=== PATIENT | male | born 1985 | race Caucasian/White ===

== ENCOUNTER 2022-11-15 03:31 | Emergency (ER) | payer MEDICAID, SELFPAY ==
[2022-11-15 03:40] VITALS: BP 133/80; PULSE 76; RESP 16; TEMP 36.4; O2SAT 97; BMI 33.6
--- NOTE | 2022-11-15 03:45 | ED.GENADUL1 ---
HPI - General Adult General Chief complaint: Shortness of Breath/Dyspnea Stated complaint: dental pain Time Seen by Provider: 11/15/22 03:45 Source: patient Mode of arrival: walk-in Limitations: no limitations History of Present Illness HPI narrative: the patient have multiple dental problems and he presented to the Emergency Room with dental pain mentioned also that he has been complaining of nasal congestion and cough for the last few days He is a smoker of less than one pack per day, and chin that he have an irritative cough Review of systems otherwise negative Related Data Previous Rx's Medication Instructions Recorded amoxicillin 875 mg-potassium 1 tab PO BID #14 tabs 11/15/22 clavulanate 125 mg tablet ibuprofen 600 mg tablet 600 mg PO Q8H PRN pain #20 tabs 11/15/22 prednisone 50 mg tablet 50 mg PO DAILY 3 days #3 tabs 11/15/22 Allergies Allergy/AdvReac Type Severity Reaction Status Date / Time No Known Drug Allergies Allergy Verified 11/15/22 03:44 Review of Systems ROS Status of ROS 10 or more systems reviewed and unremarkable except as noted in history and below PFSH PFS Social History Smoking status: Current every day smoker Exam Narrative Exam Narrative: Nurses notes and vital signs reviewed and patient is not hypoxic. General: Well-appearing and in no apparent distress. Skin: Warm, dry, no pallor noted. No rash. Head: Normocephalic, atraumatic Dental : the patient have a very poor dental tympanic membranes with multiple decayed tooth he also has a decayed #30 and note #29 in addition to tooth #5 and six. Neck: Supple, non-tender. Eye: Pupils are equal, round and EOMI. No scleral icterus. Ears, Nose, Mouth, and Throat: TM are clear, no nasal mucosal hypertrophy. Oral mucosa is moist, no posterior oropharynx erythema, uvula is mid-line Cardiovascular: Regular Rate and Rhythm without murmur, gallop or rub. Respiratory: No accessory muscle use or respiratory distress. Lungs are clear to auscultation, no wheezing, rales or rhonchi Chest Wall: no tenderness Back: No midline thoracic or lumbar vertebral tenderness. No CVA tenderness Musculoskeletal: normal ROM, no calf or popliteal tenderness, no lower extremity edema/swelling GI: Abdomen is soft, non-distended. Normal bowel sounds. No masses appreciated. No tenderness to palpation. No rebound, guarding, or rigidity noted. Neurological: A&O x4. No cranial nerve dysfunction observed. No truncal ataxia. Moves all extremities. Sensation intact. Psychiatric: Cooperative and interactive. Normal mood and affect. Constitutional Vital Signs - 24 hr 11/15/22 03:40 Temperature 97.5 F L Pulse Rate [Monitor] 76 Respiratory Rate 16 Blood Pressure [Left Arm] 133/80 H Pulse Oximetry 97 Oxygen Delivery Method Room Air Course Vital Signs Vital signs: Vital Signs Temperature 97.5 F L 11/15/22 03:40 Pulse Rate 76 11/15/22 03:40 Respiratory Rate 16 11/15/22 03:40 Blood Pressure 133/80 H 11/15/22 03:40 Pulse Oximetry 97 11/15/22 03:40 Oxygen Delivery Method Room Air 11/15/22 03:40 Temperature 97.5 F L 11/15/22 03:40 Pulse Rate 76 11/15/22 03:40 Respiratory Rate 16 11/15/22 03:40 Blood Pressure 133/80 H 11/15/22 03:40 Pulse Oximetry 97 11/15/22 03:40 Oxygen Delivery Method Room Air 11/15/22 03:40 Medical Decision Making [facility] Narrative Medical decision making narrative: for the patient that the pain he'll be treated in the Emergency Room with the local lidocaine in addition to Augmentin and ibuprofen to go home with for the pain The patient also will be treated for his cough and bronchitis with prednisone in addition to continue the Mucinex The patient is to followup with primary care physician in next 2-3 days or to return to the emergency department should any of the signs or symptoms worsen or new symptoms develop. The patient agrees with the following Diagnosis and Treatment plan and the patient will be discharged home. Discharge Plan Discharge Chief Complaint: Shortness of Breath/Dyspnea Clinical Impression: Dental infection, Bronchitis Patient Disposition: Home, Self-Care Time of Disposition Decision: 04:00 Mode of Transportation: Private Vehicle Prescriptions / Home Meds: New amoxicillin-pot clavulanate 875-125 mg tablet 1 tab PO BID Qty: 14 0RF prednisone 50 mg tablet 50 mg PO DAILY 3 Days Qty: 3 0RF ibuprofen 600 mg tablet 600 mg PO Q8H PRN (Reason: pain) Qty: 20 0RF Discontinued ibuprofen [IBU] 800 mg tablet 800 mg PO Q8H PRN (Reason: pain) Instructions: Dental Abscess (ED), Acute Bronchitis (ED) Stand Alone Forms: Portal Instructions Referrals: Physician,Non-Staff, MD [Primary Care Provider] - 1 week Follow Up Appointments: Dental referral
[2022-11-15] MEDS: KETOROLAC TROMETHAMINE 30 MG/ML VIAL IM (04:47)
== END 2022-11-15 04:55 | disposition home or self-care (01) ==
PROVIDERS: Emergency Provider Emergency Medicine
DX: J40 Bronchitis, not specified as acute or chronic (principal); K04.7 Periapical abscess without sinus; F17.210 Nicotine dependence, cigarettes, uncomplicated
CPT/HCPCS: 96372; 99284

== ENCOUNTER 2022-12-21 19:17 | Emergency (ER) | payer MEDICAID, SELFPAY ==
[2022-12-21 19:20] VITALS: BP 127/70; PULSE 63; RESP 18; TEMP 36.4; O2SAT 97; BMI 33.1
--- NOTE | 2022-12-21 19:35 | XR_ITS ---
The [address] [address] Patient Name: DORIS VEGA MRN: [id number] date: 1985 Sex: M Assigned Patient Location: ER Current Patient Location: ER Accession/Order Number: [id number] Exam Date: 12/21/2022 19:53 Report Date: 12/21/2022 20:41 At the request of: FILI OSBORN Procedure: XR ribs RT min 3V w CXR1V IMAGES REVIEWED: XR hand LT min 3V, XR ribs RT min 3V w CXR1V COMPARISON: None available. CLINICAL INDICATION: Left hand pain, cough, right rib pain FINDINGS/IMPRESSION: 1. No evidence of acute osseous abnormality of the left hand. 2. No acute displaced right rib fractures. No evidence of acute cardiopulmonary abnormality. Electronically authenticated by: MAXIMINO AGUILAR Date: 12/21/2022 20:41
--- NOTE | 2022-12-21 19:35 | XR_ITS ---
The [address] [address] Patient Name: DORIS VEGA MRN: [id number] date: 1985 Sex: M Assigned Patient Location: ER Current Patient Location: ER Accession/Order Number: [id number] Exam Date: 12/21/2022 19:53 Report Date: 12/21/2022 20:41 At the request of: FILI OSBORN Procedure: XR hand LT min 3V IMAGES REVIEWED: XR hand LT min 3V, XR ribs RT min 3V w CXR1V COMPARISON: None available. CLINICAL INDICATION: Left hand pain, cough, right rib pain FINDINGS/IMPRESSION: 1. No evidence of acute osseous abnormality of the left hand. 2. No acute displaced right rib fractures. No evidence of acute cardiopulmonary abnormality. Electronically authenticated by: MAXIMINO AGUILAR Date: 12/21/2022 20:41
--- NOTE | 2022-12-21 19:35 | ECG_ITS ---
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
[2022-12-21 19:43] VITALS: PULSE 67
[2022-12-21] MEDS: KETOROLAC TROMETHAMINE 60 MG/2 ML VIAL IM (20:01)
== END 2022-12-21 21:02 | disposition home or self-care (01) ==
PROVIDERS: Emergency Provider Internal Medicine
DX: R07.89 Other chest pain (principal); R05.9 Cough, unspecified; S60.222A Contusion of left hand, initial encounter; W22.8XXA Striking against or struck by other objects, initial encounter; Z79.899 Other long term (current) drug therapy; F17.210 Nicotine dependence, cigarettes, uncomplicated
CPT/HCPCS: 71101; 73130; 93005; 96372; 99285

== ENCOUNTER 2023-05-29 17:23 | Emergency (ER) | payer MEDICAID, SELFPAY ==
[2023-05-29 17:30] VITALS: BP 115/76; PULSE 77; RESP 12; TEMP 36.4; O2SAT 100; BMI 32.3
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
[2023-05-29] MEDS: AMOXICILLIN/POTASSIUM CLAV 1 TAB TABLET PO (18:57)
== END 2023-05-29 19:03 | disposition home or self-care (01) ==
PROVIDERS: Emergency Provider Emergency Medicine; PCP Internal Medicine
DX: S60.221A Contusion of right hand, initial encounter (principal); S61.411A Laceration without foreign body of right hand, initial encounter; Z79.899 Other long term (current) drug therapy; F17.210 Nicotine dependence, cigarettes, uncomplicated; Y04.2XXA Assault by strike against or bumped into by another person, initial encounter
CPT/HCPCS: 73130; 99283

== ENCOUNTER 2023-07-03 18:20 | Emergency (ER) | payer MEDICAID, SELFPAY ==
--- OUTSIDE RECORDS SUMMARY | 2023-07-03 18:28 | XMS_ITS | CCD ---
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 prevent stiffness and swelling. ? Return to your normal activities as told by your health care provider. Ask your health care provider what activities are safe for you. ? Ask your health care provider when it is safe for you to drive if you have a sling or brace on your shoulder. ? If you were shown how to do any exercises, do them as told by your health care provider. General instructions ? If directed, put ice on the affected area. ? Put ice in a plastic bag. ? Place a towel between your skin and the bag. ? Leave the ice on for 20 minutes, 2?3 times a day. ? Take rnwq-lxq-lkumtvx and prescription medicines only as told by your health care provider. ? Do not use any products that contain nicotine or tobacco, such as cigarettes, e-cigarettes, and chewing tobacco. These can delay healing. If you need help quitting, ask your health care provider. ? Keep all follow-up visits as told by your health care provider. This is important. Contact a health care provider if: ? Your pain gets worse. ? Your pain is not relieved with medicines. ? You have increased redness or swelling. Get help right away if: ? You have a fever. ? You cannot move your arm or shoulder. ? You develop severe numbness or tingling in your arm, hand, or fingers. ? Your arm, hand, or fingers feel cold and turn blue, white, or wilburn. Summary ? A shoulder sprain is a partial or complete tear in one of the tough, fiber-like tissues (ligaments) in the shoulder. ? This condition may be caused by a fall, a hit to the shoulder, or a twist of the arm. ? Treatment usually includes rest, ice, and pain medicine as needed. ? If you have a sling or brace, wear it as told by your health care provider. Remove it only as told by your health care provider. This information is not intended to replace advice given to you by your health care provider. Make sure you discuss any questions you have with your health care provider. Document Revised: 02/11/2022 Document Reviewed: 02/11/2022 [employer] Patient Education ? 2022 [employer] Normal [facility] ED Patient Summaryon 023 ED Patient Summary [place] [id number] Patient Discharge Instructions Person Information Name: DORIS COCHRAN Age: 37 Years Arrival Date: 01/31/2023 08:40:38 Discharge Diagnosis: Shoulder strain Primary Care Physician: SHAIKH JIMÉNEZ Provider Information Primary Provider: David Weathers M.D. Advanced Acting Section Chief:Michele Suazo PA-C The exam and treatment you received in the Emergency Department were for an urgent problem and are not intended as complete care. It is important that you follow up with a doctor, nurse practitioner, or physician?s physician assistant surgery for ongoing care. If your symptoms become worse or you do not improve as expected and you are unable to reach your usual health care provider, you should return to the Emergency Department. We are available 24 hours a day. DORIS COCHRAN has been given the following list of patient education materials, prescriptions and follow-up instructions: Follow-up Instructions: With: Address: When: SHAIKH TINO [address] [place], [place] [phone] [employer] (1) In 3 days 02/03/2023 In the event that this physician does not participate in your insurance network, please consult with your insurance company to find a nearby participating provider. Patient Education Materials: Shoulder Sprain A MESSAGE TO ALL PATIENTS REGARDING OPIOIDS PRESCRIPTION OPIOIDS: WHAT YOU NEED TO KNOW Prescription opioids can be used to help relieve qeyjumeu-gg-xgxzlc pain and are often prescribed following a surgery or injury, or for certain health conditions. These medications can be an important part of the treatment but also come with serious risks. It is important to work with your healthcare provider to make sure you are getting the safest, most effective care. WHAT ARE THE RISKS AND SIDE EFFECTS OF OPIOID USE? Prescription opioids carry serious risks of addiction and overdose, especially with prolonged use. An opioid overdose, often marked by slowed breathing, can cause sudden . The use of prescription opioids can have a number of side effects as well, even when taken as directed: ? Tolerance?meaning you might need to take more of the medication for the same pain relief ? Physical dependence?meaning you have symptoms of withdrawal when a medication is stopped ? Increased sensitivity to pain ? Constipation ? Nausea, vomiting, and dry mouth ? Sleepiness and dizziness ? Confusion ? Depression ? Low levels of testosterone that can result in lower sex drive, energy, and strength ? Itching and sweating RISKS ARE GREATER WITH: ? History of drug misuse, substance use disorder, or overdose ? Mental health conditions (such as depression or anxiety) ? Sleep apnea ? Older age (65 years and older) ? Avoid alcohol while taking prescription opioids. Also, unless specifically advised by your health care provider, medications to avoid include: ? Benzodiazepines (such as Xanax or Valium) ? Muscle relaxants (such as Soma or Flexeril) ? Hypnotics (such as Ambien or Lunesta) ? Other prescription opioids KNOW YOUR OPTIONS Talk to your health care provider about ways to manage your pain that don?t involve prescription opioids. Some of these options may actually work better and have fewer risks and side effects. Options may include: ? Pain relievers such as acetaminophen, ibuprofen, and naproxen ? Some medication that are also used for depression or seizures ? Physical therapy and exercise ? Cognitive behavioral therapy, a psychological, goal-directed approach, in which patients learn how to modify physical, behavioral, and emotional triggers of pain and stress. IF YOU ARE PRESCRIBED OPIOIDS FOR PAIN: ? Never take opioids in greater amounts or more often than prescribed. ? Follow up with your primary health care provider. o Work together to create a plan on how to manage your pain. o Talk about ways to help manage your pain that don?t involve prescription opioids. o Talk about any and all concerns and side effects. ? Help prevent misuse and abuse o Never sell or share prescription opioids. o Never use another person?s prescription opioids. ? Store prescription opioids in a secure place and out of reach of others (this may include visitors, children, friends, and family). ? Safely dispose of unused prescription opioids: Find your community drug take-back program or your pharmacy mail-back program, or flush them down the toilet, following guidance from the Food and Drug Administration (www.fda.gov/Drugs/Res ourcesForYou). ? Visit www.cdc.gov/drugoverdo se to learn about the risks of opioids abuse and overdose. ? If you believe you may be struggling with addiction, tell your health live in caregiver and ask for guidance or call [facility] National Helpline at 0-822-750-HSUA. v Source: US Department of Health (more content not included)... Normal [facility] XR Shoulder Complete Righton 01-31-2023 XR Shoulder Complete Right Exam Date/Time: 01/31/2023 09:35 EDT Reason for Exam: Pain, Traumatic Report IMPRESSION: No acute osseous findings. EXAMINATION/TECHNIQUE: XR Shoulder Complete Right HISTORY: Right shoulder pain. COMPARISON: None RESULT: No acute fracture. No dislocation. Glenohumeral joint space maintained. Mild degenerative changes of the acromioclavicular joint. Visualized lung/thorax clear. No other significant abnormality. Ordering Provider: Michele Suazo FINAL REPORT Dictated: 01/31/2023 3:08 pm Orville SILVER, Giuseppe Schwartz Signed (Electronic Signature): 01/31/2023 3:08 pm Signed by: Giuseppe Jacinto MD Transcribed by: ESTEBAN Technologist: KIRSTIE Technical Comments Radiation Dose: Ka,r in mGy = . DAP = . Normal [facility] AMYLASEon 12-02-2021 Amylase [Catalytic activity/Vol] 33 U/L Normal 25-115 [facility] Comment on above: Performed By: #### A MY, LIPA, CMP #### [facility] [address] [place] [address] Dr. Jenae Alvares CBC AUTO DIFFon 12-02-2021 BASO # 0.0 103/ul Normal 0.0-0.1 [facility] Comment on above: Performed By: #### C BC #### [facility] [address] [place] [address] Dr. Jenae Alvares Basophils/100 WBC (Bld) 0.0 % Critically low 0.2-2.0 [facility] Comment on above: Performed By: #### C BC #### [facility] [address] [place] [address] Dr. Jenae Alvares EO # 0.0 103/ul Normal 0.0-0.7 [facility] Comment on above: Performed By: #### C BC #### [facility] [address] [place] [address] Dr. Jenae Alvares Eosinophils/100 WBC (Bld) 0.5 % Critically low 0.9-7.0 [facility] Comment on above: Performed By: #### C BC #### [facility] [address] [place] [address] Dr. Jenae Alvares Erythrocyte distribution width (RBC) [Ratio] 13.3 % Normal 11.0-15.0 [facility] Comment on above: Performed By: #### C BC #### [facility] [address] [place] [address] Dr. Jenae Alvares Hematocrit (Bld) [Volume fraction] 42.2 % Normal 42.0-54.0 [facility] Comment on above: Performed By: #### C BC #### [facility] [address] [place] [address] Dr. Jenae Alvares Hemoglobin (Bld) [Mass/Vol] 14.5 g/dL Normal 14.0-18.0 [facility] Comment on above: Performed By: #### C BC #### [facility] [address] [place] [address] Dr. Jenae Alvares IG # 0.01 10e3/ul Normal 0.00-0.03 [facility] Comment on above: Performed By: #### C BC #### [facility] [address] [place] [address] Dr. Jenae Alvares IG % 0.2 % Normal 0.0-0.5 [facility] Comment on above: Performed By: #### C BC #### [facility] [address] [place] [address] Dr. Jenae Alvares LYMPH # 1.4 103/ul Normal 1.2-3.8 [facility] Comment on above: Performed By: #### C BC #### [facility] [address] [place] [address] Dr. Jenae Alvares Lymphocytes/100 WBC (Bld) 24.7 % Normal 20.5-60.0 [facility] Comment on above: Performed By: #### C BC #### [facility] [address] [place] [address] Dr. Jenae Alvares MANUAL DIFF REQ NO Normal [facility] Comment on above: Performed By: #### C BC #### [facility] [address] [place] [address] Dr. Jenae Alvares MCH (RBC) [Entitic mass] 31.4 pg Normal 25.9-34.0 [facility] Comment on above: Performed By: #### C BC #### [facility] [address] [place] [address] Dr. Jenae Alvares MCHC (RBC) [Mass/Vol] 34.4 g/dL Normal 29.9-35.2 [facility] Comment on above: Performed By: #### C BC #### [facility] [address] [place] [address] Dr. Jenae Alvares MCV (RBC) [Entitic vol] 91.3 fL Normal 80.0-94.0 [facility] Comment on above: Performed By: #### C BC #### [facility] [address] [address] [address] Jenae Alvares MONO # 0.4 103/ul Normal 0.3-0.8 [facility] Comment on above: Performed By: #### C BC #### [facility] [address] [address] [address] Jenae Alvares Monocytes/100 WBC (Bld) 7.2 % Normal 1.7-12.0 [facility] Comment on above: Performed By: #### C BC #### [facility] [address] [place] [address] Dr. Jenae Alvares NEUT # 3.7 103/ul Normal 1.4-6.5 [facility] Comment on above: Performed By: #### C BC #### [facility] [address] [place] [address] Dr. Jenae Alvares Neutrophils/100 WBC (Bld) 67.4 % Normal 43.0-75.0 [facility] Comment on above: Performed By: #### C BC #### [facility] [address] [place] [address] Dr. Jenae Alvares Platelet mean volume (Bld) [Entitic vol] 12.2 fL Normal 9.5-13.5 [facility] Comment on above: Performed By: #### C BC #### [facility] [address] [place] [address] Dr. Jenae Alvares PLT 121 103/ul Critically low 150-450 [facility] Comment on above: Performed By: #### C BC #### [facility] [address] [address] [address] Jenae Alvares RBC 4.62 106/ul Critically low 4.70-6.10 [facility] Comment on above: Performed By: #### C BC #### [facility] [address] [place] [address] Dr. Jenae Alvares WBC 5.5 103/ul Normal 4.0-11.0 [facility] Comment on above: Performed By: #### C BC #### [facility] [address] [place] [address] Dr. Jenae Alvares LIPASEon 12-02-2021 Lipase [Catalytic activity/Vol] 86.0 U/L Normal 73.0-393.0 [facility] Comment on above: Performed By: #### A MY, LIPA, CMP #### [facility] [address] [place] [address] Dr. Jenae Alvares PROF 14(COMP METB)on 022 Albumin [Mass/Vol] 3.7 g/dL Normal 3.4-5.0 [facility] Comment on above: Performed By: #### A MY LIPA, CMP #### [facility] [address] [place] [address] Dr. Jenae Alvares Albumin/Globulin [Mass ratio] 1.0 {ratio} Normal [facility] Comment on above: Performed By: #### A MY, LIPA, CMP #### [facility] [address] [place] [address] Dr. Jenae Alvares ALP [Catalytic activity/Vol] 154 U/L Critically high 46-116 [facility] Comment on above: Performed By: #### A MY, LIPA, CMP #### [facility] [address] [place] [address] Dr. Jenae Alvares ALT [Catalytic activity/Vol] 48 U/L Normal 16-63 [facility] Comment on above: Performed By: #### A MY, LIPA, CMP #### [facility] [address] [place] [address] Dr. Jenae Alvares Anion gap [Moles/Vol] 11.0 mmol/L Normal [facility] Comment on above: Performed By: #### A MY, LIPA, CMP #### [facility] [address] [place] [address] Dr. Jenae Alvares AST [Catalytic activity/Vol] 25 U/L Normal 15-37 [facility] Comment on above: Performed By: #### A MY, LIPA, CMP #### [facility] [address] [place] [address] Dr. Jenae Alvares Bilirubin [Mass/Vol] 0.4 mg/dL Normal 0.2-1.0 [facility] Comment on above: Performed By: #### A TUTU VERDEA, CMP #### [facility] [address] [place] [address] Dr. Jenae Alvares Calcium [Mass/Vol] 8.6 mg/dL Normal 8.5-10.1 [facility] Comment on above: Performed By: #### A AMMON LIPA, CMP #### [facility] [address] [place] [address] Dr. Jenae Alvares Chloride [Moles/Vol] 105 mmol/L Normal 98-107 [facility] Comment on above: Performed By: #### A AMMON LIPA, CMP #### [facility] [address] [place] [address] Dr. Jenae Alvares CO2 [Moles/Vol] 26.9 mmol/L Normal 21.0-32.0 [facility] Comment on above: Performed By: #### A AMMON LIPA, CMP #### [facility] [address] [place] [address] Dr. Jenae Alvares Creatinine [Mass/Vol] 1.14 mg/dL Normal 0.70-1.30 [facility] Comment on above: Performed By: #### A AMMON LIPA, CMP #### [facility] [address] [place] [address] Dr. Jenae Alvares EGFR-AF MOSOTHO >60 Normal >=60 [facility] Comment on above: Performed By: #### A AMMON LIPA, CMP #### [facility] [address] [place] [address] Dr. Jenae Alvares EGFR-NON AF MOSOTHO >60 Normal >=60 [facility] Comment on above: Performed By: #### A AMMON LIPA, CMP #### [facility] [address] [place] [address] Dr. Jenae Alvares Globulin (S) [Mass/Vol] 3.8 g/dL Normal [facility] Comment on above: Performed By: #### A AMMON LIPA, CMP #### [facility] [address] [address] [address] Jenae Alvares Glucose [Mass/Vol] 96 mg/dL Normal 74-106 [facility] Comment on above: Performed By: #### A MY LIPA, CMP #### [facility] [address] [address] [address] Jenae Alvares Potassium [Moles/Vol] 3.9 mmol/L Normal 3.5-5.1 [facility] Comment on above: Performed By: #### A MY LIPA, CMP #### [facility] [address] [address] [address] Jenae Alvares Protein [Mass/Vol] 7.5 g/dL Normal 6.4-8.2 [facility] Comment on above: Performed By: #### A AMMON LIPA, CMP #### [facility] [address] [address] [address] Jenae Alvares Sodium [Moles/Vol] 139 mmol/L Normal 136-145 [facility] Comment on above: Performed By: #### A AMMON LIPA, CMP #### [facility] [address] [address] [address] Jenae Alvares Urea nitrogen [Mass/Vol] 11.0 mg/dL Normal 7.0-18.0 [facility] Comment on above: Performed By: #### A AMMON LIPA, CMP #### [facility] [address] [address] [address] Jenae Alvares Urea nitrogen/Creatinine [Mass ratio] 9.6 mg/mg Normal [facility] Comment on above: Performed By: #### A AMMON LIPA, CMP #### [facility] [address] [address] [address] Jenae Alvares COVID19 ([facility])on 08-14-2021 SARS-CoV-2 (COVID-19) RNA RIP+probe Ql (Unsp spec) Not detected Normal NOT-DETECTED [facility] Comment on above: Order Comment: Is th is test for diagnosis or screening?->Screening Result Comment: Nega tive results do not preclude SARS-CoV-2 infection and should not be used as the sole basis for treatment or other patient management decisions. Optimum specimen types and timing for peak viral levels during infections caused by SARS-CoV-2 has not been determined. The possibility of a false negative result should especially be considered if the patient's recent exposures or clinical presentation suggest that SARS-CoV-2 infection is probable, and diagnostic tests for other causes of illness (e.g., other respiratory illness) are negative. Collection of a new specimen and re-testing may be necessary if the patient is critically ill or clinically deteriorating. \[id number]\This test was performed using real time PCR for qualitative detection of SARS-CoV-2 nucleic acid and has been approved as Emergency Use Authorization (EAU) for the qualitative detection of SARS-CoV-2 nucleic acid. \X0D0A\Resulting Lab: [facility] Performed By: #### C [id number] #### [place] [address] Ph. [phone] XR COMPARISON OF OUTSIDE CLIVE MSon 08-06-2021 XR COMPARISON OF OUTSIDE FILMS RADRPT There is no result for this study. This is a placeholder for comparison films only. Final result Normal [facility] [id number] 07-01-2021 SARS-CoV-2 (COVID-19) RNA RIP+probe Ql (Unsp spec) Normal [facility] Comment on above: Performed By: #### C OVID #### [facility] [employer] [facility] [place] [address] Pillow Cleaner: Chuck Bradley MD [facility] [address] [place] [address] Pillow Cleaner: Evin Poole MD SARS-CoV-2 (COVID-19) RNA RIP+probe Ql (Unsp spec) Not detected Normal [facility] Comment on above: Result Comment: The specimen is NEGATIVE for SARS-CoV-2, the novel coronavirus associated with COVID-19. A negative result does not rule out COVID-19. Regina SARS-CoV-2 for use on the [employer] is a real-time RT-PCR test intended for the qualitative detection of nucleic acids from SARS-CoV-2 in clinician-collected nasal, nasopharyngeal, and oropharyngeal swab specimens from individuals who meet COVID-19 clinical and/or epidemiological criteria. Regina SARS-CoV-2 is for use only under Emergency Use Authorization (EUA) in laboratories certified under Clinical Laboratory Improvement Amendments of 1988 (CLIA), 42 U.S.C. ?263a, that meet requirements to perform high or moderate complexity tests. An individual without symptoms of COVID-19 and who is not shedding SARS-CoV-2 virus would expect to have a negative (not detected) result in this assay. Fact sheet for Healthcare Providers: https://www.fda.gov/media/414777/download Fact sheet for Patients: https://www.fda.gov/media/714045/download METHODOLOGY: RT-PCR Performed By: #### C OVID #### [facility] [address] [place] [address] Pillow Cleaner: Chuck Bradley MD [facility] [address] [place] [address] [place] [address] Pillow Cleaner: Evin Poole MD COVID-19, Rapidon 06-30-2021 SARS-CoV-2 (COVID-19) RNA RIP+probe Ql (Unsp spec) Not detected Not Detected [facility] Comment on above: Rapid NAAT: The specimen is NEGATIVE for SARS-CoV-2, the novel coronavirus associated with COVID-19. The ID NOW COVID-19 assay is designed to detect the virus that causes COVID-19 in patients with signs and symptoms of infection who are suspected of COVID-19. An individual without symptoms of COVID-19 and who is not shedding SARS-CoV-2 virus would expect to have a negative (not detected) result in this assay. Negative results should be treated as presumptive and, if inconsistent with clinical signs and symptoms or necessary for patient management, should be tested with an alternative molecular assay. Negative results do not preclude SARS-CoV-2 infection and should not be used as the sole basis for patient management decisions. Fact sheet for Healthcare Providers: https://www.fda.gov/media/415294/download Fact sheet for Patients: https://www.fda.gov/media/944262/download Methodology: Isothermal Nucleic Acid Amplification Specimen Description .NASOPHARYNGEAL SWAB [facility] [id number] 06-30-2021 SARS-CoV-2 (COVID-19) RNA RIP+probe Ql (Unsp spec) .NASOPHARYNGEAL SWAB Normal [facility] Comment on above: Performed By: #### C OVID #### [facility] [address] [place], [place] [id number] Pillow Cleaner: Chuck Bradley MD [facility] [address] [place] [address] Pillow Cleaner: Evin Poole MD SARS-CoV-2 (COVID-19) RNA RIP+probe Ql (Unsp spec) Not detected Normal NOTDET [facility] Comment on above: Result Comment: Rapid NAAT: The specimen is NEGATIVE for SARS-CoV-2, the novel coronavirus associated with COVID-19. The ID NOW COVID-19 assay is designed to detect the virus that causes COVID-19 in patients with signs and symptoms of infection who are suspected of COVID-19. An individual without symptoms of COVID-19 and who is not shedding SARS-CoV-2 virus would expect to have a negative (not detected) result in this assay. Negative results should be treated as presumptive and, if inconsistent with clinical signs and symptoms or necessary for patient management, should be tested with an alternative molecular assay. Negative results do not preclude SARS-CoV-2 infection and should not be used as the sole basis for patient management decisions. Fact sheet for Healthcare Providers: https://www.fda.gov/media/544532/download Fact sheet for Patients: https://www.fda.gov/media/200562/download Methodology: Isothermal Nucleic Acid Amplification Performed By: #### C OVRB #### [facility] [address] [place] [address] Pillow Cleaner: Evin Poole MD XR LUMBAR SPINE (MIN 4 VIEWS )on 06-13-2021 XR LUMBAR SPINE (MIN 4 VIEWS) RADRPT EXAM: XR LUMBAR SPINE (MIN 4 VIEWS) HISTORY: TECH NOTES: Chronic Lumbar pain Nki LN-Zij-Emtl-Flex-Ext per ordering provider Low back pain due to bilateral sciatica COMPARISON: 05/16/2021 TECHNIQUE: 5 views lumbar spine FINDINGS: 5 nonrib-bearing lumbar vertebrae. Normal lumbar lordosis without listhesis. Vertebral body heights are maintained. No acute fracture identified. No dynamic instability identified. Visualized bony pelvis is congruent. The bowel gas pattern is nonobstructive. Report electronically signed by: Dr. Ras Olson IMPRESSION: No dynamic instability Chronic Lumbar pain Nki [id number]-Ext per ordering provider Interpreted by: Ras Olson MD Signed by: Ras Olson MD 06/13/21 Final result Normal [facility] Comment on above: Order Comment: AP/la teral/Spot with flew/ext MRI CERVICAL SPINE WO CONTRA STon 05-16-2021 MRI CERVICAL SPINE WO CONTRAST RADRPT EXAM TYPE: MRI CERVICAL SPINE WO CONTRAST, MRI LUMBAR SPINE WO CONTRAST EXAM DATE AND TIME: 05/16/2021 9:34 AM EST INDICATION: Neck and back pain with radiculopathy COMPARISON: Correlated with CT abdomen and pelvis 05/28/2012 TECHNIQUE: MR imaging of the cervical spine and lumbar was performed without contrast. FINDINGS: Cervical spine: Study degraded by motion. There is normal cervical lordosis. No subluxation. Vertebral body heights are maintained. Bone marrow signal is unremarkable. No prevertebral soft tissue swelling. The cervical spinal cord is normal in size and signal characteristics. Cerebellar tonsils are in normal location. Findings by level: C2-C3: No disc herniation. No central canal or foraminal narrowing. C3-C4: No disc herniation. No central canal or foraminal narrowing. C4-C5: No disc herniation. No central canal or foraminal narrowing. C5-C6: No disc herniation. No central canal or foraminal narrowing. C6-C7: No disc herniation. No central canal or foraminal narrowing. C7-T1: No disc herniation. No central canal or foraminal narrowing. Lumbar spine: Study degraded by motion. 5 nonrib-bearing lumbar vertebrae. Normal lumbar lordosis without significant listhesis. Vertebral body heights are maintained. No acute or aggressive osseous abnormality identified. Visualized bony pelvis is congruent. Limited evaluation of the abdominopelvic viscera is unremarkable. L1-L2: No focal disc herniation identified. No significant spinal canal or neural foraminal stenosis. L2-L3: Minimal broad-based disc bulge without significant spinal canal or neural foraminal stenosis. L3-L4: Broad-based disc bulge without severe spinal canal stenosis. Mild to moderate bilateral neural foraminal stenosis secondary to disc osteophyte complex and facet arthropathy. L4-L5: Broad-based disc bulge with more focal left foraminal protrusion. No significant spinal canal stenosis. Moderate bilateral neural foraminal stenosis, left greater than right secondary to disc osteophyte complex and facet arthropathy. L5-S1: No focal disc herniation identified. No significant spinal canal stenosis. Mild bilateral neural foraminal stenosis, left greater than right secondary to disc osteophyte complex and facet arthropathy. Report electronically signed by: Dr. Ras Olson IMPRESSION: 1. Study degraded by motion. 2. No significant degenerative disc disease identified in the cervical spine. 3. Mild to moderate degenerative disc disease and facet arthropathy involving the lumbar spine, most significant at the L4-L5 level as described above. Bilateral arm numbness for 6 months. NKI Interpreted by: Ras Olson MD Signed by: Ras Olson MD 05/16/21 Final result Normal [facility] MRI LUMBAR SPINE WO CONTRAST on 05-16-2021 MRI LUMBAR SPINE WO CONTRAST RADRPT EXAM TYPE: MRI CERVICAL SPINE WO CONTRAST, MRI LUMBAR SPINE WO CONTRAST EXAM DATE AND TIME: 05/16/2021 9:34 AM EST INDICATION: Neck and back pain with radiculopathy COMPARISON: Correlated with CT abdomen and pelvis 05/28/2012 TECHNIQUE: MR imaging of the cervical spine and lumbar was performed without contrast. FINDINGS: Cervical spine: Study degraded by motion. There is normal cervical lordosis. No subluxation. Vertebral body heights are maintained. Bone marrow signal is unremarkable. No prevertebral soft tissue swelling. The cervical spinal cord is normal in size and signal characteristics. Cerebellar tonsils are in normal location. Findings by level: C2-C3: No disc herniation. No central canal or foraminal narrowing. C3-C4: No disc herniation. No central canal or foraminal narrowing. C4-C5: No disc herniation. No central canal or foraminal narrowing. C5-C6: No disc herniation. No central canal or foraminal narrowing. C6-C7: No disc herniation. No central canal or foraminal narrowing. C7-T1: No disc herniation. No central canal or foraminal narrowing. Lumbar spine: Study degraded by motion. 5 nonrib-bearing lumbar vertebrae. Normal lumbar lordosis without significant listhesis. Vertebral body heights are maintained. No acute or aggressive osseous abnormality identified. Visualized bony pelvis is congruent. Limited evaluation of the abdominopelvic viscera is unremarkable. L1-L2: No focal disc herniation identified. No significant spinal canal or neural foraminal stenosis. L2-L3: Minimal broad-based disc bulge without significant spinal canal or neural foraminal stenosis. L3-L4: Broad-based disc bulge without severe spinal canal stenosis. Mild to moderate bilateral neural foraminal stenosis secondary to disc osteophyte complex and facet arthropathy. L4-L5: Broad-based disc bulge with more focal left foraminal protrusion. No significant spinal canal stenosis. Moderate bilateral neural foraminal stenosis, left greater than right secondary to disc osteophyte complex and facet arthropathy. L5-S1: No focal disc herniation identified. No significant spinal canal stenosis. Mild bilateral neural foraminal stenosis, left greater than right secondary to disc osteophyte complex and facet arthropathy. Report electronically signed by: Dr. Ras Olson IMPRESSION: 1. Study degraded by motion. 2. No significant degenerative disc disease identified in the cervical spine. 3. Mild to moderate degenerative disc disease and facet arthropathy involving the lumbar spine, most significant at the L4-L5 level as described above. Chronic low back pain and b/l leg pain x years. NKI Interpreted by: Ras Olson MD Signed by: Ras Olson MD 05/16/21 Final result Normal [facility] [id number] 04-26-2021 SARS-CoV-2 (COVID-19) RNA RIP+probe Ql (Unsp spec) Normal [facility] Comment on above: Performed By: #### C OVID #### [facility] [address] [place] [address] Pillow Cleaner: Chuck Bradley MD [facility] [address] [place] [address] Pillow Cleaner: Evin Poole MD SARS-CoV-2 (COVID-19) RNA RIP+probe Ql (Unsp spec) Not detected Normal NOTDET [facility] Comment on above: Result Comment: The specimen is NEGATIVE for SARS-CoV-2, the novel coronavirus associated with COVID-19. A negative result does not rule out COVID-19. [facility] SARS-CoV-2 for use on the Regina Faveous0/8800 Systems is a real-time RT-PCR test intended for the qualitative detection of nucleic acids from SARS-CoV-2 in clinician-collected nasal, nasopharyngeal, and oropharyngeal swab specimens from individuals who meet COVID-19 clinical and/or epidemiological criteria. Regina SARS-CoV-2 is for use only under Emergency Use Authorization (EUA) in laboratories certified under Clinical Laboratory Improvement Amendments of 1988 (CLIA), 42 U.S.C. ?263a, that meet requirements to perform high or moderate complexity tests. An individual without symptoms of COVID-19 and who is not shedding SARS-CoV-2 virus would expect to have a negative (not detected) result in this assay. Fact sheet for Healthcare Providers: https://www.fda.gov/media/051265/download Fact sheet for Patients: https://www.fda.gov/media/645199/download METHODOLOGY: RT-PCR Performed By: #### C OVID #### [address] [address] Pillow Cleaner: Chuck Bradley MD [facility] [address] [place] [address] [place] [address] Pillow Cleaner: Evni Poole MD [id number] 04-25-2021 SARS-CoV-2 (COVID-19) RNA RIP+probe Ql (Unsp spec) .NASOPHARYNGEAL SWAB Normal [facility] Comment on above: Performed By: #### C OVID #### [id number] [place] [address] Pillow Cleaner: Chuck Bradley MD [facility] [address] [place] [address] [place] [address] Pillow Cleaner: Evin Poole MD Strep Screen Group A Throato n 07-16-2019 S. pyogenes Ag IA Ql (Unsp spec) Rapid Strep A negative. A negative Rapid Group A Strep Screen result does not rule out the possibility of Group A Streptococci in the specimen. A Group A Strep DNA test is available upon request. [employer] Phone: Special Requests NOT REPORTED [employer] Phone: Specimen Description .THROAT [employer] Phone: XR CHEST STANDARD (2 VW)on 0 07-16-2019 No acute cardiopulmonary abnormality identified. [employer] Phone: EXAMINATION: TWO XRA Y VIEWS OF THE CHEST 07/16/2019 5:44 pm COMPARISON: 07/14/2019 HISTORY: ORDERING SYSTEM PROVIDED HISTORY: eval for pneumonia TECHNOLOGIST PROVIDED HISTORY: eval for pneumonia FINDINGS: No focal lung consolidation. No pleural effusion or pneumothorax identified. The cardiomediastinal silhouette is normal in size for technique. [employer] Phone: Grupo, Mhpn Incoming Radiant Results From [email or web address] - 07/16/2019 5:52 PM EST EXAMINATION: TWO XRAY VIEWS OF THE CHEST 07/16/2019 5:44 pm COMPARISON: 07/14/2019 HISTORY: ORDERING SYSTEM PROVIDED HISTORY: eval for pneumonia TECHNOLOGIST PROVIDED HISTORY: eval for pneumonia FINDINGS: No focal lung consolidation. No pleural effusion or pneumothorax identified. The cardiomediastinal silhouette is normal in size for technique. IMPRESSION: No acute cardiopulmonary abnormality identified. [employer] Phone: Rapid influenza A/B antigens on 07-14-2019 Direct Exam Positive Abnormal [employer] Phone: Direct Exam Negative [employer] Phone: Interpretation and review of laboratory results Abnormal [employer] Phone: Special Requests NOT REPORTED [employer] Phone: Specimen Description .NASOPHARYNGEAL SWAB [employer] Phone: XR CHEST STANDARD (2 VW)on 0 07-14-2019 Asymmetric left uppe r lung opacity is felt to be superimposition of shadows but early pneumonia is not excluded. Short interval follow-up is advised. [employer] Phone: EXAMINATION: TWO XRA Y VIEWS OF THE CHEST 07/14/2019 3:23 pm COMPARISON: May 16, 2019 HISTORY: ORDERING SYSTEM PROVIDED HISTORY: cough TECHNOLOGIST PROVIDED HISTORY: cough FINDINGS: Asymmetric left upper lung opacity most likely superimposition of shadows but early pneumonia is not excluded. Interstitial prominence diffusely, likely magnified by shallow inspiration and technical differences. No focal consolidation. Heart is not enlarged. [employer] Phone: Grupo, pn Incoming Radiant Results From [employer] - 07/14/2019 3:34 PM EST EXAMINATION: TWO XRAY VIEWS OF THE CHEST 07/14/2019 3:23 pm COMPARISON: May 16, 2019 HISTORY: ORDERING SYSTEM PROVIDED HISTORY: cough TECHNOLOGIST PROVIDED HISTORY: cough FINDINGS: Asymmetric left upper lung opacity most likely superimposition of shadows but early pneumonia is not excluded. Interstitial prominence diffusely, likely magnified by shallow inspiration and technical differences. No focal consolidation. Heart is not enlarged. IMPRESSION: Asymmetric left upper lung opacity is felt to be superimposition of shadows but early pneumonia is not excluded. Short interval follow-up is advised. [employer] Phone: XR CHEST STANDARD (2 VW)Orde red By: Chava Chaidez on 05-16-2019 Unremarkable chest. [employer] Phone: EXAMINATION: TWO XRA Y VIEWS OF THE CHEST 05/16/2019 5:14 pm COMPARISON: 10/24/2018 HISTORY: ORDERING SYSTEM PROVIDED HISTORY: right posterior pain increased after accupunture to rhomboid today TECHNOLOGIST PROVIDED HISTORY: right posterior pain increased after accupunture to rhomboid today FINDINGS: The lungs are without acute focal process. No effusion or pneumothorax. The cardiomediastinal silhouette is normal. The osseous structures are intact without acute process. [employer] Phone: Grupo, Mhpn Incoming Radiant Results From [employer] - 05/16/2019 5:21 PM EST EXAMINATION: TWO XRAY VIEWS OF THE CHEST 05/16/2019 5:14 pm COMPARISON: 10/24/2018 HISTORY: ORDERING SYSTEM PROVIDED HISTORY: right posterior pain increased after accupunture to rhomboid today TECHNOLOGIST PROVIDED HISTORY: right posterior pain increased after accupunture to rhomboid today FINDINGS: The lungs are without acute focal process. No effusion or pneumothorax. The cardiomediastinal silhouette is normal. The osseous structures are intact without acute process. IMPRESSION: Unremarkable chest. [employer] Phone: HCV RNA Qnt-[facility] 9 HepC RNA PCR Qnt-[place] Undetected Normal Undetected [facility] Comment on above: Result Comment: Resu lt in log IU/mL is Undetected. ADDITIONAL INFORMATION The quantification range of this assay is 15 to 100,000,000 IU/mL (1.18 log to 8.00 log IU/mL). Testing was performed using the regina HCV test ([employer] with the regina Faveous0 System. Test Performed by: [place] [address] Pillow Cleaner: Mehran Goode M.D. Ph.D.; CLIA# [id number] Performed By: #### C [id number] #### [place] [address] Ambulatory Patient Education on 04-06-2019 Ambulatory Patient Education Patient Education Materials Name: Doris Cochran Current Date: 04/06/2019 09:08:39 [place] : 1985 The following sheet(s) are the Patient Education Leaflets for Doris Cochran [facility] Addiction: Ask Yourself These Questions Ask yourself the following questions. The answers can help you see where you might have problems caused by substance abuse. Then you can decide whether you're ready to do something about your use. Yes No ? ? Do you ever have trouble remembering things or concentrating on what you're doing because you're thinking about using? ? ? Have you ever broken promises because of your substance use? ? ? Have you ever done things when you were using that you wouldn't normally do? ? ? Have you ever lost a job or had money troubles because of your use? ? ? Do you ever make excuses for your use or lie to hide it? ? ? Does someone make excuses for you when you're hung over? ? ? Do others ever seem embarrassed about your use? ? ? Have your children ever asked you to stop using or been afraid of you when you are using? ? ? Has your spouse or a girlfriend or boyfriend ever left you because of your use? ? ? Have you ever had sexual problems that might be caused by your use? ? ? Have you ever had severe shaking, heard voices, or thought you were seeing things after you've been using? ? ? Have you noticed that you've gotten sick more often as you use more? ? ? Have you tried to quit but found you just couldn't? If you answer Yes to one or more of these questions, you may need to change or stop your substance use. ? 3310-2116 [employer]. [address] [place] [address]. All rights reserved. This information is not intended as a substitute for professional medical care. Always follow your healthcare professional's instructions. Normal [facility] Infectious Disease Office/Cl inic Noteon 04-06-2019 Infectious Disease Office/Clinic Note Chief Complaint Pt states has HCV History of Present Illness Mr. Cochran 33-year-old woman seen for hepatitis C. He started to snorting drugs around age 18 and needles around 22. He was tested previously for hepatitis C in 2016 when he was in residential. He was negative at the time. A recent tests turn up positive. He has been drug-free for 14 months. He does not recall having jaundice. He is on drug court and managing addiction okay. Review of Systems He has some aches and pains of his back and wrists and elbow. No other chronic problems. Physical Exam Vitals & Measurements T: 36.3 ?C (Temporal Artery) BP: 102/74 SpO2: 95 HT: 167 cm WT: 95.6 kg DOSE WT: 95.6 kg BMI: 34.28 Vital signs are okay. HEENT unremarkable. No jaundice. No lymphadenopathy. Lungs are clear. Heart regular rate and rhythm. No murmur. Abdomen is soft nontender. No organomegaly appreciated. Lower extremities without edema. He is alert and oriented. No tremor. Romberg negative. Tandem gait normal. Additional Vitals Peripheral Pulse Rate: 69 bpm BP Position/Location: Sitting, Left arm Assessment/Plan 1. History of hepatitis C virus infection He appears to have had hepatitis C infection in the past but does not show evidence of virus now. We'll repeat the PCR again today. Also check an ultrasound to see how much damage was done. If he is negative PCR today would suggest doing the PCR test one more time next year some time. His hepatitis C antibody test will stay lifelong positive. Ordered: Hepatitis C Virus RNA Detect/Ryzing-IntraStage US Liver + Elastography 2. Opiate addiction Encouraged him on his recovery journey. Warned him that this was most life-threatening problem for him at present. Problem List/Past Medical History Ongoing History of hepatitis C virus infection Opiate addiction Historical No qualifying data Medications cloNIDine 0.1 mg oral tablet gabapentin 300 mg oral capsule Allergies No Known Medication Allergies Social History Alcohol Never Substance Abuse Past Tobacco 10 or more cigarettes (1/2 pack or more)/day in last 30 days Use:. 1 per day. Packs Family History Heart attack: Father. Heart disease: Father. Kidney disease: Mother. Lab Results Laboratory tests done in February showed alkaline phosphatase mildly elevated 146 AST ALT normal albumin and normal creatinine was okay white count hemoglobin and platelets are normal hepatitis C antibody reactive hepatitis C PCR undetectable. Diagnostic Results No qualifying data available (XRay) No qualifying data available (CT) No qualifying data available (Ultrasound) No qualifying data available (MRI) Electronically signed by Vijay Wen MD 04/06/19 09:03 EDT Normal [facility] Provider Letteron 04-06-2019 Provider Letter Jolie Christianson, [facility] [address] [place] [address] Re: Doris Peak Date of Visit: 04/06/[address] Christianson, Thank you for your referral to my office. Attached you will find the most recent office visit note. Please call if you have any questions or concerns. Sincerely, Vijay Wen MD [address] [place] [address], [place] [address] The following document(s) were included in the letter: April 06, 2019 09:01:13 EDT - (04/06/2019) Office Visit Note Normal [facility] MRI LUMBAR SPINE WO CONTRAST on 03-03-2019 Left subarticular di sc bulge effacing descending left L5 nerve root within the lateral recess. Disc bulge at L3-L4 effacing the descending bilateral L4 nerve roots in the lateral recesses. [facility] [place] EXAMINATION: MRI OF THE LUMBAR SPINE WITHOUT CONTRAST, 03/03/2019 1:06 pm TECHNIQUE: Multiplanar multisequence MRI of the lumbar spine was performed without the administration of intravenous contrast. COMPARISON: None HISTORY: ORDERING SYSTEM PROVIDED HISTORY: Lumbar pain FINDINGS: BONES/ALIGNMENT: Straightening of the lumbar lordosis. The vertebral body heights are normal. The signal characteristics of the bone marrow are normal. No bone edema. SPINAL CORD: The conus terminates normally. SOFT TISSUES: No paraspinal mass identified. L1-L2: There is no significant disc herniation, spinal canal stenosis or neural foraminal narrowing. L2-L3: Minimal circumferential disc bulge. Facet and ligamentum flavum hypertrophy. No significant spinal canal narrowing. No significant neural foraminal narrowing. L3-L4: Circumferential disc bulge with facet and ligamentum flavum hypertrophy. Effacement of the descending L4 nerve roots in the lateral recesses. Mild spinal canal narrowing. No significant neural foraminal narrowing. L4-L5: Left subarticular disc bulge effacing the descending left L5 nerve root within the lateral recess. Facet hypertrophy left greater than right. Mild canal narrowing. Moderate left and mild right neural foraminal narrowing. L5-S1: Circumferential disc bulge in close proximity to descending S1 nerve roots in the lateral recesses. No significant spinal canal narrowing. No significant neural foraminal narrowing. [facility] Incoming Radiant Results From [employer] - 03/03/2019 2:42 PM EDT EXAMINATION: MRI OF THE LUMBAR SPINE WITHOUT CONTRAST, 03/03/2019 1:06 pm TECHNIQUE: Multiplanar multisequence MRI of the lumbar spine was performed without the administration of intravenous contrast. COMPARISON: None HISTORY: ORDERING SYSTEM PROVIDED HISTORY: Lumbar pain FINDINGS: BONES/ALIGNMENT: Straightening of the lumbar lordosis. The vertebral body heights are normal. The signal characteristics of the bone marrow are normal. No bone edema. SPINAL CORD: The conus terminates normally. SOFT TISSUES: No paraspinal mass identified. L1-L2: There is no significant disc herniation, spinal canal stenosis or neural foraminal narrowing. L2-L3: Minimal circumferential disc bulge. Facet and ligamentum flavum hypertrophy. No significant spinal canal narrowing. No significant neural foraminal narrowing. L3-L4: Circumferential disc bulge with facet and ligamentum flavum hypertrophy. Effacement of the descending L4 nerve roots in the lateral recesses. Mild spinal canal narrowing. No significant neural foraminal narrowing. L4-L5: Left subarticular disc bulge effacing the descending left L5 nerve root within the lateral recess. Facet hypertrophy left greater than right. Mild canal narrowing. Moderate left and mild right neural foraminal narrowing. L5-S1: Circumferential disc bulge in close proximity to descending S1 nerve roots in the lateral recesses. No significant spinal canal narrowing. No significant neural foraminal narrowing. IMPRESSION: Left subarticular disc bulge effacing descending left L5 nerve root within the lateral recess. Disc bulge at L3-L4 effacing the descending bilateral L4 nerve roots in the lateral recesses. [place], [place] Hepatitis C Antibodyon 02-22 Hepatitis C Ab REACTIVE Abnormal NONREACTIVE [place], [place] Comment on above: The hepatitis C procedure used in our laboratory is a Chemiluminescent test specific for three recombinant HCV antigens. A negative anti-HCV result indicates that the antibodies to hepatitis C virus are not present at this time. Individuals with reactive anti-HCV should be considered infected and infectious until proven otherwise. Confirmation of all equivocal or reactive results is recommended by ordering HCV RNA by PCR. Results reported to the appropriate Health Department Interpretation and review of laboratory results Abnormal [place], [place] Amylaseon 02-21-2019 Amylase [Catalytic activity/Vol] 40 U/L 28 - 100 U/L [place], [place] CBC Auto Differentialon 02-05 Basophils (Bld) [#/Vol] 10*3/uL [place] Basophils/100 WBC (Bld) 0 % 0 - 2 % [place] Differential Type NOT REPORTED [place] Eosinophils (Bld) [#/Vol] 0.04 10*3/uL [place] Eosinophils/100 WBC (Bld) 0 % Low 1 - 4 % [place] Erythrocyte distribution width (RBC) [Ratio] 13.1 % 11.8 - 14.4 % [place] Hematocrit (Bld) [Volume fraction] 43.4 % 40.7 - 50.3 % [place] Hemoglobin (Bld) [Mass/Vol] 15.1 g/dL 13 - 17 g/dL [place] Immature granulocytes (Bld) [#/Vol] 1 % High 0 [place] Immature granulocytes (Bld) [#/Vol] 0.05 10*3/uL [place] Interpretation and review of laboratory results Abnormal [place] Lymphocytes (Bld) [#/Vol] 2.14 10*3/uL [place] Lymphocytes/100 WBC (Bld) 24 % 24 - 43 % [place] MCH (RBC) [Entitic mass] 32.5 pg 25.2 - 33.5 pg [place] MCHC (RBC) [Mass/Vol] 34.8 g/dL 28.4 - 34.8 g/dL [place] MCV (RBC) [Entitic vol] 93.5 fL 82.6 - 102.9 fL [place] Monocytes (Bld) [#/Vol] 0.67 10*3/uL [place] Monocytes/100 WBC (Bld) 8 % 3 - 12 % [place] Platelet mean volume (Bld) [Entitic vol] 12.1 fL 8.1 - 13.5 fL [place] Platelets (Bld) [#/Vol] 146 10*3/uL [place] Platelets (Bld) [#/Vol] NOT REPORTED [place] RBC (Bld) [#/Vol] 4.64 10*6/uL 4.21 - 5.7 7 m/uL [place] RBC morphology finding Nom (Bld) NOT REPORTED [place], [place] Segmented neutrophils/100 WBC (Bld) 67 % High 36 - 65 % [place] Segs Absolute 6.07 [place] WBC (Bld) [#/Vol] 0.0 10*3/uL 0.0 per 100 WBC M [place] WBC (Bld) [#/Vol] 9.0 10*3/uL [place] WBC Morphology NOT REPORTED [place] Comprehensive Metabolic Pane perlita 02-21-2019 Albumin [Mass/Vol] 4.5 g/dL 3.5 - 5.2 g/dL [place] Albumin/Globulin [Mass ratio] 1.3 {ratio} [place] ALP [Catalytic activity/Vol] 146 U/L High 40 - 129 U/L [place] ALT [Catalytic activity/Vol] 39 U/L 5 - 41 U/L [place] Anion gap [Moles/Vol] 13 mmol/L 9 - 17 mmol/L [place] AST [Catalytic activity/Vol] 27 U/L <40 [place] Bilirubin Ql (U) 0.29 mg/dL Low 0.3 - 1.2 mg/dL [place] Bun/Cre Ratio 9 [place] Calcium [Mass/Vol] 9.8 mg/dL 8.6 - 10. 4 mg/dL [place] Chloride [Moles/Vol] 100 mmol/L 98 - 107 mmol/L [place] CO2 [Moles/Vol] 27 mmol/L 20 - 31 mmol/L [place] Creatinine [Mass/Vol] 1.02 mg/dL 0.7 - 1.2 mg/dL [place] GFR >60 >60 mL/min [place] GFR Non- >60 >60 mL/min [place] Glucose [Mass/Vol] 85 mg/dL 70 - 99 mg/dL [place] Interpretation and review of laboratory results Abnormal [place] Potassium [Moles/Vol] 3.7 mmol/L 3.7 - 5.3 mmol/L [place] Protein [Mass/Vol] 8.1 g/dL 6.4 - 8.3 g/dL [place] Sodium [Moles/Vol] 140 mmol/L 135 - 144 mmol/L [place] Urea nitrogen [Mass/Vol] 9 mg/dL 6 - 20 mg/dL [place] Lipaseon 02-21-2019 Lipase [Catalytic activity/Vol] 19 U/L 13 - 60 U/L [place] Metabolic Panelon 02-21-2019 GFR/1.73 sq M predicted among non-blacks MDRD (S/P/Bld) [Vol rate/Area] [place] Comment on above: Average GFR for 30-3 9 years old: 107 mL/min/1.73sq m Chronic Kidney Disease: <60 mL/min/1.73sq m Kidney failure: <15 mL/min/1.73sq m eGFR calculated using average adult body mass. Additional eGFR calculator available at: http://www.ROBAUTO/multiple_crcl_2012.htm Stage 1: Some kidney damage normal GFR Stage 2: Mild kidney damage GFR 60-89 Stage 3: Moderate kidney damage GFR 30-59 Stage 4: Severe kidney damage GFR 15-29 Stage 5: Severe kidney damage GFR <15 ESRD - chronic treatment by dialysis or transplant XR LUMBAR SPINE (MIN 4 VIEWS )on 02-21-2019 No compression fracture or malalignment in the lumbar spine. No significant degenerative change. Transitional segment anatomy at the lumbosacral junction. [place] EXAMINATION: 5 XRAY VIEWS OF THE LUMBAR SPINE 02/21/2019 4:34 pm COMPARISON: None. HISTORY: ORDERING SYSTEM PROVIDED HISTORY: Pain FINDINGS: There is transitional segment anatomy at the lumbosacral junction with suspected lumbarized S1. There is a right-sided pseudoarthrosis. Vertebral body heights and alignment are normal. Disc spaces are preserved. No evidence of spondylolysis or spondylolisthesis. Sacroiliac joints are within normal limits. [place] [employer], [employer] Incoming Radiant Results From [employer] - 02/21/2019 5:02 PM EDT EXAMINATION: 5 XRAY VIEWS OF THE LUMBAR SPINE 02/21/2019 4:34 pm COMPARISON: None. HISTORY: ORDERING SYSTEM PROVIDED HISTORY: Pain FINDINGS: There is transitional segment anatomy at the lumbosacral junction with suspected lumbarized S1. There is a right-sided pseudoarthrosis. Vertebral body heights and alignment are normal. Disc spaces are preserved. No evidence of spondylolysis or spondylolisthesis. Sacroiliac joints are within normal limits. IMPRESSION: No compression fracture or malalignment in the lumbar spine. No significant degenerative change. Transitional segment anatomy at the lumbosacral junction. [email or web address] XR SHOULDER RIGHT (MIN 2 VIE WS)on 02-21-2019 No acute osseous abnormality. [email or web address] EXAMINATION: THREE XRAY VIEWS OF THE RIGHT SHOULDER 02/21/2019 4:34 pm COMPARISON: None. HISTORY: ORDERING SYSTEM PROVIDED HISTORY: Pain FINDINGS: Bone mineralization and alignment appear intact. No evidence of acute fracture or dislocation. [email or web address] Incoming Radiant Results From [email or web address] - 02/21/2019 4:57 PM EDT EXAMINATION: THREE XRAY VIEWS OF THE RIGHT SHOULDER 02/21/2019 4:34 pm COMPARISON: None. HISTORY: ORDERING SYSTEM PROVIDED HISTORY: Pain FINDINGS: Bone mineralization and alignment appear intact. No evidence of acute fracture or dislocation. IMPRESSION: No acute osseous abnormality. [email or web address] XR WRIST RIGHT (MIN 3 VIEWS) on 02-21-2019 Normal x-ray of the wrist [email or web address] EXAMINATION: 3 XRAY VIEWS OF THE RIGHT WRIST 02/21/2019 4:57 pm COMPARISON: None. HISTORY: ORDERING SYSTEM PROVIDED HISTORY: Injury TECHNOLOGIST PROVIDED HISTORY: Right wrist pain FINDINGS: The carpal bones all appear intact. There is no evidence for fracture dislocation. The soft tissues are normal. The joint spaces are well preserved. There is no evidence for foreign body. [email or web address] Incoming Radiant Results From [email or web address] - 02/21/2019 5:04 PM EDT EXAMINATION: 3 XRAY VIEWS OF THE RIGHT WRIST 02/21/2019 4:57 pm COMPARISON: None. HISTORY: ORDERING SYSTEM PROVIDED HISTORY: Injury TECHNOLOGIST PROVIDED HISTORY: Right wrist pain FINDINGS: The carpal bones all appear intact. There is no evidence for fracture dislocation. The soft tissues are normal. The joint spaces are well preserved. There is no evidence for foreign body. IMPRESSION: Normal x-ray of the wrist [place] Vital Signs Date Time Vital Sign Value Performing Clinician Chanelle roldan 01-31-2023 08:51-0400 Body temperature 97.7 [degF] [facility] 01-31-2023 08:51-0400 Diastolic blood pressure 81 mm[Hg] [facility] 01-31-2023 08:51-0400 Heart rate 67 /min [facility] 01-31-2023 08:51-0400 Respiratory rate 18 /min [facility] 01-31-2023 08:51-0400 SaO2% (BldA) [Mass fraction] 100 % [facility] 01-31-2023 08:51-0400 Systolic blood pressure 123 mm[Hg] [facility] 07-31-2021 19:31-0500 Diastolic blood pressure 62 mm[Hg] Denny Morrell MD Work Phone: [facility] 07-31-2021 19:31-0500 Systolic blood pressure 123 mm[Hg] Denny Morrell MD Work Phone: [facility] 07-31-2021 19:29-0500 Body height 167.6 cm Denny Morrell MD Work Phone: [facility] 07-31-2021 19:29-0500 Body mass index (BMI) [Ratio] 37.12 kg/m2 Denny Morrell MD Work Phone: [facility] 07-31-2021 19:29-0500 Body temperature 97.11 [degF] Denny Morrell MD Work Phone: [facility] 07-31-2021 19:29-0500 Body weight 104.33 kg Denny Morrell MD Work Phone: [facility] 07-31-2021 19:29-0500 Heart rate 72 /min Denny Morrell MD Work Phone: [facility] 07-31-2021 19:29-0500 Respiratory rate 16 /min Denny Morrell MD Work Phone: [facility] 07-31-2021 19:29-0500 SaO2% (BldA) [Mass fraction] 97 % Denny Morrell MD Work Phone: [facility] 06-30-2021 04:01-0500 Body temperature 97.59 [degF] Krystin Morrell DO Work Phone: [facility] 06-30-2021 04:01-0500 Diastolic blood pressure 76 mm[Hg] Krystin Morrell DO Work Phone: [facility] 06-30-2021 04:01-0500 Systolic blood pressure 135 mm[Hg] Krystin Morrell DO Work Phone: [facility] 06-30-2021 04:00-0500 Body height 167.6 cm Krystin Morrell DO Work Phone: [facility] 06-30-2021 04:00-0500 Body mass index (BMI) [Ratio] 36.32 kg/m2 Krystin Morrell DO Work Phone: [facility] 06-30-2021 04:00-0500 Body weight 102.06 kg Krystin Nicolas DO Work Phone: [facility] 06-30-2021 04:00-0500 Heart rate 85 /min Krystin Morrell DO Work Phone: [facility] 06-30-2021 04:00-0500 Respiratory rate 18 /min Krystin Morrell DO Work Phone: [facility] 06-30-2021 04:00-0500 SaO2% (BldA) [Mass fraction] 98 % Krystin Morrell DO Work Phone: [facility] 04-25-2021 19:06-0500 Diastolic blood pressure 70 mm[Hg] Sofie Mills MD Work Phone: [facility] 04-25-2021 19:06-0500 Systolic blood pressure 95 mm[Hg] Sofie Mills MD Work Phone: [facility] 04-25-2021 19:05-0500 Body temperature 98.6 [degF] Sofie Mills MD Work Phone: [facility] 04-25-2021 19:05-0500 Heart rate 85 /min Sofie Mills MD Work Phone: [facility] 04-25-2021 19:05-0500 Respiratory rate 15 /min Sofie Mills MD Work Phone: [facility] 04-25-2021 19:05-0500 SaO2% (BldA) [Mass fraction] 98 % Sofie Mills MD Work Phone: [facility] 10-01-2020 09:21-0400 Body mass index (BMI) [Ratio] 33.57 kg/m2 Vicente Baumann MD Work Phone: [facility] Work Phone: 10-01-2020 09:21-0400 Body temperature 97 [degF] Vicente Baumann MD Work Phone: [facility] Work Phone: 10-01-2020 09:21-0400 Body weight 94.35 kg Vicente Baumann MD Work Phone: [facility] Work Phone: 10-01-2020 09:21-0400 Diastolic blood pressure 78 mm[Hg] Vicente Baumann MD Work Phone: [facility] Work Phone: 10-01-2020 09:21-0400 Heart rate 87 /min Vicente Baumann MD Work Phone: [facility] Work Phone: 10-01-2020 09:21-0400 Respiratory rate 16 /min Vicente Baumann MD Work Phone: [facility] Work Phone: 10-01-2020 09:21-0400 SaO2% (BldA) [Mass fraction] 97 % Vicente Baumann MD Work Phone: [facility] Work Phone: 10-01-2020 09:21-0400 Systolic blood pressure 127 mm[Hg] Vicente Baumann MD Work Phone: [facility] Work Phone: 08-21-2019 03:42-0400 Body Temperature 98.1 [degF] [place] 08-21-2019 03:42-0400 Pulse (Heart Rate) 91 /min [place] 08-21-2019 03:42-0400 Pulse Oximetry 98 % [employer] [place] 08-21-2019 03:42-0400 Respiratory Rate 18 /min [place] 08-21-2019 03:37-0400 BP Diastolic 85 mm[Hg] [employer] [place] 08-21-2019 03:37-0400 BP Systolic 134 mm[Hg] [place] , [place] 07-16-2019 17:25-0500 Body Temperature 98.01 [degF] [facility] Work Phone: 07-16-2019 17:25-0500 BP Diastolic 79 mm[Hg] [facility] Work Phone: 07-16-2019 17:25-0500 BP Systolic 113 mm[Hg] [facility] Work Phone: 07-16-2019 17:25-0500 Pulse (Heart Rate) 79 /min [facility] Work Phone: 07-16-2019 17:25-0500 Pulse Oximetry 97 % [facility] Work Phone: 07-16-2019 17:25-0500 Respiratory Rate 18 /min Marcusfilomena Orourke [facility] Work Phone: 07-14-2019 14:53-0500 BMI (Body Mass Index) 34.7 kg/m2 Marcusfilomena Iniguez [facility] Work Phone: 07-14-2019 14:53-0500 Body Temperature 99 [degF] [facility] [employer] Work Phone: 07-14-2019 14:53-0500 Body weight 97.52 kg Marcusfilomena Or[facility] [employer] Work Phone: 07-14-2019 14:53-0500 BP Diastolic 59 mm[Hg] Marcusfilomena Orourke [facility] Work Phone: 07-14-2019 14:53-0500 BP Systolic 109 mm[Hg] Marcus [facility] Work Phone: 07-14-2019 14:53-0500 Height 167.6 cm Marcusfilomena Orourke [facility] [employer] Work Phone: 07-14-2019 14:53-0500 Pulse (Heart Rate) 83 /min Marcusfilomena Orourke [facility] Work Phone: 07-14-2019 14:53-0500 Pulse Oximetry 96 % Marcusfilomena Orourke [facility] Work Phone: 07-14-2019 14:53-0500 Respiratory Rate 18 /min Mracus [facility] [employer] Work Phone: 05-16-2019 16:55-0500 Body mass index (BMI) [Ratio] 34.38 kg/m2 Jolie Christianson APRN - VIDAL Work Phone: [facility] Work Phone: 05-16-2019 16:55-0500 Body temperature 98.6 [degF] Jolie Christianson APRN - ENGINE WATCHMAN Work Phone: [facility] Work Phone: 05-16-2019 16:55-0500 Body weight 96.62 kg Jolie Christianson HIGH RIGGER - ENGINE WATCHMAN Work Phone: [facility] Work Phone: 05-16-2019 16:55-0500 Diastolic blood pressure 91 mm[Hg] Jolie Christianson HIGH RIGGER - ENGINE WATCHMAN Work Phone: [facility] Work Phone: 05-16-2019 16:55-0500 Heart rate 78 /min Joliejose Christianson HIGH RIGGER - ENGINE WATCHMAN Work Phone: [facility] Work Phone: 05-16-2019 16:55-0500 Respiratory rate 16 /min Joliejose Christianson HIGH RIGGER - ENGINE WATCHMAN Work Phone: [facility] Work Phone: 05-16-2019 16:55-0500 SaO2% (BldA) [Mass fraction] 98 % Jolie Christianson HIGH RIGGER - ENGINE WATCHMAN Work Phone: [facility] Work Phone: 05-16-2019 16:55-0500 Systolic blood pressure 141 mm[Hg] Jolie Christianson HIGH RIGGER - ENGINE WATCHMAN Work Phone: [facility] Work Phone: Encounters Encounter Date Encounter Type Care Provider Facility Start: 01-31-2023 End: 01-31-2023 Emergency department patient visit SHAIKH TINO [facility] Start: 01-31-2023 End: 01-31-2023 Emergency department patient visit Filibertoada Araujo [facility] Start: 02-17-2022 End: 02-17-[address] NATHANIEL THOMPSON Facility: Start: 12-02-2021 End: 12-02-[address] LEAH KAUR Facility:[facility] Start: 11-14-2021 End: 11-14-[address] GRIGGS LISTED REQUEST Facility: Start: 08-18-2021 End: 08-18-2021 ambulatory [facility] Start: 08-14-2021 ambulatory [facility] Start: 08-06-2021 End: 08-06-2021 ambulatory RAMEZ MCDOWELL [facility] Start: 07-31-2021 End: 07-31-2021 Emergency department patient visit [facility] Start: 07-31-2021 End: 07-31-2021 Emergency department patient visit Denny Morrell MD Work Phone: [facility] ED Comment on above: Muscle strain (Prima ry Dx) Start: 06-30-2021 End: 06-30-2021 Emergency department patient visit [facility] Start: 06-30-2021 End: 06-30-2021 Emergency department patient visit Krystin Morrell DO Work Phone: [facility] ED Comment on above: Cough (Primary Dx); Acute nonintractable headache, unspecified headache type Start: 06-13-2021 End: 06-16-2021 ambulatory [facility] Start: [facility] Start: 04-25-[facility]21 Emergency department patient visit [facility] Start: 04-25-2021 End: 04-25-2021 Emergency department patient visit Sofie Mills MD Work Phone: [facility] ED Comment on above: Suspected COVID-19 v irus infection (Primary Dx) Start: 04-09-2021 Transcribe Orders Susie Faria MA [facility] Neuro[facility] Comment on above: Low back pain with s ciatica, sciatica laterality unspecified, unspecified back pain laterality, unspecified chronicity (Primary Dx) Start: 10-01-2020 End: 10-01-2020 Emergency department patient visit [facility] Start: 10-01-2020 End: 10-01-2020 Emergency department patient visit Vicente Baumann MD Work Phone: [facility] ED Comment on above: Pain, dental (Primar y Dx); Dental caries Start: 09-30-2020 End: 09-30-2020 Emergency department patient visit SOFIE MILLS [facility] Start: 04-04-2020 Patient encounter procedure JESS MEND[facility]ZACAM[facility]hela [facility] Start: 08-21-2019 End: 08-21-2019 Emergency department patient visit Juan Shrestha Work Phone: [facility] ED Comment on above: Laceration of right index finger without foreign body without damage to nail, initial encounter (Primary Dx) Start: 07-16-2019 End: 07-16-2019 Emergency department patient visit Marcus Leander Stevensjannyanthony Work Phone: [facility] ED Comment on above: Influenza A (Primary Dx) Start: 07-14-2019 End: 07-14-2019 Emergency department patient visit Marcus Leander Stevensjannyanthony Work Phone: [facility] ED Comment on above: Influenza A (Primary Dx) Start: 05-16-2019 End: 05-16-2019 Emergency department patient visit Jolie Christianson ZENAIDA - ENGINE WATCHMAN Work Phone: [facility] ED Comment on above: Rhomboid muscle stra in, initial encounter (Primary Dx) Start: 04-10-2019 Patient encounter procedure VIJAY WEN Facility:[facility] Start: 03-03-2019 End: 03-05-2019 Subsequent hospital visit by physician [facility] MRI Comment on above: Lumbar pain; Congenital abnormality Start: 02-21-2019 End: 02-23-2019 Subsequent hospital visit by physician Derrick Xr [facility] Comment on above: Pain Injury; Right wrist pain Procedures Date Procedure Procedure Detail Performing Clinician Start: 06-30-2021 COVID-19, RAPID Veronica Morrell DO Work Phone: Start: 07-16-2019 Iaadiadoo streptococ cus group a Marcus E Eijannyes Work Phone: Start: 07-16-2019 Radiologic exam ches t 2 views Marcus E Eitches Work Phone: Start: 07-14-2019 Radiologic exam ches t 2 views Marcus E Eitches Work Phone: Start: 07-14-2019 Iaadiadoo influenza Eta n E Eitches Work Phone: Start: 05-16-2019 Radiologic exam ches t 2 views Chava Chaidez JONAS Work Phone: Start: 03-03-2019 Mri spinal canal lum bar w/o contrast material Jolie Christianson Work Phone: Start: 02-21-2019 Radex wrist complete minimum 3 views Jolie Christianson Work Phone: Start: 02-21-2019 End: 02-21-2019 Radex spine lumbosacral minimum 4 views Jolie Christianson Work Phone: Start: 02-21-2019 Assay of amylase Jolie Christianson Work Phone: Start: 02-21-2019 Assay of lipase Jolie Christianson Work Phone: Start: 02-21-2019 Blood count complete auto&auto difrntl wbc Jolie Christianson Work Phone: Start: 02-21-2019 Comprehensive metabo lic panel Jolie Christianson Work Phone: Start: 02-21-2019 Hepatitis c antibody Ni niurka Christianson Work Phone: Plan of Treatment Date Care Activity Detail Author Start: 2036 Shingles Vaccine (1 of 2) Shingles Vaccine (1 of 2) [facility] Work Phone: Start: 09-15-2021 End: 09-15-2021 Patient encounter procedure 09/15/2021 Office Visit Primary Care Sofie Mills MD [address] [place] [address] [facility] MED Primary Care Start: 09-10-2021 End: 09-10-2021 Patient encounter procedure 09/10/2021 Office Visit Pain Management Yasmine Wellington, HIGH RIGGER - ENGINE WATCHMAN [address] [place] [address] [facility] Start: 08-18-2021 End: 08-18-2021 Admission to same day surgery center 08/18/2021 Surgery IP Unit Demario Jacob MD [address] [place] [address] RIGHT CARPAL TUNNEL RELEASE [facility] OR Comment on above: RIGHT CARPAL TUNNEL RELEASE Start: 08-18-2021 End: 08-18-2021 Neuroplasty &/transpos median nrv carpal tunne CARPAL TUNNEL RELEASE right cts 08/18/2021 12:00 PM EDT [facility] Start: 08-18-2021 Subsequent hospital visit by physician 08/18/2021 Hospital Encounter IP Unit Demario Jacob MD [address] [place] [address] [facility] Start: 08-11-2021 End: 08-11-2021 Patient encounter procedure 08/11/2021 Office Visit Primary Care Sofie Mills MD [address] [place] [address] [facility] SY MED Primary Care Start: 08-06-2021 End: 08-06-2021 Admission to same day surgery center 08/06/2021 Surgery IP Unit Ramez Mcdowell MD [address] [place] [address] LUMBAR INTER LAMINAR TOM L4 L5 [facility] Comment on above: LUMBAR INTER LAMINAR TOM L4 L5 Start: 08-06-2021 End: 08-06-2021 Njx dx/ther sbst intrlmnr lmbr/sac w/img gdn LUMBAR INTER LAMINAR TOM lumbar stenosis 08/06/2021 11:45 AM EST [facility] Start: 08-06-2021 Subsequent hospital visit by physician 08/06/2021 Hospital Encounter IP Unit Ramez Mcdowell MD [address] [place] [address] [facility] Start: 07-30-2021 End: 07-30-2021 Patient encounter procedure 07/30/2021 Office Visit Pain Management Ramez Mcdowell MD [address] [place] [address] [facility] Start: 07-24-2021 End: 07-24-2021 Patient encounter procedure 07/24/2021 Office Visit Orthopedic Surgery Tony Black MD [address] [place] [address] (Fax) [facility] Start: 06-30-2021 End: 06-30-2021 Patient encounter procedure 06/30/2021 Office Visit Orthopedic Surgery Demario Jacob MD [address] [place] [address] (Fax) [facility] Start: 05-23-2021 End: 05-23-2021 Patient encounter procedure 05/23/2021 Office Visit Orthopedic Surgery Tony Black MD [address] [place] [address] (Fax) [facility] Start: 05-16-2021 End: 05-16-2021 Patient encounter procedure 05/16/2021 Appointment Radiology [facility] Start: 05-07-2021 End: 05-07-2021 Patient encounter procedure 05/07/2021 Office Visit Neurosurgery Jess Farley MD [address] [facility] [address] [place] [id number] [facility] Start: 03-17-2021 End: 03-17-2021 Patient encounter procedure 03/17/2021 Office Visit Primary Care Sofie Mills MD [address] [place] [address] [phone] [facility] MED Primary Care Start: 02-05-2021 Influenza vaccination [facility] Start: 10-09-2020 End: 10-09-2020 Patient encounter procedure 10/09/2020 Office Visit AFL [facility] SCHD ONLY Start: 10-01-2020 COVID-19 Vaccine (2 - Moderna 2-dose series) COVID-19 Vaccine (2 - Moderna 2-dose series) [facility] Work Phone: Start: 06-13-2019 End: 06-13-2019 Patient encounter procedure 06/13/2019 Appointment Pain Management Patito Gutierres MD [address] [place] [address] [place] [address] [phone] [facility] Start: 05-23-2019 End: 05-23-2019 Patient encounter procedure 05/23/2019 Appointment Pain Management Patito Gutierres MD [address] [place] [address] [place] [address] [phone] [facility] Start: 03-03-2019 End: 03-03-2019 Appointment 03/03/2019 Appointment Radiology [facility] Start: 02-05-2019 Influenza vaccination Flu vaccine (# 1) [place], [place] Start: 2005 DTaP/Tdap/Td vaccine (1 - Tdap) DTaP/Tdap/Td vaccine (1 - Tdap) [facility] Start: 2004 Hepatitis C screening Hepatitis C [facility] Start: 2001 HIV screen HIV screen [place], [place] Start: 2001 HIV screening [facility] Start: 1999 Varicella Vaccine (1 of 2 - 13+ 2-dose series) Varicella Vaccine (1 of 2 - 13+ 2-dose series) [place] Start: 1998 COVID-19 Vaccine (1) COVID-19 Vaccin e (1) [facility] Start: 1998 Depression Screen Depression Screen [facility] Start: 1998 Depression screening using PHQ-9 (Patient Health Questionnaire 9) score Depression Screening (PHQ-2/9) [facility] Start: 1997 DTaP/Tdap/Td vaccine (1 - Tdap) DTaP/Tdap/Td vaccine (1 - Tdap) [facility] [employer] Phone: Start: 1992 Pneumococcal 0-64 ye ars Vaccine (1 of 1 - PPSV23) Pneumococcal 0-64 years Vaccine (1 of 1 - PPSV23) [facility] [place], [place] Start: 1992 Pneumococcal 0-64 ye ars Vaccine (1 of 2 - PPSV23) Pneumococcal 0-64 years Vaccine (1 of 2 - PPSV23) [facility] Start: 1991 COVID-19 Vaccine (1) COVID-19 Vaccin e (1) [facility] Start: 1989 History and physical examination, annual for health maintenance Wellness Visit [facility] Start: 1987 Varicella vaccine (1 of 2 - 2-dose childhood series) Varicella vaccine (1 of 2 - 2-dose childhood series) [facility] Start: 1986 Tetanus vaccination Tetanus: Every 1 0yrs [facility] End: 04-25-2021 [facility] [employer] Work Phone: Comment on above: One Time for 1 Occur rences starting 04/25/2021 until 04/25/2021 End: 06-30-2021 [facility] Comment on above: One Time for 1 Occur rences starting 06/30/2021 until 06/30/2021 Payers Date Payer Category Payer Medicaid [id number] 2019 Medicaid [employer] MEDICAID [id number] 2019-Present [phone] [address] [place] [address] [id number] 2019 Unknown 2018 Unknown [employer] xxxxxxxxxxx 2018-Present [phone] [address] [place] [address] xxxxxxxxxxx [id number] 2014 Medicaid [id number] 1986 Unknown [id number] [id number] 1986 Unknown [id number] [id number] 1986 Unknown [id number] [id number]3 1986 Unknown [id number] 2.16.840.1.743109.3.579.2.173 1986 Unknown [id number] 2.16.840.1.060090.3.579.2.173 1986 Unknown [id number] 2.16.840.1.670755.3.579.2.173 1986 Unknown [id number] 2.16.840.1.140438.3.579.2.754 1986 Unknown [id number] 2.16.840.1.506680.3.579.2.754 1986 Unknown [id number] 2.16.840.1.937960.3.579.2.754 1986 Unknown [id number] 2.16.840.1.421031.3.579.2.754 1986 Unknown [id number] 2.16.840.1.191728.3.579.2.754 1986 Unknown [id number] 2.16.840.1.250330.3.579.2.754 1986 Unknown [id number] 2.16.840.1.511705.3.579.2.754 1986 Unknown [id number] 2.16.840.1.542212.3.579.2.593 1986 Unknown [id number] 2.16.840.1.448149.3.579.2.593 1986 Unknown [id number] 2.16.840.1.025485.3.579.2.593 1986 Unknown [id number] 1958 Unknown [id number] Social History Date Type Detail Facility Start: 05-16-2019 End: 07-14-2019 Tobacco smoking status NHIS Current every day smoker [facility] Start: 06-07-1999 History of tobacco use Cigarette Smo [place], [place] Start: 05-16-2019 End: 07-14-2019 Cigarettes smoked current (pack per day) - Reported [place] Start: 05-16-2019 End: 07-14-2019 Alcohol intake Current non-drinker of alcohol (finding) [facility] Phone: Start: 05-16-2019 History SDOH Social Connections Phone 5 [facility] Phone: Start: 05-16-2019 History SDOH Social Connections Get Together 2 [facility] Phone: Start: 05-16-2019 History SDOH Social Connections Mandaeism 1 [facility] Phone: Start: 05-16-2019 History SDOH Social Connections Living 8 [facility] Phone: Start: 05-16-2019 History SDOH Physica l Activity MPS 15 [facility] Phone: Start: 1985 Sex Assigned At Not on file M [place] Start: 01-05-2019 Alcohol intake No [facility] Start: 12-22-2014 End: 10-01-2020 Tobacco use and exposure Never used [facility] Exposure to SARS-CoV -2 (event) Not sure [facility] Tobacco smoking status No Smokin g Status Entered [facility] Functional Status Date Assessment Result Facility 01-31-2023 Functional Status N/A [facility] Clinical Notes 07-31-2021 to 01-31-2023 Note Date & Type Note Facility 01-31-2023 Evaluation + Plan note Extrac klaudia from: Title:ED Note Author:Michele Suazo PA-C te:01/31/23 Shoulder strain (S46.919A: S train of unspecified muscle, fascia and tendon at shoulder and upper arm level, unspecified arm, initial encounter) Orders: acetaminophen-hydrocodone, 1 tab(s), Tab, Oral, Once, Stop date 01/31/23 9:38:00 EDT, STAT, Start date 01/31/23 9:38:00 EDT methocarbamol, 1,500 mg = 2 tab(s), Oral, TID, X 3 day(s), # 18 tab(s), Refills(s) 0, Pharmacy: [facility]/pharmacy #[id number], 167.7, cm, 01/31/23 8:55:00 EDT, Height/Length Dosing, 91, kg, 01/31/23 8:55:00 EDT, Weight Dosing Sling Apply XR Shoulder Complete Right [facility]08-27-2023 Hospital Discharge instructions Patient Education 01/31/2023 10:14:51 Shoulder Sprain Shoulder Sprain A shoulder sprain is a partial or complete tear in one of the tough, fiber-like tissues (ligaments)in the shoulder. The ligaments in the shoulder help to hold the shoulder in place. What are the causes? This condition may be caused by: A fall. A hit to the shoulder. A twist of the arm. What increases the risk? You are more likely to develop this condition if you: Play sports. Have problems with balance or coordination. What are the signs or symptoms? Symptoms of this condition include: Pain when moving the shoulder. Limited ability to move the shoulder. Swelling and tenderness on top of the shoulder. Warmth in the shoulder. A change in the shape of the shoulder. Redness or bruising on the shoulder. How is this diagnosed? This condition is diagnosed with: A physical exam. During the exam, you may be asked to do simple exercises with your shoulder. Imaging tests such as X-rays, MRI, or a CT scan. These tests can show how severe the sprain is. How is this treated? This condition may be treated with: Rest. Pain medicine. Ice. A sling or brace. This is used to keep the arm still while the shoulder is healing. Physical therapy or rehabilitation exercises. These help to improve the range of motion and strength of the shoulder. Surgery (rare). Surgery may be needed if the sprain caused a joint to become unstable. Surgery may also be needed to reduce pain. Some people may develop ongoing shoulder pain or lose some range of motion in the shoulder. However, most people do not develop long-term problems. Follow these instructions at home: If you have a sling or brace: Wear the sling or brace as told by your health care provider. Remove it only as told by your healthcare provider. Loosen the sling or brace if your fingers tingle, become numb, or turn cold and blue. Keep the sling or brace clean. If the sling or brace is not waterproof: ?Do not let it get wet. ?Cover it with a watertight covering when you take a bath or shower. Activity Rest your shoulder. Move your arm only as much as told by your health care provider, but move your hand and fingers often to prevent stiffness and swelling. Return to your normal activities as told by your health care provider. Ask your health care provider what activities are safe for you. Ask your health care provider when it is safe for you to drive if you have a sling or brace on yourshoulder. If you were shown how to do any exercises, do them as told by your health care provider. General instructions If directed, put ice on the affected area. ?Put ice in a plastic bag. ?Place a towel between your skin and the bag. ?Leave the ice on for 20 minutes, 2 3 times a day. Take wscd-obg-rjbsoto and prescription medicines only as told by your health care provider. Do not use any products that contain nicotine or tobacco, such as cigarettes, e- cigarettes, and chewing tobacco. These can delay healing. If you need help quitting, ask your health care provider. Keep all follow-up visits as told by your health care provider. This is important. Contact a health care provider if: Your pain gets worse. Your pain is not relieved with medicines. You have increased redness or swelling. Get help right away if: You have a fever. You cannot move your arm or shoulder. You develop severe numbness or tingling in your arm, hand, or fingers. Your arm, hand, or fingers feel cold and turn blue, white, or wilburn. Summary A shoulder sprain is a partial or complete tear in one of the tough, fiber-like tissues (ligaments)in the shoulder. This condition may be caused by a fall, a hit to the shoulder, or a twist of the arm. Treatment usually includes rest, ice, and pain medicine as needed. If you have a sling or brace, wear it as told by your health care provider. Remove it only as told by your health care provider. This information is not intended to replace advice given to you by your health care provider. Make sure you discuss any questions you have with your health care provider. Document Revised: 02/11/2022 Document Reviewed: 02/11/2022 [employer] Patient Education 2022 [employer]. Follow Up Care 01/31/2023 08:43:06 With:SHAIKH TINO Address: [address] [place] [id number] [phone] Business (1) When:02/03/2023 09:39:16 [facility]02-24-2022 Hospital Discharge instructions* Instructions* Denny Morrell MD - 07/31/2021 Please use ice as needed for pain and 400 mg of ibuprofen +100 mg of Tylenol every 4-6 hours as needed for pain * Attachments The following attachments cannot be sent through Care Everywhere. * Muscle Strain (French) [facility]* Diagnosis Pain, dental- Primary Unspecified disorder of the teeth and supporting structures Dental caries Unspecified dental caries documented in this encounter [facility] Phone: evaluation note* Diagnosis Low back pain with sciatica, sciatica laterality unspecified, unspecified back pain laterality, unspecified chronicity- Primary [facility]* Diagnosis Suspected COVID-19 virus infection- Primary documented in this encounter [facility] Phone: evaluation note* Diagnosis Cough- Primary Acute nonintractable headache, unspecified headache type documented in this encounter [facility] Phone: evaluation note* Diagnosis Muscle strain- Primary Unspecified site of sprain and strain documented in this encounter [facility] [employer] Phone: evaluation note* Diagnosis Rhomboid muscle strain, initial encounter- Primary documented in this encounter [facility] Phone: Hospital course Narrative No data available for this section [facility] Attachments The following attachments cannot be sent through Care Everywhere. * Tooth and Gum Pain (French) * Tooth Decay (French) [facility]: Hospital Discharge instructions* Attachments The following attachments cannot be sent through Care Everywhere. * Coronavirus Disease (COVID-19): Isolation (French) documented in this [facility] Phone: Hospital Discharge instructions* Instructions* Krystin Morrell DO - 06/30/2021 Continue to take Tylenol, and Motrin for pain control, use Tessalon Perles to help with your cough.Follow-up the results of your Covid testing. Please get rest, and increase your fluid hydration return to ER for worsening symptoms. [facility] Phone: Hospital Discharge instructions* Attachments The following attachments cannot be sent through Care Everywhere. * Muscle Strain (French) documented in this [facility] Phone: progress note No data available for this section [facility] Consultation (Routine) - Authorized Specialty Diagnoses / Procedures Referred By Contac t Referred To Contact Neurosurgery Diagnoses Low back pain with sciatica, sciatica laterality unspecified, unspecified back pain laterality, unspecified chronicity Referring, MD Sidney [address] [place] [address] Jess Farley MD [address] [facility] [address] [place] [address] Referral ID Status Reason Start Date Expiration Date V isits Requested Visits Authorized [id number] Authorized 04/09/2021 04/09/2022 1 1 [facility] Summary Purpose Family History No Family History Records FoundNo Family History Records FoundNo Family History Records FoundNo Family History Records FoundNo Family History Records FoundNo Family History Records Found Advance Directives Documents on File Type Date Recorded Patient Group Activities Aide Expl anation Advance Directives and Living Will Power of Deputy Prosecuting Attorney Latest Code Status on File Code Status Date Activated Date Inactivated Comments Full Code 12/24/2014 2:22 AM 12/24/2014 11:00 PM Documents on File Type Date Recorded Patient Group Activities Aide Expl anation Advance Directives and Living Will Power of Deputy Prosecuting Attorney Latest Code Status on File Code Status Date Activated Date Inactivated Comments Full Code 12/24/2014 2:22 AM 12/24/2014 11:00 PM Documents on File Type Date Recorded Patient Group Activities Aide Expl anation ACP-Advance Directive ACP-Power of Deputy Prosecuting Attorney Documents on File Type Date Recorded Patient Group Activities Aide Expl anation Advance Directives and Livin g Will 03/12/2020 12:00 AM Discharge Instructions * Attachments The following attachments cannot be sent through Care Everywhere. * Influenza (French) documented in this encounter* Attachments The following attachments cannot be sent through Care Everywhere. * Influenza (French) documented in this encounter* Attachments The following attachments cannot be sent through Care Everywhere. * Hand Laceration: Stitches (French) documented in this encounter Assessments Diagnosis Influenza A- Primary Influenza with other respiratory manifestations Diagnosis Influenza A- Primary Influenza with other respiratory manifestations Diagnosis Laceration of right index finger without foreign body without damage to nail, initial encounter Diagnosis Pain Generalized pain Diagnosis Lumbar pain Lumbago Congenital abnormality Congenital anomaly, unspecified Diagnosis Injury Injury, other and unspecified, unspecified site Right wrist pain Pain in joint, forearm Reason for Referral Status Reason Specialty Diagnoses / Procedures Referre d By Contact Referred To Contact Open Radiology Diagnoses Lumbar pain Congenital abnormality Procedures MRI LUMBAR SPINE WO CONTRAST Jolie Christianson APRN - ENGINE WATCHMAN [address] [place] [address] Additional Source Comments (unrecognized sect ion and content) No Status Records FoundNo Status Records FoundNo Status Records FoundNo Status Records FoundNo Status Records FoundNo Status Records Found INFORMATION SOURCE (unrecogn ized section and content) DATE CREATED AUTHOR 04/10/2019 [facility] DATE CREATED AUTHOR AUTHOR'S ORGANIZ ATION 04/05/2020 [facility] DATE CREATED AUTHOR AUTHOR'S ORGANIZ ATION 08/01/2021 [facility] DATE CREATED AUTHOR AUTHOR'S ORGANIZ ATION 11/12/2021 [facility] DATE CREATED AUTHOR AUTHOR'S ORGANIZ ATION 03/06/2022 [facility] DATE CREATED AUTHOR AUTHOR'S ORGANIZ ATION 01/31/2023 [facility] Reason for Visit (unrecogniz ed section and content) Reason Comments Generalized Body Aches ongoing for appro x 2 days Cough ongoing for 2 days Emesis ongoing for 2 days Reason Comments Shortness of Breath was in ER on wednesday and diagnosed with influenza A. 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 Specialty Diagnoses / Procedures Referred By Contact Referred To Contact Pending Review Radiology Diagnoses Lumbosacral pain Lumbago with sciatica, left side Procedures HC MRI-SPINE LUMBAR WO CONTRAST Jolie Christianson, HIGH RIGGER - ENGINE WATCHMAN [address] [id number] [facility] [address] [place] [address] Reason Comments Dental Pain left sided tooth eduardo , swelling noted Reason Comments Fever wants covid test com [place] of fever and loss of taste Covid Testing Reason Comments Cough Productive cough sin ce yesterday Headache since yesterday Reason Comments Rib Injury Pulling injury yeste rday, pain worsening since Reason Comments Arm Pain pt states he had acu puncture today and has a lot of pain in the arm he had it done Ordered Prescriptions (unrec ognized section and content) Prescription Sig Dispensed Refills Start Date End Da te ibuprofen (ADVIL;MOTRIN) 600 MG tablet Take 1 tablet by mouth 4 times daily as needed for Pain 30 tablet 1 10/01/2020 penicillin v potassium (VEETID) 500 MG tablet Take 1 tablet by mouth 4 times daily for 10 days 40 tablet 0 10/01/2020 10/11/2020 Prescription Sig Dispensed Refills Start Date End Da te benzonatate (TESSALON PERLES) 100 MG capsule Take 1 capsule by mouth 3 times daily as needed for Cough 30 capsule 0 06/30/2021 07/07/2021 acetaminophen (TYLENOL) 325 MG tablet Take 2 tablets by mouth every 6 hours as needed for Pain 40 tablet 0 06/30/2021 ibuprofen (ADVIL;MOTRIN) 800 MG tablet Take 1 tablet by mouth every 6 hours as needed for Pain 20 tablet 0 06/30/2021 Care Teams (unrecognized sec tion and content) Personnel Name: TINO ALBERTO Address: Address: [address] [facility] [place] [address] Electronic Commerce Specialist Relationship Specialty Start Date End Date Jolie Christianson, ENGINE WATCHMAN [address] [place] [address] PCP - General Family Medicine 03/12/20 Electronic Commerce Specialist Relationship Specialty Start Date End Date Sofie Mills MD [address] [place] [address] PCP - General Family Medicine 09/17/20 Electronic Commerce Specialist Relationship Specialty Start Date End Date Sofie Mills MD [address] [place] [address] PCP - General Family Medicine 09/17/20 Electronic Commerce Specialist Relationship Specialty Start Date End Date Sofie Mills MD [address] [place] [address] PCP - General Family Medicine 09/17/20 Scheduled Active and Recently Administ ered Medications (unrecognized section and content) Medication Order 06/28/2021 06/29/2021 06/30/2021 acetaminophen (TYLENOL) tablet 1,000 mg (COMPLETED) 1,000 mg, Oral, ONCE, On 06/30/21 at 0430, For 1 dose 0434 (Given - Provid er: Yumi Min RN) benzonatate (TESSALON) capsule 100 mg (COMPLETED) 100 mg, Oral, ONCE, On 06/30/21 at 0430, For 1 dose 0434 (Given - Provid er: Yumi Min RN) ibuprofen (ADVIL;MOTRIN) tablet 800 mg (COMPLETED) 800 mg, Oral, ONCE, On 06/30/21 at 0430, For 1 dose, Do not crush or break. 0434 (Given - Provid er: Yumi Min RN) Scheduled Medication Order 07/29/2021 07/30/2021 07/31/2021 ketorolac (TORADOL) injection 30 mg 30 mg, IntraMUSCular, ONCE, On Radha 07/31/21 at 1945, For 1 dose 1944 (Due) lidocaine 4 % external patch 1 patch 1 patch, TransDERmal, Administer over 12 Hours, ONCE, On Radha 07/31/21 at 194, For 1 dose, Apply patch to right anterior chest. Patch may remain in place for up to 12 hours in any 24 hour period. 1944 (Due) FOR RECORDS PERTAINING TO PATIENTS WHO ARE OR HAVE BEEN ENROLLED IN A CHEMICAL DEPENDENCY/SUBSTANCEABUSE PROGRAM, SOME INFORMATION MAY BE OMITTED. This clinical summary was aggregated from multiple sources. Caution should be exercised in using it in the provision of clinical care. This summary normalizes information from multiple sources, and as a consequence, information in this document may materially change the coding, format and clinical context of patient data. In addition, data may be omitted in some cases. CLINICAL DECISIONS SHOULD BE BASED ON THE PRIMARY CLINICAL RECORDS. [facility]. provides no warranty or guarantee of the accuracy or completeness of information in this document.
[2023-07-03 18:35] VITALS: BP 131/85; PULSE 88; RESP 16; TEMP 36.7; O2SAT 99
--- NOTE | 2023-07-03 18:40 | ED.UPPEXIN1 ---
HPI - Extremity Injury (Upper) General Chief Complaint: Extremity Injury, Upper Stated Complaint: LACERATION UE Time Seen by Provider: 07/03/23 18:36 Source: patient Mode of arrival: walk-in History of Present Illness HPI narrative: Patient is a 38-year-old male who presents to the emergency department for an injury to the left hand. He states he was using a knife prior to arrival when he lacerated the dorsum of the middle phalanx of the left middle finger. He also sustained a superficial laceration of the PIP joint of the dorsum of the left fourth finger. Bleeding is well-controlled. Tetanus is up-to-date. No other associated injuries. Related Data Home Medications Medication Instructions Recorded Confirmed clonidine HCl 0.1 mg tablet 0.1 mg PO .qhs 12/21/22 05/29/23 gabapentin 800 mg tablet 800 mg PO TID 12/21/22 05/29/23 omeprazole 40 mg capsule,delayed 40 mg PO QDAY 12/21/22 05/29/23 release ibuprofen 600 mg tablet 600 mg PO Q8H 05/29/23 05/29/23 Previous Rx's Medication Instructions Recorded albuterol sulfate 90 mcg/actuation 2 inh inhalation Q4H PRN shortness 12/21/22 aerosol inhaler of breath or wheezing #8.5 grams acetaminophen 300 mg-codeine 30 mg 1 tab PO Q6H PRN pain 5 days #20 05/29/23 tablet tabs amoxicillin 875 mg-potassium 1 tab PO BID #20 tabs 05/29/23 clavulanate 125 mg tablet Allergies Allergy/AdvReac Type Severity Reaction Status Date / Time No Known Drug Allergies Allergy Verified 05/29/23 17:30 Review of Systems ROS Constitutional Denies: fever or chills Ears, nose, mouth, and throat Denies: throat pain Cardiovascular Denies: chest pain Respiratory Denies: shortness of breath Gastrointestinal Denies: nausea, vomiting or diarrhea Musculoskeletal Denies: back pain Integumentary/Breast Denies: rash Neurological Denies: headache Hematologic/Lymphatic Denies: easy bruising or easy bleeding PFSH PFS Social History Smoking status: Current every day smoker Exam Narrative Exam Narrative: Gen.: Awake, alert, in no distress Head: Normocephalic, atraumatic ENT: Moist mucous membranes Respiratory: No respiratory distress Extremities: Moves extremities equally, 3 cm laceration over the dorsum of the left middle finger, middle phalanx. Minimal soft tissue involvement with no tendon visualization. Normal flexion and extension at the DIP and PIP joints of the left middle finger with no tendon deficit noted. Superficial abrasion/laceration noted over the PIP joint of the left fourth finger dorsally. No deep laceration or active bleeding. Psych: Normal mood and affect Neuro: No focal neuro deficit Skin: Warm, dry Constitutional Vital Signs, click to edit/add: Last Vital Signs Temp 98.0 F 07/03/23 18:35 Pulse 88 07/03/23 18:35 Resp 16 07/03/23 18:35 BP 131/85 07/03/23 18:35 Pulse Ox 99 07/03/23 18:35 O2 Del Method Room Air 07/03/23 18:35 Course Vital Signs Vital signs: Vital Signs Temperature 98.0 F 07/03/23 18:35 Pulse Rate 88 07/03/23 18:35 Respiratory Rate 16 07/03/23 18:35 Blood Pressure 131/85 07/03/23 18:35 Pulse Oximetry 99 07/03/23 18:35 Oxygen Delivery Method Room Air 07/03/23 18:35 Temperature 98.0 F 07/03/23 18:35 Pulse Rate 88 07/03/23 18:35 Respiratory Rate 16 07/03/23 18:35 Blood Pressure 131/85 07/03/23 18:35 Pulse Oximetry 99 07/03/23 18:35 Oxygen Delivery Method Room Air 07/03/23 18:35 MDM - Extremity Injury (Upper) MDM Narrative Medical decision making narrative: Laceration repair: Done under sterile conditions. The use of Shur-Clens prep the area. Local injection with lidocaine 1% was used, approximately 3 cc. The wound was irrigated copiously with normal saline. The wound was explored there was no evidence of foreign material. The laceration was approximated with 4-0 nylon. 5 simple interrupted sutures were placed. Patient tolerated the procedure well. The patient was neurovascularly intact post. the patient had bacitracin applied to the laceration and a dry sterile dressing was place. The patient will need to follow-up in the next 7-10 days for removal The smaller laceration was not sutured but was cleansed and dressed with bacitracin and Band-Aid. The larger laceration to the middle finger was repaired with sutures, please see procedure note for details. Sutures removed in 7 to 10 days. Return to the ER if symptoms change or worsen Medical Records Attestation: I reviewed the patient's medical records. Discharge Plan Discharge Chief Complaint: Extremity Injury, Upper Clinical Impression: Finger laceration Patient Disposition: Home, Self-Care Time of Disposition Decision: 19:12 Condition: Good Prescriptions / Home Meds: No Action clonidine HCl 0.1 mg tablet 0.1 mg PO .qhs omeprazole 40 mg capsule,delayed release(DR/EC) 40 mg PO QDAY gabapentin 800 mg tablet 800 mg PO TID albuterol sulfate 90 mcg/actuation HFA aerosol inhaler 2 inh inhalation Q4H PRN (Reason: shortness of breath or wheezing) Qty: 8.5 0RF ibuprofen 600 mg tablet 600 mg PO Q8H amoxicillin-pot clavulanate 875-125 mg tablet 1 tab PO BID Qty: 20 0RF acetaminophen-codeine 300-30 mg tablet 1 tab PO Q6H PRN (Reason: pain) 5 Days Qty: 20 0RF Instructions: Finger Laceration (ED) Additional Instructions: Sutures removed in 7 to 10 days with your doctor or urgent care Stand Alone Forms: Portal Instructions Referrals: Shaikh Lobo MD [Primary Care Provider] - 1 week
[2023-07-03] MEDS: BACITRACIN 0.9 GM PACKET 1 PACKET TOPICAL (18:57)
[2023-07-03 19:20] VITALS: BP 118/77; PULSE 78; RESP 16; TEMP 36.7; O2SAT 98
[2023-07-03] MEDS: LIDOCAINE HCL 1% 100 MG/10 ML MDV INJ (19:20)
== END 2023-07-03 19:21 | disposition home or self-care (01) ==
PROVIDERS: Emergency Provider Emergency Medicine; PCP Internal Medicine
DX: S61.213A Laceration without foreign body of left middle finger without damage to nail, initial encounter (principal); W26.0XXA Contact with knife, initial encounter; Z79.899 Other long term (current) drug therapy; F17.210 Nicotine dependence, cigarettes, uncomplicated
CPT/HCPCS: 12001; 99282

== ENCOUNTER 2023-08-25 06:49 | Outpatient (OUT) | payer MEDICAID, SELFPAY ==
--- OUTSIDE RECORDS SUMMARY | 2023-08-25 06:54 | XMS_ITS | CCD ---
Author Organization [facility] Care Team Providers Care Glass Novelty Maker Name Role Phone JEFFREYMAXIMVIJAY FOSS Attending Unavail Jolie Tirado Primary Care UnavailJOLIE Perry Consulting UnavailJolie Perry Primary Care Provider JESS FARLEY Attending Unavail JOLIE Tirado Primary Care Unavailstephanie Mills MD, Sofie Brown Primary Care Provider [phone] Jolie Christianson CNP Primary Care Provider Sofie Mills MD Primary Care Provider SOFIE MILLS Primary Care Unavailable VICENTE BAUMANN Attending Unavailable SECOR, SOFIE Stephanie Primary Care Unavailable [...] Unavailable THI REGINA Referring Unavailable SECOR, SOFIE Stephanie Primary Care Unavailable SECOR, SOFIE Stephanie Primary Care Unavailable SECOR, SOFIE Stephanie Primary Care Unavailable RAMEZ MCDWOELL Admitting Unavailable RAMEZ MCDOWELL Attending Unavailable LINA, SOFIE Brown Primary Care Unavailable DEMARIO JACOB Admitting Unavailable DEMARIO JACOB Attending Unavailable SECFELA, SOFIE Brown Primary Care Unavailable SOCORRO, NONE LISTED Primary Care UnavailFIDENCIO Mauro Admitting Unavailable JONAS OSBORN Consulting Unavailable FIDENCIO MALONEY Attending Unavailable DR LEAH KAUR Consulting Unavailable SOCORRO, DR NONE LISTED Primary Care Unavaila iram KAUR DR LYNN Admitting Unavailable VINCENT, DR LYNN Attending Unavailable MARKER, DR ARMSTRONG Admitting Unavailable JONAS MELENDEZ Consulting Unavailable REQUEST, DR GRIGGS LISTED Primary Care Unavailshakira THOMPSON, DR ARMSTRONG Attending Unavailable SHAIKH JIMÉNEZ Primary Care Unavailable David Weathers Attending Unavailable SHAIKH JIMÉNEZ Primary Care Physician SHAIKH JIMÉNEZ Attending Unavailable SHAIKH JIMÉNEZ Attending Unavailable Allergies Allergy Classification Reported Allergen(s) Allergy Type Date of Onset Reaction(s) Facility (1 source) No Known Medication Allergies; Translations: [No Known Medication Allergies] Propensity to adverse reactions to drug (disorder) [facility] Repository Medications Current Medications Medication Drug [...] Ordered Start: 03-17-2021 take 1 tablet by lnoa th once daily cloNIDine (CATAPRES) 0.1 MG [...] day(s), # 18 tab(s), Refills(s) 0, [id number], 167.7, cm, 01/31/23 8:55:00 EDT, [...] Start: 06-04-2020 take 1 capsule by mo uth once [...] 12-04-2021 Episodic Other aftercare (1 source) Other exterminator helper (current) drug therapy; Translations: [OTH DETENTION CURRENT DRUG THERAPY] Onset: 12-04-2021 Episodic Other [...] Consent for Treatmenton 01-06 Consent for Treatment [id number] 0CD:127 Normal [facility] Discharge Instructionson Discharge Instructions [id number] 0CD:127 Normal [facility] ED Clinical Summaryon 2022 ED Clinical Summary [place] [id number] ED Clinical Summary Person Information Name: DORIS COCHRAN/[facility] Age: 37 Years : 1985 Sex: Male Language: Afghan PCP: SHAIKH JIMÉNEZ Marital Status: Single Visit [...] 01/31/2023 10:14:51 01/31/2023 10:14:51 01/31/2023 10:14:51 ADDRESS: [address] [place] [address] [place] [address] PHYS DOC NOTES: MEDICAL INFORMATION: Prescriptions Given: New Medications [id number], [address] [facility] [place], [place] [id number], [phone] methocarbamol (Robaxin-750 oral tablet) 2 Tablets By Mouth 3 times a day for 3 Days. Refills: 0. Medications to Continue with No Changes Other Medications clonidine (cloNIDine 0.1 mg tab) gabapentin (gabapentin 800 mg Tab) omeprazole (omeprazole 40 mg Javad-) PATIENT EDUCATION INFORMATION: Instructions: Shoulder Sprain Follow up: With: Address: When: SHAIKH TINO [address] [facility] [place] [phone] Business (1) In 3 days 02/03/2023 DIAGNOSIS: Shoulder strain Normal [facility] ED Note-Physicianon 02-01-20 ED Note-Physician Basic [...] day(s), # 18 tab(s), Refills(s) 0, [id number], 167.7, cm, 01/31/23 8:55:00 EDT, [...] 3 days 02/03/2023 EDT [address] [place] [address] [phone] [facility] (1) Additional Instructions: Patient Education Shoulder Sprain Attestation Patient seen and evaluated by the physician social media assistant. Attending physician was present in the emergency department and supervised care. This visit was performed by both the physician and an APC. I performed all aspects of the MDM as documented. This report was transcribed using voice recognition software. Every effort was made to ensure accuracy, however, inadvertently computerized carry in worker mistakes may be present. Appropriate healthcare PPE [...] acute abnormality Read By: Michele Suazo PA-C [facility] Comment on above: Result Comment: Elec tronically [...] minutes, 2?3 times a day. ? Take unzu-zre-sgzyxxk and prescription medicines only as told by [...] provider. Document Revised: 02/11/2022 Document Reviewed: 02/11/2022 [employer] Patient Education ? 2022 [employer] Normal [facility] ED Patient Summaryon 023 ED Patient Summary [place] [id number] Patient Discharge Instructions Person Information Name: DORIS COCHRAN Age: 37 Years Arrival Date: 01/31/2023 08:40:38 Discharge Diagnosis: Shoulder strain Primary Care Physician: SHAIKH JIMÉNEZ Provider Information Primary Provider: David Weathers M.D. Advanced Consultant In Ergonomics And Safety:Michele Suazo PA-C The exam and treatment you received in the Emergency Department were for an urgent problem and are not intended as complete care. It is important that you follow up with a doctor, nurse practitioner, or physician?s social media assistant for ongoing care. If your symptoms become worse or you do not improve as expected and you are unable to reach your usual health care provider, you should return to the Emergency Department. We are available 24 hours a day. DORSI COCHRAN has been given the following list of patient education materials, prescriptions and follow-up instructions: Follow-up Instructions: With: Address: When: SHAIKH TINO [address] [place] [phone] Business (1) In 3 days 02/03/2023 In the event that this physician does not participate in your insurance network, please consult with your insurance company to find a nearby participating provider. Patient Education Materials: Shoulder Sprain A MESSAGE TO ALL PATIENTS REGARDING OPIOIDS PRESCRIPTION OPIOIDS: WHAT YOU NEED TO KNOW Prescription opioids can be used to help relieve qkmbvpse-qj-emtusw pain and are often prescribed following a [...] be struggling with addiction, tell your health youth career specialist and ask for guidance or call [facility] National Helpline at 2-753-509-YGWB. v Source: [place] Department of Health (more content not included)... Normal [facility] XR Shoulder Complete Righton 01-31-2023 XR [...] mGy = . DAP = . Normal [facility] AMYLASEon 12-02-2021 Amylase [Catalytic activity/Vol] 33 U/L Normal 25-115 [facility] Comment on above: Performed By: #### A MY, LIPA, CMP #### [facility] [address] [place] [address] Dr. Jenae Alvares CBC AUTO DIFFon 12-02-2021 BASO # 0.0 103/ul Normal 0.0-0.1 [facility] Comment on above: Performed By: #### C BC #### [facility] [address] [place] [address] Dr. Jenae Alvares Basophils/100 WBC (Bld) 0.0 % Critically low 0.2-2.0 [facility] Comment on above: Performed By: #### C BC #### [facility] [address] [place] [address] Dr. Jenae Alvares EO # 0.0 103/ul Normal 0.0-0.7 [facility] Comment on above: Performed By: #### C BC #### [facility] [address] [place] [address] Dr. Jenae Alvares Eosinophils/100 WBC (Bld) 0.5 % Critically low 0.9-7.0 [facility] Comment on above: Performed By: #### C BC #### [facility] [address] [place] [address] Dr. Jenae Alvares Erythrocyte distribution width (RBC) [Ratio] 13.3 % Normal 11.0-15.0 [facility] Comment on above: Performed By: #### C BC #### [facility] [address] [place] [address] Dr. Jenae Alvares Hematocrit (Bld) [Volume fraction] 42.2 % Normal 42.0-54.0 [facility] Comment on above: Performed By: #### C BC #### [facility] [address] [place] [address] Dr. Jenae Alvares Hemoglobin (Bld) [Mass/Vol] 14.5 g/dL Normal 14.0-18.0 [facility] Comment on above: Performed By: #### C BC #### [facility] [address] [place] [address] Dr. Jenae Alvares IG # 0.01 10e3/ul Normal 0.00-0.03 [facility] Comment on above: Performed By: #### C BC #### [facility] [address] [place] [address] Dr. Jenae Alvares IG % 0.2 % Normal 0.0-0.5 [facility] Comment on above: Performed By: #### C BC #### [facility] [address] [place] [address] Dr. Jenae Alvares LYMPH # 1.4 103/ul Normal 1.2-3.8 [facility] Comment on above: Performed By: #### C BC #### [facility] [address] [place] [address] Dr. Jenae Alvares Lymphocytes/100 WBC (Bld) 24.7 % Normal 20.5-60.0 [facility] Comment on above: Performed By: #### C BC #### [facility] [address] [place] [address] Dr. Jenae Alvares MANUAL DIFF REQ NO Normal [facility] Comment on above: Performed By: #### C BC #### [facility] [address] [place] [address] Dr. Jenae Alvares MCH (RBC) [Entitic mass] 31.4 pg Normal 25.9-34.0 [facility] Comment on above: Performed By: #### C BC #### [facility] [address] [place] [address] Dr. Jenae Alvares MCHC (RBC) [Mass/Vol] 34.4 g/dL Normal 29.9-35.2 [facility] Comment on above: Performed By: #### C BC #### [facility] [address] [place] [address] Dr. Jenae Alvares MCV (RBC) [Entitic vol] 91.3 fL Normal 80.0-94.0 [facility] Comment on above: Performed By: #### C BC #### [facility] [address] [place] [address] Dr. Jenae Alvares MONO # 0.4 103/ul Normal 0.3-0.8 [facility] Comment on above: Performed By: #### C BC #### [facility] [address] [place] [address] Dr. Jenae Alvares Monocytes/100 WBC (Bld) 7.2 % Normal 1.7-12.0 [facility] Comment on above: Performed By: #### C BC #### [facility] [address] [place] [address] Dr. Jenae Alvares NEUT # 3.7 103/ul Normal 1.4-6.5 [facility] Comment on above: Performed By: #### C BC #### [facility] [address] [place] [address] Dr. Jenae Alvares Neutrophils/100 WBC (Bld) 67.4 % Normal 43.0-75.0 [facility] Comment on above: Performed By: #### C BC #### [facility] [address] [place] [address] Dr. Jenae Alvares Platelet mean volume (Bld) [Entitic vol] 12.2 fL Normal 9.5-13.5 [facility] Comment on above: Performed By: #### C BC #### [facility] [address] [place] [address] Dr. Jenae Alvares PLT 121 103/ul Critically low 150-450 [facility] Comment on above: Performed By: #### C BC #### [facility] [address] [place] [address] Dr. Jenae Alvares RBC 4.62 106/ul Critically low 4.70-6.10 [facility] Comment on above: Performed By: #### C BC #### [facility] [address] [place] [address] Dr. Jenae Alvares WBC 5.5 103/ul Normal 4.0-11.0 [facility] Comment on above: Performed By: #### C BC #### [facility] [address] [place] [address] Dr. Jenae Alvares LIPASEon 12-02-2021 Lipase [Catalytic activity/Vol] 86.0 U/L Normal 73.0-393.0 [facility] Comment on above: Performed By: #### A MY, LIPA, CMP #### [facility] [address] [place] [address] Dr. Jenae Alvares PROF 14(COMP METB)on 022 Albumin [Mass/Vol] 3.7 g/dL Normal 3.4-5.0 [facility] Comment on above: Performed By: #### A MY LIPA, CMP #### [facility] [address] [place] [address] Dr. Jenae Alvares Albumin/Globulin [Mass ratio] 1.0 {ratio} Normal [facility] Comment on above: Performed By: #### A MY, LIPA, CMP #### [facility] [address] [place] [address] Dr. Jenae Alvares ALP [Catalytic activity/Vol] 154 U/L Critically high 46-116 [facility] Comment on above: Performed By: #### A MY, LIPA, CMP #### [facility] [address] [place] [address] Dr. Jenae Alvares ALT [Catalytic activity/Vol] 48 U/L Normal 16-63 [facility] Comment on above: Performed By: #### A MY, LIPA, CMP #### [facility] [address] [place] [address] Dr. Jenae Alvares Anion gap [Moles/Vol] 11.0 mmol/L Normal [facility] Comment on above: Performed By: #### A MY, LIPA, CMP #### [facility] [address] [place] [address] Dr. Jenae Alvares AST [Catalytic activity/Vol] 25 U/L Normal 15-37 [facility] Comment on above: Performed By: #### A MY, LIPA, CMP #### [facility] [address] [address] [address] Jenae Alvares Bilirubin [Mass/Vol] 0.4 mg/dL Normal 0.2-1.0 [facility] Comment on above: Performed By: #### A MY LIPA, CMP #### [facility] [address] [place] [address] [address] Jenae Alvares Calcium [Mass/Vol] 8.6 mg/dL Normal 8.5-10.1 [facility] Comment on above: Performed By: #### A MY LIPA, CMP #### [facility] [address] [place] [address] [address] Jenae Alvares Chloride [Moles/Vol] 105 mmol/L Normal 98-107 [facility] Comment on above: Performed By: #### A MY LIPA, CMP #### [facility] [address] [place] [address] Dr. Jenae Alvares CO2 [Moles/Vol] 26.9 mmol/L Normal 21.0-32.0 [facility] Comment on above: Performed By: #### A AMMON LIPA, CMP #### [facility] [address] [place] [address] Dr. Jenae Alvares Creatinine [Mass/Vol] 1.14 mg/dL Normal 0.70-1.30 [facility] Comment on above: Performed By: #### A AMMON LIPA, CMP #### [facility] [address] [place] [address] Dr. Jenae Alvares EGFR-AF BAHAMIAN >60 Normal >=60 [facility] Comment on above: Performed By: #### A MY LIPA, CMP #### [facility] [address] [place] [address] Dr. Jenae Alvares EGFR-NON AF BAHAMIAN >60 Normal >=60 [facility] Comment on above: Performed By: #### A MY LIPA, CMP #### [facility] [address] [place] [address] Dr. Jenae Alvares Globulin (S) [Mass/Vol] 3.8 g/dL Normal [facility] Comment on above: Performed By: #### A AMMON LIPA, CMP #### [facility] [address] [address] [address] Jenae Alvares Glucose [Mass/Vol] 96 mg/dL Normal 74-106 [facility] Comment on above: Performed By: #### A MY, LIPA, CMP #### [facility] [address] [address] [address] Jenae Alvares Potassium [Moles/Vol] 3.9 mmol/L Normal 3.5-5.1 [facility] Comment on above: Performed By: #### A MY, LIPA, CMP #### [facility] [address] [place] [address] Dr. Jenae Alvares Protein [Mass/Vol] 7.5 g/dL Normal 6.4-8.2 [facility] Comment on above: Performed By: #### A MY LIPA, CMP #### [facility] [address] [place] [address] Dr. Jenae Alvares Sodium [Moles/Vol] 139 mmol/L Normal 136-145 [facility] Comment on above: Performed By: #### A AMMON LIPA, CMP #### [facility] [address] [address] [address] Jenae Alvares Urea nitrogen [Mass/Vol] 11.0 mg/dL Normal 7.0-18.0 [facility] Comment on above: Performed By: #### A AMMON LIPA, CMP #### [facility] [address] [place] [address] Dr. Jenae Alvares Urea nitrogen/Creatinine [Mass ratio] 9.6 mg/mg Normal [facility] Comment on above: Performed By: #### A MY LIPA, CMP #### [facility] [address] [place] [address] Dr. Jenae Alvares COVID19 ([facility])on 08-14-2021 SARS-CoV-2 (COVID-19) RNA RIP+probe Ql (Unsp spec) Not detected Normal NOT-DETECTED [facility] Comment on above: Order Comment: Is th [...] detection of SARS-CoV-2 nucleic acid. \[id number]\Resulting Lab: [facility] Performed By: #### C [id number] #### [place] [address] Ph. [phone] XR COMPARISON OF OUTSIDE CLIVE MSon 08-06-2021 XR COMPARISON OF OUTSIDE FILMS RADRPT There is no result for this study. This is a placeholder for comparison films only. Final result Normal [facility] [id number] 07-01-2021 SARS-CoV-2 (COVID-19) RNA RIP+probe Ql (Unsp spec) Normal [facility] Comment on above: Performed By: #### C OVID #### [facility] [employer] [facility] [place] [address] Engineer: Chuck Bradley MD [facility] [address] [place] [address] Engineer: Evin Poole MD SARS-CoV-2 (COVID-19) RNA RIP+probe Ql (Unsp spec) Not detected Normal [facility] Comment on above: Result Comment: The specimen is NEGATIVE for SARS-CoV-2, the novel coronavirus associated with COVID-19. A negative result does not rule out COVID-19. [employer] SARS-CoV-2 for use on the [employer] is a real-time RT-PCR test intended [...] this assay. Fact sheet for Healthcare Providers: https://www.fda.gov/media/353081/download Fact sheet for Patients: https://www.fda.gov/media/248386/download METHODOLOGY: RT-PCR Performed By: #### C OVID #### [facility] [address] [place], [place] [id number] Engineer: Chuck Bradley MD [facility] [address] [place] [address] Engineer: Evin Poole MD COVID-19, Rapidon 06-30-2021 SARS-CoV-2 (COVID-19) RNA RIP+probe Ql (Unsp spec) Not detected Not Detected [facility] Comment on above: Rapid NAAT: The [...] management decisions. Fact sheet for Healthcare Providers: https://www.fda.gov/media/920919/download Fact sheet for Patients: https://www.fda.gov/media/258932/download Methodology: Isothermal Nucleic Acid Amplification Specimen Description .NASOPHARYNGEAL SWAB [facility] [id number] 06-30-2021 SARS-CoV-2 (COVID-19) RNA RIP+probe Ql (Unsp spec) .NASOPHARYNGEAL SWAB Normal [facility] Comment on above: Performed By: #### C OVID #### [facility] [address] [place], [place] [id number] Senior [address] Engineer: Chuck Bradley MD [facility] [address] [place] [address] Engineer: Evin Poole MD SARS-CoV-2 (COVID-19) RNA RIP+probe Ql (Unsp spec) Not detected Normal [facility]DET [facility] Comment on above: Result Comment: Rapid NAAT: [...] management decisions. Fact sheet for Healthcare Providers: https://www.fda.gov/media/062548/download Fact sheet for Patients: https://www.fda.gov/media/213419/download Methodology: Isothermal Nucleic Acid Amplification Performed By: #### C OVRB #### [facility] [address] [place] [address] Engineer: Evin Poole MD XR LUMBAR SPINE (MIN 4 VIEWS )on 06-13-2021 XR LUMBAR SPINE (MIN 4 VIEWS) RADRPT EXAM: XR LUMBAR SPINE (MIN 4 VIEWS) HISTORY: TECH NOTES: Chronic Lumbar pain Nki XJ-Uni-Pjuk-Flex-Ext per ordering provider Low back pain due [...] No dynamic instability Chronic Lumbar pain Nki [id number]-Pbp-Zagj-Flex-Ext per ordering provider Interpreted by: Ras Olson MD Signed by: Ras Olson MD 06/13/21 Final result Normal [facility] Comment on above: Order Comment: AP/la teral/Spot [...] Ras Olson MD 05/16/21 Final result Normal [facility] MRI LUMBAR SPINE WO CONTRAST on 05-16-2021 [...] pain x years. NKI Interpreted by: Ras Oslon MD Signed by: Ras Olson MD 05/16/21 Final result Normal [facility] [id number] 04-26-2021 SARS-CoV-2 (COVID-19) RNA RIP+probe Ql (Unsp spec) Normal [facility] Comment on above: Performed By: #### C OVID #### [facility] [employer] [address] [place] [address] Engineer: Chuck Bradley MD [facility] [address] [place] [address] Engineer: Evin Poole MD SARS-CoV-2 (COVID-19) RNA RIP+probe Ql (Unsp spec) Not detected Normal [facility]DET [facility] Comment on above: Result Comment: The specimen is NEGATIVE for SARS-CoV-2, the novel coronavirus associated with COVID-19. A negative result does not rule out COVID-19. [employer] SARS-CoV-2 for use on the [employer] 6800/88[employer] Systems is a real-time RT-PCR test intended [...] this assay. Fact sheet for Healthcare Providers: https://www.fda.gov/media/496412/download Fact sheet for Patients: https://www.fda.gov/media/353379/download METHODOLOGY: RT-PCR Performed By: #### C OVID #### [id number] Engineer: Chuck Bradley MD [facility] [address] [place] [address] [place] [address] Engineer: Evin Poole MD [id number] 04-25-2021 SARS-CoV-2 (COVID-19) RNA IRP+probe Ql (Unsp spec) .NASOPHARYNGEAL SWAB Normal [facility] Comment on above: Performed By: #### C OVID #### [place] [address] [place], [place] [id number] Senior [address] Engineer: Chuck Bradley MD [facility] [address] [place] [address] [place] [address] Engineer: Evin Poole MD Strep Screen Group A Throato n 07-16-2019 S. pyogenes Ag IA Ql (Unsp spec) Rapid Strep A negative. A negative Rapid Group A Strep Screen result does not rule out the possibility of Group A Streptococci in the specimen. A Group A Strep DNA test is available upon request. [employer] Phone: Special Requests NOT REPORTED [employer] Phone: Specimen Description .THROAT [employer] Phone: XR CHEST STANDARD (2 VW)on 0 07-16-2019 No acute cardiopulmonary abnormality identified. [employer] Phone: EXAMINATION: TWO XRA Y VIEWS OF THE CHEST 07/16/2019 5:44 pm COMPARISON: 07/14/2019 HISTORY: ORDERING SYSTEM PROVIDED HISTORY: eval for pneumonia TECHNOLOGIST PROVIDED HISTORY: eval for pneumonia FINDINGS: No focal lung consolidation. No pleural effusion or pneumothorax identified. The cardiomediastinal silhouette is normal in size for technique. [employer] Phone: [employer], [employer] Incoming Radiant Results From [place] - 07/16/2019 5:52 PM EST EXAMINATION: TWO XRAY VIEWS OF THE CHEST 07/16/2019 5:44 pm COMPARISON: 07/14/2019 HISTORY: ORDERING SYSTEM PROVIDED HISTORY: eval for pneumonia TECHNOLOGIST PROVIDED HISTORY: eval for pneumonia FINDINGS: No focal lung consolidation. No pleural effusion or pneumothorax identified. The cardiomediastinal silhouette is normal in size for technique. IMPRESSION: No acute cardiopulmonary abnormality identified. [employer] Phone: Rapid influenza A/B antigens on 07-14-2019 Direct Exam Positive Abnormal [employer] Phone: Direct Exam Negative [employer] Phone: Interpretation and review of laboratory results Abnormal [employer] Phone: Special Requests NOT REPORTED [employer] Phone: Specimen Description .NASOPHARYNGEAL SWAB [employer] Phone: XR CHEST STANDARD (2 VW)on 0 07-14-2019 Asymmetric left uppe r lung opacity is felt to be superimposition of shadows but early pneumonia is not excluded. Short interval follow-up is advised. [employer] Phone: EXAMINATION: TWO XRA Y VIEWS OF THE CHEST 07/14/2019 3:23 pm COMPARISON: May 16, 2019 HISTORY: ORDERING SYSTEM PROVIDED HISTORY: cough TECHNOLOGIST PROVIDED HISTORY: cough FINDINGS: Asymmetric left upper lung opacity most likely superimposition of shadows but early pneumonia is not excluded. Interstitial prominence diffusely, likely magnified by shallow inspiration and technical differences. No focal consolidation. Heart is not enlarged. [employer] Phone: Gr[employer], Mhpn Incoming Radiant Results From [employer] - 07/14/2019 3:34 PM EST EXAMINATION: TWO [...] not excluded. Short interval follow-up is advised. [employer] Phone: XR CHEST STANDARD (2 VW)Orde red By: Chava Chaidez on 05-16-2019 Unremarkable chest. [employer] Phone: EXAMINATION: TWO XRA Y VIEWS OF [...] osseous structures are intact without acute process. [employer] Phone: Grupo, Mhpn Incoming Radiant Results From [employer]acs - 05/16/2019 5:21 PM EST EXAMINATION: TWO [...] intact without acute process. IMPRESSION: Unremarkable chest. [employer] Phone: HCV RNA Qnt-[facility] 9 HepC RNA PCR Qnt-[place] Undetected Normal Undetected [facility] Comment on above: Result Comment: Resu lt in log IU/mL is Undetected. ADDITIONAL INFORMATION The quantification range of this assay is 15 to 100,000,000 IU/mL (1.18 log to 8.00 log IU/mL). Testing was performed using the regina HCV test ([employer] with the regina [employer] System. Test Performed by: [place] [address] Engineer: Mehran Goode M.D. Ph.D.; CLIA# [id number] Performed By: #### C [id number] #### [place] [address] Ambulatory Patient Education on 04-06-2019 Ambulatory Patient Education Patient Education Materials Name: Doris Cochran Current Date: 04/06/2019 09:08:39 [place] : 1985 The following sheet(s) are the Patient Education Leaflets for Doris Cochran Mental [facility] Addiction: Ask Yourself These Questions Ask yourself [...] change or stop your substance use. ? 2602-7551 The [employer]. [address] [place] [address]. All rights reserved. This information is not intended as a substitute for professional medical care. Always follow your healthcare professional's instructions. Normal [facility] Infectious Disease Office/Cl inic Noteon 04-06-2019 Infectious Disease Office/Clinic Note Chief Complaint Pt states has HCV History of Present Illness Mr. Cochran 33-year-old woman seen for hepatitis C. He started to snorting drugs around age 18 and needles around 22. He was tested previously for hepatitis C in 2016 when he was in senior care. He was negative at the time. A [...] lifelong positive. Ordered: Hepatitis C Virus RNA Detect/[employer] US Liver + Elastography 2. Opiate addiction [...] qualifying data available (MRI) Electronically signed by Bettye SILVER, Vijay Watkins 04/06/19 09:03 EDT Normal [facility] Provider Letteron 04-06-2019 Provider Letter Jolie Christianson CNP [address] [place] [address] Re: Doris Peak Date of Visit: 04/06/[address] Christianson, Thank you for your referral to my office. Attached you will find the most recent office visit note. Please call if you have any questions or concerns. Sincerely, Vijay Wen MD [address] [place] [address], [place] [address] The following document(s) were included in the letter: April 06, 2019 09:01:13 EDT - (04/06/2019) Office Visit Note Normal [facility] MRI LUMBAR SPINE WO CONTRAST on 03-03-2019 Left subarticular di sc bulge effacing descending left L5 nerve root within the lateral recess. Disc bulge at L3-L4 effacing the descending bilateral L4 nerve roots in the lateral recesses. [facility] MD EXAMINATION: MRI OF THE LUMBAR SPINE WITHOUT [...] canal narrowing. No significant neural foraminal narrowing. [facility], Mhpn Incoming Radiant Results From [employer] - 03/03/2019 2:42 PM EDT EXAMINATION: MRI [...] L4 nerve roots in the lateral recesses. [place] Hepatitis C Antibodyon 02-22 Hepatitis C Ab REACTIVE Abnormal NONREACTIVE [place], [place] Comment on above: The hepatitis C [...] Interpretation and review of laboratory results Abnormal [place] Amylaseon 02-21-2019 Amylase [Catalytic activity/Vol] 40 U/L 28 - 100 U/L [place] CBC Auto Differentialon 02-05 Basophils (Bld) [#/Vol] 10*3/uL [place] Basophils/100 WBC (Bld) 0 % 0 - 2 % [place] Differential Type NOT REPORTED [place] Eosinophils (Bld) [#/Vol] 0.04 10*3/uL [place] Eosinophils/100 WBC (Bld) 0 % Low 1 - 4 % [place] Erythrocyte distribution width (RBC) [Ratio] 13.1 % 11.8 - 14.4 % [place] Hematocrit (Bld) [Volume fraction] 43.4 % 40.7 - 50.3 % [place] Hemoglobin (Bld) [Mass/Vol] 15.1 g/dL 13 - 17 g/dL [place] Immature granulocytes (Bld) [#/Vol] 1 % High 0 [place] Immature granulocytes (Bld) [#/Vol] 0.05 10*3/uL [place] Interpretation and review of laboratory results Abnormal [place] Lymphocytes (Bld) [#/Vol] 2.14 10*3/uL [place] Lymphocytes/100 WBC (Bld) 24 % 24 - 43 % [place] MCH (RBC) [Entitic mass] 32.5 pg 25.2 - 33.5 pg [place] MCHC (RBC) [Mass/Vol] 34.8 g/dL 28.4 - 34.8 g/dL [place] MCV (RBC) [Entitic vol] 93.5 fL 82.6 - 102.9 fL [place] Monocytes (Bld) [#/Vol] 0.67 10*3/uL [place] Monocytes/100 WBC (Bld) 8 % 3 - 12 % [place] Platelet mean volume (Bld) [Entitic vol] 12.1 fL 8.1 - 13.5 fL [place] Platelets (Bld) [#/Vol] 146 10*3/uL [place] Platelets (Bld) [#/Vol] NOT REPORTED [place] RBC (Bld) [#/Vol] 4.64 10*6/uL 4.21 - 5.7 7 m/uL [place] RBC morphology finding Nom (Bld) NOT REPORTED [place] Segmented neutrophils/100 WBC (Bld) 67 % High 36 - 65 % [place] Segs Absolute 6.07 [place] WBC (Bld) [#/Vol] 0.0 10*3/uL 0.0 per 100 WBC M [place] WBC (Bld) [#/Vol] 9.0 10*3/uL [place] WBC Morphology NOT REPORTED [place], [place] Comprehensive Metabolic Pane perlita 02-21-2019 Albumin [Mass/Vol] 4.5 g/dL 3.5 - 5.2 g/dL [place] Albumin/Globulin [Mass ratio] 1.3 {ratio} [place] ALP [Catalytic activity/Vol] 146 U/L High 40 - 129 U/L [place] ALT [Catalytic activity/Vol] 39 U/L 5 - 41 U/L [place] Anion gap [Moles/Vol] 13 mmol/L 9 - 17 mmol/L [place] AST [Catalytic activity/Vol] 27 U/L <40 [place] Bilirubin Ql (U) 0.29 mg/dL Low 0.3 - 1.2 mg/dL [place] Bun/Cre Ratio 9 [place] Calcium [Mass/Vol] 9.8 mg/dL 8.6 - 10. 4 mg/dL [place] Chloride [Moles/Vol] 100 mmol/L 98 - 107 mmol/L [place] CO2 [Moles/Vol] 27 mmol/L 20 - 31 mmol/L [place] Creatinine [Mass/Vol] 1.02 mg/dL 0.7 - 1.2 mg/dL [place] GFR >60 >60 mL/min [place] GFR Non- >60 >60 mL/min [place] Glucose [Mass/Vol] 85 mg/dL 70 - 99 mg/dL [place] Interpretation and review of laboratory results Abnormal [place] Potassium [Moles/Vol] 3.7 mmol/L 3.7 - 5.3 mmol/L [place] Protein [Mass/Vol] 8.1 g/dL 6.4 - 8.3 g/dL [place] Sodium [Moles/Vol] 140 mmol/L 135 - 144 mmol/L [place] Urea nitrogen [Mass/Vol] 9 mg/dL 6 - 20 mg/dL [place] Lipaseon 02-21-2019 Lipase [Catalytic activity/Vol] 19 U/L 13 - 60 U/L [place] Metabolic Panelon 02-21-2019 GFR/1.73 sq M predicted among non-blacks MDRD (S/P/Bld) [Vol rate/Area] [place] Comment on above: Average GFR for 30-3 9 years old: 107 mL/min/1.73sq m Chronic Kidney Disease: <60 mL/min/1.73sq m Kidney failure: <15 mL/min/1.73sq m eGFR calculated using average adult body mass. Additional eGFR calculator available at: http://www.Open CS/multiple_crcl_2012.htm Stage 1: Some kidney damage normal GFR [...] Transitional segment anatomy at the lumbosacral junction. [place] EXAMINATION: 5 XRAY VIEWS OF THE LUMBAR SPINE 02/21/2019 4:34 pm COMPARISON: None. HISTORY: ORDERING SYSTEM PROVIDED HISTORY: Pain FINDINGS: There is transitional segment anatomy at the lumbosacral junction with suspected lumbarized S1. There is a right-sided pseudoarthrosis. Vertebral body heights and alignment are normal. Disc spaces are preserved. No evidence of spondylolysis or spondylolisthesis. Sacroiliac joints are within normal limits. [place] [employer], [employer] Incoming Radiant Results From [employer] - 02/21/2019 5:02 PM EDT EXAMINATION: 5 [...] Transitional segment anatomy at the lumbosacral junction. [facility] XR SHOULDER RIGHT (MIN 2 VIE WS)on 02-21-2019 No acute osseous abnormality. [facility] EXAMINATION: THREE XRAY VIEWS OF THE RIGHT SHOULDER 02/21/2019 4:34 pm COMPARISON: None. HISTORY: ORDERING SYSTEM PROVIDED HISTORY: Pain FINDINGS: Bone mineralization and alignment appear intact. No evidence of acute fracture or dislocation. [facility] Grupo, pn Incoming Radiant Results From [place] - 02/21/2019 4:57 PM EDT EXAMINATION: THREE XRAY VIEWS OF THE RIGHT SHOULDER 02/21/2019 4:34 pm COMPARISON: None. HISTORY: ORDERING SYSTEM PROVIDED HISTORY: Pain FINDINGS: Bone mineralization and alignment appear intact. No evidence of acute fracture or dislocation. IMPRESSION: No acute osseous abnormality. [facility] XR WRIST RIGHT (MIN 3 VIEWS) on 02-21-2019 Normal x-ray of the wrist [facility] EXAMINATION: 3 XRAY VIEWS OF THE RIGHT WRIST 02/21/2019 4:57 pm COMPARISON: None. HISTORY: ORDERING SYSTEM PROVIDED HISTORY: Injury TECHNOLOGIST PROVIDED HISTORY: Right wrist pain FINDINGS: The carpal bones all appear intact. There is no evidence for fracture dislocation. The soft tissues are normal. The joint spaces are well preserved. There is no evidence for foreign body. [facility] [employer], [employer]hpn Incoming Radiant Results From [place] - 02/21/2019 5:04 PM EDT EXAMINATION: 3 [...] body. IMPRESSION: Normal x-ray of the wrist [place] Vital Signs Date Time Vital Sign Value Performing Clinician Chanelle roldan 01-31-2023 08:51-0400 Body temperature 97.7 [degF] [facility] 01-31-2023 08:51-0400 Diastolic blood pressure 81 mm[Hg] [facility] 01-31-2023 08:51-0400 Heart rate 67 /min [facility] 01-31-2023 08:51-0400 Respiratory rate 18 /min [facility] 01-31-2023 08:51-0400 SaO2% (BldA) [Mass fraction] 100 % [facility] 01-31-2023 08:51-0400 Systolic blood pressure 123 mm[Hg] [facility] 07-31-2021 19:31-0500 Diastolic blood pressure 62 mm[Hg] Denny Morrell MD Work Phone: [facility] 07-31-2021 19:31-0500 Systolic blood pressure 123 mm[Hg] Denny Morrell MD Work Phone: [facility] 07-31-2021 19:29-0500 Body height 167.6 cm Denny Morrell MD Work Phone: [facility] 07-31-2021 19:29-0500 Body mass index (BMI) [Ratio] 37.12 kg/m2 Denny Morrell MD Work Phone: [facility] 07-31-2021 19:29-0500 Body temperature 97.11 [degF] Denny Morrell MD Work Phone: [facility] 07-31-2021 19:29-0500 Body weight 104.33 kg Denny Morrell MD Work Phone: [facility] 07-31-2021 19:29-0500 Heart rate 72 /min Denny Morrell MD Work Phone: [employer] 07-31-2021 19:29-0500 Respiratory rate 16 /min Denny Morrell MD Work Phone: [employer] 07-31-2021 19:29-0500 SaO2% (BldA) [Mass fraction] 97 % Denny Morrell MD Work Phone: [employer] 06-30-2021 04:01-0500 Body temperature 97.59 [degF] Krystin Morrell DO Work Phone: [employer] 06-30-2021 04:01-0500 Diastolic blood pressure 76 mm[Hg] Krystin Morrell DO Work Phone: [employer] 06-30-2021 04:01-0500 Systolic blood pressure 135 mm[Hg] Krystin Morrell DO Work Phone: [employer] 06-30-2021 04:00-0500 Body height 167.6 cm Krystin Nicolas DO Work Phone: [employer] 06-30-2021 04:00-0500 Body mass index (BMI) [Ratio] 36.32 kg/m2 Krystin Morrell DO Work Phone: [employer] 06-30-2021 04:00-0500 Body weight 102.06 kg Rkystin Nicolas DO Work Phone: [employer] 06-30-2021 04:00-0500 Heart rate 85 /min Krystin Morrell DO Work Phone: [employer] 06-30-2021 04:00-0500 Respiratory rate 18 /min Krystin Morrell DO Work Phone: [employer] 06-30-2021 04:00-0500 SaO2% (BldA) [Mass fraction] 98 % Krystin Morrell DO Work Phone: [employer] 04-25-2021 19:06-0500 Diastolic blood pressure 70 mm[Hg] Sofie Mills MD Work Phone: [employer] 04-25-2021 19:06-0500 Systolic blood pressure 95 mm[Hg] Sofie Mills MD Work Phone: [employer] 04-25-2021 19:05-0500 Body temperature 98.6 [degF] Sofie Mills MD Work Phone: [employer] 04-25-2021 19:05-0500 Heart rate 85 /min Sofie Mills MD Work Phone: [employer] 04-25-2021 19:05-0500 Respiratory rate 15 /min Sofie Mills MD Work Phone: [employer] 04-25-2021 19:05-0500 SaO2% (BldA) [Mass fraction] 98 % Sofie Mills MD Work Phone: [employer] 10-01-2020 09:21-0400 Body mass index (BMI) [Ratio] 33.57 kg/m2 Vicente Baumann MD Work Phone: [employer] Work Phone: 10-01-2020 09:21-0400 Body temperature 97 [degF] Vicente Baumann MD Work Phone: [employer] Work Phone: 10-01-2020 09:21-0400 Body weight 94.35 kg Vicente Baumann MD Work Phone: [employer] Work Phone: 10-01-2020 09:21-0400 Diastolic blood pressure 78 mm[Hg] Vicente Baumann MD Work Phone: [employer] Work Phone: 10-01-2020 09:21-0400 Heart rate 87 /min Vicente Baumann MD Work Phone: [employer] Work Phone: 10-01-2020 09:21-0400 Respiratory rate 16 /min Vicente Baumann MD Work Phone: [employer] Work Phone: 10-01-2020 09:21-0400 SaO2% (BldA) [Mass fraction] 97 % Vicente Baumann MD Work Phone: [employer] Work Phone: 10-01-2020 09:21-0400 Systolic blood pressure 127 mm[Hg] Vicente Baumann MD Work Phone: [employer] Work Phone: 08-21-2019 03:42-0400 Body Temperature 98.1 [degF] [place] 08-21-2019 03:42-0400 Pulse (Heart Rate) 91 /min [place] 08-21-2019 03:42-0400 Pulse Oximetry 98 % Juan [employer] [place] 08-21-2019 03:42-0400 Respiratory Rate 18 /min [place] 08-21-2019 03:37-0400 BP Diastolic 85 mm[Hg] Juan [employer] [place] 08-21-2019 03:37-0400 BP Systolic 134 mm[Hg] Juan Nano PA , MD 07-16-2019 17:25-0500 Body Temperature 98.01 [degF] [facility] [employer] Work Phone: 07-16-2019 17:25-0500 BP Diastolic 79 mm[Hg] Marcus [employer] Work Phone: 07-16-2019 17:25-0500 BP Systolic 113 mm[Hg] Marcus [employer] Work Phone: 07-16-2019 17:25-0500 Pulse (Heart Rate) 79 /min Marcus [employer] Work Phone: 07-16-2019 17:25-0500 Pulse Oximetry 97 % Marcus [employer] Work Phone: 07-16-2019 17:25-0500 Respiratory Rate 18 /min Marcusfilomena Orourke [employer] Work Phone: 07-14-2019 14:53-0500 BMI (Body Mass Index) 34.7 kg/m2 Marcusfilomena [facility] Work Phone: 07-14-2019 14:53-0500 Body Temperature 99 [degF] Marcus [place] [employer] Work Phone: 07-14-2019 14:53-0500 Body weight 97.52 kg Marcusfilomena [employer] Work Phone: 07-14-2019 14:53-0500 BP Diastolic 59 mm[Hg] Marcusfilomena [employer] Work Phone: 07-14-2019 14:53-0500 BP Systolic 109 mm[Hg] Marcus Haven [employer] Work Phone: 07-14-2019 14:53-0500 Height 167.6 cm Marcusfilomena Orourke [employer] Work Phone: 07-14-2019 14:53-0500 Pulse (Heart Rate) 83 /min Marcusfilomena Orourke [employer] Work Phone: 07-14-2019 14:53-0500 Pulse Oximetry 96 % Marcusfilomena [employer] Work Phone: 07-14-2019 14:53-0500 Respiratory Rate 18 /min Marcus Haven [employer] Work Phone: 05-16-2019 16:55-0500 Body mass index (BMI) [Ratio] 34.38 kg/m2 Jolie Christianson APRN - VIDAL Work Phone: [employer] Work Phone: 05-16-2019 16:55-0500 Body temperature 98.6 [degF] Jolie Christianson APRN - CRANE ENGINEER Work Phone: [employer] Work Phone: 05-16-2019 16:55-0500 Body weight 96.62 kg Jolie Christianson AUTOMOTIVE COLLISION REPAIR INSTRUCTOR - CRANE ENGINEER Work Phone: [employer] Work Phone: 05-16-2019 16:55-0500 Diastolic blood pressure 91 mm[Hg] Jolie Christianson AUTOMOTIVE COLLISION REPAIR INSTRUCTOR - CRANE ENGINEER Work Phone: [employer] Work Phone: 05-16-2019 16:55-0500 Heart rate 78 /min Joliejose Christianson AUTOMOTIVE COLLISION REPAIR INSTRUCTOR - CRANE ENGINEER Work Phone: [employer] Work Phone: 05-16-2019 16:55-0500 Respiratory rate 16 /min Joliejose Christianson AUTOMOTIVE COLLISION REPAIR INSTRUCTOR - CRANE ENGINEER Work Phone: [employer] Work Phone: 05-16-2019 16:55-0500 SaO2% (BldA) [Mass fraction] 98 % Jolie Christianson AUTOMOTIVE COLLISION REPAIR INSTRUCTOR - CRANE ENGINEER Work Phone: [employer] Work Phone: 05-16-2019 16:55-0500 Systolic blood pressure 141 mm[Hg] Jolie Christianson AUTOMOTIVE COLLISION REPAIR INSTRUCTOR - CRANE ENGINEER Work Phone: [employer] Work Phone: Encounters Encounter Date Encounter Type Care Provider Facility Start: 08-23-2023 End: 08-23-2023 ambulatory SHAIKH TINO Not Available Start: 08-05-2023 End: 08-05-2023 ambulatory ALBERTO TINO Not Available Start: 01-31-2023 End: 01-31-2023 Emergency department patient visit SHAIKH TINO Facility:[facility] Start: 01-31-2023 End: 01-31-2023 Emergency department patient visit David Weathers [facility] Start: 02-17-2022 End: 02-17-[address] NATHANIEL THOMPSON Facility:[facility] Start: 12-02-2021 End: 12-02-[address] LEAH KAUR Facility:[facility] Start: 11-14-2021 End: 11-14-2021 ambulatory NONE LISTED REQUEST Facility:[facility] Start: 08-18-2021 End: 08-18-2021 ambulatory [facility] Start: 08-14-2021 ambulatory [facility] Start: 08-06-2021 End: 08-06-2021 [facility] Start: 07-31-2021 End: 07-31-2021 Emergency department patient visit [facility] Start: 07-31-2021 End: 07-31-2021 Emergency department patient visit Denny Morrell MD Work Phone: [facility] ED Comment on above: Muscle strain (Prima ry Dx) Start: 06-30-2021 End: 06-30-2021 Emergency department patient visit [facility] Start: 06-30-2021 End: 06-30-2021 Emergency department patient visit Krystin Morrell DO Work Phone: [facility] ED Comment on above: Cough (Primary Dx); Acute nonintractable headache, unspecified headache type Start: 06-13-2021 End: 06-16-2021 ambulatory [facility] Start: 05-16-2021 ambulatory [facility] Start: 04-25-2021 Emergency department patient visit [facility] Start: 04-25-2021 End: 04-25-2021 Emergency department patient visit Sofie Mills MD Work Phone: [facility] ED Comment on above: Suspected COVID-19 v irus infection (Primary Dx) Start: 04-09-2021 Transcribe Orders Susie Faria MA [facility] Comment on above: Low back pain with s ciatica, sciatica laterality unspecified, unspecified back pain laterality, unspecified chronicity (Primary Dx) Start: 10-01-2020 End: 10-01-2020 Emergency department patient visit [facility] Start: 10-01-2020 End: 10-01-2020 Emergency department patient visit Vicente Baumann MD Work Phone: [facility] ED Comment on above: Pain, dental (Primar y Dx); Dental caries Start: 09-30-2020 End: 09-30-2020 Emergency department patient visit [facility] Start: 04-04-2020 Patient encounter procedure JESS [facility] Start: 08-21-2019 End: 08-21-2019 Emergency department patient visit Juan Shrestha Work Phone: [facility] ED Comment on above: Laceration of right index finger without foreign body without damage to nail, initial encounter (Primary Dx) Start: 07-16-2019 End: 07-16-2019 Emergency department patient visit Marcus Orourke Work Phone: [facility] ED Comment on above: Influenza A (Primary Dx) Start: 07-14-2019 End: 07-14-2019 Emergency department patient visit Marcusfilomena Orourke Work Phone: [facility] ED Comment on above: Influenza A (Primary Dx) Start: 05-16-2019 End: 05-16-2019 Emergency department patient visit Jolie Christianson AUTOMOTIVE COLLISION REPAIR INSTRUCTOR - CRANE ENGINEER Work Phone: [facility] ED Comment on above: Rhomboid muscle stra in, initial encounter (Primary Dx) Start: 04-10-2019 Patient encounter procedure VIJAY WEN Facility:[facility] Start: 03-03-2019 End: 03-05-2019 Subsequent hospital visit by physician Derrick Mri Scanner [facility] MRI Comment on above: Lumbar pain; Congenital abnormality Start: 02-21-2019 End: 02-23-2019 Subsequent hospital visit by physician Derrick Xr Dr Room 4 [facility] Radiology Comment on above: Pain Injury; Right wrist pain Procedures Date Procedure Procedure Detail Performing Clinician Start: 06-30-2021 COVID-19, RAPID Veronica Morrell DO Work Phone: Start: 07-16-2019 [place]oo streptococ cus group a Marcus E Eitches Work Phone: Start: 07-16-2019 Radiologic exam ches t 2 views Marcus E Eitches Work Phone: Start: 07-14-2019 Radiologic exam ches t 2 views Marcus E Eitches Work Phone: Start: 07-14-2019 [place] influenza Eta n E Eitches Work Phone: Start: 05-16-2019 Radiologic exam ches t 2 views Chava Ansari Dm CMDANIEL Work Phone: Start: 03-03-2019 Mri spinal canal [...] of 2) Shingles Vaccine (1 of 2) [employer] Work Phone: Start: 09-15-2021 End: 09-15-2021 Patient encounter procedure 09/15/2021 Office Visit Primary Care Sofie Mills MD [address] [place] [address] [facility] Primary Care Start: 09-10-2021 End: 09-10-2021 Patient encounter procedure 09/10/2021 Office Visit Pain Management Yasmine Wellington, AUTOMOTIVE COLLISION REPAIR INSTRUCTOR - CRANE ENGINEER [address] [place] [address] [facility] Start: 08-18-2021 End: 08-18-2021 Admission to same day surgery center 08/18/2021 Surgery IP Unit Demario Jacob MD [address] [facility] [place] [address] RIGHT CARPAL TUNNEL RELEASE [facility] OR Comment on above: RIGHT CARPAL TUNNEL RELEASE Start: 08-18-2021 End: 08-18-2021 Neuroplasty &/transpos median nrv carpal tunne CARPAL TUNNEL RELEASE right cts 08/18/2021 12:00 PM EDT [facility] Start: 08-18-2021 Subsequent hospital visit by physician 08/18/2021 Hospital Encounter IP Unit Demario Jacob MD [address] [facility] [place] [address] [facility] Start: 08-11-2021 End: 08-11-2021 Patient encounter procedure 08/11/2021 Office Visit Primary Care Sofie Mills MD [address] [place] [address] [facility] Primary Care Start: 08-06-2021 End: 08-06-2021 Admission to same day surgery center 08/06/2021 Surgery IP Unit Ramez Mcdowell MD [address] [place] [address] LUMBAR INTER LAMINAR TOM L4 L5 [facility] Comment on above: LUMBAR INTER LAMINAR TOM L4 L5 Start: 08-06-2021 End: 08-06-2021 Njx dx/ther sbst intrlmnr lmbr/sac w/img gdn LUMBAR INTER LAMINAR TOM lumbar stenosis 08/06/2021 11:45 AM EST [facility] Start: 08-06-2021 Subsequent hospital visit by physician 08/06/2021 Hospital Encounter IP Unit Ramez Mcdowell MD [address] [place] [address] [facility] Start: 07-30-2021 End: 07-30-2021 Patient encounter procedure 07/30/2021 Office Visit Pain Management Ramez Mcdowell MD [address] [place] [place] [address] [facility] Start: 07-24-2021 End: 07-24-2021 Patient encounter procedure 07/24/2021 Office Visit Orthopedic Surgery Tony Black MD [address] [place] [address] [facility] Start: 06-30-2021 End: 06-30-2021 Patient encounter procedure 06/30/2021 Office Visit Orthopedic Surgery Demario Jacob MD [address] [place] [address] [facility] Start: 05-23-2021 End: 05-23-2021 Patient encounter procedure 05/23/2021 Office Visit Orthopedic Surgery Tony Black MD [address] [place] [address] [facility] Start: 05-16-2021 End: 05-16-2021 Patient encounter procedure 05/16/2021 Appointment Radiology [facility] Start: 05-07-2021 End: 05-07-2021 Patient encounter procedure 05/07/2021 Office Visit Neurosurgery Jess Farley MD [address] [facility] [address] [place] [address] [facility], Neuroscience Start: 03-17-2021 End: 03-17-2021 Patient encounter procedure 03/17/2021 Office Visit Primary Care Sofie Mills MD [address] [place] [address] [facility] Primary Care Start: 02-05-2021 Influenza vaccination [facility] Start: 10-09-2020 End: 10-09-2020 Patient encounter procedure 10/09/2020 Office Visit [facility] ONLY Start: 10-01-2020 COVID-19 Vaccine (2 - Moderna 2-dose series) COVID-19 Vaccine (2 - Moderna 2-dose series) [facility] Work Phone: Start: 06-13-2019 End: 06-13-2019 Patient encounter procedure 06/13/2019 Appointment Pain Management Patito Gutierres MD [address] [place] [address] [place] [address] [phone] [facility] Start: 05-23-2019 End: 05-23-2019 Patient encounter procedure 05/23/2019 Appointment Pain Management Patito Gutierres MD [address] [place] [address] [place] [address] [id number] [facility] Start: 03-03-2019 End: 03-03-2019 Appointment 03/03/2019 Appointment Radiology [facility] MRI Start: 02-05-2019 Influenza vaccination Flu vaccine (# 1) [place], [place] Start: 2005 DTaP/Tdap/Td vaccine (1 - Tdap) DTaP/Tdap/Td vaccine (1 - Tdap) [facility] Start: 2004 Hepatitis C screening Hepatitis C Ut viki [facility] Start: 2001 HIV screen HIV screen [facility], [place] Start: 2001 HIV screening [facility] Start: 1999 Varicella Vaccine (1 of 2 - 13+ 2-dose series) Varicella Vaccine (1 of 2 - 13+ 2-dose series) [place], [place] Start: 1998 COVID-19 Vaccine (1) COVID-19 Vaccin e (1) [facility] Start: 1998 Depression Screen Depression Screen [facility] Start: 1998 Depression screening using PHQ-9 (Patient Health Questionnaire 9) score Depression Screening (PHQ-2/9) [facility] Start: 1997 DTaP/Tdap/Td vaccine (1 - Tdap) DTaP/Tdap/Td vaccine (1 - Tdap) [facility] [employer] Phone: Start: 1992 Pneumococcal 0-64 ye ars Vaccine (1 of 1 - PPSV23) Pneumococcal 0-64 years Vaccine (1 of 1 - PPSV23) [place] Start: 1992 Pneumococcal 0-64 ye ars Vaccine (1 of 2 - PPSV23) Pneumococcal 0-64 years Vaccine (1 of 2 - PPSV23) [facility] Start: 1991 COVID-19 Vaccine (1) COVID-19 Vaccin e (1) [facility] Start: 1989 History and physical examination, annual for health maintenance Wellness Visit [facility] Start: 1987 Varicella vaccine (1 of 2 - 2-dose childhood series) Varicella vaccine (1 of 2 - 2-dose childhood series) [facility] Start: 1986 Tetanus vaccination Tetanus: Every 1 0yrs [facility] End: 04-25-[address] [employer] Phone: Comment on above: One Time for 1 Occur rences starting 04/25/2021 until 04/25/2021 End: 06-30-[address] [employer] Phone: Comment on above: One Time for 1 Occur rences starting 06/30/2021 until 06/30/2021 Payers Date Payer Category Payer Medicaid [id number] 2019 Medicaid [employer] MEDICA[employer] MEDICAID [id number] 2019-Present [phone] [address] [place] [address] [id number] 2019 Unknown 2018 Unknown [employer] xxxxxxxxxxx 2018-Present [phone] [address] [place] [address] xxxxxxxxxxx [id number]. [id number] 2014 Medicaid [id number] 1985 Unknown [id number] [id number] 1986 Unknown [id number] 2.16.840.1.812297.3.579.2.903 1986 Unknown [id number] 2.16.840.1.038327.3.579.2.173 1986 Unknown [id number] 2.16.840.1.698866.3.579.2.173 1986 Unknown [id number] 2.16.840.1.967023.3.579.2.173 1986 Unknown [id number] 2.16.840.1.517198.3.579.2.173 1986 Unknown [id number] 2.16.840.1.990385.3.579.2.754 1986 Unknown [id number] 2.16.840.1.399160.3.579.2.754 1986 Unknown [id number] 2.16.840.1.787109.3.579.2.754 1986 Unknown [id number] 2.16.840.1.452531.3.579.2.754 1986 Unknown [id number] 2.16.840.1.060343.3.579.2.754 1986 Unknown [id number] 2.16.840.1.850823.3.579.2.754 1986 Unknown [id number] 2.16.840.1.599106.3.579.2.754 1986 Unknown [id number] 2.16.840.1.891492.3.579.2.593 1986 Unknown [id number] 2.16.840.1.339276.3.579.2.593 1986 Unknown [id number] 2.16.840.1.476611.3.579.2.593 1986 Unknown [id number] 2.16.840.1.717851.3.579.2.727 1986 Unknown [id number] 2.16.840.1.354231.3.579.2.1259 1986 Unknown [id number] 2.16.840.1.068723.3.579.2.1259 1959 Unknown [id number] Social History Date Type Detail Facility Start: 05-16-2019 End: 07-14-2019 Tobacco smoking status NHIS Current every day smoker [facility] [employer] Start: 06-07-1999 History of tobacco use Cigarette Smo [place] Start: 05-16-2019 End: 07-14-2019 Cigarettes smoked current (pack per day) - Reported [place] Start: 05-16-2019 End: 07-14-2019 Alcohol intake Current non-drinker of alcohol (finding) [employer] Phone: Start: 05-16-2019 History SDOH Social Connections Phone 5 [employer] Phone: Start: 05-16-2019 History SDOH Social Connections Get Together 2 [employer] Phone: Start: 05-16-2019 History SDOH Social Connections Bahai 1 [employer] Phone: Start: 05-16-2019 History SDOH Social Connections Living 8 [employer] Phone: Start: 05-16-2019 History SDOH Physica l Activity MPS 15 [employer] Phone: Start: 1985 [facility]igned [facility] [place] Start: 01-05-2019 Alcohol intake No [facility] Start: 12-22-2014 End: 10-01-2020 Tobacco use and exposure Never used [employer] Exposure to SARS-CoV -2 (event) Not sure [employer] Tobacco smoking stat [facility] Tobacco smoking consumption unknown [facility] Tobacco smoking status No Smokin g Status Entered [facility] Functional Status Date Assessment Result Facility 01-31-2023 Functional Status N/A [facility] Clinical Notes 07-31-2021 to 01-31-2023 Note Date [...] day(s), # 18 tab(s), Refills(s) 0, [id number], 167.7, cm, 01/31/23 8:55:00 EDT, Height/Length Dosing, 91, kg, 01/31/23 8:55:00 EDT, Weight Dosing Sling Apply XR Shoulder Complete Right [facility]08-27-2023 Hospital Discharge instructions Patient Education 01/31/2023 [...] minutes, 2 3 times a day. Take [id number]-ssuzuvx and prescription medicines only as told by [...] provider. Document Revised: 02/11/2022 Document Reviewed: 02/11/2022 [employer] Patient Education 2022 [employer]. Follow Up Care 01/31/2023 08:43:06 With:SHAIKH TINO Address: [address] [place] [id number] [phone] Business (1) When:02/03/2023 09:39:16 [facility]02-24-2022 Hospital Discharge instructions* Instructions* Denny Morrell MD - 07/31/2021 Please use ice as needed for pain and 400 mg of ibuprofen +100 mg of Tylenol every 4-6 hours as needed for pain * Attachments The following attachments cannot be sent through Care Everywhere. * Muscle Strain (Afghan) [facility] Phone: evaluation note* Diagnosis Pain, dental- Primary Unspecified disorder of the teeth and supporting structures Dental caries Unspecified dental caries [facility] Phone: evaluation note* Diagnosis Low back pain with sciatica, sciatica laterality unspecified, unspecified back pain laterality, unspecified chronicity- Primary [facility] Suspected COVID-19 virus infection- Primary [facility] Phone: evaluation note* Diagnosis Cough- Primary Acute nonintractable headache, unspecified headache type documented [facility] encounter [facility] Phone: evaluation note* Diagnosis Muscle strain- Primary Unspecified site of sprain and strain documented [facility] Phone: evaluation note* Diagnosis Rhomboid muscle strain, initial encounter- Primary documented in this encounter [employer] Phone: Hospital course Narrative No data available for this section [facility]* Attachments The following attachments cannot be sent through Care Everywhere. * Tooth and Gum Pain (Afghan) * Tooth Decay (Afghan) [facility] Phone: Hospital Discharge instructions* Attachments The following attachments cannot be sent through Care Everywhere. * Coronavirus Disease (COVID-19): Isolation (Afghan) documented in this [facility] Phone: Hospital Discharge instructions* Instructions* Krystin Morrell DO - 06/30/2021 Continue to take Tylenol, and Motrin for pain control, use Tessalon Perles to help with your cough.Follow-up the results of your Covid testing. Please get rest, and increase your fluid hydration return to ER for worsening symptoms. documented [facility] this [facility] Phone: Hospital Discharge instructions* Attachments The following attachments cannot be sent through Care Everywhere. * Muscle Strain (Afghan) documented in this [facility] Phone: progress note No data available for this section [facility] Consultation (Routine) - Authorized Specialty Diagnoses / Procedures Referred By Contac t Referred To Contact Neurosurgery Diagnoses Low back pain with sciatica, sciatica laterality unspecified, unspecified back pain laterality, unspecified chronicity Referring, [place], [address] [place] [address] Jess Farley MD [address] [address] [place] [address] Referral ID Status Reason Start Date Expiration Date V isits Requested Visits Authorized [id number] Authorized 04/09/2021 04/09/2022 1 1 [facility] Summary Purpose Family History No Family History Records FoundNo Family History Records FoundNo Family History Records FoundNo Family History Records FoundNo Family History Records FoundNo Family History Records FoundNo Family History Records Found Advance Directives No Advanced Directives Records FoundDocuments on File Type Date Recorded Patient Patient Care Representative Expl anation Advance Directives and Living Will Power of Scalemaker Latest Code Status on File Code Status Date Activated Date Inactivated Comments Full Code 12/24/2014 2:22 AM 12/24/2014 11:00 PM Documents on File Type Date Recorded Patient Patient Care Representative Expl anation Advance Directives and Living Will Power of Scalemaker Latest Code Status on File Code Status Date Activated Date Inactivated Comments Full Code 12/24/2014 2:22 AM 12/24/2014 11:00 PM Documents on File Type Date Recorded Patient Patient Care Representative Expl anation ACP-Advance Directive ACP-Power of Scalemaker Documents on File Type Date Recorded Patient Patient Care Representative Expl anation Advance Directives and Livin g Will 03/12/2020 12:00 AM Discharge Instructions * Attachments The following attachments cannot be sent through Care Everywhere. * Influenza (Afghan) documented in this encounter* Attachments The following attachments cannot be sent through Care Everywhere. * Influenza (Afghan) documented in this encounter* Attachments The following attachments cannot be sent through Care Everywhere. * Hand Laceration: Stitches (Afghan) documented in this encounter Assessments Diagnosis Influenza [...] SPINE WO CONTRAST Jolie Christianson APRN - CRANE ENGINEER [address] [place] [address] Additional Source Comments (unrecognized sect ion and content) No Status Records FoundNo Status Records FoundNo Status Records FoundNo Status Records FoundNo Status Records FoundNo Status Records FoundNo Status Records Found INFORMATION SOURCE (unrecogn ized section and content) DATE CREATED AUTHOR 04/10/2019 [facility] DATE CREATED AUTHOR AUTHOR'S ORGANIZ ATION 04/05/2020 [facility] DATE CREATED AUTHOR AUTHOR'S ORGANIZ ATION 08/01/2021 [facility] DATE CREATED AUTHOR AUTHOR'S ORGANIZ ATION 11/12/2021 [facility] DATE CREATED AUTHOR AUTHOR'S ORGANIZ ATION 03/06/2022 [facility] DATE CREATED AUTHOR AUTHOR'S ORGANIZ ATION 01/31/2023 [facility] DATE CREATED AUTHOR AUTHOR'S ORGANIZ ATION 08/24/2023 [facility] Reason for Visit (unrecogniz ed section and content) Reason Comments Generalized Body Aches ongoing for appro x 2 days Cough ongoing for 2 days Emesis ongoing for 2 days Reason Comments Shortness of Breath was in ER on wednesday and diagnosed with influenza A. 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 Specialty Diagnoses / Procedures Referred By Contact Referred To Contact Pending Review Radiology Diagnoses Lumbosacral pain Lumbago with sciatica, left side Procedures [facility] MRI-SPINE LUMBAR WO CONTRAST Jolie Christianson, ZENAIDA Cole CRANE ENGINEER [address] [place] [address] [facility] [address] [place] [address] Reason Comments Dental Pain left sided tooth [...] Care Teams (unrecognized sec tion and content) [employer] Relationship Specialty Start Date End Date Jolie Christianson, CRANE ENGINEER [address] [place] [address] PCP - General Family Medicine 03/12/20 [employer] Relationship Specialty Start Date End Date Sofie Mills MD [address] [place] [address] PCP - General Family Medicine 09/17/20 [employer] Relationship Specialty Start Date End Date Sofie Mills MD [address] [place] [address] PCP - General Family Medicine 09/17/20 [employer] Relationship Specialty Start Date End Date Sofie Mills MD [address] [place] [address] PCP - General Family Medicine 09/17/20 Scheduled Active and Recently Administ ered Medications (unrecognized section and content) Medication Order 06/28/2021 06/29/2021 06/30/2021 acetaminophen (TYLENOL) tablet 1,000 mg (COMPLETED) 1,000 mg, Oral, ONCE, On Wed06/30/21 at 0430, For 1 dose 0434 (Given - Provid er: Yumi Min RN) benzonatate (TESSALON) capsule 100 mg (COMPLETED) 100 mg, Oral, ONCE, On Wed06/30/21 at 0430, For 1 dose 0434 (Given - Provid er: Yumi Min RN) ibuprofen (ADVIL;MOTRIN) tablet 800 mg (COMPLETED) 800 mg, Oral, ONCE, On Wed06/30/21 at 0430, For 1 dose, Do not crush or break. 043 (Given - Provid er: Yumi Min RN) Scheduled Medication Order 07/29/2021 07/30/2021 07/31/2021 ketorolac (TORADOL) injection 30 mg 30 mg, IntraMUSCular, ONCE, On [facility] 07/31/21 at 1945, For 1 dose 1944 (Due) lidocaine 4 % external patch 1 patch 1 patch, TransDERmal, Administer over 12 Hours, ONCE, On [facility] 07/31/21 at 1945, For 1 dose, Apply patch to right [...] BE BASED ON THE PRIMARY CLINICAL RECORDS. [employer] provides no warranty or guarantee of the accuracy or completeness of information in this document.
--- NOTE | 2023-08-25 07:00 | MR_ITS ---
[address] [address] Patient Name: DORIS VEGA MRN: [id number] date: 1985 Sex: M Assigned Patient Location: RAD Current Patient Location: [facility] Accession/Order Number: [id number] Exam Date: 08/25/2023 07:15 Report Date: 08/25/2023 08:10 At the request of: SHAIKH TINO Procedure: MR lumbar spine wo con EXAMINATION: MR lumbar spine wo con HISTORY: Chronic Bilateral Low Back With Bilateral Sciatica M54.42 COMPARISON: No relevant comparison available. TECHNIQUE: A variety of imaging planes and parameters were utilized for visualization of suspected pathology. FINDINGS: For the purposes of numbering, sagittal T2 image # 8 extends from the T11 vertebral body superiorly to the S3-S4 level inferiorly. PARASPINAL AREA: Normal with no visible mass. BONES: Normal alignment with no acute fracture or spondylolisthesis. No bone edema CORD/CAUDA EQUINA: Normal caliber, contour, and signal intensity. DISC LEVELS: 12-L1: No significant disc/facet abnormality, spinal stenosis, or foraminal stenosis. L1-L2: No significant disc/facet abnormality, spinal stenosis, or foraminal stenosis. L2-L3: No significant disc/facet abnormality, spinal stenosis, or foraminal stenosis. L3-L4: No significant disc/facet abnormality, spinal stenosis, or foraminal stenosis. L4-L5: Disc desiccation. Broad-based posterior central left paracentral and foraminal disc herniation of the protrusion type extending up to 3 mm posteriorly. This displaces but does not efface the adjacent exiting nerve root L5-S1: No significant disc/facet abnormality, spinal stenosis, or foraminal stenosis. MR/MR lumbar spine wo con IMPRESSION: Broad-based posterior central disc herniation L4-L5 compressing but not effacing the adjacent left L4 nerve root Electronically authenticated by: MEAGHAN STARK Date: 08/25/2023 08:10
--- NOTE | 2023-08-25 07:00 | XR_ITS ---
[address] [address] Patient Name: DORIS VEGA MRN: [id number] date: 1985 Sex: M Assigned Patient Location: RAD Current Patient Location: [facility] Accession/Order Number: [id number] Exam Date: 08/25/2023 07:01 Report Date: 08/25/2023 07:12 At the request of: SHAIKH TINO Procedure: XR foreign body eye EXAMINATION: XR foreign body eye HISTORY: Foreign Body Eyes COMPARISON: No relevant comparison available. FINDINGS: ORBITS: Negative for a metallic foreign body. OTHER: Negative. XR/XR foreign body eye IMPRESSION: No metallic foreign body in the orbits Electronically authenticated by: MEAGHAN STARK Date: 08/25/2023 07:12
== END 2023-08-25 06:50 | disposition home or self-care (01) ==
LOC: RAD 06:51
PROVIDERS: PCP Internal Medicine; Visit Provider Internal Medicine
DX: M54.42 Lumbago with sciatica, left side (principal); M54.41 Lumbago with sciatica, right side; G89.29 Other chronic pain
CPT/HCPCS: 70030; 72148

== ENCOUNTER 2023-11-19 07:39 | Emergency (ER) | payer MEDICAID, SELFPAY ==
[2023-11-19 07:51] VITALS: BP 106/70; PULSE 66; TEMP 36.7; O2SAT 98; BMI 32.3
--- NOTE | 2023-11-19 07:59 | XR_ITS ---
The [address] [address] Patient Name: DORIS VEGA MRN: [id number] date: 1985 Sex: M Assigned Patient Location: ED.MAIN Current Patient Location: ER Accession/Order Number: [id number] Exam Date: 11/19/2023 08:35 Report Date: 11/19/2023 09:00 At the request of: SHON DURBIN Procedure: XR chest 1V EXAMINATION: XR chest 1V HISTORY: cough 2 weeks COMPARISON: No relevant comparison available. TECHNIQUE: AP portable FINDINGS: LUNGS: No significant pulmonary parenchymal abnormalities. VASCULATURE: No increased pulmonary vasculature. PLEURA: No pneumothorax, effusion, or pleural thickening. CARDIAC: No cardiomegaly or cardiac silhouette abnormality. MEDIASTINUM: No visible mass or adenopathy. BONES: No fracture or visible bone lesion. OTHER: Negative. XR/XR chest 1V IMPRESSION: No acute cardiopulmonary process Electronically authenticated by: MEAGHAN STARK Date: 11/19/2023 09:00
--- NOTE | 2023-11-19 08:01 | ED.URI1 ---
HPI - URI/Sore Throat General Chief Complaint: Upper Respiratory Infection Stated Complaint: SHORTNESS OF BREATH Time Seen by Provider: 11/19/23 07:54 Source: patient Limitations: no limitations History of Present Illness HPI Narrative: 38-year-old male presents for 2-week history of a cough. He has been coughing up some yellow phlegm and he saw his family physician who put him on a course of Augmentin and prednisone and Tessalon. He does not seem to have a history of asthma or COPD. He has not had a known fever and he took a home COVID test last night that was negative. Related Data Home Medications ?Medication ?Instructions ?Recorded ?Confirmed clonidine HCl 0.1 mg tablet 0.1 mg PO .qhs 12/21/22 11/19/23 gabapentin 800 mg tablet 800 mg PO TID 12/21/22 11/19/23 omeprazole 40 mg capsule,delayed 40 mg PO QDAY 12/21/22 11/19/23 release benzonatate 100 mg capsule 100 mg PO Q6H PRN cough 11/19/23 11/19/23 oxycodone 5 mg tablet 5 mg PO Q8H PRN pain 11/19/23 11/19/23 prednisone 20 mg tablet 20 mg PO Q12H 11/19/23 11/19/23 Previous Rx's ?Medication ?Instructions ?Recorded amoxicillin 875 mg-potassium 1 tab PO BID #20 tabs 05/29/23 clavulanate 125 mg tablet albuterol sulfate 90 mcg/actuation 2 inh inhalation Q4H PRN shortness 11/19/23 aerosol inhaler of breath or wheezing #8.5 grams azithromycin 250 mg tablet See Rx Instructions PO .COMPLEX #6 11/19/23 (Zithromax Z-Angel) tabs Allergies Allergy/AdvReac Type Severity Reaction Status Date / Time No Known Drug Allergies Allergy Verified 05/29/23 17:30 Review of Systems ROS Narrative A ten point review of systems is negative except as noted above. PFSH PFSH Social History Smoking status: Current every day smoker Exam Narrative Exam Narrative: Nurses note and vital signs reviewed and patient is not hypoxic. General: The patient appears in no apparent distress. Patient is resting comfortably on cart. Skin: Warm, dry, no pallor noted. There is no rash noted. Head: Normocephalic, atraumatic Eye: Normal conjunctiva, no drainage Ears, Nose, Mouth, and Throat: oral mucosa is moist. Nares patent. Cardiovascular: Regular Rate and Rhythm, not tachycardic Respiratory: A few rhonchi present bilaterally, good air movement present Back: non-tender GI: Soft and nontender Musculoskeletal: The patient has no evidence of calf tenderness, no pitting edema, symmetrical pulses noted bilaterally Neurological: A&O, normal speech Psychiatric: Cooperative Constitutional Vital Signs, click to edit/add: Last Vital Signs Temp 98.1 F 11/19/23 07:51 Pulse 88 11/19/23 09:45 Resp 18 11/19/23 09:45 BP 110/80 11/19/23 09:45 Pulse Ox 98 11/19/23 09:45 O2 Del Method Room Air 11/19/23 08:21 Course Vital Signs Vital signs: Vital Signs Temperature 98.1 F 11/19/23 07:51 Pulse Rate 66 11/19/23 07:51 Respiratory Rate 18 11/19/23 07:51 Blood Pressure 106/70 11/19/23 07:51 Pulse Oximetry 98 11/19/23 07:51 Oxygen Delivery Method Room Air 11/19/23 07:51 Temperature 98.1 F 11/19/23 07:51 Pulse Rate 88 11/19/23 09:45 Respiratory Rate 18 11/19/23 09:45 Blood Pressure 110/80 11/19/23 09:45 Pulse Oximetry 98 11/19/23 09:45 Oxygen Delivery Method Room Air 11/19/23 08:21 MDM - URI/Sore Throat MDM Narrative Medical decision making narrative: Workup is negative including chest x-ray. He is prescribed Zithromax and an albuterol inhaler. Treatment diagnosis and follow-up were discussed with the patient. Differential Diagnosis Differential diagnosis: Likely upper respiratory infection, viral infection, bronchitis and other (Pneumonia) Lab Data Attestation: I reviewed the patient's lab results. Labs: Lab Results 11/19/23 Range/Units 08:55 WBC 10.1 (4.0-11.0) 10^3/uL RBC 4.66 L (4.70-6.10) 10^6/uL Hgb 14.7 (14.0-18.0) g/dL Hct 42.2 (42.0-54.0) % MCV 90.6 (80.0-94.0) fL MCH 31.5 (25.9-34.0) pg MCHC 34.8 (29.9-35.2) g/dL RDW 12.7 (11.0-15.0) % Plt Count 147 L (150-450) 10^3/uL MPV 11.9 (9.5-13.5) fL Seg Neuts % (Manual) 72.0 Lymphocytes % (Manual) 21.0 (20.5-60.0) % Monocytes % (Manual) 6.0 (1.7-12.0) % Eosinophils % (Manual) 1.0 (0.9-7.0) % Basophils % (Manual) 0.0 L (0.2-2.0) % Neutrophils # (Manual) 7.27 H (1.4-6.5) 10^3/uL Lymphocytes # (Manual) 2.12 (1.20-3.80) 10^3/uL Monocytes # (Manual) 0.60 (0.30-0.80) 10^3/uL Eosinophils # (Manual) 0.10 (0.00-0.70) 10^3/uL Basophils # (Manual) 0.00 (0.00-0.10) 10^3/uL Sodium 141 (136-145) mmol/L Potassium 3.3 L (3.5-5.1) mmol/L Chloride 105 (98-107) mmol/L Carbon Dioxide 28.3 (21.0-32.0) mmol/L Anion Gap 11.0 BUN 7.0 (7.0-18.0) mg/dL Creatinine 0.98 (0.70-1.30) mg/dL Est GFR ( Amer) >60 (>=60) Est GFR (Non-Af Amer) >60 (>=60) BUN/Creatinine Ratio 7.1 Glucose 103 (74-106) mg/dL Calcium 9.0 (8.5-10.1) mg/dL Imaging Data Chest x-ray: Radiologist's impression: ITS Impressions Chest X-Ray 11/19/23 07:59 IMPRESSION: No acute cardiopulmonary process Electronically authenticated by: MEAGHAN STARK Date: 11/19/2023 09:00 Discharge Plan Discharge Stand Alone Forms: Portal Instructions Chief Complaint: Upper Respiratory Infection Clinical Impression: Upper respiratory infection Patient Disposition: Home, Self-Care Time of Disposition Decision: 09:41 Condition: Good Mode of Transportation: Private Vehicle Prescriptions / Home Meds: New azithromycin [Zithromax Z-Angel] 250 mg tablet See Rx Instructions .ROUTE .COMPLEX Qty: 6 0RF Rx Instructions: For 250 mg dose pack: take 500 mg today (day 1), then 250 mg for 4 days (days 2-5) albuterol sulfate 90 mcg/actuation HFA aerosol inhaler 2 inh inhalation Q4H PRN (Reason: shortness of breath or wheezing) Qty: 8.5 0RF No Action clonidine HCl 0.1 mg tablet 0.1 mg PO .qhs omeprazole 40 mg capsule,delayed release(DR/EC) 40 mg PO QDAY gabapentin 800 mg tablet 800 mg PO TID benzonatate 100 mg capsule 100 mg PO Q6H PRN (Reason: cough) oxycodone 5 mg tablet 5 mg PO Q8H PRN (Reason: pain) prednisone 20 mg tablet 20 mg PO Q12H amoxicillin-pot clavulanate 875-125 mg tablet 1 tab PO BID Qty: 20 0RF Print Language: Tamazight Instructions: Upper Respiratory Infection (ED) Referrals: Shaikh Lobo MD [Primary Care Provider] - 1 week Discharge Date/Time: 11/19/23 09:46
--- OUTSIDE RECORDS SUMMARY | 2023-11-19 08:03 | XMS_ITS ---
Patient Summarization (C-CDA 2.1 CCD) Created on: November 19, 2023 Doris Cochran : 1985 Sex: Male Author Organization Sample organization Care Team Providers Care Controls Project Engineer Name Role Phone VIJAY ROWE Attending Unavail Jolie Tirado Primary Care UnavailJOLIE Junior Consulting UnavailJolie Junior Primary Care Provider [phone] JESS FARLEY Attending Unavail JOLIE Tirado Primary Care Unavailstephanie Mills MD, Sofie Brown Primary Care Provider [phone] Jolie Christianson CNP Primary Care Provider Sofie Mills MD Primary Care Provider [phone] SOFIE MILLS Primary Care Unavailable VICENTE BAUMANN Attending Unavailable SECOR, SOFIE Brown Primary Care Unavailable SECOR, SOFIE Brown Primary Care Unavailable SECOR, SOFIE Brown Primary Care Unavailable KRYSTIN VALENZUELA Attending Unavailable SECOR, SOFIE Brown Primary Care Unavailable DENNY MORRELL Attending Unavailable Sammy ESTEVEZ - Jolie DRAKE Primary Care Provider DEMARIO JACOB Referring Unavailable SECOR, SOFIE Brown Primary Care Unavailable REGINA NESS Referring Unavailable SECOR, SOFIE Brown Primary Care Unavailable REGINA NESS Referring Unavailable SECOR, SOFIE Brown Primary Care Unavailable SECOR, SOFIE Brown Primary Care Unavailable SECOR, SOFIE Brown Primary Care Unavailable RAMEZ RANGEL Admitting Unavailable RAMEZ RANGEL Attending Unavailable LINA, SOFIE Brown Primary Care Unavailable DEMARIO JACOB Admitting Unavailable DEMARIO JACOB Attending Unavailable LINA, SOFIE Brown Primary Care Unavailable SOCORRO, DR NONE LISTED Primary Care UnavailFIDENCIO Mauro Admitting Unavailable JONAS OSBORN Consulting Unavailable FIDENCIO MALONEY Attending Unavailable VINCENT, DR LYNN Consulting Unavailable SOCORRO, NONE LISTED Primary Care UnavailDR LEAH Leon Admitting Unavailable HAY, DR LYNN Attending Unavailable MARKER, DR ARMSTRONG Admitting Unavailable NORA, JONAS FOSS Consulting Unavailable REQUEST, DR NONE LISTED Primary Care Unavaila ble MARKER, DR ARMSTRONG Attending Unavailable SHAIKH JIMÉNEZ Primary Care Unavailable David Weathers Attending Unavailable SHAIKH JIMÉNEZ Primary Care Physician [phone] SHAIKH JIMÉNEZ Attending Unavailable SHAIKH JIMÉNEZ Attending Unavailable LASHELL, Attending Unavailable SHAIKH JIMÉNEZ Attending Unavailable Allergies Allergy Classification Reported Allergen(s) Allergy Type Date of Onset Reaction(s) Facility (1 source) No Known Medication Allergies; Translations: [No Known Medication Allergies] Propensity to adverse reactions to drug (disorder) [facility] Repository Encounters Encounter Date Encounter Type Care Provider Facility Start: 10-15-2023 End: 10-15-2023 ambulatory [facility] Work Phone: Start: 10-15-2023 End: 10-15-2023 Patient encounter procedure [facility] Work Phone: Start: 10-06-2023 End: 10-06-2023 ambulatory ALBERTO FAWWAD Not Available Start: 10-05-2023 End: 10-05-2023 ambulatory [facility] Work Phone: Start: 10-05-2023 End: 10-05-2023 Patient encounter procedure [facility] Work Phone: Start: 09-06-2023 End: 09-06-2023 ambulatory ALBERTO FAWWAD Not Available Start: 08-23-2023 End: 08-23-2023 ambulatory ALBERTO FAWWAD Not Available Start: 08-05-2023 End: 08-05-2023 ambulatory ALBERTO FAWWAD Not Available Start: 01-31-2023 End: 01-31-2023 Emergency department patient visit ALBERTO STANLEYWWAD Facility:[facility] Start: 01-31-2023 End: 01-31-2023 Emergency department patient visit David Weathers [facility] Start: 02-17-2022 End: 02-17-[address] NATHANIEL THOMPSON Facility:[facility] Start: 12-02-2021 End: 12-02-[address] LEAH KAUR Facility:[facility] Start: 11-14-2021 End: 11-14-2021 ambulatory NONE LISTED REQUEST Facility:[facility] Start: 08-18-2021 End: 08-18-2021 ambulatory [facility] Start: 08-14-2021 ambulatory [facility] Start: 08-06-2021 End: 08-06-2021 [facility] Start: 07-31-2021 End: 07-31-2021 Emergency department patient visit [facility] Start: 07-31-2021 End: 07-31-2021 Emergency department patient visit Denny Morrell MD Work Phone: [facility] Comment on above: Muscle strain (Prima ry Dx) Start: 06-30-2021 End: 06-30-2021 Emergency department patient visit [facility] Start: 06-30-2021 End: 06-30-2021 Emergency department patient visit Krystin Valenzuela DO Work Phone: [facility] Comment on above: Cough (Primary Dx); Acute nonintractable headache, unspecified headache type Start: 06-13-2021 End: 06-16-2021 ambulatory [facility] Start: 05-16-2021 ambulatory REGINA NESS [facility] Start: 04-25-2021 Emergency department patient visit [facility] Start: 04-25-2021 End: 04-25-2021 Emergency department patient visit Sofie Mills MD Work Phone: [facility] Comment on above: Suspected COVID-19 v irus infection (Primary Dx) Start: 04-09-2021 Transcribe Orders Susie Faria MA [facility] Comment on above: Low back pain with s ciatica, sciatica laterality unspecified, unspecified back pain laterality, unspecified chronicity (Primary Dx) Start: 10-01-2020 End: 10-01-2020 Emergency department patient visit [facility] Start: 10-01-2020 End: 10-01-2020 Emergency department patient visit Vicente Baumann MD Work Phone: [facility] Comment on above: Pain, dental (Primar y Dx); Dental caries Start: 09-30-2020 End: 09-30-2020 Emergency department patient visit [facility] Start: 04-04-2020 [facility] Start: 08-21-2019 End: 08-21-2019 Emergency department patient visit Juan Shrestha Work Phone: [facility] Comment on above: Laceration of right index finger without foreign body without damage to nail, initial encounter (Primary Dx) Start: 07-16-2019 End: 07-16-2019 Emergency department patient visit Marcus Leander Stevensjannyanthony Work Phone: [facility] Comment on above: Influenza A (Primary Dx) Start: 07-14-2019 End: 07-14-2019 Emergency department patient visit Marcus Orourke Work Phone: [facility] Comment on above: Influenza A (Primary Dx) Start: 05-16-2019 End: 05-16-2019 Emergency department patient visit Jolie Christianson HYDROGRAPHER - BENCH WORKER HELPER Work Phone: [facility] Comment on above: Rhomboid muscle stra in, initial encounter (Primary Dx) Start: 04-10-2019 Patient encounter procedure VIJAY ROWE Facility:[facility] Start: 03-03-2019 End: 03-05-2019 Subsequent hospital visit by physician Derrick Mri Scanner [facility] MRI Comment on above: Lumbar pain; Congenital abnormality Start: 02-21-2019 End: 02-23-2019 Subsequent hospital visit by physician Derrick Zheng Dr Room 4 [facility] Radiology Comment on above: Pain Injury; Right wrist pain Medications Current Medications Medication Drug Class(es) Dates [...] Active cloNIDine hydrochloride 0.1 mg oral tablet (11 sources) Central alpha-2 Adrenergic Agonist Start: 10-05-2023 take 0.1 mg by mouth once daily at bedtime Clonidine Hcl Active 0.1 MG PO Daily at bedtime October 05, 2023 12:00am Start: 01-31-2023 cloNIDine 0.1 mg tab Refills(s) [...] 10 mg gabapentin 800 mg oral tablet (11 sources) Anti-epileptic Agent Start: 10-05-2023 Gabapenti n Active 800 MG PO October 05, 2023 12:00am Start: 01-31-2023 gabapentin 800 mg Tab Refills(s) 0 Start Date: [...] 04/25/2021 Active methocarbamol 750 mg oral tablet (3 sources) Muscle Relaxant Start: 10-05-2023 Methocarbamol Active 750 MG PO October 05, 2023 12:00am Start: 01-31-2023 End: 02-03-2023 take 1 tablet by mouth three times daily Robaxin-750 oral tablet 1,500 mg = 2 tab(s), Oral, TID, X 3 day(s), # 18 tab(s), Refills(s) 0, Pharmacy: [id number], 167.7, cm, 01/31/23 8:55:00 EDT, Height/Length Dosing, 91, kg, 01/31/23 8:55:00 EDT, Weight Dosing Start Date: 01/31/23 Stop Date: 02/03/23 Status: Ordered omeprazole 40 mg delayed release oral capsule (7 sources) Proton Pump Inhibitor Start: 10-05-2023 Omeprazo le Active 40 MG PO October 05, 2023 12:00am Start: 01-31-2023 omeprazole 40 mg Cap-DR Refills(s) 0 Start Date: 01/31/23 Status: Ordered Start: 03-17-2021 take 1 capsule by mo [facility] once daily omeprazole (PRILOSEC) 40 MG delayed release capsule take 1 capsule by mouth once daily 30 capsule 11 03/17/2021 Active Start: 06-04-2020 take 1 capsule by [facility] once daily omeprazole (PRILOSEC) 40 MG delayed [...] days 20 capsule 0 07/14/2019 07/24/2019 Active oxyCODONE hydrochloride 5 mg oral tablet (2 sources) Opioid Agonist Start: 10-05-2023 Oxycodone Active 5 MG PO October 05, 2023 12:00am penicillin v potassium 500 mg oral tablet [...] End: 05-19-2019 traMADol (ULTRAM) tablet 50 mg Payers Date Payer Category Payer Medicaid [id number] 2019 Medicaid [employer] MEDICA[employer] MEDICAID [id number] 2019-Present [phone] [address] [place] [address] [id number] 2019 Unknown 2018 Unknown [employer] [place] [employer] xxxxxxxxxxx 2018-Present [phone] [address] [place] [address] xxxxxxxxxxx [id number]. [id number] 2014 Medicaid [id number] 1985 Unknown [id number] 2.16.840.1.131462.3.579.2.196 1985 Unknown [id number] 2.16.840.1.888994.3.579.2.903 1985 Unknown [id number] 2.16.840.1.250615.3.579.2.173 1986 Unknown [id number] 2.16.840.1.170986.3.579.2.173 1986 Unknown [id number] 2.16.840.1.000492.3.579.2.173 1986 Unknown [id number] 2.16.840.1.217523.3.579.2.173 1986 Unknown [id number] 2.16.840.1.600983.3.579.2.754 1986 Unknown [id number] 2.16.840.1.883285.3.579.2.754 1986 Unknown [id number] 2.16.840.1.979918.3.579.2.754 1986 Unknown [id number] 2.16.840.1.218335.3.579.2.754 1986 Unknown [id number] 2.16.840.1.841356.3.579.2.754 1986 Unknown [id number] 2.16.840.1.024913.3.579.2.754 1986 Unknown [id number] 2.16.840.1.712024.3.579.2.754 1986 Unknown [id number] 2.16.840.1.098427.3.579.2.593 1986 Unknown [id number] 2.16.840.1.350886.3.579.2.593 1986 Unknown [id number] 2.16.840.1.598915.3.579.2.593 1986 Unknown [id number] 2.16.840.1.347162.3.579.2.727 1986 Unknown [id number] 2.16.840.1.157863.3.579.2.1259 1986 Unknown [id number] 2.16.840.1.039837.3.579.2.1259 1986 Unknown [id number] 2.16.840.1.047022.3.579.2.1259 1986 Unknown [id number] 2.16.840.1.346166.3.579.2.1259 1959 Unknown [id number] Self-pay Self Pay [id number] Plan of Treatment Date Care Activity Detail Author Start: 2036 Shingles Vaccine (1 of 2) Shingles Vaccine (1 of 2) [facility] Work Phone: Start: 10-05-2023 Patient referral [facility] Work Phone: Start: 09-15-2021 End: 09-15-2021 Patient encounter procedure 09/15/2021 Office Visit Primary Care Sofie Mills MD [address] [place] [address] [facility] Start: 09-10-2021 End: 09-10-2021 Patient encounter procedure 09/10/2021 Office Visit Pain Management Yasmine Wellington, HYDROGRAPHER - BENCH WORKER HELPER [address] [facility] [place] [address] [facility] Start: 08-18-2021 End: 08-18-2021 Admission to same day surgery center 08/18/2021 Surgery IP Unit Demario Jacob MD [address] [place] [address] RIGHT CARPAL TUNNEL RELEASE [facility] OR Comment on above: RIGHT CARPAL TUNNEL RELEASE Start: 08-18-2021 End: 08-18-2021 Neuroplasty &/transpos median nrv carpal tunne CARPAL TUNNEL RELEASE right cts 08/18/2021 12:00 PM EDT [facility] Start: 08-18-2021 Subsequent hospital visit by physician 08/18/2021 Hospital Encounter IP Unit Demario Jacob MD [address] [place] [address] [facility] Start: 08-11-2021 End: 08-11-2021 Patient encounter procedure 08/11/2021 Office Visit Primary Care Sofie Mills MD [address] [place], [place] [id number] [facility] Start: 08-06-2021 End: 08-06-2021 Admission to same day surgery center 08/06/2021 Surgery IP Unit Ramez Rangel MD [address] [facility] [place] [address] LUMBAR INTER LAMINAR TOM L4 L5 [facility] Comment on above: LUMBAR INTER LAMINAR TOM L4 L5 Start: 08-06-2021 End: 08-06-2021 Njx dx/ther sbst intrlmnr lmbr/sac w/img gdn LUMBAR INTER LAMINAR TOM lumbar stenosis 08/06/2021 11:45 AM EST [facility] Start: 08-06-2021 Subsequent hospital visit by physician 08/06/2021 Hospital Encounter IP Unit Ramez Rangel MD [address] [place] [address] [facility] Start: 07-30-2021 End: 07-30-2021 Patient encounter procedure 07/30/2021 Office Visit Pain Management Ramez Rangel MD [address] [facility] [place] [address] [facility] Start: 07-24-2021 End: 07-24-2021 Patient encounter procedure 07/24/2021 Office Visit Orthopedic Surgery Tony Black MD [address] [place] [address] [facility] Start: 06-30-2021 End: 06-30-2021 Patient encounter procedure 06/30/2021 Office Visit Orthopedic Surgery Demario Jacob MD [address] [place] [address] [facility] Start: 05-23-2021 End: 05-23-2021 Patient encounter procedure 05/23/2021 Office Visit Orthopedic Surgery Tony Black MD [address] [place] [address] (Fax) [facility] Start: 05-16-2021 End: 05-16-2021 Patient encounter procedure 05/16/2021 Appointment Radiology [facility] MRI Start: 05-07-2021 End: 05-07-2021 Patient encounter procedure 05/07/2021 Office Visit Neurosurgery Jess Farley MD [address] [facility] [address] [place] [address] [facility] Start: 03-17-2021 End: 03-17-2021 Patient encounter procedure 03/17/2021 Office Visit Primary Care Sofie Mills MD [address] [place] [address] [facility] Start: 02-05-2021 Influenza vaccination [facility] Start: 10-09-2020 End: 10-09-2020 Patient encounter procedure 10/09/2020 Office Visit AFL [facility] SCHD ONLY Start: 10-01-2020 COVID-19 Vaccine (2 - Moderna 2-dose series) COVID-19 Vaccine (2 - Moderna 2-dose series) [facility] Work Phone: Start: 06-13-2019 End: 06-13-2019 Patient encounter procedure 06/13/2019 Appointment Pain Management Patito Gutierres MD [address] [facility] [place], [place] [id number] [facility] Start: 05-23-2019 End: 05-23-2019 Patient encounter procedure 05/23/2019 Appointment Pain Management Patito Gutierres MD [address] [facility] [place], [place] [id number] [facility] Start: 03-03-2019 End: 03-03-2019 Appointment 03/03/2019 Appointment Radiology [facility] Start: 02-05-2019 Influenza vaccination Flu vaccine (# 1) [facility] [place] [place] Start: 2005 DTaP/Tdap/Td vaccine (1 - Tdap) DTaP/Tdap/Td vaccine (1 - Tdap) [facility] Start: 2004 Hepatitis C screening Hepatitis C Sc reening [facility] Start: 2001 HIV screen HIV screen [place], [place] Start: 2001 HIV screening [facility] Start: 1999 Varicella Vaccine (1 of 2 - 13+ 2-dose series) Varicella Vaccine (1 of 2 - 13+ 2-dose series) [place], [place] Start: 1998 COVID-19 Vaccine (1) COVID-19 Vaccin e (1) [facility] Start: 1998 Depression Screen Depression Screen [facility] Start: 1998 Depression screening using PHQ-9 (Patient Health Questionnaire 9) score Depression Screening (PHQ-2/9) [facility] Start: 1997 DTaP/Tdap/Td vaccine (1 - Tdap) DTaP/Tdap/Td vaccine (1 - Tdap) [facility] Phone: Start: 1992 Pneumococcal 0-64 ye ars Vaccine (1 of 1 - PPSV23) Pneumococcal 0-64 years Vaccine (1 of 1 - PPSV23) [place], [place] Start: 1992 Pneumococcal 0-64 ye ars Vaccine (1 of 2 - PPSV23) Pneumococcal 0-64 years Vaccine (1 of 2 - PPSV23) [facility] Start: 1991 COVID-19 Vaccine (1) COVID-19 Vaccin e (1) [facility] Start: 1989 History and physical examination, annual for health maintenance Wellness Visit [facility] Start: 1987 Varicella vaccine (1 of 2 - 2-dose childhood series) Varicella vaccine (1 of 2 - 2-dose childhood series) [facility] Start: 1986 Tetanus vaccination Tetanus: Every 1 0yrs [facility] End: 04-25-[address] Work Phone: Comment on above: One Time for 1 Occur rences starting 04/25/2021 until 04/25/2021 End: 06-30-[address] Work Phone: Comment on above: One Time for 1 Occur rences starting 06/30/2021 until 06/30/2021 Patient referral [facility] Work Phone: XR Lumbar spine Views [facility] Problems Active Problems Problem Classification Problem Date [...] 05-16-2019 05-16-2019 Chronic Other nervous system disorders (2 sources) Other chronic pain; Translations: [Other chronic pain] Onset: 11-18-2021 10-15-2023 Chronic Other nervous system disorders (1 source) Chronic pain; Translations: [Other chronic pain] 10-15-2023 Chronic Other nervous system disorders (2 sources) Pain in limb - multiple; Translations: [Paresthesia of skin] 06-03-2021 Episodic Other non-traumatic joint disorders (1 source) Pain of right wrist; Translations: [Right wrist pain] Spondylosis; intervertebral disc disorders; other back problems (11 sources) Lumbosacral spondylosis without myelopathy; Translations: [Spondylosis without myelopathy or radiculopathy, lumbosacral region] Onset: 07-30-2021 07-30-2021 Chronic Spondylosis; intervertebral disc disorders; other back problems (18 sources) Acute back pain with sciatica; Translations: [Low back pain] Onset: 05-16-2019 05-16-2019 Episodic Sprains and strains (2 sources) Strain of [...] 12-04-2021 Episodic Other aftercare (1 source) Other halfway (current) drug therapy; Translations: [OTH VESSEL SPECIALIST CURRENT DRUG THERAPY] Onset: 12-04-2021 Episodic Other [...] for closed fracture] Onset: 12-24-2014 12-24-2014 Episodic Unclassified (1 source) LOW BACK PAIN, UNSPECIFIED; Translations: [LOW BACK PAIN, UNSPECIFIED] Onset: 11-14-2021 Procedures Date Procedure Procedure Detail Performing Clinician Start: 06-30-2021 COVID-19, RAPID Veronica Valenzuela DO Work Phone: Start: 07-16-2019 [place] streptococ cus group a Marcus E Eitches Work Phone: Start: 07-16-2019 Radiologic exam ches t 2 views Marcus E Eitches Work Phone: Start: 07-14-2019 Radiologic exam ches t 2 views Marcus E Eitches Work Phone: Start: 07-14-2019 [place] influenza Eta n E Eitches Work Phone: Start: 05-16-2019 Radiologic exam ches t 2 views Chava MCDANIEL Work Phone: Start: 03-03-2019 Mri spinal canal [...] c antibody Ni niurka Christianson Work Phone: Results Test Name Value Interpretation Reference Range Facil ity Consent for Treatmenton 01-06 Consent for Treatment [id number] 0CD:127 Normal [facility] Discharge Instructionson Discharge Instructions [id number] 0CD:127 Normal [facility] ED Clinical Summaryon 2022 ED Clinical Summary [address] [address] ED Clinical Summary Person Information Name: DORIS COCHRAN/[facility] Age: 37 Years : 1985 Sex: Male Language: Mozambican PCP: SHAIKH JIMÉNEZ Marital Status: Single Visit [...] 01/31/2023 10:14:51 01/31/2023 10:14:51 01/31/2023 10:14:51 ADDRESS: [facility] [place] [address] PHYS DOC NOTES: MEDICAL INFORMATION: Prescriptions Given: New Medications [id number], [address] [place] [id number], [phone] methocarbamol (Robaxin-750 oral tablet) 2 Tablets By Mouth 3 times a day for 3 Days. Refills: 0. Medications to Continue with No Changes Other Medications clonidine (cloNIDine 0.1 mg tab) gabapentin (gabapentin 800 mg Tab) omeprazole (omeprazole 40 mg [place]) PATIENT EDUCATION INFORMATION: Instructions: Shoulder Sprain Follow up: With: Address: When: SHAIKH LASHELL [address] [place] [id number] [phone] Business (1) In 3 days 02/03/2023 DIAGNOSIS: Shoulder strain Normal [facility] ED Note-Physicianon 02-01-20 ED Note-Physician Basic [...] day(s), # 18 tab(s), Refills(s) 0, Pharmacy: [id number], 167.7, cm, 01/31/23 8:55:00 EDT, Height/Length [...] TID Follow-up With When Contact Information SHAIKH LASHELL In 3 days 02/03/2023 EDT [address] [place] [address] [phone] Business (1) Additional Instructions: Patient Education Shoulder Sprain Attestation Patient seen and evaluated by the physician yard assistant. Attending physician was present in the emergency department and supervised care. This visit was performed by both the physician and an APC. I performed all aspects of the MDM as documented. This report was transcribed using voice recognition software. Every effort was made to ensure accuracy, however, inadvertently computerized heavy equipment operator/paver mistakes may be present. Appropriate healthcare PPE [...] acute abnormality Read By: Michele Suazo PA-C [facility] Comment on above: Result Comment: Elec [...] minutes, 2?3 times a day. ? Take [id number] and prescription medicines only as told by [...] provider. Document Revised: 02/11/2022 Document Reviewed: 02/11/2022 [employer] Patient Education ? 2022 [employer] Normal [facility] ED Patient Summaryon 023 ED Patient Summary [place] [id number] Patient Discharge Instructions Person Information Name: DORIS COCHRAN Age: 37 Years Arrival Date: 01/31/2023 08:40:38 Discharge Diagnosis: Shoulder strain Primary Care Physician: SHAIKH JIMÉNEZ Provider Information Primary Provider: David Weathers M.D. Advanced Patient Care Associate:Michele Suazo PA-C The exam and treatment you received in the Emergency Department were for an urgent problem and are not intended as complete care. It is important that you follow up with a doctor, nurse practitioner, or physician?s yard assistant for ongoing care. If your symptoms become worse or you do not improve as expected and you are unable to reach your usual health care provider, you should return to the Emergency Department. We are available 24 hours a day. DORIS COCHRAN has been given the following list of patient education materials, prescriptions and follow-up instructions: Follow-up Instructions: With: Address: When: SHAIKH LASHELL [address] [place] [phone] Business (1) In 3 days 02/03/2023 In the event that this physician does not participate in your insurance network, please consult with your insurance company to find a nearby participating provider. Patient Education Materials: Shoulder Sprain A MESSAGE TO ALL PATIENTS REGARDING OPIOIDS PRESCRIPTION OPIOIDS: WHAT YOU NEED TO KNOW Prescription opioids can be used to help relieve jjcqzvqv-nv-jgbapn pain and are often prescribed following a [...] be struggling with addiction, tell your health customer care associate and ask for guidance or [facility] National Helpline at 1-149-592-JOOL. g Source: [place] Department of Health (more content not included)... Normal [facility] XR Shoulder Complete Righton 01-31-2023 XR [...] Suazo FINAL REPORT Dictated: 01/31/2023 3:08 pm Giuseppe Jacinto MD. Signed (Electronic Signature): 01/31/2023 3:08 pm Signed by: Giuseppe Jacinto MD Transcribed by: ESTEBAN Technologist: KIRSTIE Technical Comments Radiation Dose: Kar in mGy = . DAP = . Normal [facility] AMYLASEon 12-02-2021 Amylase [Catalytic activity/Vol] 33 U/L Normal 25-115 [facility] Comment on above: Performed By: #### A MY, LIPA, CMP #### [facility] [address] [place] [address] Dr. Jenae Alvares CBC AUTO DIFFon 12-02-2021 BASO # 0.0 103/ul Normal 0.0-0.1 [facility] Comment on above: Performed By: #### C BC #### [facility] [address] [place] [address] Dr. Jenae Alvares Basophils/100 WBC (Bld) 0.0 % Critically low 0.2-2.0 [facility] Comment on above: Performed By: #### C BC #### [facility] [address] [place] [address] Dr. Jenae Alvares EO # 0.0 103/ul Normal 0.0-0.7 [facility] Comment on above: Performed By: #### C BC #### [facility] [address] [place] [address] Dr. Jenae Alvares Eosinophils/100 WBC (Bld) 0.5 % Critically low 0.9-7.0 [facility] Comment on above: Performed By: #### C BC #### [facility] [address] [place] [address] Dr. Jenae Alvares Erythrocyte distribution width (RBC) [Ratio] 13.3 % Normal 11.0-15.0 [facility] Comment on above: Performed By: #### C BC #### [facility] [address] [place] [address] Dr. Jenae Alvares Hematocrit (Bld) [Volume fraction] 42.2 % Normal 42.0-54.0 [facility] Comment on above: Performed By: #### C BC #### [facility] [address] [place] [address] Dr. Jenae Alvares Hemoglobin (Bld) [Mass/Vol] 14.5 g/dL Normal 14.0-18.0 [facility] Comment on above: Performed By: #### C BC #### [facility] [address] [place] [address] Dr. Jenae Alvares IG # 0.01 10e3/ul Normal 0.00-0.03 [facility] Comment on above: Performed By: #### C BC #### [facility] [address] [place] [address] Dr. Jenae Alvares IG % 0.2 % Normal 0.0-0.5 [facility] Comment on above: Performed By: #### C BC #### [facility] [address] [place] [address] Dr. Jenae Alvares LYMPH # 1.4 103/ul Normal 1.2-3.8 [facility] Comment on above: Performed By: #### C BC #### [facility] [address] [place] [address] Dr. Jenae Alvares Lymphocytes/100 WBC (Bld) 24.7 % Normal 20.5-60.0 [facility] Comment on above: Performed By: #### C BC #### [facility] [address] [place] [address] Dr. Jenae Alvares MANUAL DIFF REQ NO Normal [facility] Comment on above: Performed By: #### C BC #### [facility] [address] [place] [address] Dr. Jenae Alvares MCH (RBC) [Entitic mass] 31.4 pg Normal 25.9-34.0 [facility] Comment on above: Performed By: #### C BC #### [facility] [address] [place] [address] Dr. Jenae Alvares MCHC (RBC) [Mass/Vol] 34.4 g/dL Normal 29.9-35.2 [facility] Comment on above: Performed By: #### C BC #### [facility] [address] [place] [address] Dr. Jenae Alvares MCV (RBC) [Entitic vol] 91.3 fL Normal 80.0-94.0 [facility] Comment on above: Performed By: #### C BC #### [facility] [address] [place] [address] Dr. Jenae Alvares MONO # 0.4 103/ul Normal 0.3-0.8 [facility] Comment on above: Performed By: #### C BC #### [facility] [address] [place] [address] Dr. Jenae Alvares Monocytes/100 WBC (Bld) 7.2 % Normal 1.7-12.0 [facility] Comment on above: Performed By: #### C BC #### [facility] [address] [place] [address] Dr. Jenae Alvares NEUT # 3.7 103/ul Normal 1.4-6.5 [facility] Comment on above: Performed By: #### C BC #### [facility] [address] [place] [address] Dr. Jenae Alvares Neutrophils/100 WBC (Bld) 67.4 % Normal 43.0-75.0 [facility] Comment on above: Performed By: #### C BC #### [facility] [address] [place] [address] Dr. Jenae Alvares Platelet mean volume (Bld) [Entitic vol] 12.2 fL Normal 9.5-13.5 [facility] Comment on above: Performed By: #### C BC #### [facility] [address] [place] [address] Dr. Jenae Alvares PLT 121 103/ul Critically low 150-450 [facility] Comment on above: Performed By: #### C BC #### [facility] [address] [place] [address] Dr. Jenae Alvares RBC 4.62 106/ul Critically low 4.70-6.10 [facility] Comment on above: Performed By: #### C BC #### [facility] [address] [place] [address] Dr. Jenae Alvares WBC 5.5 103/ul Normal 4.0-11.0 [facility] Comment on above: Performed By: #### C BC #### [facility] [address] [place] [address] Dr. Jenae Alvares LIPASEon 12-02-2021 Lipase [Catalytic activity/Vol] 86.0 U/L Normal 73.0-393.0 [facility] Comment on above: Performed By: #### A AMMON LIPA, CMP #### [facility] [address] [place] [address] Dr. Jenae Alvares PROF 14(COMP METB)on 022 Albumin [Mass/Vol] 3.7 g/dL Normal 3.4-5.0 [facility] Comment on above: Performed By: #### A AMMON LIPA, CMP #### [facility] [address] [place] [address] Dr. Jenae Alvares Albumin/Globulin [Mass ratio] 1.0 {ratio} Normal [facility] Comment on above: Performed By: #### A AMMON LIPA, CMP #### [facility] [address] [place] [address] Dr. Jenae Alvares ALP [Catalytic activity/Vol] 154 U/L Critically high 46-116 [facility] Comment on above: Performed By: #### A AMMON LIPA, CMP #### [facility] [address] [place] [address] Dr. Jenae Alvares ALT [Catalytic activity/Vol] 48 U/L Normal 16-63 [facility] Comment on above: Performed By: #### A AMMON LIPA, CMP #### [facility] [address] [place] [address] Dr. Jenae Alvares Anion gap [Moles/Vol] 11.0 mmol/L Normal [facility] Comment on above: Performed By: #### A AMMON LIPA, CMP #### [facility] [address] [place] [address] Dr. Jenae Alvares AST [Catalytic activity/Vol] 25 U/L Normal 15-37 [facility] Comment on above: Performed By: #### A AMMON LIPA, CMP #### [facility] [address] [place] [address] Dr. Jenae Alvares Bilirubin [Mass/Vol] 0.4 mg/dL Normal 0.2-1.0 [facility] Comment on above: Performed By: #### A AMMON LIPA, CMP #### [facility] [address] [address] [address] Jenae Alvares Calcium [Mass/Vol] 8.6 mg/dL Normal 8.5-10.1 [facility] Comment on above: Performed By: #### A MY, LIPA, CMP #### [facility] [address] [address] [address] Jenae Alvares Chloride [Moles/Vol] 105 mmol/L Normal 98-107 [facility] Comment on above: Performed By: #### A MY, LIPA, CMP #### [facility] [address] [address] [address] Jenae Alvares CO2 [Moles/Vol] 26.9 mmol/L Normal 21.0-32.0 [facility] Comment on above: Performed By: #### A MY LIPA, CMP #### [facility] [address] [place] [address] Dr. Jenae Alvares Creatinine [Mass/Vol] 1.14 mg/dL Normal 0.70-1.30 [facility] Comment on above: Performed By: #### A AMMON LIPA, CMP #### [facility] [address] [address] [address] Jenae Alvares EGFR-AF [place] >60 Normal >=60 [facility] Comment on above: Performed By: #### A AMMON LIPA, CMP #### [facility] [address] [place] [address] Dr. Jenae Alvares EGFR-NON AF [place] >60 Normal >=60 [facility] Comment on above: Performed By: #### A MY LIPA, CMP #### [facility] [address] [address] [address] Jenae Alvares Globulin (S) [Mass/Vol] 3.8 g/dL Normal [facility] Comment on above: Performed By: #### A MY, LIPA, CMP #### [facility] [address] [address] [address] Jenae Alvares Glucose [Mass/Vol] 96 mg/dL Normal 74-106 [facility] Comment on above: Performed By: #### A AMMON LIPA, CMP #### [facility] [address] [place] [address] Dr. Jenae Alvares Potassium [Moles/Vol] 3.9 mmol/L Normal 3.5-5.1 [facility] Comment on above: Performed By: #### A AMMON LIPA, CMP #### [facility] [address] [place] [address] Dr. Jenae Alvares Protein [Mass/Vol] 7.5 g/dL Normal 6.4-8.2 [facility] Comment on above: Performed By: #### A AMMON LIPA, CMP #### [facility] [address] [place] [address] Dr. Jenae Alvares Sodium [Moles/Vol] 139 mmol/L Normal 136-145 [facility] Comment on above: Performed By: #### A AMMON LIPA, CMP #### [facility] [address] [place] [address] Dr. Jenae Alvares Urea nitrogen [Mass/Vol] 11.0 mg/dL Normal 7.0-18.0 [facility] Comment on above: Performed By: #### A AMMON LIPA, CMP #### [facility] [address] [place] [address] Dr. Jenae Alvares Urea nitrogen/Creatinine [Mass ratio] 9.6 mg/mg Normal [facility] Comment on above: Performed By: #### A TUTU VERDEA, CMP #### [facility] [address] [place] [address] Dr. Jenae Alvares COVID19 ([facility])on 08-14-2021 SARS-CoV-2 (COVID-19) RNA RIP+probe Ql (Unsp spec) Not detected Normal NOT-DETECTED [facility] Comment on above: Order Comment: Is th [...] detection of SARS-CoV-2 nucleic acid. \[id number]\Resulting Lab: [facility] Performed By: #### C [id number] #### [place] [address] Ph. [phone] XR COMPARISON OF OUTSIDE CLIVE MSon 08-06-2021 XR COMPARISON OF OUTSIDE FILMS RADRPT There is no result for this study. This is a placeholder for comparison films only. Final result Normal [facility] [id number] 07-01-2021 SARS-CoV-2 (COVID-19) RNA RIP+probe Ql (Unsp spec) Normal [facility] Comment on above: Performed By: #### C OVID #### [facility] [employer] [address] [place] [address] Incinerator Plant Laborer: Chuck Bradley MD [facility] [address] [place] [address] [employer]ator Plant Laborer: Evin Poole MD SARS-CoV-2 (COVID-19) RNA RIP+probe Ql (Unsp spec) Not detected Normal [facility] Comment on above: Result Comment: The specimen is NEGATIVE for SARS-CoV-2, the novel coronavirus associated with COVID-19. A negative result does not rule out COVID-19. Regina SARS-CoV-2 for use on the [employer] Systems is a real-time RT-PCR test intended [...] this assay. Fact sheet for Healthcare Providers: https://www.fda.gov/media/889560/download Fact sheet for Patients: https://www.fda.gov/media/730276/download METHODOLOGY: RT-PCR Performed By: #### C OVID #### [facility] [address] [place] [address] Incinerator Plant Laborer: Chuck Bradley MD [facility] [address] [place] [address] [employer] Laborer: Evin Poole MD COVID-19, Rapidon 06-30-2021 SARS-CoV-2 (COVID-19) RNA RIP+probe Ql (Unsp spec) Not detected Not Detected [facility] Comment on above: Rapid NAAT: The specimen [...] management decisions. Fact sheet for Healthcare Providers: https://www.fda.gov/media/884010/download Fact sheet for Patients: https://www.fda.gov/media/666967/download Methodology: Isothermal Nucleic Acid Amplification Specimen Description .NASOPHARYNGEAL SWAB [facility] [id number] 06-30-2021 SARS-CoV-2 (COVID-19) RNA RIP+probe Ql (Unsp spec) Not detected Normal NOTDET [facility] Comment on above: Result Comment: Rapid NAAT: [...] management decisions. Fact sheet for Healthcare Providers: https://www.fda.gov/media/172211/download Fact sheet for Patients: https://www.fda.gov/media/025550/download Methodology: Isothermal Nucleic Acid Amplification Performed By: #### C OVRB #### [address] [place] [address] Incinerator Plant Laborer: Evin Poole MD SARS-CoV-2 (COVID-19) RNA RIP+probe Ql (Unsp spec) .NASOPHARYNGEAL SWAB Normal [facility] Comment on above: Performed By: #### C OVID #### [address] [id number] [employer]iner[employer] Plant Laborer: Chuck Bradley MD [facility] [address] [place] [address] [place] [address] [employer] Laborer: Evin Poole MD XR LUMBAR SPINE (MIN 4 VIEWS )on 06-13-2021 XR LUMBAR SPINE (MIN 4 VIEWS) RADRPT EXAM: XR LUMBAR SPINE (MIN 4 VIEWS) HISTORY: TECH NOTES: Chronic Lumbar pain Nki [id number]-Dqj-Mvps-Flex-Ext per ordering provider Low back pain due [...] No dynamic instability Chronic Lumbar pain Nki RY-Mey-Neww-Flex-Ext per ordering provider Interpreted by: Ras Olson MD Signed by: Ras Olson MD 06/13/21 Final result Normal [facility] Comment on above: Order Comment: AP/la teral/Spot [...] Ras Olson MD 05/16/21 Final result Normal [facility] MRI LUMBAR SPINE WO CONTRAST on 05-16-2021 [...] Ras Olson MD 05/16/21 Final result Normal [facility] [id number] 04-26-2021 SARS-CoV-2 (COVID-19) RNA RIP+probe Ql (Unsp spec) Normal [facility] Comment on above: Performed By: #### C OVID #### [facility] [employer] [address] [place] [address] [employer]inerator Plant Laborer: Chuck Bradley MD [facility] [address] [place] [address] [employer] Plant Laborer: Evin Poole MD SARS-CoV-2 (COVID-19) RNA RIP+probe Ql (Unsp spec) Not detected Normal [facility] Comment on above: Result Comment: The specimen is NEGATIVE for SARS-CoV-2, the novel coronavirus associated with COVID-19. A negative result does not rule out COVID-19. Regina SARS-CoV-2 for use on the Reg[employer]/8800 [employer] is a real-time RT-PCR test intended [...] this assay. Fact sheet for Healthcare Providers: https://www.fda.gov/media/097285/download Fact sheet for Patients: https://www.fda.gov/media/886184/download METHODOLOGY: RT-PCR Performed By: #### C OVID #### [address] [id number] Incinerator Plant Laborer: Chuck Bradley MD [facility] [address] [place] [address] [place] [address] [employer] Plant Laborer: Evin Poole MD [id number] 04-25-2021 SARS-CoV-2 (COVID-19) RNA RIP+probe Ql (Unsp spec) .NASOPHARYNGEAL SWAB Normal [facility] Comment on above: Performed By: #### C OVID #### [address] [id number] [employer]inerator Plant Laborer: Chuck Bradley MD [facility] [address] [place] [address] Inc[employer]ator Plant Laborer: Evin Poole MD Strep Screen Group A Throato n 07-16-2019 S. pyogenes Ag IA Ql (Unsp spec) Rapid Strep A negative. A negative Rapid Group A Strep Screen result does not rule out the possibility of Group A Streptococci in the specimen. A Group A Strep DNA test is available upon request. [employer] Phone: Special Requests NOT REPORTED [employer] Phone: Specimen Description .THROAT [employer] Phone: XR CHEST STANDARD (2 VW)on 0 07-16-2019 No acute cardiopulmonary abnormality identified. [employer] Phone: EXAMINATION: TWO XRA Y VIEWS OF THE CHEST 07/16/2019 5:44 pm COMPARISON: 07/14/2019 HISTORY: ORDERING SYSTEM PROVIDED HISTORY: eval for pneumonia TECHNOLOGIST PROVIDED HISTORY: eval for pneumonia FINDINGS: No focal lung consolidation. No pleural effusion or pneumothorax identified. The cardiomediastinal silhouette is normal in size for technique. [employer] Phone: [employer] Incoming Radiant Results From [employer] - 07/16/2019 5:52 PM EST EXAMINATION: TWO XRAY VIEWS OF THE CHEST 07/16/2019 5:44 pm COMPARISON: 07/14/2019 HISTORY: ORDERING SYSTEM PROVIDED HISTORY: eval for pneumonia TECHNOLOGIST PROVIDED HISTORY: eval for pneumonia FINDINGS: No focal lung consolidation. No pleural effusion or pneumothorax identified. The cardiomediastinal silhouette is normal in size for technique. IMPRESSION: No acute cardiopulmonary abnormality identified. [employer] Phone: Rapid influenza A/B antigens on 07-14-2019 Direct Exam Positive Abnormal [employer] Phone: Direct Exam Negative [employer] Phone: Interpretation and review of laboratory results Abnormal [employer] Phone: Special Requests NOT REPORTED [employer] Phone: Specimen Description .NASOPHARYNGEAL SWAB [employer] Phone: XR CHEST STANDARD (2 VW)on 0 07-14-2019 Asymmetric left uppe r lung opacity is felt to be superimposition of shadows but early pneumonia is not excluded. Short interval follow-up is advised. [employer] Phone: EXAMINATION: TWO XRA Y VIEWS OF THE CHEST 07/14/2019 3:23 pm COMPARISON: May 16, 2019 HISTORY: ORDERING SYSTEM PROVIDED HISTORY: cough TECHNOLOGIST PROVIDED HISTORY: cough FINDINGS: Asymmetric left upper lung opacity most likely superimposition of shadows but early pneumonia is not excluded. Interstitial prominence diffusely, likely magnified by shallow inspiration and technical differences. No focal consolidation. Heart is not enlarged. [employer] Phone: [employer] pn Incoming Radiant Results From [facility] - 07/14/2019 3:34 PM EST EXAMINATION: TWO [...] not excluded. Short interval follow-up is advised. [employer] Phone: XR CHEST STANDARD (2 VW)Orde red By: Chava Chaidez on 05-16-2019 Unremarkable chest. [employer] Phone: EXAMINATION: TWO XRA Y VIEWS OF [...] osseous structures are intact without acute process. [employer] Phone: [employer] Incoming Radiant Results From [employer] - 05/16/2019 5:21 PM EST EXAMINATION: TWO [...] intact without acute process. IMPRESSION: Unremarkable chest. [employer] Phone: HCV RNA Qnt-Springon 9 HepC RNA PCR Q-Spring Undetected Normal Undetected [facility] Comment on above: Result Comment: Resu lt in log IU/mL is Undetected. ADDITIONAL INFORMATION The quantification range of this assay is 15 to 100,000,000 IU/mL (1.18 log to 8.00 log IU/mL). Testing was performed using the regina HCV test ([employer] with the regina InterStelNet0 System. Test Performed by: [facility] [address] [place] [address] Incinerator Plant Laborer: Mehran Goode M.D. Ph.D.; CLIA# [id number] Performed By: #### C [id number] #### [address] [place] [id number] Ambulatory Patient Education on 04-06-2019 Ambulatory Patient Education Patient Education Materials Name: Doris Cochran Current Date: 04/06/2019 09:08:39 [place] : 1985 The following sheet(s) are the Patient Education Leaflets for Doris Cochran [facility]: Ask Yourself These Questions Ask [...] change or stop your substance use. ? [phone] [employer]. [address] [place] [address], [place] [address]. All rights reserved. This information is not intended as a substitute for professional medical care. Always follow your healthcare professional's instructions. Normal [facility] Infectious Disease Office/Cl inic Noteon 04-06-2019 Infectious Disease Office/Clinic Note Chief Complaint Pt states has HCV History of Present Illness Mr. Cochran 33-year-old woman seen for hepatitis C. He started to snorting drugs around age 18 and needles around 22. He was tested previously for hepatitis C in 2016 when he was in detention. He was negative at the time. A [...] lifelong positive. Ordered: Hepatitis C Virus RNA Detect/Quant-Canas US Liver + Elastography 2. Opiate addiction [...] SILVER, Vijay Watkins 04/06/19 09:03 EDT Normal [facility] Provider Letteron 04-06-2019 Provider Letter Jolie Christianson, [facility] [address] [place] [address] Re: Doris Peak Date of Visit: 04/06/[address] Christianson, Thank you for your referral to my office. Attached you will find the most recent office visit note. Please call if you have any questions or concerns. Sincerely, Vijay Rowe MD [address] [place] [address], [place] [address] The following document(s) were included in the letter: April 06, 2019 09:01:13 EDT - (04/06/2019) Office Visit Note Normal [facility] MRI LUMBAR SPINE WO CONTRAST on 03-03-2019 Left subarticular di sc bulge effacing descending left L5 nerve root within the lateral recess. Disc bulge at L3-L4 effacing the descending bilateral L4 nerve roots in the lateral recesses. [place], [place] EXAMINATION: MRI OF THE LUMBAR SPINE WITHOUT [...] canal narrowing. No significant neural foraminal narrowing. [place], [place] [employer] Incoming Radiant Results From [employer] - 03/03/2019 2:42 PM EDT EXAMINATION: MRI [...] L4 nerve roots in the lateral recesses. [place] Hepatitis C Antibodyon 02-22 Hepatitis C Ab REACTIVE Abnormal NONREACTIVE [place], [place] Comment on above: The hepatitis C [...] Interpretation and review of laboratory results Abnormal [place] Amylaseon 02-21-2019 Amylase [Catalytic activity/Vol] 40 U/L 28 - 100 U/L [place] CBC Auto Differentialon 02-05 Basophils (Bld) [#/Vol] 10*3/uL [place] Basophils/100 WBC (Bld) 0 % 0 - 2 % [place] Differential Type NOT REPORTED [place] Eosinophils (Bld) [#/Vol] 0.04 10*3/uL [place] Eosinophils/100 WBC (Bld) 0 % Low 1 - 4 % [place] Erythrocyte distribution width (RBC) [Ratio] 13.1 % 11.8 - 14.4 % [place] Hematocrit (Bld) [Volume fraction] 43.4 % 40.7 - 50.3 % [place] Hemoglobin (Bld) [Mass/Vol] 15.1 g/dL 13 - 17 g/dL [place] Immature granulocytes (Bld) [#/Vol] 1 % High 0 [place] Immature granulocytes (Bld) [#/Vol] 0.05 10*3/uL [place] Lymphocytes (Bld) [#/Vol] 2.14 10*3/uL [place] Lymphocytes/100 WBC (Bld) 24 % 24 - 43 % [place] MCH (RBC) [Entitic mass] 32.5 pg 25.2 - 33.5 pg [place] MCHC (RBC) [Mass/Vol] 34.8 g/dL 28.4 - 34.8 g/dL [place] MCV (RBC) [Entitic vol] 93.5 fL 82.6 - 102.9 fL [place] Monocytes (Bld) [#/Vol] 0.67 10*3/uL [place] Monocytes/100 WBC (Bld) 8 % 3 - 12 % [place] Platelet mean volume (Bld) [Entitic vol] 12.1 fL 8.1 - 13.5 fL [place] Platelets (Bld) [#/Vol] 146 10*3/uL [place] Platelets (Bld) [#/Vol] NOT REPORTED [place] RBC (Bld) [#/Vol] 4.64 10*6/uL 4.21 - 5.7 7 m/uL [place] RBC morphology finding Nom (Bld) NOT REPORTED [place] Segmented neutrophils/100 WBC (Bld) 67 % High 36 - 65 % [place] Segs Absolute 6.07 [place], [place] WBC (Bld) [#/Vol] 0.0 10*3/uL 0.0 per 100 WBC M [place], [place] WBC (Bld) [#/Vol] 9.0 10*3/uL [place], [place] WBC Morphology NOT REPORTED [place] Comprehensive Metabolic Pane perlita 02-21-2019 Albumin [Mass/Vol] 4.5 g/dL 3.5 - 5.2 g/dL [place] Albumin/Globulin [Mass ratio] 1.3 {ratio} [place] ALP [Catalytic activity/Vol] 146 U/L High 40 - 129 U/L [place] ALT [Catalytic activity/Vol] 39 U/L 5 - 41 U/L [place] Anion gap [Moles/Vol] 13 mmol/L 9 - 17 mmol/L [place] AST [Catalytic activity/Vol] 27 U/L <40 [place] Bilirubin Ql (U) 0.29 mg/dL Low 0.3 - 1.2 mg/dL [place], [place] Bun/Cre Ratio 9 [place], [place] Calcium [Mass/Vol] 9.8 mg/dL 8.6 - 10. 4 mg/dL [place] Chloride [Moles/Vol] 100 mmol/L 98 - 107 mmol/L [place] CO2 [Moles/Vol] 27 mmol/L 20 - 31 mmol/L [place] Creatinine [Mass/Vol] 1.02 mg/dL 0.7 - 1.2 mg/dL [place] GFR >60 >60 mL/min [place] GFR Non- >60 >60 mL/min [place] Glucose [Mass/Vol] 85 mg/dL 70 - 99 mg/dL [place] Potassium [Moles/Vol] 3.7 mmol/L 3.7 - 5.3 mmol/L [place] Protein [Mass/Vol] 8.1 g/dL 6.4 - 8.3 g/dL [place] Sodium [Moles/Vol] 140 mmol/L 135 - 144 mmol/L [place] Urea nitrogen [Mass/Vol] 9 mg/dL 6 - 20 mg/dL [place] Lipaseon 02-21-2019 Lipase [Catalytic activity/Vol] 19 U/L 13 - 60 U/L [place] Metabolic Panelon 02-21-2019 GFR/1.73 sq M predicted among non-blacks MDRD (S/P/Bld) [Vol rate/Area] [place] Comment on above: Average GFR for 30-3 9 years old: 107 mL/min/1.73sq m Chronic Kidney Disease: <60 mL/min/1.73sq m Kidney failure: <15 mL/min/1.73sq m eGFR calculated using average adult body mass. Additional eGFR calculator available at: http://www.Woopie/multiple_crcl_2012.htm Stage 1: Some kidney damage normal GFR Stage 2: Mild kidney damage GFR 60-89 Stage 3: Moderate kidney damage GFR 30-59 Stage 4: Severe kidney damage GFR 15-29 Stage 5: Severe kidney damage GFR <15 ESRD - chronic treatment by dialysis or transplant Otheron 02-21-2019 Interpretation and review of laboratory results Abnormal [place] XR LUMBAR SPINE (MIN 4 VIEWS )on 02-21-2019 No compression fracture or malalignment in the lumbar spine. No significant degenerative change. Transitional segment anatomy at the lumbosacral junction. [place] EXAMINATION: 5 XRAY VIEWS OF THE LUMBAR SPINE 02/21/2019 4:34 pm COMPARISON: None. HISTORY: ORDERING SYSTEM PROVIDED HISTORY: Pain FINDINGS: There is transitional segment anatomy at the lumbosacral junction with suspected lumbarized S1. There is a right-sided pseudoarthrosis. Vertebral body heights and alignment are normal. Disc spaces are preserved. No evidence of spondylolysis or spondylolisthesis. Sacroiliac joints are within normal limits. [place] [employer], [employer] Incoming Radiant Results From [employer] - 02/21/2019 5:02 PM EDT EXAMINATION: 5 [...] Transitional segment anatomy at the lumbosacral junction. [facility] RIGHT (MIN 2 VIE WS)on 02-21-2019 No acute osseous abnormality. [facility] EXAMINATION: THREE XRAY VIEWS OF THE RIGHT SHOULDER 02/21/2019 4:34 pm COMPARISON: None. HISTORY: ORDERING SYSTEM PROVIDED HISTORY: Pain FINDINGS: Bone mineralization and alignment appear intact. No evidence of acute fracture or dislocation. [facility] [employer], [employer] Incoming Radiant Results From [employer] - 02/21/2019 4:57 PM EDT EXAMINATION: THREE XRAY VIEWS OF THE RIGHT SHOULDER 02/21/2019 4:34 pm COMPARISON: None. HISTORY: ORDERING SYSTEM PROVIDED HISTORY: Pain FINDINGS: Bone mineralization and alignment appear intact. No evidence of acute fracture or dislocation. IMPRESSION: No acute osseous abnormality. [facility] [address] [employer] XR WRIST RIGHT (MIN 3 VIEWS) on 02-21-2019 Normal x-ray of the wrist [facility] [address] [employer] EXAMINATION: 3 XRAY VIEWS OF THE RIGHT WRIST 02/21/2019 4:57 pm COMPARISON: None. HISTORY: ORDERING SYSTEM PROVIDED HISTORY: Injury TECHNOLOGIST PROVIDED HISTORY: Right wrist pain FINDINGS: The carpal bones all appear intact. There is no evidence for fracture dislocation. The soft tissues are normal. The joint spaces are well preserved. There is no evidence for foreign body. [facility] [address] [employer] Incoming Radiant Results From [employer] - 02/21/2019 5:04 PM EDT EXAMINATION: 3 [...] body. IMPRESSION: Normal x-ray of the wrist [facility] [address] [employer] Social History Date Type Detail Facility Start: 10-05-2023 Tobacco smoking stat us GAIS Smoker (finding) [facility] Start: 12-22-2014 End: 10-01-2020 Tobacco use and exposure Never used [facility] Start: 05-16-2019 End: 07-14-2019 Tobacco smoking status NHIS Current every day smoker [facility] Start: 05-16-2019 End: 07-14-2019 Cigarettes smoked current (pack per day) - Reported [facility] [employer] [place] Start: 05-16-2019 End: 07-14-2019 Alcohol intake Current non-drinker of alcohol (finding) [employer] Phone: Start: 05-16-2019 History SDOH Social Connections Phone 5 [employer] Phone: Start: 05-16-2019 History SDOH Social Connections Get Together 2 [employer] Phone: Start: 05-16-2019 History SDOH Social Connections Hinduism 1 [employer] Phone: Start: 05-16-2019 History SDOH Social Connections Living 8 [employer] Phone: Start: 05-16-2019 History SDOH Physica l Activity MPS 15 [employer] Phone: Start: 01-05-2019 Alcohol intake No [facility] Start: 06-07-1999 History of tobacco use Cigarette Smo ker [place], [place] Start: 1985 Sex Assigned At Not on file [place], [place] Start: 1985 Sex Assigned At Male F [facility] Exposure to SARS-CoV -2 (event) Not sure [facility] Tobacco smoking stat [facility] Tobacco smoking consumption unknown [facility] Tobacco smoking status No Smokin g Status Entered [facility] Vital Signs Date Time Vital Sign Value Performing Clinician Facility 10-15-2023 11:15-0400 Diastolic blood pressure 76 mm[Hg] [facility] 10-15-2023 11:15-0400 Heart rate 78 /min [facility] 10-15-2023 11:15-0400 SaO2% (BldA) [Mass fraction] 98 % [facility] 10-15-2023 11:15-0400 Systolic blood pressure 122 mm[Hg] [facility] 10-05-2023 09:31-0400 Body height 167.64 cm [facility] 10-05-2023 09:31-0400 Body mass index (BMI) [Ratio] 32.4 kg/m2 [facility] 10-05-2023 09:31-0400 Body weight 91.17 kg [facility] 01-31-2023 08:51-0400 Body temperature 97.7 [degF] [facility] 01-31-2023 08:51-0400 Diastolic blood pressure 81 mm[Hg] [facility] 01-31-2023 08:51-0400 Heart rate 67 /min [facility] 01-31-2023 08:51-0400 Respiratory rate 18 /min [facility] 01-31-2023 08:51-0400 SaO2% (BldA) [Mass fraction] 100 % [facility] 01-31-2023 08:51-0400 Systolic blood pressure 123 mm[Hg] [facility] 07-31-2021 19:31-0500 Diastolic blood pressure 62 mm[Hg] Denny Morrell MD Work Phone: [facility] 07-31-2021 19:31-0500 Systolic blood pressure 123 mm[Hg] Denny Morrell MD Work Phone: [facility] 07-31-2021 19:29-0500 Body height 167.6 cm Denny Morrell MD Work Phone: [facility] 07-31-2021 19:29-0500 Body mass index (BMI) [Ratio] 37.12 kg/m2 Denny Morrell MD Work Phone: [facility] 07-31-2021 19:29-0500 Body temperature 97.11 [degF] Denny Morrell MD Work Phone: [facility] 07-31-2021 19:29-0500 Body weight 104.33 kg Denny Morrell MD Work Phone: [facility] 07-31-2021 19:29-0500 Heart rate 72 /min Denny Morrell MD Work Phone: [facility] 07-31-2021 19:29-0500 Respiratory rate 16 /min Denny Morrell MD Work Phone: [facility] 07-31-2021 19:29-0500 SaO2% (BldA) [Mass fraction] 97 % Denny Morrell MD Work Phone: [facility] 06-30-2021 04:01-0500 Body temperature 97.59 [degF] Krystin Valenzuela DO Work Phone: [facility] 06-30-2021 04:01-0500 Diastolic blood pressure 76 mm[Hg] Krystin Valenzuela DO Work Phone: [facility] 06-30-2021 04:01-0500 Systolic blood pressure 135 mm[Hg] Krystin Valenzuela DO Work Phone: [facility] 06-30-2021 04:00-0500 Body height 167.6 cm Krystin Valenzuela DO Work Phone: [facility] 06-30-2021 04:00-0500 Body mass index (BMI) [Ratio] 36.32 kg/m2 Krystin Valenzuela DO Work Phone: [facility] 06-30-2021 04:00-0500 Body weight 102.06 kg Krystin Valenzuela DO Work Phone: [facility] 06-30-2021 04:00-0500 Heart rate 85 /min Krystin Valenzuela DO Work Phone: [facility] 06-30-2021 04:00-0500 Respiratory rate 18 /min Krystin Valenzuela DO Work Phone: [facility] 06-30-2021 04:00-0500 SaO2% (BldA) [Mass fraction] 98 % Krystin Valenzuela DO Work Phone: [facility] 04-25-2021 19:06-0500 Diastolic blood pressure 70 mm[Hg] Sofie Mills MD Work Phone: [facility] 04-25-2021 19:06-0500 Systolic blood pressure 95 mm[Hg] Sofie Mills MD Work Phone: [facility] 04-25-2021 19:05-0500 Body temperature 98.6 [degF] Sofie Mills MD Work Phone: [facility] 04-25-2021 19:05-0500 Heart rate 85 /min Sofie Mills MD Work Phone: [facility] 04-25-2021 19:05-0500 Respiratory rate 15 /min Sofie Mills MD Work Phone: [facility] 04-25-2021 19:05-0500 SaO2% (BldA) [Mass fraction] 98 % Sofie Mills MD Work Phone: [facility] 10-01-2020 09:21-0400 Body mass index (BMI) [Ratio] 33.57 kg/m2 Vicente Baumann MD Work Phone: [facility] Work Phone: 10-01-2020 09:21-0400 Body temperature 97 [degF] Vicente Baumann MD Work Phone: [facility] Work Phone: 10-01-2020 09:21-0400 Body weight 94.35 kg Vicente Baumann MD Work Phone: [facility] Work Phone: 10-01-2020 09:21-0400 Diastolic blood pressure 78 mm[Hg] Vicente Baumann MD Work Phone: [facility] Work Phone: 10-01-2020 09:21-0400 Heart rate 87 /min Vicente Baumann MD Work Phone: [facility] Work Phone: 10-01-2020 09:21-0400 Respiratory rate 16 /min Vicente Baumann MD Work Phone: [facility] Work Phone: 10-01-2020 09:21-0400 SaO2% (BldA) [Mass fraction] 97 % Vicente Baumann MD Work Phone: [facility] Work Phone: 10-01-2020 09:21-0400 Systolic blood pressure 127 mm[Hg] Vicente Baumann MD Work Phone: [facility] Work Phone: 08-21-2019 03:42-0400 Body Temperature 98.1 [degF] [place] [employer] [place] 08-21-2019 03:42-0400 Pulse (Heart Rate) 91 /min [place] [employer] [place] 08-21-2019 03:42-0400 Pulse Oximetry 98 % [place] 08-21-2019 03:42-0400 Respiratory Rate 18 /min [place] 08-21-2019 03:37-0400 BP Diastolic 85 mm[Hg] [place] 08-21-2019 03:37-0400 BP Systolic 134 mm[Hg] [place] [employer] [place] 07-16-2019 17:25-0500 Body Temperature 98.01 [degF] [facility] Work Phone: 07-16-2019 17:25-0500 BP Diastolic 79 mm[Hg] [facility] [employer] Work Phone: 07-16-2019 17:25-0500 BP Systolic 113 mm[Hg] [facility] [employer] Work Phone: 07-16-2019 17:25-0500 Pulse (Heart Rate) 79 /min [facility] [employer] Work Phone: 07-16-2019 17:25-0500 Pulse Oximetry 97 % [facility] [employer] Work Phone: 07-16-2019 17:25-0500 Respiratory Rate 18 /min [facility] [employer] Work Phone: 07-14-2019 14:53-0500 BMI (Body Mass Index) 34.7 kg/m2 [facility] Work Phone: 07-14-2019 14:53-0500 Body Temperature 99 [degF] [facility] [employer] Work Phone: 07-14-2019 14:53-0500 Body weight 97.52 kg [facility] [employer] Work Phone: 07-14-2019 14:53-0500 BP Diastolic 59 mm[Hg] [facility] [employer] Work Phone: 07-14-2019 14:53-0500 BP Systolic 109 mm[Hg] [facility] [employer] Work Phone: 07-14-2019 14:53-0500 Height 167.6 cm [facility] [employer] Work Phone: 07-14-2019 14:53-0500 Pulse (Heart Rate) 83 /min [facility] [employer] Work Phone: 07-14-2019 14:53-0500 Pulse Oximetry 96 % [facility] [employer] Work Phone: 07-14-2019 14:53-0500 Respiratory Rate 18 /min [facility] [employer] Work Phone: 05-16-2019 16:55-0500 Body mass index (BMI) [Ratio] 34.38 kg/m2 Jolie Christianson HYDROGRAPHER [facility] Work Phone: [facility] [employer] Work Phone: 05-16-2019 16:55-0500 Body temperature 98.6 [degF] Jolie Christianson APRN - VIDAL Work Phone: [facility] Work Phone: 05-16-2019 16:55-0500 Body weight 96.62 kg Jolie Cole CNP Work Phone: [facility] Work Phone: 05-16-2019 16:55-0500 Diastolic blood pressure 91 mm[Hg] Jolie Cole CNP Work Phone: [facility] Work Phone: 05-16-2019 16:55-0500 Heart rate 78 /min Jolie Christianson APRN - [employer] Work Phone: [facility] Work Phone: 05-16-2019 16:55-0500 Respiratory rate 16 /min Jolie Christianson APRN - [employer] Work Phone: [facility] Work Phone: 05-16-2019 16:55-0500 SaO2% (BldA) [Mass fraction] 98 % Jolie Christianson APRN - [employer] Work Phone: [facility] Work Phone: 05-16-2019 16:55-0500 Systolic blood pressure 141 mm[Hg] Jolie Christianson APRN - VIDAL Work Phone: [facility] Work Phone: Functional Status Date Assessment Result Facility 01-31-2023 Functional Status N/A [facility] Clinical Notes 07-31-2021 to 01-31-2023 Note [...] day(s), # 18 tab(s), Refills(s) 0, Pharmacy: [id number], 167.7, cm, 01/31/23 8:55:00 EDT, Height/Length Dosing, 91, kg, 01/31/23 8:55:00 EDT, Weight Dosing Sling Apply XR Shoulder Complete Right [facility]08-27-2023 Hospital Discharge instructions Patient Education 01/31/2023 [...] minutes, 2 3 times a day. Take [id number] and prescription medicines only as told by [...] provider. Document Revised: 02/11/2022 Document Reviewed: 02/11/2022 [employer] Patient Education 2022 [employer]. Follow Up Care 01/31/2023 08:43:06 With:SHAIKH LASHELL Address: [address] [place], [place] [address] [address] [phone] Business (1) When:02/03/2023 09:39:16 [facility]02-24-2022 Hospital Discharge instructions* Instructions* Denny Morrell MD - 07/31/2021 Please use ice as needed for pain and 400 mg of ibuprofen +100 mg of Tylenol every 4-6 hours as needed for pain * Attachments The following attachments cannot be sent through Care Everywhere. * Muscle Strain (Mozambican) [facility] Phone: evaluation note* Diagnosis Pain, dental- Primary Unspecified disorder of the teeth and supporting structures Dental caries Unspecified dental caries documented in this encounter [employer] Phone: evaluation note* Diagnosis Low back pain with sciatica, sciatica laterality unspecified, unspecified back pain laterality, unspecified chronicity- Primary [facility]* Diagnosis Suspected COVID-19 virus infection- Primary documented in this encounter [employer] Phone: evalyvfloo note* Diagnosis Cough- Primary Acute nonintractable headache, unspecified headache type documented in this encounter [employer] Phone: evaluation note* Diagnosis Muscle strain- Primary Unspecified site of sprain and strain documented in this encounter [employer] Phone: evaluation note* Diagnosis Rhomboid muscle strain, initial encounter- Primary documented in this encounter [employer] Phone: evaluation note* Diagnosis Onset Date Resolution Status Lumbar spondylosis acute Pain of both sacroiliac joints acute [facility] Work Phone: Evaluation note* Diagnosis Onset Date Resolution Status Lumbar spondylosis acute Pain of both sacroiliac joints acute Chronic pain acute Lumbar radiculopathy acute Lumbosacral spondylosis acut e Sacroiliitis acute [facility] Work Phone: Hospital course Narrative No data available for this section [facility]* Attachments The following attachments cannot be sent through Care Everywhere. * Tooth and Gum Pain (Mozambican) * Tooth Decay (Mozambican) documented in this [facility] Work Phone: Hospital Discharge instructions* Attachments The following attachments cannot be sent through Care Everywhere. * Coronavirus Disease (COVID-19): Isolation (Mozambican) documented in this [facility] Work Phone: Hospital Discharge instructions* Instructions* Krystin Valenzuela DO - 06/30/2021 Continue to take Tylenol, and Motrin for pain control, use Tessalon Perles to help with your cough.Follow-up the results of your Covid testing. Please get rest, and increase your fluid hydration return to ER for worsening symptoms. documented in this [facility] Work Phone: Hospital Discharge instructions* Attachments The following attachments cannot be sent through Care Everywhere. * Muscle Strain (Mozambican) documented in this [facility] Phone: Hospital Discharge instructionsAmbulatory Orders* Referral to Pain Management Location: None Selected [facility] Work Phone: Progress note No data available for this section [facility] (narrative)* Consultation (Routine) - Authorized Specialty Diagnoses / Procedures Referred By Diony shrestha Referred To Contact Neurosurgery Diagnoses Low back pain with sciatica, sciatica laterality unspecified, unspecified back pain laterality, unspecified chronicity Referring, MD Sidney [address] [place] [address] Jess Farley MD [address] [facility] [address] [place] [id number] Referral ID Status Reason Start Date Expiration Date V isits Requested Visits Authorized [id number] Authorized 04/09/2021 04/09/2022 1 1 [facility] Summary Purpose Family History No Family History Records FoundNo Family History Records FoundNo Family History Records FoundNo Family History Records FoundNo Family History Records FoundNo Family History Records FoundNo Family History Records Found Advance Directives Documents on File Type Date Recorded Patient Log Deck Tender Expl anation Advance Directives and Living Will Power of Nozzle Cement Sprayer Helper Latest Code Status on File Code Status Date Activated Date Inactivated Comments Full Code 12/24/2014 2:22 AM 12/24/2014 11:00 PM Documents on File Type Date Recorded Patient Log Deck Tender Expl anation Advance Directives and Living Will Power of Nozzle Cement Sprayer Helper Latest Code Status on File Code Status Date Activated Date Inactivated Comments Full Code 12/24/2014 2:22 AM 12/24/2014 11:00 PM Documents on File Type Date Recorded Patient Log Deck Tender Expl anation ACP-Advance Directive ACP-Power of Nozzle Cement Sprayer Helper Documents on File Type Date Recorded Patient Log Deck Tender Expl anation Advance Directives and Livin g Will 03/12/2020 12:00 AM Advance Directive Response Recorded Date/ Time Advance Directives No September 04, 2 018 3:06pm Discharge Instructions * Attachments The following attachments cannot be sent through Care Everywhere. * Influenza ([place]ozambican) documented in this encounter* Attachments The following attachments cannot be sent through Care Everywhere. * Influenza (Mozambican) documented in this encounter* Attachments The following attachments cannot be sent through Care Everywhere. * Hand Laceration: Stitches (Mozambican) documented in this encounter Assessments Diagnosis Influenza [...] Procedures MRI LUMBAR SPINE WO CONTRAST Jolie Christianson, ZENAIDA - BENCH WORKER HELPER [address] [place] [address] Chief Complaint and Reason for Visit Chief Complaint Ref burak Palafox lumbago with sciatica Reason for Visit Lumbar spondylosis Pain of both sacroiliac joints Chief Complaint Ref burak Palafox lumbago with sciatica REFF BY DR. RAKESH FREDERICK Reason for Visit Lumbar spondylosis Pain of both sacroiliac joints Chronic pain Lumbar radiculopathy Lumbosacral spondylosis Sacroiliitis Additional Source Comments (unrecognized sect ion and content) No Status Records FoundNo Status Records FoundNo Status Records FoundNo Status Records FoundNo Status Records FoundNo Status Records FoundNo Status Records Found INFORMATION SOURCE (unrecogn ized section and content) DATE CREATED AUTHOR 04/10/2019 [facility] DATE CREATED AUTHOR AUTHOR'S ORGANIZ ATION 04/05/2020 [facility] DATE CREATED AUTHOR AUTHOR'S ORGANIZ ATION 08/01/2021 [facility] DATE CREATED AUTHOR AUTHOR'S ORGANIZ ATION 11/12/2021 [facility] DATE CREATED AUTHOR AUTHOR'S ORGANIZ ATION 03/06/2022 [facility] DATE CREATED AUTHOR AUTHOR'S ORGANIZ ATION 01/31/2023 [facility] DATE CREATED AUTHOR AUTHOR'S ORGANIZ ATION 10/08/2023 [facility] dictn Specialists EPIC Reason for Visit (unrecogniz ed [...] pointer finger , 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 [employer] Status Reason Specialty Diagnoses / Procedures Referred By Contact Referred To Contact Pending Review Radiology Diagnoses Lumbosacral pain Lumbago with sciatica, left side Procedures HC MRI-SPINE LUMBAR WO CONTRAST Jolie Christianson, HYDROGRAPHER - BENCH WORKER HELPER [address] [place] [address] [facility] [address] [place] [address] Reason Comments Dental Pain left sided tooth [...] Care Teams (unrecognized sec tion and content) Controls Project Engineer Relationship Specialty Start Date End Date Jolie Christianson, BENCH WORKER HELPER [address] [place] [address] PCP - General Family Medicine 03/12/20 Controls Project Engineer Relationship Specialty Start Date End Date Sofie Mills MD [address] [place] [address] PCP - General Family Medicine 09/17/20 Controls Project Engineer Relationship Specialty Start Date End Date Sofie Mills MD [address] [place] [address] PCP - General Family Medicine 09/17/20 Controls Project Engineer Relationship Specialty Start Date End Date Sofie Mills MD [address] [place] [address] PCP - General Family Medicine 09/17/20 Team Status: Active Member Role Status Dates Shaikh Lashell MD Primary Care Provider Active Team Status: Inactive Member Role Status Dates Shaikh Lashell MD Primary Care Provider Active Start: October 05, 2023 End: October 05, 2023 Rakesh Frederick MD Attending Provider Active Star t: October 05, 2023 End: October 05, 2023 Team Status: Inactive Member Role Status Dates Shaikh Lashell MD Primary Care Provider Active Start: October 15, 2023 End: October 15, 2023 Christiano Morfin MD Attending Provider Active Sta rt: October 15, 2023 End: October 15, 2023 Rakesh Frederick MD Referring Provider Active Star t: October 15, 2023 End: October 15, 2023 Scheduled Active and Recently Administ ered Medications (unrecognized section and content) Medication Order 06/28/2021 06/29/2021 06/30/2021 acetaminophen (TYLENOL) tablet 1,000 mg (COMPLETED) 1,000 mg, Oral, ONCE, On Wed06/30/21 at 0430, For 1 dose 043 (Given - Provid er: Yumi Min [...] Radha 07/31/21 at 1945, For 1 dose 194 (Due) lidocaine 4 % external patch 1 patch 1 patch, TransDERmal, Administer over 12 Hours, ONCE, On Radha 07/31/21 at 1945, For 1 dose, Apply patch to right anterior chest. Patch may remain in place for up to 12 hours in any 24 hour period. 1945 (Due) Goals (unrecognized section and content) Goals may be documented in a n alternate section FOR RECORDS PERTAINING TO PATIENTS WHO ARE [...] BE BASED ON THE PRIMARY CLINICAL RECORDS. [employer] [facility]. provides no warranty or guarantee of the accuracy or completeness of information in this document.
[2023-11-19] MEDS: ALBUTEROL SULFATE 2.5 MG/3 ML VIAL NEB IH (08:20)
[2023-11-19 08:21] VITALS: PULSE 59; O2SAT 97
[2023-11-19 09:12] LABS: Carbon Dioxide 28.3 mmol/L (21.0-32.0); Chloride 105 mmol/L (98-107); Glucose 103 mg/dL (74-106); Potassium 3.3 mmol/L (3.5-5.1); Sodium 141 mmol/L (136-145)
[2023-11-19 09:13] LABS: BUN Creatinine Ratio 7.1; Estimated GFR (African America >60 (>=60); Estimated GFR (Non-African Ame >60 (>=60)
[2023-11-19 09:17] LABS: Hematocrit 42.2 % (42.0-54.0); Hemoglobin 14.7 g/dL (14.0-18.0); Mean Corpuscular HGB Conc 34.8 g/dL (29.9-35.2); Mean Corpuscular Hemoglobin 31.5 pg (25.9-34.0); Mean Corpuscular Volume 90.6 fL (80.0-94.0); Mean Platelet Volume 11.9 fL (9.5-13.5); Platelet Count 147 10^3/uL (150-450); Red Blood Count 4.66 10^6/uL (4.70-6.10); Red Cell Distribution Width 12.7 % (11.0-15.0); White Blood Count 10.1 10^3/uL (4.0-11.0)
[2023-11-19 09:32] LABS: Lymphocytes Absolute Manual 2.12 10^3/uL (1.20-3.80); Segmented Neut Absolute Manual 7.27 10^3/uL (1.4-6.5)
[2023-11-19 09:45] VITALS: BP 110/80; PULSE 88; O2SAT 98
== END 2023-11-19 09:46 | disposition home or self-care (01) ==
PROVIDERS: Emergency Provider Emergency Medicine; PCP Internal Medicine
DX: J06.9 Acute upper respiratory infection, unspecified (principal); F17.200 Nicotine dependence, unspecified, uncomplicated
CPT/HCPCS: 36415; 71045; 80048; 85007; 85027; 94640; 99284; 99406

== ENCOUNTER 2024-04-10 14:43 | Outpatient (OUT) | payer MEDICAID, SELFPAY ==
--- OUTSIDE RECORDS SUMMARY | 2024-04-10 14:53 | XMS_ITS | CCD ---
Author Organization [facility] Care Team Providers Care District Branch Manager Name Role Phone VIJAY ROWE Attending Unavail Jolie Tirado Primary Care UnavailJOLIE Junior Consulting UnavailJolie Junior Primary Care Provider [phone] JESS FARLEY Attending Unavail JOLIE Tirado Primary Care Unavailstephanie Mills MD, Sofie Brown Primary Care Provider Jolie Christianson CNP Primary Care Provider Sofie Mills MD Primary Care Provider [phone] SOFIE MILLS Primary Care Unavailable VICENTE BAUMANN Attending Unavailable SECOR, SOFIE Brown Primary Care Unavailable SECOR, SOFIE Brown Primary Care Unavailable SECOR, SOFIE Brown Primary Care Unavailable KRYSTIN VALENZUELA Attending Unavailable SECOR, SOFIE Brown Primary Care Unavailable DENNY MORRELL Attending Unavailable Sammy CARPENTER ASSISTANT INSTALLER - Jolie DRAKE Primary Care Provider DEMARIO [...] Consulting Unavailable SOCORRO, NONE LISTED Primary Care Unavailshakira KAUR, DR LYNN Admitting Unavailable VINCENT, DR LYNN Attending Unavailable JAY, DR ARMSTRONG Admitting Unavailable JONAS MELENDEZ Consulting Unavailable REQUEST, DR NONE LISTED Primary Care Unavaila ble JAY, DR ARMSTRONG Attending Unavailable SHAIKH JIMÉNEZ Primary Care Physician LASHELL, Primary Care Unavailable David Weathers Attending Unavailable Doug Anthony MD Primary Care Provider Rios ADMINISTRATIVE SUPPORT TECHNICIAN, Olu Unavailable [phone] SHAIKH JIMÉNEZ Attending Unavailable LASHELL, Attending Unavailable LASHELL, Attending Unavailable LASHELL, Attending Unavailable LASHELL, Attending Unavailable OLU NATION Attending UnavailSARAH Prince Attending Unavailable OLU NATION Referring Unavailabl e MIGUEL ANGEL PAYNE Attending Unavailable OLU [place] Referring Unavailabl e Allergies Allergy Classification Reported Allergen(s) Allergy Type Date of Onset Reaction(s) Facility (2 sources) No Known Medication Allergies; Translations: [No Known Medication Allergies] Propensity to adverse reactions to drug (disorder) [facility] Repository Medications Current Medications Medication Drug Class(es) [...] hydrocodone-acetaminophen (NORCO) tablet 5-325 mg (STARTER PACK) [id number] 200 actuat albuterol 0.09 mg/actuat metered dose inhaler (13 sources) beta2-Adren ergic Agonist Start: 12-21-2022 take 2 puff(s) by inhalation every six hours for wheezing albuterol HFA 90 mcg/act inhaler Inhale 2 puffs every 6 (six) hours if needed for wheezing or shortness of breath 12/21/2022 Active Start: 10-22-2018 take 2 puff(s) by in halation four times daily as needed for wheezing [...] Active cloNIDine hydrochloride 0.1 mg oral tablet (17 sources) Central alpha-2 Adrenergic Agonist Start: 02-25-2023 take 1 tablet by mouth at bedtime cloNIDine (Catapres) 0.1 MG tablet Take 0.1 mg by mouth at bedtime 02/25/2023 Active Start: 01-31-2023 cloNIDine 0.1 mg tab Refills(s) 0 Start Date: 01/31/23 Status: Ordered Start: 03-17-2021 take 1 tablet by lona once daily cloNIDine (CATAPRES) 0.1 MG tablet [...] by mouth daily 0 Active cyclobenzaprine hydrochloride 10 mg oral tablet (9 sources) Muscle Relaxant Start: 10-06-2023 take 1 tablet by mouth in the morning, then take 1 tablet by mouth in the evening, then take 1 tablet by mouth at bedtime cyclobenzaprine (Flexeril) 10 MG tablet Indications: Chronic bilateral low back pain with bilateral sciatica , Thoracolumbar back pain Take 1 tablet (10 mg) by mouth in the morning and 1 tablet (10 mg) in the evening and 1 tablet (10 mg) before bedtime. 90 tablet 10/06/2023 Active Start: 04-25-2021 End: 05-09-2021 take 1 tablet by mouth three times daily as needed for muscle spasms cyclobenzaprine (FLEXERIL) 5 MG tablet Indications: Lumbar paraspinal muscle spasm Take 1 tablet by mouth 3 times daily as needed for Muscle spasms 42 tablet 0 04/25/2021 05/09/2021 Active Start: 05-16-2019 End: 05-26-2019 cyclobenzaprine (FLEXERIL) t ablet 10 mg gabapentin 800 mg oral tablet (18 sources) Anti-epileptic Agent Start: 02-28-2024 End: 05-28-2024 take 1 tablet by mouth in the morning, then take 1 tablet by mouth in the evening, then take 1 tablet by mouth at bedtime gabapentin (Neurontin) 800 MG tablet Indications: Chronic bilateral low back pain with bilateral sciatica Take 1 tablet (800 mg) by mouth in the morning and 1 tablet (800 mg) in the evening and 1 tablet (800 mg) before bedtime. 90 tablet 03/30/2024 04/29/2024 Active Start: 10-05-2023 Gabapentin Act carmen 800 MG PO October 05, 2023 12:00am [...] day(s), # 18 tab(s), Refills(s) 0, Pharmacy: [facility]/pharmacy #[id number], 167.7, cm, 01/31/23 8:55:00 EDT, Height/Length Dosing, 91, kg, 01/31/23 8:55:00 EDT, Weight Dosing Start Date: 01/31/23 Stop Date: 02/03/23 Status: Ordered omeprazole 40 mg delayed release oral capsule (13 sources) Proton Pump Inhibitor Start: 12-28-2023 End: 06-25-2024 take 1 capsule by mouth before mealtime omeprazole (PriLOSEC) [address] capsule Indications: Gastro-esophageal reflux disease without esophagitis , Esophageal reflux Take 1 capsule (40 mg) by mouth in the morning. Take before meals. 90 capsule 1 12/28/2023 06/25/2024 Active Start: 10-05-2023 Omeprazole Act carmen 40 MG PO October 05, 2023 12:00am Start: 01-31-2023 omeprazole 40 mg Cap-DR Refills(s) 0 Start Date: 01/31/23 Status: Ordered Start: 03-17-2021 take 1 capsule by mo ut once [...] Active oxyCODONE hydrochloride 5 mg oral tablet (9 sources) Opioid Agonist Start: 02-28-2024 End: 04-14-2024 take 1 tablet by mouth every eight hours for pain oxyCODONE (Roxicodone) 5 MG immediate release tablet Indications: Chronic bilateral low back pain with bilateral sciatica , Thoracolumbar back pain Take 1 tablet (5 mg) by mouth every 8 (eight) hours if needed for severe pain for up to 15 days 45 tablet 03/30/2024 04/14/2024 Active Start: 10-05-2023 Oxycodone Acti ve 5 MG PO October 05, 2023 12:00am [...] Classification Problem Date Documented Date Episodic/Chronic Asthma (10 sources) Asthma; Translations: [Unspecified asthma, uncomplicated] Onset: 06-04-2020 06-04-2020 Chronic Attention-deficit, conduct, and disruptive behavior disorders (6 sources) Attention deficit hyperactivity disorder, combined type; Translations: [Attention-deficit hyperactivity disorder, combined type] Onset: 08-05-2023 08-05-2023 Chronic Chronic obstructive pulmonary disease and bronchiectasis (1 source) Simple chronic bronchitis; Translations: [SIMPLE CHRONIC BRONCHITIS] Onset: 12-04-2021 Chronic Disorders of teeth and jaw (20 sources) Infection of tooth; Translations: [Toothache] Onset: 01-05-2019 01-05-2019 Episodic Esophageal disorders (16 sources) Gastroesophageal reflux disease; Translations: [Gastro-esophageal reflux [...] pain] 10-15-2023 Chronic Other nervous system disorders (6 sources) Carpal tunnel syndrome of right wrist; Translations: [Carpal tunnel syndrome, right upper limb] Onset: 08-05-2023 08-05-2023 Chronic Other non-traumatic joint disorders (1 source) Pain of right wrist; Translations: [Right wrist pain] Spondylosis; intervertebral disc disorders; other back problems (20 sources) Lumbosacral spondylosis without myelopathy; Translations: [Spondylosis without myelopathy or radiculopathy, lumbosacral region] Onset: 07-30-2021 07-30-2021 Chronic Spondylosis; intervertebral disc disorders; other back problems (20 sources) Acute back pain with sciatica; Translations: [Low back pain] Onset: 05-16-2019 05-16-2019 Episodic Sprains and strains (2 sources) Strain of thoracic region; Translations: [Injury of multiple muscles and tendons at shoulder and upper arm level] Onset: 01-31-2023 Episodic Substance-related disorders (18 sources) Nicotine dependence; Translations: [Nicotine dependence, cigarettes, uncomplicated] Onset: 01-14-2017 06-04-2020 Chronic Comment on above: Added secondary to d ocumentation in Social History. 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; Translations: [OTH SUPERVISOR ACCOUNTING CLERKS CURRENT DRUG THERAPY] Onset: 12-04-2021 Episodic Other gastrointestinal disorders (3 sources) Diarrhea, unspecified; Translations: [DIARRHEA UNSPECIFIED] Onset: 12-02-2021 Episodic Other injuries and conditions due to external causes (1 source) Traumatic AND/OR non-traumatic injury; Translations: [Injury] Episodic Other male genital disorders (4 sources) Pain of right testicle; Translations: [Right testicular pain] Onset: 01-12-2017 06-04-2020 Episodic Other nervous system disorders (10 sources) Pain in limb - multiple; Translations: [Paresthesia of skin] Onset: 08-05-2023 06-03-2021 Episodic Other upper respiratory infections (6 sources) Acute upper respiratory infection; Translations: [Acute upper respiratory infection, unspecified] Onset: 11-15-2023 11-15-2023 Episodic Residual codes; unclassified (14 sources) Edema [...] Consent for Treatmenton 01-06 Consent for Treatment [id number]:127 Normal [facility] Discharge Instructionson Discharge Instructions [id number]:127 Normal [facility] ED Clinical Summaryon 2022 ED Clinical Summary [place] [id number] ED Clinical Summary Person Information Name: DORIS COCHRAN/[facility] Age: 37 Years : 1985 Sex: Male Language: Nicaraguan PCP: SHAIKH JIMÉNEZ Marital Status: Single Visit [...] 01/31/2023 10:14:51 01/31/2023 10:14:51 01/31/2023 10:14:51 ADDRESS: [address] [place] [address] [place] [id number] PHYS DOC NOTES: MEDICAL INFORMATION: Prescriptions Given: New Medications [id number], [address] [facility] [place] [phone], [phone] methocarbamol (Robaxin-750 oral tablet) 2 Tablets By Mouth 3 times a day for 3 Days. Refills: 0. Medications to Continue with No Changes Other Medications clonidine (cloNIDine 0.1 mg tab) gabapentin (gabapentin 800 mg Tab) omeprazole (omeprazole 40 mg Javad-) PATIENT EDUCATION INFORMATION: Instructions: Shoulder Sprain Follow up: With: Address: When: SHAIKH LASHELL [address] [place] [phone] Business (1) In 3 days 02/03/2023 DIAGNOSIS: Shoulder strain Normal [facility] ED Note-Physicianon 02-01-20 ED Note-Physician Basic [...] arm level, unspecified arm, initial encounter) Orders: acetaminophen-hydroco done, 1 tab(s), Tab, Oral, Once, Stop date 01/31/23 9:38:00 EDT, STAT, Start date 01/31/23 9:38:00 EDT methocarbamol, 1,500 mg = 2 tab(s), Oral, TID, X 3 day(s), # 18 tab(s), Refills(s) 0, Pharmacy: [facility]/pharmacy #[id number], 167.7, cm, 01/31/23 8:55:00 EDT, [...] days 02/03/2023 EDT [address] [place] [address] [phone] Business (1) Additional Instructions: Patient Education Shoulder Sprain Attestation Patient seen and evaluated by the physician assistant hall director. Attending physician was present in the emergency department and supervised care. This visit was performed by both the physician and an APC. I performed all aspects of the MDM as documented. This report was transcribed using voice recognition software. Every effort was made to ensure accuracy, however, inadvertently computerized conference coordinator mistakes may be present. Appropriate healthcare PPE [...] acute abnormality Read By: Michele Suazo PA-C [facility] Comment on above: Result Comment: Elec [...] minutes, 2?3 times a day. ? Take tjug-cll-daaezvh and prescription medicines only as told by [...] provider. Document Revised: 02/11/2022 Document Reviewed: 02/11/2022 [employer] Patient Education ? 2022 [employer] Normal [facility] ED Patient Summaryon 023 ED Patient Summary [place] [id number] Patient Discharge Instructions Person Information Name: DORIS COCHRAN Age: 37 Years Arrival Date: 01/31/2023 08:40:38 Discharge Diagnosis: Shoulder strain Primary Care Physician: SHAIKH JIMÉNEZ Provider Information Primary Provider: David Weathers M.D. Advanced Employee Health Nurse:Michele Suazo PA-C The exam and treatment you received in the Emergency Department were for an urgent problem and are not intended as complete care. It is important that you follow up with a doctor, nurse practitioner, or physician?s assistant hall director for ongoing care. If your symptoms become [...] With: Address: When: SHAIKH LASHELL [address] [place] [place] [phone] Business (1) In 3 days 02/03/2023 In the event that this physician does not participate in your insurance network, please consult with your insurance company to find a nearby participating provider. Patient Education Materials: Shoulder Sprain A MESSAGE TO ALL PATIENTS REGARDING OPIOIDS PRESCRIPTION OPIOIDS: WHAT YOU NEED TO KNOW Prescription opioids can be used to help relieve rsobnkvq-ve-mazpvo pain and are often prescribed following a [...] guidance from the Food and Drug Administration (www.fda.gov/Drugs/Re sourcesForYou). ? Visit www.cdc.gov/drugoverd ose to learn about the risks of opioids abuse and overdose. ? If you believe you may be struggling with addiction, tell your health ocular care aide and ask for guidance or call [facility] National Helpline at 0-532-209-RVCM. n Source: US Department of Health (more content not included)... Normal [facility] XR Shoulder Complete Righton 01-31-2023 XR Shoulder Complete Right Exam Date/Time: 01/31/2023 09:35 EDT Reason for Exam: Pain, Traumatic Report IMPRESSION: No acute osseous findings. EXAMINATION/TECHNIQUE : XR Shoulder Complete Right HISTORY: Right shoulder pain. COMPARISON: None RESULT: No acute fracture. No dislocation. Glenohumeral joint space maintained. Mild degenerative changes of the acromioclavicular joint. Visualized lung/thorax clear. No other significant abnormality. Ordering Provider: Michele Suazo FINAL REPORT Dictated: 01/31/2023 3:08 pm Giuseppe Jacinto MD Signed (Electronic Signature): 01/31/2023 3:08 pm Signed by: Giuseppe Jacinto MD Transcribed by: ESTEBAN Technologist: KIRSTIE Technical Comments Radiation Dose: bernabe Magaña in mGy = . DAP = . Normal [facility] AMYLASEon 06-28-2022 Amylase [Catalytic activity/Vol] 33 U/L Normal 25-115 [facility] Comment on above: Performed By: #### A MY, LIPA, CMP #### [facility] [address] [place] [address] Dr. Jenae Alvares CBC AUTO DIFFon 12-02-2021 BASO # 0.0 103/ul Normal 0.0-0.1 [facility] Comment on above: Performed By: #### C BC #### [facility] [address] [place] [address] Dr. Jenae Alvares Basophils/100 WBC (Bld) 0.0 % Critically low 0.2-2.0 [facility] Comment on above: Performed By: #### C BC #### [facility] [address] [place] [address] Dr. Jenae Alvares EO # 0.0 103/ul Normal 0.0-0.7 [facility] Comment on above: Performed By: #### C BC #### [facility] [address] [place] [address] Dr. Jenae Alvares Eosinophils/100 WBC (Bld) 0.5 % Critically low 0.9-7.0 [facility] Comment on above: Performed By: #### C BC #### [facility] [address] [place] [address] Dr. Jenae Alvares Erythrocyte distribution width (RBC) [Ratio] 13.3 % Normal 11.0-15.0 [facility] Comment on above: Performed By: #### C BC #### [facility] [address] [place] [address] Dr. Jenae Alvares Hematocrit (Bld) [Volume fraction] 42.2 % Normal 42.0-54.0 [facility] Comment on above: Performed By: #### C BC #### [facility] [address] [place] [address] Dr. Jenae Alvares Hemoglobin (Bld) [Mass/Vol] 14.5 g/dL Normal 14.0-18.0 [facility] Comment on above: Performed By: #### C BC #### [facility] [address] [place] [address] Dr. Jenae Alvares IG # 0.01 10e3/ul Normal 0.00-0.03 [facility] Comment on above: Performed By: #### C BC #### [facility] [address] [place] [address] Dr. Jenae Alvares IG % 0.2 % Normal 0.0-0.5 [facility] Comment on above: Performed By: #### C BC #### [facility] [address] [place] [address] Dr. Jenae Alvares LYMPH # 1.4 103/ul Normal 1.2-3.8 [facility] Comment on above: Performed By: #### C BC #### [facility] [address] [place] [address] Dr. Jenae Alvares Lymphocytes/100 WBC (Bld) 24.7 % Normal 20.5-60.0 [facility] Comment on above: Performed By: #### C BC #### [facility] [address] [place] [address] Dr. Jenae Alvares MANUAL DIFF REQ NO Normal [facility] Comment on above: Performed By: #### C BC #### [facility] [address] [place] [address] Dr. Jenae Alvares MCH (RBC) [Entitic mass] 31.4 pg Normal 25.9-34.0 [facility] Comment on above: Performed By: #### C BC #### [facility] [address] [place] [address] Dr. Jenae Alvares MCHC (RBC) [Mass/Vol] 34.4 g/dL Normal 29.9-35.2 [facility] Comment on above: Performed By: #### C BC #### [facility] [address] [place] [address] Dr. Jenae Alvares MCV (RBC) [Entitic vol] 91.3 fL Normal 80.0-94.0 [facility] Comment on above: Performed By: #### C BC #### [facility] [address] [place] [address] Dr. Jenae Alvares MONO # 0.4 103/ul Normal 0.3-0.8 [facility] Comment on above: Performed By: #### C BC #### [facility] [address] [place] [address] Dr. Jenae Alvares Monocytes/100 WBC (Bld) 7.2 % Normal 1.7-12.0 [facility] Comment on above: Performed By: #### C BC #### [facility] [address] [place] [address] Dr. Jenae Alvares NEUT # 3.7 103/ul Normal 1.4-6.5 [facility] Comment on above: Performed By: #### C BC #### [facility] [address] [place] [address] Dr. Jenae Alvares Neutrophils/100 WBC (Bld) 67.4 % Normal 43.0-75.0 [facility] Comment on above: Performed By: #### C BC #### [facility] [address] [place] [address] Dr. Jenae Alvares Platelet mean volume (Bld) [Entitic vol] 12.2 fL Normal 9.5-13.5 [facility] Comment on above: Performed By: #### C BC #### [facility] [address] [place] [address] Dr. Jenae Alvares PLT 121 103/ul Critically low 150-450 [facility] Comment on above: Performed By: #### C BC #### [facility] [address] [place] [address] Dr. Jenae Alvares RBC 4.62 106/ul Critically low 4.70-6.10 [facility] Comment on above: Performed By: #### C BC #### [facility] [address] [place] [address] Dr. Jenae Alvares WBC 5.5 103/ul Normal 4.0-11.0 [facility] Comment on above: Performed By: #### C BC #### [facility] [address] [place] [address] Dr. Jenae Alvares LIPASEon 12-02-2021 Lipase [Catalytic activity/Vol] 86.0 U/L Normal 73.0-393.0 [facility] Comment on above: Performed By: #### A AMMON LIPA, CMP #### [facility] [address] [place] [address] [address] Jenae Alvares PROF 14(COMP METB)on 022 Albumin [Mass/Vol] 3.7 g/dL Normal 3.4-5.0 [facility] Comment on above: Performed By: #### A MY, LIPA, CMP #### [facility] [address] [place] [address] [address] Jenae Alvares Albumin/Globulin [Mass ratio] 1.0 {ratio} Normal [facility] Comment on above: Performed By: #### A MY LIPA, CMP #### [facility] [address] [place] [address] Dr. Jenae Alvares ALP [Catalytic activity/Vol] 154 U/L Critically high 46-116 [facility] Comment on above: Performed By: #### A AMMON LIPA, CMP #### [facility] [address] [place] [address] Dr. Jenea Alvares ALT [Catalytic activity/Vol] 48 U/L Normal 16-63 [facility] Comment on above: Performed By: #### A AMMON LIPA, CMP #### [facility] [address] [place] [address] Dr. Jenae Alvares Anion gap [Moles/Vol] 11.0 mmol/L Normal [facility] Comment on above: Performed By: #### A AMMON, LIPA, CMP #### [facility] [address] [place] [address] Dr. Jenae Alvares AST [Catalytic activity/Vol] 25 U/L Normal 15-37 [facility] Comment on above: Performed By: #### A AMMON LIPA, CMP #### [facility] [address] [place] [address] Dr. Jenae Alvares Bilirubin [Mass/Vol] 0.4 mg/dL Normal 0.2-1.0 [facility] Comment on above: Performed By: #### A MY, LIPA, CMP #### [facility] [address] [place] [address] [address] Jenae Alvares Calcium [Mass/Vol] 8.6 mg/dL Normal 8.5-10.1 [facility] Comment on above: Performed By: #### A MY, LIPA, CMP #### [facility] [address] [place] [address] [address] Jenae Alvares Chloride [Moles/Vol] 105 mmol/L Normal 98-107 [facility] Comment on above: Performed By: #### A MY, LIPA, CMP #### [facility] [address] [place] [address] [address] Jenae Alvares CO2 [Moles/Vol] 26.9 mmol/L Normal 21.0-32.0 [facility] Comment on above: Performed By: #### A MY, LIPA, CMP #### [facility] [address] [place] [address] [address] Jenae Alvares Creatinine [Mass/Vol] 1.14 mg/dL Normal 0.70-1.30 [facility] Comment on above: Performed By: #### A MY LIPA, CMP #### [facility] [address] [place] [address] Dr. Jenae Alvares EGFR-AF SALVADOREAN >60 Normal >=60 [facility] Comment on above: Performed By: #### A MY LIPA, CMP #### [facility] [address] [place] [address] [address] Jenae Alvares EGFR-NON AF SALVADOREAN >60 Normal >=60 [facility] Comment on above: Performed By: #### A MY, LIPA, CMP #### [facility] [address] [place] [address] [address] Jenae Alvares Globulin (S) [Mass/Vol] 3.8 g/dL Normal [facility] Comment on above: Performed By: #### A MY, LIPA, CMP #### [facility] [address] [place] [address] Dr. Jenae Alvares Glucose [Mass/Vol] 96 mg/dL Normal 74-106 [facility] Comment on above: Performed By: #### A ALLA VERDE, CMP #### [facility] [address] [place] [address] [address] Jenae Alvares Potassium [Moles/Vol] 3.9 mmol/L Normal 3.5-5.1 [facility] Comment on above: Performed By: #### A ALLA VERDE, CMP #### [facility] [address] [place] [address] Dr. Jenae Alvares Protein [Mass/Vol] 7.5 g/dL Normal 6.4-8.2 [facility] Comment on above: Performed By: #### A ALLA VERDE, CMP #### [facility] [address] [place] [address] Dr. Jenae Alvares Sodium [Moles/Vol] 139 mmol/L Normal 136-145 [facility] Comment on above: Performed By: #### A ALLA VERDE, CMP #### [facility] [address] [place] [address] [address] Jenae Alvares Urea nitrogen [Mass/Vol] 11.0 mg/dL Normal 7.0-18.0 [facility] Comment on above: Performed By: #### A ALLA VERDE, CMP #### [facility] [address] [place] [address] Dr. Jenae Alvares Urea nitrogen/Creatinine [Mass ratio] 9.6 mg/mg Normal [facility] Comment on above: Performed By: #### A ALLA VERDE, CMP #### [facility] [address] [place] [address] Dr. Jenae Alvares COVID19 ([facility])on 08-14-2021 SARS-CoV-2 (COVID-19) RNA RIP+probe Ql (Unsp spec) Not detected Normal NOT-DETECTED [facility] Comment on above: Order Comment: [...] detection of SARS-CoV-2 nucleic acid. \[id number]\Resulting Lab: [facility] Performed By: #### C [id number] #### [place] [address] Ph. [phone] NOVEL CORONAVIRUS NASOPHARYN GEAL - [facility] SPECIMEN ONLYon 08-14-2021 SARS-CoV-2 (COVID-19) RNA RIP+probe Ql (Unsp spec) Not detected Normal NOT DETECTED [facility] Comment on above: Order Comment: This test was performed using Associate Art Director Mediated Amplification and has been approved as Emergency Use Authorization (EUA) for the qualitative detection of SARS-CoV-2 nucleic acid. Result Comment: [facility] Negative results do not preclude SARS-CoV-2 infection [...] patient is critically ill or clinically deteriorating. Performed By: #### L [id number] #### [facility] (DEFAULT) [address] [place] [address] XR COMPARISON OF OUTSIDE CLIVE MSon 08-06-2021 XR COMPARISON OF OUTSIDE FILMS RADRPT There is no result for this study. This is a placeholder for comparison films only. Final result Normal [facility] [id number] 07-01-2021 SARS-CoV-2 (COVID-19) RNA RIP+probe Ql (Unsp spec) Normal [facility] Comment on above: Performed By: #### C OVID #### [facility] [address] [place], [place] [id number] Furnace Unloader: Chuck Bradley MD [address] [place] [address] Furnace Unloader: Evin Poole MD SARS-CoV-2 (COVID-19) RNA RIP+probe Ql (Unsp spec) Not detected Normal [facility] Comment on above: Result Comment: The specimen is NEGATIVE for SARS-CoV-2, the novel coronavirus associated with COVID-19. A negative result does not rule out COVID-19. Regina SARS-CoV-2 for use on the Regina [employer]0/8800 Systems is a real-time RT-PCR test intended [...] this assay. Fact sheet for Healthcare Providers: https://www.fda.gov/media/513275/download Fact sheet for Patients: https://www.fda.gov/media/992460/download METHODOLOGY: RT-PCR Performed By: #### C OVID #### [facility] [address] [place] [address] Furnace Unloader: Chuck Bradley MD [facility] [address] [place] [address] [place] [address] Furnace Unloader: Evin Poole MD COVID-19, Rapidon 06-30-2021 SARS-CoV-2 (COVID-19) RNA RIP+probe Ql (Unsp spec) Not detected Not Detected [facility] Comment on above: Rapid NAAT: The specimen [...] management decisions. Fact sheet for Healthcare Providers: https://www.fda.gov/media/942403/download Fact sheet for Patients: https://www.fda.gov/media/849897/download Methodology: Isothermal Nucleic Acid Amplification Specimen Description .NASOPHARYNGEAL SWAB [facility] [id number] 06-30-2021 SARS-CoV-2 (COVID-19) RNA RIP+probe Ql (Unsp spec) .NASOPHARYNGEAL SWAB Normal [facility] Comment on above: Performed By: #### C OVID #### [id number] [place] [address] Furnace Unloader: Chuck Bradley MD [facility] [address] [place] [address] [place] [address] Furnace Unloader: Evin Poole MD SARS-CoV-2 (COVID-19) RNA RIP+probe Ql (Unsp spec) Not detected Normal [facility] Comment on above: Result Comment: Rapid [...] management decisions. Fact sheet for Healthcare Providers: https://www.fda.gov/media/863273/download Fact sheet for Patients: https://www.fda.gov/media/634632/download Methodology: Isothermal Nucleic Acid Amplification Performed By: #### C OVRB #### [facility] [address] [place] [address] Furnace Unloader: Evin Poole MD XR LUMBAR SPINE (MIN 4 VIEWS )on 06-13-2021 XR LUMBAR SPINE (MIN 4 VIEWS) RADRPT EXAM: XR LUMBAR SPINE (MIN 4 VIEWS) HISTORY: TECH NOTES: Chronic Lumbar pain Nki [id number]-Flex-Ext per ordering provider Low back pain due [...] No dynamic instability Chronic Lumbar pain Nki GO-Uws-Hpaa-Flex-Ext per ordering provider Interpreted by: Ras Olson MD Signed by: Ras Olson MD 06/13/[address] [facility] Comment on above: Order Comment: [...] Ras Olson MD 05/16/[address] [facility] MRI LUMBAR SPINE WO CONTRAST [...] Ras Olson MD 05/16/[address] [facility] [id number] 04-26-2021 SARS-CoV-2 (COVID-19) RNA RIP+probe Ql (Unsp spec) Normal [facility] Comment on above: Performed By: #### C OVID #### [facility] [address], [place] [id number] Furnace Unloader: Chuck Bradley MD [facility] [address] [place] [address] Furnace Unloader: Evin Poole MD SARS-CoV-2 (COVID-19) RNA RIP+probe Ql (Unsp spec) Not detected Normal [facility] Comment on above: Result Comment: The specimen is NEGATIVE for SARS-CoV-2, the novel coronavirus associated with COVID-19. A negative result does not rule out COVID-19. Regina SARS-CoV-2 for use on the Regina [employer]kart0/8800 Systems is a real-time RT-PCR test intended [...] this assay. Fact sheet for Healthcare Providers: https://www.fda.gov/media/172106/download Fact sheet for Patients: https://www.fda.gov/media/345918/download METHODOLOGY: RT-PCR Performed By: #### C OVID #### [facility] [address] [place] [address] Furnace Unloader: Chuck Bradley MD [facility] [address] [place] [address] Furnace Unloader: Evin Poole MD [id number] 04-25-2021 SARS-CoV-2 (COVID-19) RNA RIP+probe Ql (Unsp spec) .NASOPHARYNGEAL SWAB Normal [facility] Comment on above: Performed By: #### C OVID #### [facility] [address] [place] [address] Furnace Unloader: Chuck Bradley MD [facility] [address] [place] [address] [place] [address] Furnace Unloader: Evin Poole MD Strep Screen [facility] 07-16-2019 S. pyogenes Ag IA Ql (Unsp spec) Rapid Strep A negative. A negative Rapid Group A Strep Screen result does not rule out the possibility of Group A Streptococci in the specimen. A Group A Strep DNA test is available upon request. [employer] Phone: Special Requests NOT REPORTED [employer] Phone: Specimen Description .THROAT [employer] Phone: XR CHEST STANDARD (2 VW)on 0 07-16-2019 No acute cardiopulmonary abnormality identified. [employer] Phone: EXAMINATION: TWO XRA Y VIEWS OF THE CHEST 07/16/2019 5:44 pm COMPARISON: 07/14/2019 HISTORY: ORDERING SYSTEM PROVIDED HISTORY: eval for pneumonia TECHNOLOGIST PROVIDED HISTORY: eval for pneumonia FINDINGS: No focal lung consolidation. No pleural effusion or pneumothorax identified. The cardiomediastinal silhouette is normal in size for technique. [employer] Phone: Grupo, pn Incoming Radiant Results From Spunkmobile/Nimble [employer] - 07/16/2019 5:52 PM EST EXAMINATION: TWO XRAY VIEWS OF THE CHEST 07/16/2019 5:44 pm COMPARISON: 07/14/2019 HISTORY: ORDERING SYSTEM PROVIDED HISTORY: eval for pneumonia TECHNOLOGIST PROVIDED HISTORY: eval for pneumonia FINDINGS: No focal lung consolidation. No pleural effusion or pneumothorax identified. The cardiomediastinal silhouette is normal in size for technique. IMPRESSION: No acute cardiopulmonary abnormality identified. [employer] Phone: Rapid influenza A/B antigens on 07-14-2019 Direct Exam Positive Abnormal [employer] Phone: Direct Exam Negative [employer] Phone: Interpretation and review of laboratory results Abnormal [employer] Phone: Special Requests NOT REPORTED [employer] Phone: Specimen Description .NASOPHARYNGEAL SWAB [employer] Work Phone: XR CHEST STANDARD (2 VW)on 0 07-14-2019 Asymmetric left uppe r lung opacity is felt to be superimposition of shadows but early pneumonia is not excluded. Short interval follow-up is advised. [employer] Phone: EXAMINATION: TWO XRA Y VIEWS OF THE CHEST 07/14/2019 3:23 pm COMPARISON: May 16, 2019 HISTORY: ORDERING SYSTEM PROVIDED HISTORY: cough TECHNOLOGIST PROVIDED HISTORY: cough FINDINGS: Asymmetric left upper lung opacity most likely superimposition of shadows but early pneumonia is not excluded. Interstitial prominence diffusely, likely magnified by shallow inspiration and technical differences. No focal consolidation. Heart is not enlarged. [employer] Phone: Grupo, Mhpn Incoming Radiant Results From Spunkmobile/[employer] - 07/14/2019 3:34 PM EST EXAMINATION: TWO [...] not excluded. Short interval follow-up is advised. [employer] Phone: XR CHEST STANDARD (2 VW)Orde red By: Chava Chaidez on 05-16-2019 Unremarkable chest. [employer] Phone: EXAMINATION: TWO XRA Y VIEWS OF [...] osseous structures are intact without acute process. [employer] Phone: Grupo, pn Incoming Radiant Results From Spunkmobile/Nim[employer] TV - 05/16/2019 5:21 PM EST EXAMINATION: TWO [...] intact without acute process. IMPRESSION: Unremarkable chest. [employer] Phone: HCV RNA Qnt-[facility] 9 HepC RNA PCR nt-[place] Undetected Normal Undetected [facility] Comment on above: Result Comment: Resu lt in log IU/mL is Undetected. ADDITIONAL INFORMATION The quantification range of this assay is 15 to 100,000,000 IU/mL (1.18 log to 8.00 log IU/mL). Testing was performed using the regina HCV test ([employer] with the regina 6800 System. Test Performed by: [place] [address] Furnace Unloader: Mehran Goode M.D. Ph.D.; CLIA# [id number] Performed By: #### C [id number] #### [facility] [address] [place] [address] Ambulatory Patient Education on 04-06-2019 Ambulatory Patient Education Patient Education Materials Name: Doris Cochran Current Date: 04/06/2019 09:08:39 [place] : 1985 The following sheet(s) are the Patient Education Leaflets for Doris Cochran Mental Health Addiction: Ask Yourself These Questions Ask [...] change or stop your substance use. ? [phone] [employer] [address] [place] [address], [place] [address]. All rights reserved. This information is not intended as a substitute for professional medical care. Always follow your healthcare professional's instructions. Normal [facility] Infectious Disease Office/Cl inic Noteon 04-06-2019 Infectious Disease Office/Clinic Note Chief Complaint Pt states has HCV History of Present Illness Mr. Cochran 33-year-old woman seen for hepatitis C. He started to snorting drugs around age 18 and needles around 22. He was tested previously for hepatitis C in 2016 when he was in snf. He was negative at the time. A [...] lifelong positive. Ordered: Hepatitis C Virus RNA Detect/Quant-Sqrl Liver + Elastography 2. Opiate addiction Encouraged [...] SILVER, Vijay Watkins 04/06/19 09:03 EDT Normal [facility] Provider Letteron 04-06-2019 Provider Letter Jolie Christianson, CUTTER GR[employer]OL TECHNICIAN [address] [place] [address] Re: Doris Peak Date of Visit: 04/06/[address] Christianson, Thank you for your referral to my office. Attached you will find the most recent office visit note. Please call if you have any questions or concerns. Sincerely, Vijay Rowe MD [address] [place] [address], [place] [address] The following document(s) were included in the letter: April 06, 2019 09:01:13 EDT - (04/06/2019) Office Visit Note Normal [facility] MRI LUMBAR SPINE WO CONTRAST on 03-03-2019 Left subarticular disc bulge effacing descending left L5 nerve root within the lateral recess. Disc bulge at L3-L4 effacing the descending bilateral L4 nerve roots in the lateral recesses. [facility] [place] EXAMINATION: MRI OF THE LUMBAR SPINE WITHOUT [...] canal narrowing. No significant neural foraminal narrowing. [facility] [place], [place] Grupo, Mhpn Incoming Radiant Results From dBMEDx - 03/03/2019 2:42 PM EDT EXAMINATION: MRI [...] L4 nerve roots in the lateral recesses. [place] Hepatitis C Antibodyon 02-22 Hepatitis C Ab REACTIVE Abnormal NONREACTIVE [facility] [place] [place] Comment on above: The hepatitis C [...] Interpretation and review of laboratory results Abnormal [place] Amylaseon 02-21-2019 Amylase [Catalytic activity/Vol] 40 U/L 28 - 100 U/L [place] CBC Auto Differentialon 02-05 Basophils (Bld) [#/Vol] 10*3/uL [place] Basophils/100 WBC (Bld) 0 % 0 - 2 % [place] Differential Type NOT REPORTED [place] Eosinophils (Bld) [#/Vol] 0.04 10*3/uL [place] Eosinophils/100 WBC (Bld) 0 % Low 1 - 4 % [place] Erythrocyte distribution width (RBC) [Ratio] 13.1 % 11.8 - 14.4 % [place] Hematocrit (Bld) [Volume fraction] 43.4 % 40.7 - 50.3 % [place] Hemoglobin (Bld) [Mass/Vol] 15.1 g/dL 13 - 17 g/dL [place] Immature granulocytes (Bld) [#/Vol] 1 % High 0 [place] Immature granulocytes (Bld) [#/Vol] 0.05 10*3/uL [place] Interpretation and review of laboratory results Abnormal [place] Lymphocytes (Bld) [#/Vol] 2.14 10*3/uL [place] Lymphocytes/100 WBC (Bld) 24 % 24 - 43 % [place] MCH (RBC) [Entitic mass] 32.5 pg 25.2 - 33.5 pg [place] MCHC (RBC) [Mass/Vol] 34.8 g/dL 28.4 - 34.8 g/dL [place] MCV (RBC) [Entitic vol] 93.5 fL 82.6 - 102.9 fL [place] Monocytes (Bld) [#/Vol] 0.67 10*3/uL [place] Monocytes/100 WBC (Bld) 8 % 3 - 12 % [place] Platelet mean volume (Bld) [Entitic vol] 12.1 fL 8.1 - 13.5 fL [place] Platelets (Bld) [#/Vol] 146 10*3/uL [place] Platelets (Bld) [#/Vol] NOT REPORTED [place] RBC (Bld) [#/Vol] 4.64 10*6/uL 4.21 - 5.7 7 m/uL [place] RBC morphology finding Nom (Bld) NOT REPORTED [place] Segmented neutrophils/100 WBC (Bld) 67 % High 36 - 65 % [place] Segs Absolute 6.07 [place] WBC (Bld) [#/Vol] 0.0 10*3/uL 0.0 per 100 WBC M [place] WBC (Bld) [#/Vol] 9.0 10*3/uL [place] WBC Morphology NOT REPORTED [place] Comprehensive Metabolic Pane perlita 02-21-2019 Albumin [Mass/Vol] 4.5 g/dL 3.5 - 5.2 g/dL [place] Albumin/Globulin [Mass ratio] 1.3 {ratio} [place] ALP [Catalytic activity/Vol] 146 U/L High 40 - 129 U/L [place] ALT [Catalytic activity/Vol] 39 U/L 5 - 41 U/L [place] Anion gap [Moles/Vol] 13 mmol/L 9 - 17 mmol/L [place] AST [Catalytic activity/Vol] 27 U/L <40 [place] Bilirubin Ql (U) 0.29 mg/dL Low 0.3 - 1.2 mg/dL [place] Bun/Cre Ratio 9 [place] Calcium [Mass/Vol] 9.8 mg/dL 8.6 - 10. 4 mg/dL [place] Chloride [Moles/Vol] 100 mmol/L 98 - 107 mmol/L [place] CO2 [Moles/Vol] 27 mmol/L 20 - 31 mmol/L [place] Creatinine [Mass/Vol] 1.02 mg/dL 0.7 - 1.2 mg/dL [place] GFR >60 >60 mL/min [place] GFR Non- >60 >60 mL/min [place] Glucose [Mass/Vol] 85 mg/dL 70 - 99 mg/dL [place] Interpretation and review of laboratory results Abnormal [place] Potassium [Moles/Vol] 3.7 mmol/L 3.7 - 5.3 mmol/L [place] Protein [Mass/Vol] 8.1 g/dL 6.4 - 8.3 g/dL [place] Sodium [Moles/Vol] 140 mmol/L 135 - 144 mmol/L [place] Urea nitrogen [Mass/Vol] 9 mg/dL 6 - 20 mg/dL [place] Lipaseon 02-21-2019 Lipase [Catalytic activity/Vol] 19 U/L 13 - 60 U/L [place] Metabolic Panelon 02-21-2019 GFR/1.73 sq M predicted among non-blacks MDRD (S/P/Bld) [Vol rate/Area] [place] Comment on above: Average GFR for 30-3 9 years old: 107 mL/min/1.73sq m Chronic Kidney Disease: <60 mL/min/1.73sq m Kidney failure: <15 mL/min/1.73sq m eGFR calculated using average adult body mass. Additional eGFR calculator available at: http://www.55tuan.com/multiple_crcl_2012.htm Stage 1: Some kidney damage normal GFR [...] Transitional segment anatomy at the lumbosacral junction. [facility] EXAMINATION: 5 XRAY VIEWS OF THE LUMBAR SPINE 02/21/2019 4:34 pm COMPARISON: None. HISTORY: ORDERING SYSTEM PROVIDED HISTORY: Pain FINDINGS: There is transitional segment anatomy at the lumbosacral junction with suspected lumbarized S1. There is a right-sided pseudoarthrosis. Vertebral body heights and alignment are normal. Disc spaces are preserved. No evidence of spondylolysis or spondylolisthesis. Sacroiliac joints are within normal limits. [facility] Grupo, pn Incoming Radiant Results From dBMEDx - 02/21/2019 5:02 PM EDT EXAMINATION: 5 [...] Transitional segment anatomy at the lumbosacral junction. [facility] XR SHOULDER RIGHT (MIN 2 VIE WS)on 02-21-2019 No acute osseous abnormality. [facility] EXAMINATION: THREE XRAY VIEWS OF THE RIGHT SHOULDER 02/21/2019 4:34 pm COMPARISON: None. HISTORY: ORDERING SYSTEM PROVIDED HISTORY: Pain FINDINGS: Bone mineralization and alignment appear intact. No evidence of acute fracture or dislocation. [facility] Grupo, Mhpn Incoming Radiant Results From dBMEDx - 02/21/2019 4:57 PM EDT EXAMINATION: THREE XRAY VIEWS OF THE RIGHT SHOULDER 02/21/2019 4:34 pm COMPARISON: None. HISTORY: ORDERING SYSTEM PROVIDED HISTORY: Pain FINDINGS: Bone mineralization and alignment appear intact. No evidence of acute fracture or dislocation. IMPRESSION: No acute osseous abnormality. [facility] W[facility] RIGHT (MIN 3 VIEWS) on 02-21-2019 Normal x-ray of the wrist [facility] EXAMINATION: 3 XRAY VIEWS OF THE RIGHT WRIST 02/21/2019 4:57 pm COMPARISON: None. HISTORY: ORDERING SYSTEM PROVIDED HISTORY: Injury TECHNOLOGIST PROVIDED HISTORY: Right wrist pain FINDINGS: The carpal bones all appear intact. There is no evidence for fracture dislocation. The soft tissues are normal. The joint spaces are well preserved. There is no evidence for foreign body. [facility] Grupo, Mhpn Incoming Radiant Results From Spunkmobile/Nim[employer] TV - 02/21/2019 5:04 PM EDT EXAMINATION: 3 [...] body. IMPRESSION: Normal x-ray of the wrist [facility] Vital Signs Date Time Vital Sign Value Performing Clinician Facility 10-15-2023 11:15-0400 Diastolic blood pressure 76 mm[Hg] [facility] 10-15-2023 11:15-0400 Heart rate 78 /min [facility] 10-15-2023 11:15-0400 SaO2% (BldA) [Mass fraction] 98 % [facility] 10-15-2023 11:15-0400 Systolic blood pressure 122 mm[Hg] [facility] 10-05-2023 09:31-0400 Body height 167.64 cm [facility] 10-05-2023 09:31-0400 Body mass index (BMI) [Ratio] 32.4 kg/m2 [facility] 10-05-2023 09:31-0400 Body weight 91.17 kg [facility] 01-31-2023 08:51-0400 Body temperature 97.7 [degF] [facility] 01-31-2023 08:51-0400 Diastolic blood pressure 81 mm[Hg] [facility] 01-31-2023 08:51-0400 Heart rate 67 /min [facility] 01-31-2023 08:51-0400 Respiratory rate 18 /min [facility] 01-31-2023 08:51-0400 SaO2% (BldA) [Mass fraction] 100 % [facility] 01-31-2023 08:51-0400 Systolic blood pressure 123 mm[Hg] [facility] 07-31-2021 19:31-0500 Diastolic blood pressure 62 mm[Hg] Denny Morrell MD Work Phone: [facility] 07-31-2021 19:31-0500 Systolic blood pressure 123 mm[Hg] Denny Morrell MD Work Phone: [facility] 07-31-2021 19:29-0500 Body height 167.6 cm Denny Morrell MD Work Phone: [facility] 07-31-2021 19:29-0500 Body mass index (BMI) [Ratio] 37.12 kg/m2 Denny Morrell MD Work Phone: [facility] 07-31-2021 19:29-0500 Body temperature 97.11 [degF] Denny Morrell MD Work Phone: [facility] 07-31-2021 19:29-0500 Body weight 104.33 kg Denny Morrell MD Work Phone: [facility] 07-31-2021 19:29-0500 Heart rate 72 /min Denny Morrell MD Work Phone: [facility] 07-31-2021 19:29-0500 Respiratory rate 16 /min Denny Morrell MD Work Phone: [facility] 07-31-2021 19:29-0500 SaO2% (BldA) [Mass fraction] 97 % Denny Morrell MD Work Phone: [facility] 06-30-2021 04:01-0500 Body temperature 97.59 [degF] Krystin Valenzuela DO Work Phone: [facility] 06-30-2021 04:01-0500 Diastolic blood pressure 76 mm[Hg] Krystin Valenzuela DO Work Phone: [facility] 06-30-2021 04:01-0500 Systolic blood pressure 135 mm[Hg] Krystin Valenzuela DO Work Phone: [facility] 06-30-2021 04:00-0500 Body height 167.6 cm Krystin Valenzuela DO Work Phone: [facility] 06-30-2021 04:00-0500 Body mass index (BMI) [Ratio] 36.32 kg/m2 Krystin Valenzuela DO Work Phone: [facility] 06-30-2021 04:00-0500 Body weight 102.06 kg Krystin Valenzuela DO Work Phone: [facility] 06-30-2021 04:00-0500 Heart rate 85 /min Krystin Valenzuela DO Work Phone: [facility] 06-30-2021 04:00-0500 Respiratory rate 18 /min Krystin Valenzuela DO Work Phone: [facility] 06-30-2021 04:00-0500 SaO2% (BldA) [Mass fraction] 98 % Krystin Valenzuela DO Work Phone: [facility] 04-25-2021 19:06-0500 Diastolic blood pressure 70 mm[Hg] Sofie Mills MD Work Phone: [facility] 04-25-2021 19:06-0500 Systolic blood pressure 95 mm[Hg] Sofie Mills MD Work Phone: [facility] 04-25-2021 19:05-0500 Body temperature 98.6 [degF] Sofie Mills MD Work Phone: [facility] 04-25-2021 19:05-0500 Heart rate 85 /min Sofie Mills MD Work Phone: [facility] 04-25-2021 19:05-0500 Respiratory rate 15 /min Sofie Mills MD Work Phone: [facility] 04-25-2021 19:05-0500 SaO2% (BldA) [Mass fraction] 98 % Sofie Mills MD Work Phone: [facility] 10-01-2020 09:21-0400 Body mass index (BMI) [Ratio] 33.57 kg/m2 Vicente Baumann MD Work Phone: [facility] Work Phone: 10-01-2020 09:21-0400 Body temperature 97 [degF] Vicente Baumann MD Work Phone: [facility] Work Phone: 10-01-2020 09:21-0400 Body weight 94.35 kg Vicente Baumann MD Work Phone: [facility] Work Phone: 10-01-2020 09:21-0400 Diastolic blood pressure 78 mm[Hg] Vicente Baumann MD Work Phone: [facility] Work Phone: 10-01-2020 09:21-0400 Heart rate 87 /min Vicente Baumann MD Work Phone: [facility] Work Phone: 10-01-2020 09:21-0400 Respiratory rate 16 /min Vicente Baumann MD Work Phone: [facility] Work Phone: 10-01-2020 09:21-0400 SaO2% (BldA) [Mass fraction] 97 % Vicente Baumann MD Work Phone: [facility] Work Phone: 10-01-2020 09:21-0400 Systolic blood pressure 127 mm[Hg] Vicente Baumann MD Work Phone: [facility] [employer] Work Phone: 08-21-2019 03:42-0400 Body Temperature 98.1 [degF] [employer] [facility] [place] 08-21-2019 03:42-0400 Pulse (Heart Rate) 91 /min [facility] [employer] [facility] [place] 08-21-2019 03:42-0400 Pulse Oximetry 98 % [employer] [facility] [place] 08-21-2019 03:42-0400 Respiratory Rate 18 /min [employer] [facility] [place] 08-21-2019 03:37-0400 BP Diastolic 85 mm[Hg] [employer] [facility] [place] 08-21-2019 03:37-0400 BP Systolic 134 mm[Hg] Juan [employer] [facility] [place] 07-16-2019 17:25-0500 Body Temperature 98.01 [degF] [facility] Work Phone: 07-16-2019 17:25-0500 BP Diastolic 79 mm[Hg] [facility] Work Phone: 07-16-2019 17:25-0500 BP Systolic 113 mm[Hg] [facility] Work Phone: 07-16-2019 17:25-0500 Pulse (Heart Rate) 79 /min [facility] Work Phone: 07-16-2019 17:25-0500 Pulse Oximetry 97 % [facility] Work Phone: 07-16-2019 17:25-0500 Respiratory Rate 18 /min Marcus [employer] [facility] Work Phone: 07-14-2019 14:53-0500 BMI (Body Mass Index) 34.7 kg/m2 Marcus [employer] [facility] Work Phone: 07-14-2019 14:53-0500 Body Temperature 99 [degF] Marcus [employer] Work Phone: 07-14-2019 14:53-0500 Body weight 97.52 kg Marcus [employer] Work Phone: 07-14-2019 14:53-0500 BP Diastolic 59 mm[Hg] Marcus [employer] Work Phone: 07-14-2019 14:53-0500 BP Systolic 109 mm[Hg] Marcus [employer] Work Phone: 07-14-2019 14:53-0500 Height 167.6 cm Marcus [employer] Work Phone: 07-14-2019 14:53-0500 Pulse (Heart Rate) 83 /min [employer] Work Phone: 07-14-2019 14:53-0500 Pulse Oximetry 96 % [employer] Work Phone: 07-14-2019 14:53-0500 Respiratory Rate 18 /min [employer] Work Phone: 05-16-2019 16:55-0500 Body mass index (BMI) [Ratio] 34.38 kg/m2 Jolie Christianson APRN [employer] Work Phone: [facility] Work Phone: 05-16-2019 16:55-0500 Body temperature 98.6 [degF] Jolie Christianson APRN - CUTTER GRIND TOOL TECHNICIAN Work Phone: [facility] Work Phone: 05-16-2019 16:55-0500 Body weight 96.62 kg Jolie Christianson APRN - CUTTER GRIND TOOL TECHNICIAN Work Phone: [facility] Work Phone: 05-16-2019 16:55-0500 Diastolic blood pressure 91 mm[Hg] Joliejose Christianson APRN - CUTTER GRIND TOOL TECHNICIAN Work Phone: [facility] Work Phone: 05-16-2019 16:55-0500 Heart rate 78 /min Jolie Christianson CARPENTER ASSISTANT INSTALLER - CUTTER GRIND TOOL TECHNICIAN Work Phone: [facility] Work Phone: 05-16-2019 16:55-0500 Respiratory rate 16 /min Jolie Christianson CARPENTER ASSISTANT INSTALLER - CUTTER GRIND TOOL TECHNICIAN Work Phone: [facility] Work Phone: 05-16-2019 16:55-0500 SaO2% (BldA) [Mass fraction] 98 % Jolie Christianson CARPENTER ASSISTANT INSTALLER - CUTTER GRIND TOOL TECHNICIAN Work Phone: [facility] Work Phone: 05-16-2019 16:55-0500 Systolic blood pressure 141 mm[Hg] Jolie Christianson CARPENTER ASSISTANT INSTALLER - CUTTER GRIND TOOL TECHNICIAN Work Phone: [facility] Work Phone: Encounters Encounter Date Encounter Type Care Provider Facility Start: 03-28-2024 End: 03-28-2024 Orders Only Olu Nation ADMINISTRATIVE SUPPORT TECHNICIAN Work Phone: [facility] Comment on above: Lumbar radiculopathy (Primary Dx); Lumbosacral spondylosis without myelopathy Start: 03-27-2024 End: 03-30-2024 Refill Yanira Up [facility] Comment on above: Chronic bilateral lo w back pain with bilateral sciatica; Thoracolumbar back pain Start: 03-17-2024 End: 03-17-2024 Bamboo flowsheet Miguel Angel Payne [facility] OF [facility] Start: 03-17-2024 End: 03-17-2024 Bamboo flowsheet Miguel Angel Payne [employer] Start: 03-17-2024 End: 03-17-2024 ambulatory MIGUEL ANGEL PAYNE [facility] Comment on above: Lumbar radiculopathy (Primary Dx); Sacroiliitis (CMS/HCC); Paresthesia and pain of both upper extremities Start: 03-13-2024 End: 03-13-2024 Bamboo flowsheet Sarah Nielsen PT [facility] Start: 03-13-2024 End: 03-13-2024 Bamboo flowsheet Sarah Nielsen PT [facility] Start: 03-13-2024 End: 03-13-2024 ambulatory Sarah Nielsen PT [facility] Comment on above: Lumbar radiculopathy (Primary Dx); Sacroiliitis (CMS/HCC); Paresthesia and pain of both upper extremities Start: 02-09-2024 Patient encounter status Jeremy Nielsen PT [facility] Start: 02-09-2024 End: 02-09-2024 ambulatory OLU JARVISK Not Available Start: 12-20-2023 ambulatory ALBERTO FAStephanieWAD Facility: [facility] Start: 11-15-2023 End: 11-15-2023 ambulatory ALBERTO FAWWAD Not Available Start: 10-15-2023 End: 10-15-2023 ambulatory [facility] Work Phone: Start: 10-15-2023 End: 10-15-2023 Patient encounter procedure Counts Include [facility] Work Phone: Start: 10-06-2023 End: 10-06-2023 ambulatory ALBERTO FAWWAD Not Available Start: 10-05-2023 End: 10-05-2023 ambulatory [facility] Work Phone: Start: 10-05-2023 End: 10-05-2023 Patient encounter procedure Counts Include [facility] Neurosurgery Work Phone: Start: 09-06-2023 End: 09-06-2023 ambulatory ALBERTO FAWWAD Not Available Start: 08-23-2023 End: 08-23-2023 ambulatory ALBERTO FAWWAD Not Available Start: 08-05-2023 End: 08-05-2023 ambulatory ALBERTO FAWWAD Not Available Start: 01-31-2023 End: 01-31-2023 Emergency department [facility] Gayle Weathers [facility] Start: 02-17-2022 End: 02-17-[address] NATHANIEL THOMPSON Facility:[facility] Start: 12-02-2021 End: 12-02-[address] LEAH KAUR Facility:[facility] Start: 11-14-2021 End: 11-14-[address] GRIGGS LISTED REQUEST Facility:[facility] Start: 08-18-2021 End: 08-18-2021 ambulatory [facility] Start: 08-14-2021 ambulatory [facility] Start: 08-06-2021 End: 08-06-2021 [facility] Start: 07-31-2021 End: 07-31-2021 Emergency department patient visit [facility] Start: 07-31-2021 End: 07-31-2021 Emergency department patient visit Denny Morrell MD Work Phone: [facility] ED Comment on above: Muscle strain (Prima ry Dx) Start: 06-30-2021 End: 06-30-2021 Emergency department patient visit [facility] Start: 06-30-2021 End: 06-30-2021 Emergency department patient visit Krystin Valenzuela DO Work Phone: [facility] Comment on above: Cough (Primary Dx); Acute nonintractable headache, unspecified headache type Start: 06-13-2021 End: 06-16-2021 ambulatory [facility] Start: 05-16-2021 ambulatory REGINA [facility] Start: 04-25-2021 Emergency department patient visit [facility] Start: 04-25-2021 End: 04-25-2021 Emergency department patient visit Sofie Mills MD Work Phone: [facility] Comment on above: Suspected COVID-19 v irus infection (Primary Dx) Start: 04-09-2021 Transcribe Orders Susie Faria MA [facility] Comment on above: Low back pain with s ciatica, sciatica laterality unspecified, unspecified back pain laterality, unspecified chronicity (Primary Dx) Start: 10-01-2020 End: 10-01-2020 Emergency department patient visit [facility] Start: 10-01-2020 End: 10-01-2020 Emergency department patient visit Vicente Baumann MD Work Phone: [facility] Comment on above: Pain, dental (Primar y Dx); Dental caries Start: 09-30-2020 End: 09-30-2020 Emergency department patient visit [facility] Start: 04-04-2020 Patient encounter procedure JESS SARAH [facility] Start: 08-21-2019 End: 08-21-2019 Emergency department patient visit Juan Shrestha Work Phone: [facility] Comment on above: Laceration of right index finger without foreign body without damage to nail, initial encounter (Primary Dx) Start: 07-16-2019 End: 07-16-2019 Emergency department patient visit Marcus Leander Orourke Work Phone: [facility] Comment on above: Influenza A (Primary Dx) Start: 07-14-2019 End: 07-14-2019 Emergency department patient visit Marcus Orourke Work Phone: [facility] Comment on above: Influenza A (Primary Dx) Start: 05-16-2019 End: 05-16-2019 Emergency department patient visit Jolie Christianson CARPENTER ASSISTANT INSTALLER - CUTTER GRIND TOOL TECHNICIAN Work Phone: [facility] Comment on above: Rhomboid muscle stra in, initial encounter (Primary Dx) Start: 04-10-2019 Patient encounter procedure VIJAY ROWE Facility:[facility] Start: 03-03-2019 End: 03-05-2019 Subsequent hospital visit by physician Derrick [facility]ri [facility] MRI Comment on above: Lumbar pain; Congenital abnormality Start: 02-21-2019 End: 02-23-2019 Subsequent hospital visit by physician Derrick Zheng Dr Room 4 [facility] Radiology Comment on above: Pain Injury; Right wrist pain Procedures Date Procedure Procedure Detail Performing Clinician Start: 06-30-2021 COVID-19, TERE Valenzuela DO Work Phone: Start: 07-16-2019 Iaadiadoo streptococ cus group a Marcus E Eitches Work Phone: Start: 07-16-2019 Radiologic exam ches t 2 views Marcus E Eitches Work Phone: Start: 07-14-2019 Radiologic exam ches t 2 views Marcus E Eitches Work Phone: Start: 07-14-2019 [place]adiadoo influenza Eta n E Eitches Work Phone: Start: 05-16-2019 Radiologic exam ches t 2 views Chava Chaidez PA Work Phone: Start: 03-03-2019 Mri spinal canal [...] of 2) Shingles Vaccine (1 of 2) [facility] Work Phone: Start: 05-10-2024 End: 05-10-2024 Patient encounter procedure 05/10/2024 2:00 PM EST Office Visit [facility] [address] [place], [place] [phone] Olu Nation, ADMINISTRATIVE SUPPORT TECHNICIAN [address] [facility] [place] [phone] [facility] Start: 03-30-2024 End: 03-30-2024 ambulatory 03/30/2024 2:30 PM EDT Treatment [facility] [address] [facility] [place] [address] Sarah Nielsen, PT [facility] Start: 03-23-2024 End: 03-23-2024 ambulatory 03/23/2024 8:00 AM EDT Treatment [facility] [address] [facility] [place] [address] Miguel Angel Payne, COL[employer]OR OF [facility] Start: 03-21-2024 End: 03-21-2024 ambulatory 03/21/2024 2:30 PM EDT Treatment [facility] [address] [facility] [place] [address] Sarah Nielsen, PT [facility] Start: 03-17-2024 End: 03-17-2024 ambulatory 03/17/2024 8:00 AM EDT Treatment [facility] [address] [facility] [place] [address] Miguel Angel Payne, COL[facility] OF [facility] Start: 02-06-2024 Influenza vaccination Influenza Vacc ine (#1) [facility] Start: 10-05-2023 Patient referral [facility] Work Phone: Start: 09-15-2021 End: 09-15-2021 Patient encounter procedure 09/15/2021 Office Visit Primary Care Sofie Mills MD [address] [place] [address] [facility] Primary Care Start: 09-10-2021 End: 09-10-2021 Patient encounter procedure 09/10/2021 Office Visit Pain Management Yasmine Wellington, CARPENTER ASSISTANT INSTALLER - CUTTER GRIND TOOL TECHNICIAN [address] [facility] [place] [address] [facility] Start: 08-18-2021 End: 08-18-2021 Admission to same day surgery center 08/18/2021 Surgery IP Unit Demario Jacob MD [address] [facility] [place] [address] RIGHT CARPAL TUNNEL RELEASE [facility] OR Comment on above: RIGHT CARPAL TUNNEL RELEASE Start: 08-18-2021 End: 08-18-2021 Neuroplasty &/transpos median nrv carpal tunne CARPAL TUNNEL RELEASE right cts 08/18/2021 12:[address] [facility] Start: 08-18-2021 Subsequent hospital visit by physician 08/18/2021 Hospital Encounter IP Unit Demario Jacob MD [address] [place] [address] [facility] Start: 08-11-2021 End: 08-11-2021 Patient encounter procedure 08/11/2021 Office Visit Primary Care Sofie Mills MD [address] [place] [address] [facility] Primary Care Start: 08-06-2021 End: 08-06-2021 Admission to same day surgery center 08/06/2021 Surgery IP Unit Ramez Rangel MD [address] [place] [address] LUMBAR INTER LAMINAR TOM L4 L5 [facility] Comment on above: LUMBAR INTER LAMINAR TOM L4 L5 Start: 08-06-2021 End: 08-06-2021 Njx dx/ther sbst intrlmnr lmbr/sac w/img gdn LUMBAR INTER LAMINAR TOM lumbar stenosis 08/06/2021 11:[address] [facility] Start: 08-06-2021 Subsequent hospital visit by physician 08/06/2021 Hospital Encounter IP Unit Ramez Rangel MD [address] [place] [address] [facility] Start: 07-30-2021 End: 07-30-2021 Patient encounter procedure 07/30/2021 Office Visit Pain Management Ramez Rangel MD [address] [place] [address] [facility] Start: 07-24-2021 End: 07-24-2021 Patient encounter procedure 07/24/2021 Office Visit Orthopedic Surgery Tony Black MD [address] [place] [address] (Fax) [facility] Start: 06-30-2021 End: 06-30-2021 Patient encounter procedure 06/30/2021 Office Visit Orthopedic Surgery Demario Jacob MD [address] [place] [address] (Fax) [facility] Start: 05-23-2021 End: 05-23-2021 Patient encounter procedure 05/23/2021 Office Visit Orthopedic Surgery Tony Black MD [address] [place] [address] (Fax) [facility] Start: 05-16-2021 End: 05-16-2021 Patient encounter procedure 05/16/2021 Appointment Radiology [facility] MRI Start: 05-07-2021 End: 05-07-2021 Patient encounter procedure 05/07/2021 Office Visit Neurosurgery Jess Farley MD [address] [facility] [address] [place] [address] [facility] Neuro[facility] Start: 03-17-2021 End: 03-17-2021 Patient encounter procedure 03/17/2021 Office Visit Primary Care Sofie Mills MD [address] [place], [place] [id number] [facility] Primary [facility] Start: 02-05-2021 Influenza vaccination [facility] Start: 10-09-2020 End: 10-09-2020 Patient encounter procedure 10/09/2020 Office Visit AFL [facility] SCHD ONLY Start: 10-01-2020 COVID-19 Vaccine (2 - Moderna 2-dose series) COVID-19 Vaccine (2 - Moderna 2-dose series) [facility] Work Phone: Start: 06-13-2019 End: 06-13-2019 Patient encounter procedure 06/13/2019 Appointment Pain Management Patito Gutierres MD [address] [place] [address] [phone] [facility] Start: 05-23-2019 End: 05-23-2019 Patient encounter procedure 05/23/2019 Appointment Pain Management Patito Gutierres MD [address] [place], [place] [id number] [facility] Start: 03-03-2019 End: 03-03-2019 Appointment 03/03/2019 Appointment Radiology [facility] Start: 02-05-2019 Influenza vaccination Flu vaccine (# 1) [place] Start: 2005 DTaP/Tdap/Td vaccine (1 - Tdap) DTaP/Tdap/Td vaccine (1 - Tdap) [facility] Start: 2004 [facility]atitis C [facility] Start: 2001 HIV screen HIV screen [place], [place] Start: 2001 HIV screening [facility] Start: 1999 Varicella Vaccine (1 of 2 - 13+ 2-dose series) Varicella Vaccine (1 of 2 - 13+ 2-dose series) [place] Start: 1998 COVID-19 Vaccine (1) COVID-19 Vaccin e (1) [facility] Start: 1998 Depression Screen Depression Screen [facility] Start: 1998 Depression screening using PHQ-9 (Patient Health Questionnaire 9) score Depression Screening (PHQ-2/9) [facility] Start: 1997 DTaP/Tdap/Td vaccine (1 - Tdap) DTaP/Tdap/Td vaccine (1 - Tdap) [facility] Work Phone: Start: 1992 Pneumococcal 0-64 ye ars Vaccine (1 of 1 - PPSV23) Pneumococcal 0-64 years Vaccine (1 of 1 - PPSV23) [facility] [place], [place] Start: 1992 Pneumococcal 0-64 ye ars Vaccine (1 of 2 - PPSV23) Pneumococcal 0-64 years Vaccine (1 of 2 - PPSV23) [facility] Start: 1991 COVID-19 Vaccine (1) COVID-19 Vaccin e (1) [facility] Start: 1989 History and physical examination, annual for health maintenance Wellness Visit [facility] Start: 1987 Varicella vaccine (1 of 2 - 2-dose childhood series) Varicella vaccine (1 of 2 - 2-dose childhood series) [facility] Start: 1986 Tetanus vaccination Tetanus: Every 1 0yrs [facility] End: 04-25-[address] Work Phone: Comment on above: One Time for 1 Occur rences starting 04/25/2021 until 04/25/2021 End: 06-30-2021 [facility] Work Phone: Comment on above: One Time for 1 Occur rences starting 06/30/2021 until 06/30/2021 Patient referral [facility] Work Phone: XR Lumbar spine Views [facility] Immunizations Immunization Date Immunization Notes Care Provider Geronimo naylor 05-27-2001 measles, mumps and rubella virus vaccine Sarah Nielsen PT [facility] Payers Date Payer Category Payer Medicaid [id number] 2022 Medicaid [id number] 2019 Medicaid [employer] D MEDICAID [employer] MEDICAID [id number] 2019-Present [phone] [address] [place] [address] [id number] 2019 Unknown 2018 Unknown [employer] AGE [employer] xxxxxxxxxxx 2018-Present [phone] [address] [place] [address] xxxxxxxxxxx [id number] 2014 Medicaid [id number] 1986 Unknown [id number] 2.16.840.1.976097.3.579.2.196 1986 Unknown [id number] 2.16.840.1.081216.3.579.2.903 1986 Unknown [id number] 2.16.840.1.556777.3.579.2.173 1986 Unknown [id number] 2.16.840.1.265804.3.579.2.173 1986 Unknown [id number] 2.16.840.1.144270.3.579.2.173 1986 Unknown [id number] 2.16.840.1.772730.3.579.2.173 1986 Unknown [id number] 2.16.840.1.190476.3.579.2.754 1986 Unknown [id number] 2.16.840.1.589184.3.579.2.754 1986 Unknown [id number] 2.16.840.1.078163.3.579.2.754 1986 Unknown [id number] 2.16.840.1.899023.3.579.2.754 1986 Unknown [id number] 2.16.840.1.523188.3.579.2.754 1986 Unknown [id number] 2.16.840.1.771512.3.579.2.754 1986 Unknown [id number] 2.16.840.1.766841.3.579.2.754 1986 Unknown [id number] 2.16.840.1.896981.3.579.2.593 1986 Unknown [id number] 2.16.840.1.231412.3.579.2.593 1986 Unknown [id number] 2.16.840.1.705146.3.579.2.593 1986 Unknown [id number] 2.16.840.1.580855.3.579.2.727 1986 Unknown [id number] 2.16.840.1.850544.3.579.2.727 1986 Unknown [id number] 2.16.840.1.313650.3.579.2.1259 1986 Unknown [id number] 2.16.840.1.164169.3.579.2.1259 1986 Unknown [id number] 2.16.840.1.444637.3.579.2.1259 1986 Unknown [id number] 2.16.840.1.370090.3.579.2.1259 1986 Unknown [id number] 2.16.840.1.924181.3.579.2.1259 1986 Unknown [id number] 2.16.840.1.323321.3.579.2.1259 1986 Unknown [id number] 2.16.840.1.196599.3.579.2.1259 1986 Unknown [id number] 2.16.840.1.307236.3.579.2.1259 1959 Unknown [id number] Self-pay Self Pay [id number] Social History Date Type Detail Facility Start: 07-14-2019 End: 11-15-2023 Tobacco smoking status NHIS Current every day smoker [facility] Start: 06-07-1999 History of tobacco use Cigarette Smo [place] [facility] [place] Start: 07-14-2019 End: 02-09-2024 Cigarettes smoked current (pack per day) - Reported [facility] [place] Start: 05-16-2019 End: 07-14-2019 Alcohol intake Current non-drinker of alcohol (finding) [employer] Phone: Start: 05-16-2019 History SDOH Social Connections Phone 5 [employer] Phone: Start: 05-16-2019 History SDOH Social Connections Get Together 2 [employer] Phone: Start: 05-16-2019 History SDOH Social Connections Yarsani 1 [employer] Phone: Start: 05-16-2019 History SDOH Social Connections Living 8 [employer] Phone: Start: 05-16-2019 History SDOH Physica l Activity MPS 15 [employer] Phone: Start: 1985 Sex Assigned At Not on file [place] Start: 01-05-2019 End: 02-09-2024 Alcohol intake No [facility] Start: 10-01-2020 End: 11-15-2023 Tobacco use and exposure [facility] Exposure to SARS-CoV -2 (event) Not sure [facility] Tobacco smoking stat [facility] Tobacco smoking consumption unknown [facility] Tobacco smoking status No Smokin g Status Entered [facility] Start: 10-05-2023 Tobacco smoking stat [facility] Smoker (finding) [facility] Start: 1985 Sex Assigned At Male F [facility] History of tobacco use Passive smoker [facility] Start: 02-09-2024 Alcoholic beverage intake Lifetime non-drinker (finding) [facility] Functional Status Date Assessment Result Facility 01-31-2023 Functional Status N/A [facility] Clinical Notes 07-31-2021 to 03-29-2024 Telephone Encounter - Mercedes Stone MA - 03/29/2024 2:33 PM EDTTelephone Encounter - Mercedes Stone MA - 03/29/2024 2:33 PM EDT Note Date & Type Note Facility 03-29-2024 Telephone encounter Note Form atting of this note might be different from the original. 14 day supply until Pain management calls and gets him in. Thanks [facility] 03-29-2024 Miscellaneous Notes Formattin g of this note might be different from the original. 14 day supply until Pain management calls and gets him in. Thanks documented in this encounter [facility] 01-31-2023 Evaluation + Plan note Extrac klaudia [...] day(s), # 18 tab(s), Refills(s) 0, Pharmacy: [id number], 167.7, cm, 01/31/23 8:55:00 EDT, Height/Length Dosing, 91, kg, 01/31/23 8:55:00 EDT, Weight Dosing Sling Apply XR Shoulder Complete Right [facility]08-27-2023 Hospital Discharge instructions Patient Education 01/31/2023 [...] minutes, 2 3 times a day. Take [id number] and prescription medicines only as told by [...] provider. Document Revised: 02/11/2022 Document Reviewed: 02/11/2022 [employer] Patient Education 2022 [employer]. Follow Up Care 01/31/2023 08:43:06 With:SHAIKH LASHELL Address: [address] [address] [phone] Business (1) When:02/03/2023 09:39:16 [facility]02-24-2022 Hospital Discharge instructions* Instructions* Denny Morrell MD - 07/31/2021 Please use ice as needed for pain and 400 mg of ibuprofen +100 mg of Tylenol every 4-6 hours as needed for pain * Attachments The following attachments cannot be sent through Care Everywhere. * Muscle Strain (Nicaraguan) [facility]: evaluation note* Diagnosis Pain, dental- Primary Unspecified disorder of the teeth and supporting structures Dental caries Unspecified dental caries [facility] this encounter [facility]: [facility] note* Diagnosis Low back pain with sciatica, sciatica laterality unspecified, unspecified back pain laterality, unspecified chronicity- Primary [facility] Diagnosis Suspected COVID-19 virus infection- Primary documented in this encounter [facility] Phone: [email or web address] note* Diagnosis Cough- Primary Acute nonintractable headache, unspecified headache type documented in this encounter [facility] Phone: [email or web address] note* Diagnosis Muscle strain- Primary Unspecified site of sprain and strain documented in this encounter [facility] Phone: [email or web address] note* Diagnosis Rhomboid muscle strain, initial encounter- Primary documented in this encounter [facility] Phone: [email or web address] note* Diagnosis Onset Date Resolution Status Lumbar spondylosis acute Pain of both sacroiliac joints acute [facility] Work Phone: Evaluation note* Diagnosis Onset Date Resolution Status Lumbar spondylosis acute Pain of both sacroiliac joints acute Chronic pain acute Lumbar radiculopathy acute Lumbosacral spondylosis acut e Sacroiliitis acute [facility] Work Phone: Evaluation note* Diagnosis Lumbar radiculopathy- Primary Thoracic or lumbosacral neuritis or radiculitis, unspecified Sacroiliitis (CMS/HCC) Sacroiliitis, not elsewhere classified Paresthesia and pain of both upper extremities documented in this encounter [facility] Healthcare[facility]* Diagnosis Lumbar radiculopathy- Primary Thoracic or lumbosacral neuritis or radiculitis, unspecified Sacroiliitis (CMS/HCC) Sacroiliitis, not elsewhere classified Paresthesia and pain of both upper extremities documented in this encounter [facility] Healthcare[facility] note* Diagnosis Smoker- Primary Tobacco use disorder Chronic bilateral low back pain with bilateral sciatica Gastroesophageal reflux disease without esophagitis Esophageal reflux Attention deficit hyperactivity disorder (ADHD), combined type (CMS/HCC) Chronic bilateral low back pain with bilateral sciatica- Primary Chronic bilateral low back pain with bilateral sciatica- Primary Chronic bilateral low back pain with bilateral sciatica- Primary Chronic bilateral low back pain with bilateral sciatica- Primary Thoracolumbar back pain URTI (acute upper respiratory infection)- Primary Acute upper respiratory infections of unspecified site Mild intermittent asthma without complication (CMS/HCC)- Primary Gastroesophageal reflux disease without esophagitis Esophageal reflux Nicotine dependence, cigarettes, uncomplicated Lumbosacral spondylosis without myelopathy Paresthesia and pain of both upper extremities Sacroiliitis (CMS/HCC) Sacroiliitis, not elsewhere classified Lumbar radiculopathy Thoracic or lumbosacral neuritis or radiculitis, unspecified Encounter for wellness examination Lumbar radiculopathy- Primary Thoracic or lumbosacral neuritis or radiculitis, unspecified Lumbosacral spondylosis without myelopathy documented in this encounter [facility] HealthcareEvaluation note* Diagnosis Smoker- Primary Tobacco use disorder Chronic bilateral low back pain with bilateral sciatica Gastroesophageal reflux disease without esophagitis Esophageal reflux Attention deficit hyperactivity disorder (ADHD), combined type (CMS/HCC) Chronic bilateral low back pain with bilateral sciatica- Primary Chronic bilateral low back pain with bilateral sciatica- Primary Chronic bilateral low back pain with bilateral sciatica- Primary Chronic bilateral low back pain with bilateral sciatica- Primary Thoracolumbar back pain URTI (acute upper respiratory infection)- Primary Acute upper respiratory infections of unspecified site Mild intermittent asthma without complication (CMS/HCC)- Primary Gastroesophageal reflux disease without esophagitis Esophageal reflux Nicotine dependence, cigarettes, uncomplicated Lumbosacral spondylosis without myelopathy Paresthesia and pain of both upper extremities Sacroiliitis (CMS/HCC) Sacroiliitis, not elsewhere classified Lumbar radiculopathy Thoracic or lumbosacral neuritis or radiculitis, unspecified Encounter for wellness examination Chronic bilateral low back pain with bilateral sciatica Thoracolumbar back pain documented in this encounter [facility] HealthcareHospital course Narrative No data available for this section [facility] Attachments The following attachments cannot be sent through Care Everywhere. * Tooth and Gum Pain ([place]icar[place]) * Tooth Decay ([place]icar[place]uan) documented in this [facility] [employer] Phone: Hospital Discharge instructions* Attachments The following attachments cannot be sent through Care Everywhere. * Coronavirus Disease (COVID-19): Isolation ([place]uan) documented in this [facility] Work Phone: Hospital Discharge instructions* Instructions* Krystin Valenzuela DO - 06/30/2021 Continue to take Tylenol, and Motrin for pain control, use Tessalon Perles to help with your cough.Follow-up the results of your Covid testing. Please get rest, and increase your fluid hydration return to ER for worsening symptoms. [facility] Phone: Hospital Discharge instructions* Attachments The following attachments cannot be sent through Care Everywhere. * Muscle Strain ([place]icar[place]) documented in this [facility] Work Phone: Hospital Discharge instructionsAmbulatory Orders* Referral to Pain Management Location: None [facility] Work Phone: Progress note No data available for this section [facility] Consultation (Routine) - Authorized Specialty Diagnoses / Procedures Referred By Diony shrestha Referred To Contact Neurosurgery Diagnoses Low back pain with sciatica, sciatica laterality unspecified, unspecified back pain laterality, unspecified chronicity Referring, MD Sidney [address] [facility] [address] [place] [address] Jess Farley MD [address] [facility] [address] [place] [address] Referral ID Status Reason Start Date Expiration Date V isits Requested Visits Authorized [id number] Authorized 04/09/2021 04/09/2022 1 1 [facility] Summary Purpose Family History No Family History Records FoundNo Family History Records FoundNo Family History Records FoundNo Family History Records FoundNo Family History Records FoundNo Family History Records FoundNo Family History Records FoundNo Family History Records Found Advance Directives Documents on File Type Date Recorded Patient Kaiako Kura [place] Expl anation Advance Directives and Living Will Power of Director Supply Chain Latest Code Status on File Code Status Date Activated Date Inactivated Comments Full Code 12/24/2014 2:22 AM 12/24/2014 11:00 PM Documents on File Type Date Recorded Patient Kaiako Kura [place] Expl anation Advance Directives and Living Will Power of Director Supply Chain Latest Code Status on File Code Status Date Activated Date Inactivated Comments Full Code 12/24/2014 2:22 AM 12/24/2014 11:00 PM Documents on File Type Date Recorded Patient Kaiako Kura [place] Expl anation ACP-Advance Directive ACP-Power of Director Supply Chain Documents on File Type Date Recorded Patient Kaiako Kura [place] Expl anation Advance Directives and Livin g Will 03/12/2020 12:00 AM Advance Directive Response Recorded Date/ Time Advance Directives No September 04, 2 018 3:06pm Discharge Instructions * Attachments The following attachments cannot be sent through Care Everywhere. * Influenza ([place]icar[place]uan) documented in this encounter* Attachments The following attachments cannot be sent through Care Everywhere. * Influenza ([place]icar[place]uan) documented in this encounter* Attachments The following attachments cannot be sent through Care Everywhere. * Hand Laceration: Stitches ([place]icar[place]uan) documented in this encounter Assessments Diagnosis Influenza [...] MRI LUMBAR SPINE WO CONTRAST Jolie Christianson, CARPENTER ASSISTANT INSTALLER - CUTTER GRIND TOOL TECHNICIAN [address] [place] [address] Chief Complaint and Reason for Visit Chief [...] section and content) DATE CREATED AUTHOR 04/10/2019 [facility] DATE CREATED AUTHOR AUTHOR'S ORGANIZ ATION 04/05/2020 [facility] DATE CREATED AUTHOR AUTHOR'S ORGANIZ ATION 08/01/2021 [facility] DATE CREATED AUTHOR AUTHOR'S ORGANIZ ATION 08/16/2021 [facility] DATE CREATED AUTHOR AUTHOR'S ORGANIZ ATION 11/12/2021 [facility] DATE CREATED AUTHOR AUTHOR'S ORGANIZ ATION 03/06/2022 [facility] DATE CREATED AUTHOR AUTHOR'S ORGANIZ ATION 12/24/2023 [facility] DATE CREATED AUTHOR AUTHOR'S ORGANIZ ATION 03/19/2024 [facility] dical Specialists EPIC Reason for Visit (unrecogniz [...] pointer finger , cut on pocket knife COLLECTOR OF PORT Status Reason Specialty Diagnoses / Procedures Referred By Contact Referred To Contact Pending Review Radiology Diagnoses Lumbosacral pain Lumbago with sciatica, left side Procedures MRI-SPINE LUMBAR WO CONTRAST Jolie Christianson, ZENAIDA - CUTTER GRIND TOOL TECHNICIAN [address] [place] [address] [facility] [address] [place] [address] Reason Comments Dental Pain left sided tooth [...] in the arm he had it done Specialty Diagnoses / Procedures Referred By Contez t Referred To Contact Physical Therapy Diagnoses Lumbosacral spondylosis without myelopathy Paresthesia and pain of both upper extremities Sacroiliitis (CMS/HCC) Lumbar radiculopathy Procedures MA OFFICE/OUTPATIENT NEW HIGH MDM 60 MINUTES Olu Nation, LETY [address] [place] [phone] Sarah Nielsen PT Referral ID Status Reason Start Date Expiration Date Visits Requested Visits Authorized [id number] Authorized Specialty Services Required 02/09/2024 08/07/2024 30 30 Reason Onset Date Comments Med Refill 03/27/2024 Ordered Prescriptions (unrec ognized section and content) [...] Care Teams (unrecognized sec tion and content) District Branch Manager Relationship Specialty Start Date End Date Jolie Christianson, CUTTER GRIND TOOL TECHNICIAN [address] [place] [address] PCP - General Family Medicine 03/12/20 District Branch Manager Relationship Specialty Start Date End Date Sofie Mills MD [address] [place] [address] PCP - General Family Medicine 09/17/20 District Branch Manager Relationship Specialty Start Date End Date Sofie Mills MD [address] [facility] [address] PCP - General Family Medicine 09/17/20 District Branch Manager Relationship Specialty Start Date End Date Sofie Mills MD [address] [place] [address] PCP - General Family Medicine 09/17/20 Team [...] October 15, 2023 End: October 15, 2023 District Branch Manager Relationship Specialty Start Date End Date Doug Anthony MD [address] [place] [phone] PCP - General Family Medicine 01/26/24 Olu Nation NP [address] [place] [phone] Nurse Practitioner Family Medicine 01/26/24 District Branch Manager Relationship Specialty Start Date End Date Doug Anthony MD [address] [place] [phone] PCP - General Family Medicine 01/26/24 Olu Nation NP [address] [place] [address] Nurse Practitioner Family Medicine 01/26/24 District Branch Manager Relationship Specialty Start Date End Date Doug Anthony MD [address] [place] [phone] PCP - General Family Medicine 01/26/24 Olu Nation NP [address] [place] [address] Nurse Practitioner Family Medicine 01/26/24 District Branch Manager Relationship Specialty Start Date End Date Doug Anthony MD [address] [place] [phone] PCP - General Family Medicine 01/26/24 Olu Nation NP [address] [place] [address] Nurse Practitioner Family Medicine 01/26/24 District Branch Manager Relationship Specialty Start Date End Date Doug Anthony MD [address] [place] [phone] PCP - General Family Medicine 01/26/24 Olu Nation NP [address] [place] [address] Nurse Practitioner Family Medicine 01/26/24 District Branch Manager Relationship Specialty Start Date End Date Doug Anthony MD [address] [place] [address] PCP - General Family Medicine 01/26/24 Olu Nation NP [address] [place] [address] Nurse Practitioner Family Medicine 01/26/24 Scheduled Active and Recently Administ ered Medications [...] 30 mg 30 mg, IntraMUSCular, ONCE, On [facility] 07/31/21 at 1945, For 1 dose 1944 (Due) lidocaine 4 % external patch 1 patch 1 patch, TransDERmal, Administer over 12 Hours, ONCE, On [facility] 07/31/21 at 1945, For 1 dose, Apply patch to right anterior chest. Patch may remain in place for up to 12 hours in any 24 hour period. 1944 (Due) Goals (unrecognized section and content) Goals [...] BE BASED ON THE PRIMARY CLINICAL RECORDS. [employer] [facility]. provides no warranty or guarantee of the accuracy or completeness of information in this document.
--- NOTE | 2024-04-10 15:25 | P.CN_ITS ---
Consult Note: HPI Data of Consult Patient: new to practice Consult date: 04/10/24 Requesting Physician: Jose Manuel Gleason MD Primary Care Provider: OLU HADLEY Consult Narrative Reason for consult: low back, bilateral lower extremity pain Narrative: 38yom who presents for evaluation. several months of worsening low back, bilateral lower extremity pain. imaging reviewed, significant for disc herniation at l4-5 with impingement of nerve roots. has been evaluated by neurosurgeon recently, who did not recommend surgery at this time. has continued in a series of provider directed home exercises >6 weeks, without benefit. has completed PT 6 weeks, without benefit. uses gabapentin, which helps si gnificantly. denies adverse med side effects. cc:: CC: Jose Manuel Gleason MD Review of Systems ROS Status of ROS 10 or more systems reviewed and unremark able except as noted in history and below PFSH PFSH Social History Smoking status: Current every day smoker Meds Home Medications and Allergies Home Medications ?Medication ?Instructions ?Recorded ?Confirmed ?Type clonidine HCl 0.1 mg tablet 0.1 mg PO .qhs 12/21/22 11/19/23 History gabapentin 800 mg tablet 800 mg PO TID 12/21/22 11/19/23 History omeprazole 40 mg capsule,delayed 40 mg PO QDAY 12/21/22 11/19/23 History release amoxicillin 875 mg-potassium 1 tab PO BID #20 tabs 05/29/23 11/19/23 Rx clavulanate 125 mg tablet albuterol sulfate 90 mcg/actuation 2 inh inhalation Q4H PRN shortness 11/19/23 Rx aerosol inhaler of breath or wheezing #8.5 grams azithromycin 250 mg tablet See Rx Instructions PO .COMPLEX #6 11/19/23 Rx (Zithromax Z-Angel) tabs benzonatate 100 mg capsule 100 mg PO Q6H PRN cough 11/19/23 11/19/23 History oxycodone 5 mg tablet 5 mg PO Q8H PRN pain 11/19/23 11/19/23 History prednisone 20 mg tablet 20 mg PO Q12H 11/19/23 11/19/23 History Allergies Allergy/AdvReac Type Severity Reaction Status Date / Time No Known Drug Allergies Allergy Verified 05/29/23 17:30 Exam Narrative Exam Narrative: Psych-alert and oriented x 3. Attentive and appropriate, constitutionally normal, displays normal mood and affect per situation. There are no obvious deficits in memory, reasoning, or intellect.? Skin-no obvious rashes, bruising, erythema noted to the patient's area of pain.? Extremities- extremities are warm with minimal edema and palpable pulses. Lumbar-tenderness to palpation noted in the lumbar spine and paraspinal musculature. Pain is elicited with flexion, extension, and lateral rotation of the lumbar spine. Range of motion is diminished with these motions. Facet loading maneuvers are positive.? Strength-noted to be unremarkable with the exception of decreased strength rated at 4 out of 5 in bilateral quadriceps femoris, anterior tibialis. Sensory-no notable sensory deficits in the bilateral lower extremities to touch or pinprick in all dermatomal distributions with the exception to decreased sensation to the bilateral L4, 5 dermatomal distribution Coordination remains intact.? Gait remains non-antalgic. Assessment and Plan Assessment and Plan (1) Lumbar radiculopathy: (2) Lumbar disc displacement without myelopathy: Plan 38yom who presents for evaluation. failed conservative measures, as noted. imaging reviewed, as noted. given symptoms and imaging, prudent to attempt bilateral l4-5 tfesi under fluoroscopic guidance. he is in agreement. meds reviewed, uds obtained. agreed to take over gabapentin 800mg tid, will hold off on oxycodone until uds results back. follow up after procedure.
== END 2024-04-10 14:44 | disposition home or self-care (01) ==
LOC: PM 14:43
PROVIDERS: Visit Provider Anesthesiology Pain Medicine
DX: M54.16 Radiculopathy, lumbar region (principal); M51.26 Other intervertebral disc displacement, lumbar region
CPT/HCPCS: G0463

== ENCOUNTER 2024-08-04 12:09 | Emergency (ER) | payer MEDICAID, SELFPAY ==
[2024-08-04] VITALS (22 sets, daily range): BP systolic 95–144; BP diastolic 58–82; PULSE 69–108; TEMP 36.8; O2SAT 93–100; BMI 31.1
--- NOTE | 2024-08-04 12:24 | ECG_ITS ---
The [facility] Test Date: 2024-08-04 Pat Name: DORIS VEGA Department: Room: - Gender: Male Addiction Professional: : 1985 Requested By: [id number] Order Number: [id number] Reading MD: KENRICK ZURITA Measurements Intervals [place] Rate: 111 P: 72 AK: 180 QRS: 77 QRSD: 106 T: 47 QT: 330 QTc: 395 Interpretive Statements 1120 Sinus tachycardia [address] depression [address] & Twave abnormality 0102 ARTIFACT PRESENT 9150 abnormal ECG Electronically Signed On 08-06-2024 8:05:59 EST by KENRICK ZURITA
--- NOTE | 2024-08-04 12:24 | XR_ITS ---
The [place] [id number] Patient Name: DORIS VEGA MRN: [id number] date: 1985 Sex: M Assigned Patient Location: ER Current Patient Location: ER Accession/Order Number: [id number] Exam Date: 08/04/2024 12:55 Report Date: 08/04/2024 12:56 At the request of: HARVEY JONES MD Procedure: XR chest 1V PORTABLE AP ERECT CHEST 0827 hours CLINICAL HISTORY: Unresponsive. Overdose. COMPARISON: None The heart is within normal limits. There is no vascular congestion. There is potential minor scarring or atelectasis. No focal consolidation is seen.. There is no effusion or pneumothorax. The osseous structures are intact. XR/XR chest 1V IMPRESSION: NO ACUTE FINDINGS Impression dictated by: Diana Solis M.D.08/04/2024 12:56 PM Dictation Location: [place] [id number] Electronically authenticated by: [id number] Y Date: 08/04/2024 12:56
--- OUTSIDE RECORDS SUMMARY | 2024-08-04 12:27 | XMS_ITS | CCD ---
Author Organization [facility] Care Team Providers Care Batchmaker Name Role Phone Jolie Gruber Primary Care Provider JESS FARLEY Attending Unavail able JOLIE GRUBER Primary Care Unavailabl e Kinza SILVER, Sofie Brown Primary Care Provider [phone] Jolie Gruber CNP Primary Care Provider Sofie Echols MD Primary Care Provider GRIFFINOR, SOFIE Brown Primary Care Unavailable VICENTE BAUMANN Attending Unavailable SECOR, SOFIE Stephanie Primary Care Unavailable SECOR, SOFIE W Primary Care Unavailable SECOR, SOFIE W Primary Care Unavailable KRYSTIN VALENZUELA Attending Unavailable SECOR, SOFIE W Primary Care Unavailable DENNY MORRELL Attending Unavailable Jolie Lee APRN, CNP Primary Care Provider DEMARIO JACOB Referring Unavailable SECOR, SOFIE Brown Primary Care Unavailable REGINA NESS Referring Unavailable SECOR, SOFIE W Primary Care Unavailable REGINA NESS Referring Unavailable SECOR, SOFIE W Primary Care Unavailable SECOR, SOFIE W Primary Care Unavailable SECOR, SOFIE W Primary Care Unavailable RAMEZ RANGEL Admitting Unavailable RAMEZ RANGEL Attending Unavailable SECOR, SOFIE Brown Primary Care Unavailable DEMARIO JACOB Admitting Unavailable DEMARIO JACOB Attending Unavailable SECOR, SOFIE Brown Primary Care Unavailable REQUEST, DR NONE LISTED Primary Care Unavaila ble FIDENCIO MALONEY Admitting Unavailable JONAS OSBORN Consulting Unavailable FIDENCIO MALONEY Attending Unavailable VINCENT, DR LYNN Consulting Unavailable REQUEST, NONE LISTED Primary Care Unavaila ble VINCENT, DR LYNN Admitting Unavailable VINCENT, DR LYNN Attending Unavailable JAY, DR ARMSTRONG Admitting Unavailable JONAS MELENDEZ Consulting Unavailable REQUEST, NONE LISTED Primary Care Unavaila ble MARKER, DR ARMSTRONG Attending Unavailable FAWWAD, ALBERTO Primary Care Physician Doug Anthony MD Primary Care Provider [phone] Rios DAVIDSON, Olu Unavailable SHAIKH LOBO Attending Unavailable LASHELL, Attending Unavailable LASHELL, Attending Unavailable LASHELL, Attending Unavailable LASHELL, Attending Unavailable OLU NATION Attending UnavailSARAH Prince Attending Unavailable OLU NATION Referring Unavailstephanie e MIGUEL ANGEL PAYNE Attending Unavailable RIOS, OLU Referring Unavailstephanie e Carlene SILVER, Asim Guerrero Attending Unavailable Jolie Gruber CNP Primary Care Sole Lobo MD, [facility] Primary Care Provider [phone] RIOS, MS. OLU VOGT Primary Care P hysician NONE, XXXX Referring Unavailable Brcue Card Admitting Unavailable Bruce Card Attending Unavailable OLU NATION Primary Care Heraclio mendoza Allergies Allergy Classification Reported Allergen(s) Allergy Type Date of Onset Reaction(s) Facility (2 sources) No Known Medication Allergies; Translations: [No Known Medication Allergies] Propensity to adverse reactions to drug (disorder) [facility] Repository Medications Current Medications Medication Drug [...] hydrocodone-acetaminophen (NORCO) tablet 5-325 mg (STARTER PACK) [id number] 200 actuat albuterol 0.09 mg/actuat metered dose inhaler (20 sources) beta2-Adren ergic Agonist Start: 12-21-2022 take [...] Active cloNIDine hydrochloride 0.1 mg oral tablet (20 sources) Central alpha-2 Adrenergic Agonist Start: 01-31-2023 take 1 tablet by mouth at bedtime cloNIDine (Catapres) 0.1 MG tablet Take 0.1 mg by mouth at bedtime 02/25/2023 Active Start: 03-17-2021 take 1 tablet by lona [...] Active cyclobenzaprine hydrochloride 10 mg oral tablet (17 sources) Muscle Relaxant Start: 10-06-2023 take 1 [...] 10 mg gabapentin 800 mg oral tablet (20 sources) Anti-epileptic Agent Start: 01-31-2023 End: 06-09-2024 take 1 tablet by mouth in the [...] tablet (800 mg) before bedtime. 90 tablet 05/10/2024 Active Start: 06-13-2021 gabapentin (NE URONTIN) 600 MG [...] 4 times daily as needed. 0 Active meloxicam 15 mg oral tablet (1 [...] day(s), # 18 tab(s), Refills(s) 0, Pharmacy: [facility]/pharmacy #[id number], 167.7, cm, 01/31/23 8:55:00 EDT, Height/Length Dosing, 91, kg, 01/31/23 8:55:00 EDT, Weight Dosing Start Date: 01/31/23 Stop Date: 02/03/23 Status: Ordered omeprazole 40 mg delayed release oral capsule (20 sources) Proton Pump Inhibitor Start: 06-12-2024 take 1 capsule by mouth once daily before mealtime omeprazole (PriLOSEC) [address] capsule Indications: Gastro-esophageal reflux disease without esophagitis , Esophageal reflux TAKE 1 CAPSULE BY MOUTH ONCE EVERY MORNING BEFORE MEALS 90 capsule 1 06/12/2024 Active Start: 01-31-2023 End: 06-25-2024 take 1 capsule by mouth before mealtime omeprazole (PriLOSEC) [address] capsule Indications: Gastro-esophageal reflux disease without esophagitis , Esophageal reflux Take 1 capsule (40 mg) by mouth in the morning. Take before meals. 90 capsule 1 12/28/2023 06/12/2024 Discontinued Start: 03-17-2021 take 1 capsule by mo [...] Active oxyCODONE hydrochloride 5 mg oral tablet (16 sources) Opioid Agonist Start: 02-28-2024 End: 04-14-2024 [...] days 45 tablet 03/30/2024 04/14/2024 Active Start: 12-28-2023 End: 02-24-2024 take 1 tablet by mouth every eight hours for pain oxyCODONE (Roxicodone) 5 MG immediate release tablet Indications: Chronic bilateral low back pain with bilateral sciatica , Thoracolumbar back pain Take 1 tablet (5 mg) by mouth every 8 (eight) hours if needed for severe pain 90 tablet 01/25/2024 02/23/2024 Discontinued (Reorder) Start: 10-05-2023 Oxycodone Acti ve 5 MG [...] (TUSSIONEX) 10-8 MG/5ML oral suspension 5 mL ibuprofen 600 mg oral tablet (20 sources) Nonsteroidal Anti-inflammatory Drug Start: 06-25-2023 End: 02-09-2024 take 1 tablet by mouth every eight hours as needed for pain ibuprofen 600 MG tablet Take 600 mg by mouth every 8 (eight) hours if needed for moderate pain 06/25/2023 02/09/2024 Discontinued (Therapy completed) Start: 06-30-2021 End: 06-30-2021 take 1 tablet [...] for Pain 30 tablet 0 01/05/2019 Active End: 02-09-2024 ibuprofen 800 MG tablet Take 400 mg by mouth 3 (three) times a day as needed for mild pain 02/09/2024 Discontinued (Therapy completed) traMADol hydrochloride 50 mg oral tablet (2 sources) Opioid Agonist Start: 05-16-2019 End: 05-19-2019 traMADol (ULTRAM) tablet 50 mg Problems Active Problems Problem Classification Problem Date Documented Date Episodic/Chronic Asthma (20 sources) Asthma; Translations: [Unspecified asthma, uncomplicated] Onset: 06-04-2020 06-04-2020 Chronic Attention-deficit, conduct, and disruptive behavior disorders (15 sources) Attention deficit hyperactivity disorder, combined type; Translations: [Attention-deficit hyperactivity disorder, combined type] Onset: 08-05-2023 08-05-2023 Chronic Chronic obstructive pulmonary disease and bronchiectasis (1 source) Simple chronic bronchitis; Translations: [SIMPLE CHRONIC BRONCHITIS] Onset: 12-04-2021 Chronic Disorders of teeth and jaw (20 sources) Infection of tooth; Translations: [Toothache] Onset: 01-05-2019 01-05-2019 Episodic Esophageal disorders (20 sources) Gastroesophageal reflux disease; Translations: [Gastro-esophageal reflux [...] pain] 10-15-2023 Chronic Other nervous system disorders (15 sources) Carpal tunnel syndrome of right wrist; [...] arm level] Onset: 01-31-2023 Episodic Substance-related disorders (20 sources) Nicotine dependence; Translations: [Nicotine dependence, cigarettes, [...] 12-04-2021 Episodic Other aftercare (1 source) Other fci (current) drug therapy; Translations: [OTH HALF-WAY CURRENT DRUG THERAPY] Onset: 12-04-2021 Episodic Other gastrointestinal disorders (3 sources) Diarrhea, unspecified; Translations: [DIARRHEA UNSPECIFIED] Onset: 12-02-2021 Episodic Other injuries and conditions due to external causes (1 source) Traumatic AND/OR non-traumatic injury; Translations: [Injury] Episodic Other male genital disorders (4 sources) Pain of right testicle; Translations: [Right testicular pain] Onset: 01-12-2017 06-04-2020 Episodic Other nervous system disorders (20 sources) Pain in limb - multiple; Translations: [Paresthesia of skin] Onset: 08-05-2023 06-03-2021 Episodic Other upper respiratory infections (15 sources) Acute upper respiratory infection; Translations: [Acute [...] [Low back pain] Onset: 05-16-2019 05-16-2019 Episodic Substance-related disorders (13 sources) Continuous opioid dependence; Translations: [Opioid use, unspecified, uncomplicated] Onset: 02-09-2024 02-09-2024 Episodic Unclassified (1 source) LOW BACK PAIN, UNSPECIFIED; Translations: [LOW BACK PAIN, UNSPECIFIED] Onset: 11-14-2021 Results Test Name Value Interpretation Reference Range Facil ity AMYLASEon 12-02-2021 Amylase [Catalytic activity/Vol] 33 U/L Normal 25-115 [facility] Comment on above: Performed By: #### A MY, LIPA, CMP #### [facility] [address] [place] [address] Dr. Jenae Alvares CBC AUTO DIFFon 12-02-2021 BASO # 0.0 103/ul Normal 0.0-0.1 [facility] Comment on above: Performed By: #### C BC #### [facility] [address] [place] [address] Dr. Jenae Alvares Basophils/100 WBC (Bld) 0.0 % Critically low 0.2-2.0 [facility] Comment on above: Performed By: #### C BC #### [facility] [address] [place] [address] Dr. Jenae Alvares EO # 0.0 103/ul Normal 0.0-0.7 [facility] Comment on above: Performed By: #### C BC #### [facility] [address] [place] [address] Dr. Jenae Alvares Eosinophils/100 WBC (Bld) 0.5 % Critically low 0.9-7.0 [facility] Comment on above: Performed By: #### C BC #### [facility] [address] [place] [address] Dr. Jenae Alvares Erythrocyte distribution width (RBC) [Ratio] 13.3 % Normal 11.0-15.0 [facility] Comment on above: Performed By: #### C BC #### [facility] [address] [place] [address] Dr. Jenae Alvares Hematocrit (Bld) [Volume fraction] 42.2 % Normal 42.0-54.0 [facility] Comment on above: Performed By: #### C BC #### [facility] [address] [place] [address] Dr. Jenae Alvares Hemoglobin (Bld) [Mass/Vol] 14.5 g/dL Normal 14.0-18.0 [facility] Comment on above: Performed By: #### C BC #### [facility] [address] [place] [address] Dr. Jenae Alvares IG # 0.01 10e3/ul Normal 0.00-0.03 [facility] Comment on above: Performed By: #### C BC #### [facility] [address] [place] [address] Dr. Jenae Alvares IG % 0.2 % Normal 0.0-0.5 [facility] Comment on above: Performed By: #### C BC #### [facility] [address] [place] [address] Dr. Jenae Alvares LYMPH # 1.4 103/ul Normal 1.2-3.8 [facility] Comment on above: Performed By: #### C BC #### [facility] [address] [place] [address] Dr. Jenae Alvares Lymphocytes/100 WBC (Bld) 24.7 % Normal 20.5-60.0 [facility] Comment on above: Performed By: #### C BC #### [facility] [address] [place] [address] Dr. Jenae Alvares MANUAL DIFF REQ NO Normal [facility] Comment on above: Performed By: #### C BC #### [facility] [address] [place] [address] Dr. Jenae Alvares MCH (RBC) [Entitic mass] 31.4 pg Normal 25.9-34.0 [facility] Comment on above: Performed By: #### C BC #### [facility] [address] [place] [address] Dr. Jenae Alvares MCHC (RBC) [Mass/Vol] 34.4 g/dL Normal 29.9-35.2 [facility] Comment on above: Performed By: #### C BC #### [facility] [address] [place] [address] Dr. Jenae Alvares MCV (RBC) [Entitic vol] 91.3 fL Normal 80.0-94.0 [facility] Comment on above: Performed By: #### C BC #### [facility] [address] [place] [address] Dr. Jenae Alvares MONO # 0.4 103/ul Normal 0.3-0.8 [facility] Comment on above: Performed By: #### C BC #### [facility] [address] [place] [address] Dr. Jenae Alvares Monocytes/100 WBC (Bld) 7.2 % Normal 1.7-12.0 [facility] Comment on above: Performed By: #### C BC #### [facility] [address] [place] [address] Dr. Jenae Alvares NEUT # 3.7 103/ul Normal 1.4-6.5 [facility] Comment on above: Performed By: #### C BC #### [facility] [address] [address] [address] Jenae Alvares Neutrophils/100 WBC (Bld) 67.4 % Normal 43.0-75.0 [facility] Comment on above: Performed By: #### C BC #### [facility] [address] [place] [address] Dr. Jenae Alvares Platelet mean volume (Bld) [Entitic vol] 12.2 fL Normal 9.5-13.5 [facility] Comment on above: Performed By: #### C BC #### [facility] [address] [place] [address] Dr. Jenae Alvares PLT 121 103/ul Critically low 150-450 [facility] Comment on above: Performed By: #### C BC #### [facility] [address] [place] [address] Dr. Jenae Alvares RBC 4.62 106/ul Critically low 4.70-6.10 [facility] Comment on above: Performed By: #### C BC #### [facility] [address] [place] [address] Dr. Jenae Alvares WBC 5.5 103/ul Normal 4.0-11.0 [facility] Comment on above: Performed By: #### C BC #### [facility] [address] [place] [address] Dr. Jenae Alvares LIPASEon 12-02-2021 Lipase [Catalytic activity/Vol] 86.0 U/L Normal 73.0-393.0 [facility] Comment on above: Performed By: #### A MY, LIPA, CMP #### [facility] [address] [place] [address] Dr. Jenae Alvares PROF 14(COMP METB)on 022 Albumin [Mass/Vol] 3.7 g/dL Normal 3.4-5.0 [facility] Comment on above: Performed By: #### A AMMON LIPA, CMP #### [facility] [address] [address] [address] Jenae Alvares Albumin/Globulin [Mass ratio] 1.0 {ratio} Normal [facility] Comment on above: Performed By: #### A AMMON LIPA, CMP #### [facility] [address] [address] [address] Jenae Alvares ALP [Catalytic activity/Vol] 154 U/L Critically high 46-116 [facility] Comment on above: Performed By: #### A AMMON LIPA, CMP #### [facility] [address] [place] [address] Dr. Jeane Alvares ALT [Catalytic activity/Vol] 48 U/L Normal 16-63 [facility] Comment on above: Performed By: #### A AMMON LIPA, CMP #### [facility] [address] [place] [address] Dr. Jenae Alvares Anion gap [Moles/Vol] 11.0 mmol/L Normal [facility] Comment on above: Performed By: #### A AMMON LIPA, CMP #### [facility] [address] [place] [address] Dr. Jenae Alvares AST [Catalytic activity/Vol] 25 U/L Normal 15-37 [facility] Comment on above: Performed By: #### A AMMON LIPA, CMP #### [facility] [address] [place] [address] Dr. Jenae Alvares Bilirubin [Mass/Vol] 0.4 mg/dL Normal 0.2-1.0 [facility] Comment on above: Performed By: #### A AMMON LIPA, CMP #### [facility] [address] [place] [address] Dr. Jenae Alvares Calcium [Mass/Vol] 8.6 mg/dL Normal 8.5-10.1 [facility] Comment on above: Performed By: #### A AMMON LIPA, CMP #### [facility] [address] [address] [address] Jenae Alvares Chloride [Moles/Vol] 105 mmol/L Normal 98-107 [facility] Comment on above: Performed By: #### A TUTU VERDEA, CMP #### [facility] [address] [place] [address] Dr. Jenae Alvares CO2 [Moles/Vol] 26.9 mmol/L Normal 21.0-32.0 [facility] Comment on above: Performed By: #### A AMMON LIPA, CMP #### [facility] [address] [address] [address] Jenae Alvares Creatinine [Mass/Vol] 1.14 mg/dL Normal 0.70-1.30 [facility] Comment on above: Performed By: #### A AMMON LIPA, CMP #### [facility] [address] [place] [address] Dr. Jenae Alvares EGFR-AF SURINAMESE >60 Normal >=60 [facility] Comment on above: Performed By: #### A AMMON LIPA, CMP #### [facility] [address] [place] [address] Dr. Jenae Alvares EGFR-NON AF SURINAMESE >60 Normal >=60 [facility] Comment on above: Performed By: #### A AMMON LIPA, CMP #### [facility] [address] [place] [address] Dr. Jenae Alvares Globulin (S) [Mass/Vol] 3.8 g/dL Normal [facility] Comment on above: Performed By: #### A AMMON LIPA, CMP #### [facility] [address] [place] [address] Dr. Jenae Alvares Glucose [Mass/Vol] 96 mg/dL Normal 74-106 [facility] Comment on above: Performed By: #### A TUTU VERDEA, CMP #### [facility] [address] [place] [address] Dr. Jenae Alvares Potassium [Moles/Vol] 3.9 mmol/L Normal 3.5-5.1 [facility] Comment on above: Performed By: #### A MY, LIPA, CMP #### [facility] [address] [address] [address] Jenae Alvares Protein [Mass/Vol] 7.5 g/dL Normal 6.4-8.2 [facility] Comment on above: Performed By: #### A MY, LIPA, CMP #### [facility] [address] [address] [address] Jenae Alvares Sodium [Moles/Vol] 139 mmol/L Normal 136-145 [facility] Comment on above: Performed By: #### A MY, LIPA, CMP #### [facility] [address] [address] [address] Jenae Alvares Urea nitrogen [Mass/Vol] 11.0 mg/dL Normal 7.0-18.0 [facility] Comment on above: Performed By: #### A MY, LIPA, CMP #### [facility] [address] [place] [address] Dr. Jenae Alvares Urea nitrogen/Creatinine [Mass ratio] 9.6 mg/mg Normal [facility] Comment on above: Performed By: #### A AMMON LIPA, CMP #### [facility] [address] [place] [address] Dr. Jenae Alvares COVID19 ([facility])on 08-14-2021 SARS-CoV-2 (COVID-19) RNA RIP+probe Ql (Unsp spec) Not detected Normal NOT-DETECTED [facility] Comment on above: Order Comment: Is [...] detection of SARS-CoV-2 nucleic acid. \[id number]\Resulting Lab: [facility] Performed By: #### C [id number] #### [facility] [address] [place] [address] Ph. [phone] NOVEL CORONAVIRUS NASOPHARYN GEAL - [facility] SPECIMEN ONLYon 08-14-2021 SARS-CoV-2 (COVID-19) RNA RIP+probe Ql (Unsp spec) Not detected Normal NOT DETECTED [facility] Comment on above: Order Comment: This test was performed using Soldering Machine Operator Mediated Amplification and has been approved as Emergency Use Authorization (EUA) for the qualitative detection of SARS-CoV-2 nucleic acid. Result Comment: [facility] Negative results do not preclude [...] or clinically deteriorating. Performed By: #### L [id number] #### [facility] (DEFAULT) [address] [address] XR COMPARISON OF OUTSIDE CLIVE MSon 08-06-2021 XR COMPARISON OF OUTSIDE FILMS RADRPT There is no result for this study. This is a placeholder for comparison films only. Final result Normal [facility] [id number] 07-01-2021 SARS-CoV-2 (COVID-19) RNA RIP+probe Ql (Unsp spec) Normal [facility] Comment on above: Performed By: #### C OVID #### [facility] [employer] [address] [place], [place] [id number] Solar Installation Technician: Chuck Bradley MD [facility] [address] [place] [address] [place] [address] Solar Installation Technician: Evin Poole MD SARS-CoV-2 (COVID-19) RNA RIP+probe Ql (Unsp spec) Not detected Normal NOTDET [facility] Comment on above: Result Comment: The specimen is NEGATIVE for SARS-CoV-2, the novel coronavirus associated with COVID-19. A negative result does not rule out COVID-19. [employer] SARS-CoV-2 for use on the [employer] is a real-time RT-PCR test intended for the qualitative detection of nucleic acids from SARS-CoV-2 in clinician-collected nasal, nasopharyngeal, and oropharyngeal swab specimens from individuals who meet COVID-19 clinical and/or epidemiological criteria. [employer] SARS-CoV-2 is for use only under Emergency [...] this assay. Fact sheet for Healthcare Providers: https://www.fda.gov/media/216131/download Fact sheet for Patients: https://www.fda.gov/media/968200/download METHODOLOGY: RT-PCR Performed By: #### C OVID #### [address] [id number] Solar Installation Technician: Chuck Bradley MD [facility] [address] [place] [address] [place] [address] Solar Installation Technician: Evin Poole MD COVID-19, Rapidon 06-30-2021 SARS-CoV-2 (COVID-19) RNA RIP+probe Ql (Unsp spec) Not detected Not Detected [facility] Comment on above: Rapid NAAT: The [...] management decisions. Fact sheet for Healthcare Providers: https://www.fda.gov/media/805463/download Fact sheet for Patients: https://www.fda.gov/media/031074/download Methodology: Isothermal Nucleic Acid Amplification Specimen Description .NASOPHARYNGEAL SWAB [facility] [id number] 06-30-2021 SARS-CoV-2 (COVID-19) RNA RIP+probe Ql (Unsp spec) .NASOPHARYNGEAL SWAB Normal [facility] Comment on above: Performed By: #### C OVID #### [facility] [address] [place], [place] [id number] Solar Installation Technician: Chuck Bradley MD [facility] [address] [place] [address] [place] [address] Solar Installation Technician: Evin Poole MD SARS-CoV-2 (COVID-19) RNA RIP+probe Ql (Unsp spec) Not detected Normal [facility] Comment on above: Result Comment: [...] management decisions. Fact sheet for Healthcare Providers: https://www.fda.gov/media/108883/download Fact sheet for Patients: https://www.fda.gov/media/372008/download Methodology: Isothermal Nucleic Acid Amplification Performed By: #### C OVRB #### [facility] [address] [place] [address] Solar Installation Technician: Evin Poole MD XR LUMBAR SPINE (MIN 4 VIEWS )on 06-13-2021 XR LUMBAR SPINE (MIN 4 VIEWS) RADRPT EXAM: XR LUMBAR SPINE (MIN 4 VIEWS) HISTORY: TECH NOTES: Chronic Lumbar pain Nki [id number]-Flex-Ext per ordering provider Low back pain due [...] No dynamic instability Chronic Lumbar pain Nki [id number]-Flex-Ext per ordering provider Interpreted by: Ras Olson MD Signed by: Ras Olson MD 06/13/21 Final result Normal [facility] Comment on above: Order Comment: AP/la [...] Ras Olson MD 05/16/21 Final result Normal [facility] MRI LUMBAR SPINE WO CONTRAST on [...] Ras Olson MD 05/16/21 Final result Normal [facility] [id number] 04-26-2021 SARS-CoV-2 (COVID-19) RNA RIP+probe Ql (Unsp spec) Normal [facility] Comment on above: Performed By: #### C OVID #### [facility] [address], [place] [address] Solar Installation Technician: Chuck Bradley MD [facility] [address] [place] [address] [place] [address] Solar Installation Technician: Evin Poole MD SARS-CoV-2 (COVID-19) RNA RIP+probe Ql (Unsp spec) Not detected Normal NOTDET [facility] Comment on above: Result Comment: The specimen is NEGATIVE for SARS-CoV-2, the novel coronavirus associated with COVID-19. A negative result does not rule out COVID-19. [facility] SARS-CoV-2 for use on the [employer] is a real-time RT-PCR test intended for the qualitative detection of nucleic acids from SARS-CoV-2 in clinician-collected nasal, nasopharyngeal, and oropharyngeal swab specimens from individuals who meet COVID-19 clinical and/or epidemiological criteria. Deloris SARS-CoV-2 is for use only under Emergency [...] this assay. Fact sheet for Healthcare Providers: https://www.fda.gov/media/305808/download Fact sheet for Patients: https://www.fda.gov/media/165774/download METHODOLOGY: RT-PCR Performed By: #### C OVID #### [facility] [address] [place], [place] [id number] Solar Installation Technician: Chuck Bradley MD [facility] [address] [place] [address] [place] [address] Solar Installation Technician: Evin Poole MD [id number] 04-25-2021 SARS-CoV-2 (COVID-19) RNA RIP+probe Ql (Unsp spec) .NASOPHARYNGEAL SWAB Normal [facility] Comment on above: Performed By: #### C OVID #### [facility] [address] [place] [address] Solar Installation Technician: Chuck Bradley MD [facility] [address] [place] [address] Solar Installation Technician: Evin Poole MD Strep Screen Group A Throato n 07-16-2019 S. pyogenes Ag IA Ql (Unsp spec) Rapid Strep A negative. A negative Rapid Group A Strep Screen result does not rule out the possibility of Group A Streptococci in the specimen. A Group A Strep DNA test is available upon request. [facility] Phone: Special Requests NOT REPORTED [facility] Phone: Specimen Description .THROAT [facility] Phone: XR CHEST STANDARD (2 VW)on 0 07-16-2019 No acute cardiopulmonary abnormality identified. [facility] Phone: EXAMINATION: TWO XRA Y VIEWS OF THE CHEST 07/16/2019 5:44 pm COMPARISON: 07/14/2019 HISTORY: ORDERING SYSTEM PROVIDED HISTORY: eval for pneumonia TECHNOLOGIST PROVIDED HISTORY: eval for pneumonia FINDINGS: No focal lung consolidation. No pleural effusion or pneumothorax identified. The cardiomediastinal silhouette is normal in size for technique. [facility] Phone: Grupo, pn Incoming Radiant Results From [facility] - 07/16/2019 5:52 PM EST EXAMINATION: TWO XRAY VIEWS OF THE CHEST 07/16/2019 5:44 pm COMPARISON: 07/14/2019 HISTORY: ORDERING SYSTEM PROVIDED HISTORY: eval for pneumonia TECHNOLOGIST PROVIDED HISTORY: eval for pneumonia FINDINGS: No focal lung consolidation. No pleural effusion or pneumothorax identified. The cardiomediastinal silhouette is normal in size for technique. IMPRESSION: No acute cardiopulmonary abnormality identified. [facility] Phone: Rapid influenza A/B antigens on 07-14-2019 Direct Exam Positive Abnormal [facility] Phone: Direct Exam Negative [facility] Phone: Interpretation and review of laboratory results Abnormal [facility] Phone: Special Requests NOT REPORTED [facility] Phone: Specimen Description .NASOPHARYNGEAL SWAB [place] Phone: XR CHEST STANDARD (2 VW)on 0 07-14-2019 Asymmetric left uppe r lung opacity is felt to be superimposition of shadows but early pneumonia is not excluded. Short interval follow-up is advised. [facility] Phone: EXAMINATION: TWO XRA Y VIEWS OF THE CHEST 07/14/2019 3:23 pm COMPARISON: May 16, 2019 HISTORY: ORDERING SYSTEM PROVIDED HISTORY: cough TECHNOLOGIST PROVIDED HISTORY: cough FINDINGS: Asymmetric left upper lung opacity most likely superimposition of shadows but early pneumonia is not excluded. Interstitial prominence diffusely, likely magnified by shallow inspiration and technical differences. No focal consolidation. Heart is not enlarged. [facility] Phone: Grupo, Mhpn Incoming Radiant Results From [facility] - 07/14/2019 3:34 PM EST EXAMINATION: TWO [...] not excluded. Short interval follow-up is advised. [facility] Phone: XR CHEST STANDARD (2 VW)Orde red By: Chava Chaidez on 05-16-2019 Unremarkable chest. [facility] Phone: EXAMINATION: TWO XRA Y VIEWS OF [...] osseous structures are intact without acute process. [facility] Phone: Grupo, Mhpn Incoming Radiant Results From [facility] - 05/16/2019 5:21 PM EST EXAMINATION: TWO [...] intact without acute process. IMPRESSION: Unremarkable chest. [facility] Phone: MRI LUMBAR SPINE WO CONTRAST on 03-03-2019 Left subarticular disc bulge effacing descending left L5 nerve root within the lateral recess. Disc bulge at L3-L4 effacing the descending bilateral L4 nerve roots in the lateral recesses. [facility] [place] EXAMINATION: MRI OF THE LUMBAR SPINE WITHOUT [...] canal narrowing. No significant neural foraminal narrowing. [place], [place] Grupo, Mhpn Incoming Radiant Results From [facility] - 03/03/2019 2:42 PM EDT EXAMINATION: MRI [...] L4 nerve roots in the lateral recesses. [place], [place] Hepatitis C Antibodyon 02-22 Hepatitis C Ab REACTIVE Abnormal NONREACTIVE Geetha Rogers [place], [place] Comment on above: The hepatitis C [...] Interpretation and review of laboratory results Abnormal [place] Amylaseon 02-21-2019 Amylase [Catalytic activity/Vol] 40 U/L 28 - 100 U/L [place] CBC Auto Differentialon 02-05 Basophils (Bld) [#/Vol] 10*3/uL [place] Basophils/100 WBC (Bld) 0 % 0 - 2 % [place] Differential Type NOT REPORTED [place] Eosinophils (Bld) [#/Vol] 0.04 10*3/uL [place] Eosinophils/100 WBC (Bld) 0 % Low 1 - 4 % [place] Erythrocyte distribution width (RBC) [Ratio] 13.1 % 11.8 - 14.4 % [place] Hematocrit (Bld) [Volume fraction] 43.4 % 40.7 - 50.3 % [place] Hemoglobin (Bld) [Mass/Vol] 15.1 g/dL 13 - 17 g/dL [place] Immature granulocytes (Bld) [#/Vol] 1 % High 0 [place] Immature granulocytes (Bld) [#/Vol] 0.05 10*3/uL [place] Interpretation and review of laboratory results Abnormal [place] Lymphocytes (Bld) [#/Vol] 2.14 10*3/uL [place] Lymphocytes/100 WBC (Bld) 24 % 24 - 43 % [place] MCH (RBC) [Entitic mass] 32.5 pg 25.2 - 33.5 pg [place] MCHC (RBC) [Mass/Vol] 34.8 g/dL 28.4 - 34.8 g/dL [place] MCV (RBC) [Entitic vol] 93.5 fL 82.6 - 102.9 fL [place] Monocytes (Bld) [#/Vol] 0.67 10*3/uL [place] Monocytes/100 WBC (Bld) 8 % 3 - 12 % [place] Platelet mean volume (Bld) [Entitic vol] 12.1 fL 8.1 - 13.5 fL [place] Platelets (Bld) [#/Vol] 146 10*3/uL [place] Platelets (Bld) [#/Vol] NOT REPORTED [place] RBC (Bld) [#/Vol] 4.64 10*6/uL 4.21 - 5.7 7 m/uL [place] RBC morphology finding Nom (Bld) NOT REPORTED [place] Segmented neutrophils/100 WBC (Bld) 67 % High 36 - 65 % [place] Segs Absolute 6.07 [place] WBC (Bld) [#/Vol] 0.0 10*3/uL 0.0 per 100 WBC [place] WBC (Bld) [#/Vol] 9.0 10*3/uL [place] WBC Morphology NOT REPORTED [place] Comprehensive Metabolic Pane perlita 02-21-2019 Albumin [Mass/Vol] 4.5 g/dL 3.5 - 5.2 g/dL [place], [place] Albumin/Globulin [Mass ratio] 1.3 {ratio} [place] ALP [Catalytic activity/Vol] 146 U/L High 40 - 129 U/L [place] ALT [Catalytic activity/Vol] 39 U/L 5 - 41 U/L [place] Anion gap [Moles/Vol] 13 mmol/L 9 - 17 mmol/L [place] AST [Catalytic activity/Vol] 27 U/L <40 [place] Bilirubin Ql (U) 0.29 mg/dL Low 0.3 - 1.2 mg/dL [place], [place] Bun/Cre Ratio 9 [place] Calcium [Mass/Vol] 9.8 mg/dL 8.6 - 10. 4 mg/dL [place] Chloride [Moles/Vol] 100 mmol/L 98 - 107 mmol/L [place] CO2 [Moles/Vol] 27 mmol/L 20 - 31 mmol/L [place] Creatinine [Mass/Vol] 1.02 mg/dL 0.7 - 1.2 mg/dL [place] GFR >60 >60 mL/min [place] GFR Non- >60 >60 mL/min [place] Glucose [Mass/Vol] 85 mg/dL 70 - 99 mg/dL [place] Interpretation and review of laboratory results Abnormal [place] Potassium [Moles/Vol] 3.7 mmol/L 3.7 - 5.3 mmol/L [place] Protein [Mass/Vol] 8.1 g/dL 6.4 - 8.3 g/dL [place] Sodium [Moles/Vol] 140 mmol/L 135 - 144 mmol/L [place] Urea nitrogen [Mass/Vol] 9 mg/dL 6 - 20 mg/dL [place] Lipaseon 02-21-2019 Lipase [Catalytic activity/Vol] 19 U/L 13 - 60 U/L [place] Metabolic Panelon 02-21-2019 GFR/1.73 sq M predicted among non-blacks MDRD (S/P/Bld) [Vol rate/Area] [place] Comment on above: Average GFR for 30-3 9 years old: 107 mL/min/1.73sq m Chronic Kidney Disease: <60 mL/min/1.73sq m Kidney failure: <15 mL/min/1.73sq m eGFR calculated using average adult body mass. Additional eGFR calculator available at: http://www.[place].Ecinity/multiple_crcl_2012.htm Stage 1: Some kidney damage normal GFR [...] Transitional segment anatomy at the lumbosacral junction. 1CLICK DARLENE EXAMINATION: 5 XRAY VIEWS OF THE LUMBAR SPINE 02/21/2019 4:34 pm COMPARISON: None. HISTORY: ORDERING SYSTEM PROVIDED HISTORY: Pain FINDINGS: There is transitional segment anatomy at the lumbosacral junction with suspected lumbarized S1. There is a right-sided pseudoarthrosis. Vertebral body heights and alignment are normal. Disc spaces are preserved. No evidence of spondylolysis or spondylolisthesis. Sacroiliac joints are within normal limits. [facility], [facility] Incoming Radiant Results From [facility] - 02/21/2019 5:02 PM EDT EXAMINATION: 5 [...] Transitional segment anatomy at the lumbosacral junction. 1CLICK DARLENE XR SHOULDER RIGHT (MIN 2 VIE WS)on 02-21-2019 No acute osseous abnormality. [employer] EXAMINATION: THREE XRAY VIEWS OF THE RIGHT SHOULDER 02/21/2019 4:34 pm COMPARISON: None. HISTORY: ORDERING SYSTEM PROVIDED HISTORY: Pain FINDINGS: Bone mineralization and alignment appear intact. No evidence of acute fracture or dislocation. 1CLICK DARLENE [facility], [facility] Incoming Radiant Results From [facility] - 02/21/2019 4:57 PM EDT EXAMINATION: THREE XRAY VIEWS OF THE RIGHT SHOULDER 02/21/2019 4:34 pm COMPARISON: None. HISTORY: ORDERING SYSTEM PROVIDED HISTORY: Pain FINDINGS: Bone mineralization and alignment appear intact. No evidence of acute fracture or dislocation. IMPRESSION: No acute osseous abnormality. 1CLICK DARLENE XR WRIST RIGHT (MIN 3 VIEWS) on 02-21-2019 Normal x-ray of the wrist [facility] EXAMINATION: 3 XRAY VIEWS OF THE RIGHT WRIST 02/21/2019 4:57 pm COMPARISON: None. HISTORY: ORDERING SYSTEM PROVIDED HISTORY: Injury TECHNOLOGIST PROVIDED HISTORY: Right wrist pain FINDINGS: The carpal bones all appear intact. There is no evidence for fracture dislocation. The soft tissues are normal. The joint spaces are well preserved. There is no evidence for foreign body. [facility] DARLENE Grupo, M[facility] Incoming Radiant Results From [facility] - 02/21/2019 5:04 PM EDT EXAMINATION: 3 [...] body. IMPRESSION: Normal x-ray of the wrist [facility] DARLENE Vital Signs Date Time Vital Sign Value Performing Clinician Facility 06-08-2024 14:00-0500 Diastolic blood pressure 74 mm[Hg] Bruce Card [facility] 06-08-2024 14:00-0500 Heart rate 70 /min Bruce Card [facility] 06-08-2024 14:00-0500 Mean blood pressure 88 mm[Hg] Bruce Card [facility] 06-08-2024 14:00-0500 Respiratory rate 16 /min Bruce Card [facility] 06-08-2024 14:00-0500 Systolic blood pressure 117 mm[Hg] Bruce Card [facility] 05-10-2024 14:02-0500 Body height 170.2 cm Olu Zeek CLINICAL TEAM LEAD Work Phone: [facility] 05-10-2024 14:02-0500 Body mass index (BMI) [Ratio] 31.26 kg/m2 Olu Jainpatrick CLINICAL TEAM LEAD Work Phone: [facility] 05-10-2024 14:02-0500 Body temperature 96.49 [degF] Olu Nation CLINICAL TEAM LEAD Work Phone: [facility] 05-10-2024 14:02-0500 Body weight 90.54 kg Olu Nation CLINICAL TEAM LEAD Work Phone: [facility] 05-10-2024 14:02-0500 Diastolic blood pressure 76 mm[Hg] Olu Nation CLINICAL TEAM LEAD Work Phone: [facility] 05-10-2024 14:02-0500 Heart rate 96 /min Olu Nation CLINICAL TEAM LEAD Work Phone: [facility] 05-10-2024 14:02-0500 Respiratory rate 16 /min Olu Nation CLINICAL TEAM LEAD Work Phone: [facility] 05-10-2024 14:02-0500 SaO2% (BldA) [Mass fraction] 96 % Olu Nation CLINICAL TEAM LEAD Work Phone: [facility] 05-10-2024 14:02-0500 Systolic blood pressure 120 mm[Hg] Olu Nation CLINICAL TEAM LEAD Work Phone: [facility] 02-09-2024 13:41-0400 Body height 167.6 cm Olu Nation CLINICAL TEAM LEAD Work Phone: [facility] 02-09-2024 13:41-0400 Body mass index (BMI) [Ratio] 31.31 kg/m2 Olu Nation CLINICAL TEAM LEAD Work Phone: [facility] 02-09-2024 13:41-0400 Body temperature 97.81 [degF] Olu Nation CLINICAL TEAM LEAD Work Phone: [facility] 02-09-2024 13:41-0400 Body weight 88 kg Olu Nation CLINICAL TEAM LEAD Work Phone: [facility] 02-09-2024 13:41-0400 Diastolic blood pressure 80 mm[Hg] Olu Nation CLINICAL TEAM LEAD Work Phone: [facility] 02-09-2024 13:41-0400 Heart rate 71 /min Olu Jainpatrick CLINICAL TEAM LEAD Work Phone: [facility] Comment on above: 95% O2 02-09-2024 13:41-0400 Systolic blood pressure 108 mm[Hg] Olu Jainpatrick CLINICAL TEAM LEAD Work Phone: [facility] 10-15-2023 11:15-0400 Diastolic blood pressure 76 mm[Hg] [facility] 10-15-2023 11:15-0400 Heart rate 78 /min [facility] 10-15-2023 11:15-0400 SaO2% (BldA) [Mass fraction] 98 % [facility] 10-15-2023 11:15-0400 Systolic blood pressure 122 mm[Hg] [facility] 10-05-2023 09:31-0400 Body height 167.64 cm [facility] 10-05-2023 09:31-0400 Body mass index (BMI) [Ratio] 32.4 kg/m2 [facility] 10-05-2023 09:31-0400 Body weight 91.17 kg [facility] 01-31-2023 08:51-0400 Body temperature 97.7 [degF] [facility] 01-31-2023 08:51-0400 Diastolic blood pressure 81 mm[Hg] [facility] 01-31-2023 08:51-0400 Heart rate 67 /min [facility] 01-31-2023 08:51-0400 Respiratory rate 18 /min [facility] 01-31-2023 08:51-0400 SaO2% (BldA) [Mass fraction] 100 % [facility] 01-31-2023 08:51-0400 Systolic blood pressure 123 mm[Hg] [facility] 07-31-2021 19:31-0500 Diastolic blood pressure 62 mm[Hg] Denny Morrell MD Work Phone: [facility] 07-31-2021 19:31-0500 Systolic blood pressure 123 mm[Hg] Denny Morrell MD Work Phone: [facility] 07-31-2021 19:29-0500 Body height 167.6 cm Denny Morrell MD Work Phone: [facility] 07-31-2021 19:29-0500 Body mass index (BMI) [Ratio] 37.12 kg/m2 Denny Morrell MD Work Phone: [facility] 07-31-2021 19:29-0500 Body temperature 97.11 [degF] Denny Morrell MD Work Phone: [facility] 07-31-2021 19:29-0500 Body weight 104.33 kg Denny Morrell MD Work Phone: [facility] 07-31-2021 19:29-0500 Heart rate 72 /min Denny Morrell MD Work Phone: [facility] 07-31-2021 19:29-0500 Respiratory rate 16 /min Denny Morrell MD Work Phone: [facility] 07-31-2021 19:29-0500 SaO2% (BldA) [Mass fraction] 97 % Denny Morrell MD Work Phone: [facility] 06-30-2021 04:01-0500 Body temperature 97.59 [degF] Krystin Valenzuela DO Work Phone: [facility] 06-30-2021 04:01-0500 Diastolic blood pressure 76 mm[Hg] Krystin Valenzuela DO Work Phone: [facility] 06-30-2021 04:01-0500 Systolic blood pressure 135 mm[Hg] Krystin Valenzuela DO Work Phone: [facility] 06-30-2021 04:00-0500 Body height 167.6 cm Krystin Valenzuela DO Work Phone: [facility] 06-30-2021 04:00-0500 Body mass index (BMI) [Ratio] 36.32 kg/m2 Krystin Valenzuela DO Work Phone: [facility] 06-30-2021 04:00-0500 Body weight 102.06 kg Krystin Valenzuela DO Work Phone: [facility] 06-30-2021 04:00-0500 Heart rate 85 /min Krystin Valenzuela DO Work Phone: [facility] 06-30-2021 04:00-0500 Respiratory rate 18 /min Krystin Valenzuela DO Work Phone: [facility] 06-30-2021 04:00-0500 SaO2% (BldA) [Mass fraction] 98 % Krystin Valenzuela DO Work Phone: [facility] 04-25-2021 19:06-0500 Diastolic blood pressure 70 mm[Hg] Sofie Echols MD Work Phone: [facility] 04-25-2021 19:06-0500 Systolic blood pressure 95 mm[Hg] Sofie Echols MD Work Phone: [facility] 04-25-2021 19:05-0500 Body temperature 98.6 [degF] Sofie Echols MD Work Phone: [facility] 04-25-2021 19:05-0500 Heart rate 85 /min Sofie Echols MD Work Phone: [facility] 04-25-2021 19:05-0500 Respiratory rate 15 /min Sofie Echols MD Work Phone: [facility] 04-25-2021 19:05-0500 SaO2% (BldA) [Mass fraction] 98 % Sofie Echols MD Work Phone: [facility] 10-01-2020 09:21-0400 Body mass index (BMI) [Ratio] 33.57 kg/m2 Vicente Baumann MD Work Phone: [facility] Work Phone: 10-01-2020 09:21-0400 Body temperature 97 [degF] Vicente Baumann MD Work Phone: [facility] Work Phone: 10-01-2020 09:21-0400 Body weight 94.35 kg Vicente Baumann MD Work Phone: [facility] Work Phone: 10-01-2020 09:21-0400 Diastolic blood pressure 78 mm[Hg] Vicente Baumann MD Work Phone: [facility] Work Phone: 10-01-2020 09:21-0400 Heart rate 87 /min Vicente Baumann MD Work Phone: [facility] Work Phone: 10-01-2020 09:21-0400 Respiratory rate 16 /min Vicente Baumann MD Work Phone: [facility] Work Phone: 10-01-2020 09:21-0400 SaO2% (BldA) [Mass fraction] 97 % Vicente Baumann MD Work Phone: [facility] Work Phone: 10-01-2020 09:21-0400 Systolic blood pressure 127 mm[Hg] Vicente Baumann MD Work Phone: [facility] Work Phone: 08-21-2019 03:42-0400 Body Temperature 98.1 [degF] Juan [employer] [place] , [place] 08-21-2019 03:42-0400 Pulse (Heart Rate) 91 /min [facility] [place] 08-21-2019 03:42-0400 Pulse Oximetry 98 % [facility] [place] 08-21-2019 03:42-0400 Respiratory Rate 18 /min [employer] [place] 08-21-2019 03:37-0400 BP Diastolic 85 mm[Hg] [facility] , [place] 08-21-2019 03:37-0400 BP Systolic 134 mm[Hg] Juan Iniguez [facility] [place] 07-16-2019 17:25-0500 Body Temperature 98.01 [degF] Marcusfilomena Orourke [facility] Phone: 07-16-2019 17:25-0500 BP Diastolic 79 mm[Hg] Marcusfilomena [facility] Phone: 07-16-2019 17:25-0500 BP Systolic 113 mm[Hg] Marcus [facility] Phone: 07-16-2019 17:25-0500 Pulse (Heart Rate) 79 /min Marcusfilomena [facility] Phone: 07-16-2019 17:25-0500 Pulse Oximetry 97 % Marcusfilomena Orourke [facility] Phone: 07-16-2019 17:25-0500 Respiratory Rate 18 /min Marcusfilomena Orourke [facility] Phone: 07-14-2019 14:53-0500 BMI (Body Mass Index) 34.7 kg/m2 Marcusfilomena Orourke [facility] Phone: 07-14-2019 14:53-0500 Body Temperature 99 [degF] Marcusfilomena Orourke [facility] Phone: 07-14-2019 14:53-0500 Body weight 97.52 kg Marcusfilomena Orourke [facility] Phone: 07-14-2019 14:53-0500 BP Diastolic 59 mm[Hg] Marcusfilomena [facility] Phone: 07-14-2019 14:53-0500 BP Systolic 109 mm[Hg] Marcus [employer] Phone: 07-14-2019 14:53-0500 Height 167.6 cm Marcus Haven [facility] Phone: 07-14-2019 14:53-0500 Pulse (Heart Rate) 83 /min Marcus Orourke [facility] Work Phone: 07-14-2019 14:53-0500 Pulse Oximetry 96 % Marcus StevensJoberator Work Phone: 07-14-2019 14:53-0500 Respiratory Rate 18 /min Marcus [employer] Work Phone: 05-16-2019 16:55-0500 Body mass index (BMI) [Ratio] 34.38 kg/m2 Jolie Gruber APRN - RESEARCH GEOLOGIST Work Phone: [facility] Work Phone: 05-16-2019 16:55-0500 Body temperature 98.6 [degF] Jolie Gruber APRN - RESEARCH GEOLOGIST Work Phone: [facility] Work Phone: 05-16-2019 16:55-0500 Body weight 96.62 kg Jolie Gruber APRN - RESEARCH GEOLOGIST Work Phone: [facility] Work Phone: 05-16-2019 16:55-0500 Diastolic blood pressure 91 mm[Hg] Jolie Gruber APRN - VIDAL Work Phone: [facility] Work Phone: 05-16-2019 16:55-0500 Heart rate 78 /min Jolie Gruber APRN - RESEARCH GEOLOGIST Work Phone: [facility] Work Phone: 05-16-2019 16:55-0500 Respiratory rate 16 /min Jolie Gruber APRN - RESEARCH GEOLOGIST Work Phone: [facility] Work Phone: 05-16-2019 16:55-0500 SaO2% (BldA) [Mass fraction] 98 % Jolie Gruber APRN - RESEARCH GEOLOGIST Work Phone: [facility] Work Phone: 05-16-2019 16:55-0500 Systolic blood pressure 141 mm[Hg] Jolie Gruber [facility] Work Phone: [facility] Work Phone: Encounters Encounter Date Encounter Type Care Provider Facility Start: 06-09-2024 End: 06-12-2024 Refill Olu Nation CLINICAL TEAM LEAD Work Phone: [facility] Comment on above: Gastro-esophageal re flux disease without esophagitis; Esophageal reflux Start: 06-08-2024 End: 06-08-2024 ambulatory XXXX NONE Facility:[facility] Start: 06-08-2024 End: 06-08-2024 Patient encounter procedure Bruce Card [facility] Start: 05-10-2024 End: 05-10-2024 Bamboo flowsheet Olu Zeek CLINICAL TEAM LEAD Work Phone: [facility] Start: 05-10-2024 End: 05-10-2024 Bamboo flowsheet Olu Jeffriestrick CLINICAL TEAM LEAD Work Phone: [facility] Start: 05-10-2024 End: 05-10-2024 Office outpatient visit 15 minutes Olu Nation CLINICAL TEAM LEAD Work Phone: [facility] Comment on above: Degeneration of inte 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 and lower extremity pain (Primary Dx); Chronic bilateral low back pain with bilateral sciatica Start: 04-10-2024 End: 04-10-2024 ambulatory Asim Concepcion MD Facility: [facility] Start: 03-28-2024 End: 03-28-2024 Orders Only Olu Nation CLINICAL TEAM LEAD Work Phone: [facility] Comment on above: Lumbar radiculopathy (Primary Dx); Lumbosacral spondylosis without myelopathy Start: 03-27-2024 End: 03-30-2024 Refill Yanira Up [facility] Comment on above: Chronic bilateral lo w back pain with bilateral sciatica; Thoracolumbar back pain Start: 03-17-2024 End: 03-17-2024 Bamboo flowsheet Miguel Angel Payne COMPUTER SYSTEMS SECURITY ANALYST [facility] Start: 03-17-2024 End: 03-17-2024 Bamboo flowsheet Miguel Angel Payne COMPUTER SYSTEMS SECURITY ANALYST [facility] Start: 03-17-2024 End: 03-17-2024 ambulatory MIGUEL ANGEL PAYNE [facility] Comment on above: Lumbar radiculopathy (Primary Dx); [...] and pain of both upper extremities Start: 02-23-2024 End: 02-28-2024 Refill Waqas Schneider MA [facility] Comment on above: Chronic bilateral lo w back pain with bilateral sciatica; Thoracolumbar back pain Start: 02-09-2024 End: 02-09-2024 Bamboo flowsheet Olu Zeek CLINICAL TEAM LEAD Work Phone: [facility] Start: 02-09-2024 End: 02-09-2024 Bamboo flowsheet Olu Jainpatrick CLINICAL TEAM LEAD Work Phone: [facility] Start: 02-09-2024 End: 02-09-2024 ambulatory OLU JEFFRIESTRICK Not Available Start: 02-09-2024 End: 02-09-2024 Office outpatient visit 25 minutes Olu Nation CLINICAL TEAM LEAD Work Phone: [facility] Comment on above: Mild intermittent as thma without complication (CMS/HCC) (Primary Dx); Gastroesophageal reflux disease without esophagitis; Nicotine dependence, cigarettes, uncomplicated; Lumbosacral spondylosis without myelopathy; Paresthesia and pain of both upper extremities; Sacroiliitis (CMS/HCC); Lumbar radiculopathy; Encounter for wellness examination Start: 02-09-2024 End: 02-09-2024 Patient encounter status Olu Lairdzpatrick CLINICAL TEAM LEAD Work Phone: [facility] Start: 01-25-2024 End: 01-25-2024 Orders Only Olu Rios CLINICAL TEAM LEAD Work Phone: [facility] Comment on above: Chronic bilateral lo w back pain with bilateral sciatica; Thoracolumbar back pain Start: 12-20-2023 ambulatory XXXX NONE Facility:[facility] Start: 11-15-2023 End: 11-15-2023 ambulatory ALBERTO FAWWAD Not Available Start: 10-15-2023 End: 10-15-2023 ambulatory [facility] Work Phone: Start: 10-15-2023 End: 10-15-2023 Patient encounter procedure [facility] Work Phone: Start: 10-06-2023 End: 10-06-2023 ambulatory ALBERTO FAWWAD Not Available Start: 10-05-2023 End: 10-05-2023 ambulatory [facility] Work Phone: Start: 10-05-2023 End: 10-05-2023 Patient encounter procedure [facility] Work Phone: Start: 09-06-2023 End: 09-06-2023 ambulatory ALBERTO FAWWAD Not Available Start: 08-23-2023 End: 08-23-2023 ambulatory ALBERTO FAWWAD Not Available Start: 08-05-2023 End: 08-05-2023 ambulatory ALBERTO FAWWAD Not Available Start: 01-31-2023 End: 01-31-2023 Emergency department patient visit David Weathers [facility] Start: 02-17-2022 End: 02-17-[address] NATHANIEL THOMPSON Facility:[facility] Start: 12-02-2021 End: 12-02-[address] LEAH KAUR Facility:[facility] Start: 11-14-2021 End: 11-14-2021 ambulatory NONE LISTED REQUEST Facility:[facility] Start: 08-18-2021 End: 08-18-2021 ambulatory [facility] Start: 08-14-2021 ambulatory [facility] Start: 08-06-2021 End: 08-06-2021 [facility] Start: 07-31-2021 End: 07-31-2021 Emergency department [facility] Start: 07-31-2021 End: 07-31-2021 Emergency department patient visit Denny Morrell MD Work Phone: [facility] ED Comment on above: Muscle strain (Prima ry Dx) Start: 06-30-2021 End: 06-30-2021 Emergency department [facility] Start: 06-30-2021 End: 06-30-2021 Emergency department patient visit Krystin Valenzuela DO Work Phone: [facility] ED Comment on above: Cough (Primary Dx); Acute nonintractable headache, unspecified headache type Start: 06-13-2021 End: 06-16-2021 ambulatory [facility] Start: 05-16-2021 ambulatory REGINA [facility] Start: 04-25-2021 Emergency department patient visit [facility] Start: 04-25-2021 End: 04-25-2021 Emergency department patient visit Sofie Echols MD Work Phone: [facility] ED Comment on above: Suspected COVID-19 v irus infection (Primary Dx) Start: 04-09-2021 Transcribe Orders Susie Faria MA [facility] Neuro[facility] Comment on above: Low back pain with s ciatica, sciatica laterality unspecified, unspecified back pain laterality, unspecified chronicity (Primary Dx) Start: 10-01-2020 End: 10-01-2020 Emergency department patient visit [facility] Start: 10-01-2020 End: 10-01-2020 Emergency department patient visit Vicente Baumann MD Work Phone: [facility] ED Comment on above: Pain, dental (Primar y Dx); Dental caries Start: 09-30-2020 End: 09-30-2020 Emergency department patient visit [facility] Start: 04-04-2020 Patient encounter procedure SYNAGOGUE [place] Start: 08-21-2019 End: 08-21-2019 Emergency department patient visit Juan Shrestha Work Phone: [facility] ED Comment on above: Laceration of right index finger without foreign body without damage to nail, initial encounter (Primary Dx) Start: 07-16-2019 End: 07-16-2019 Emergency department patient visit Marcus Leander Stevenseugenio Work Phone: [facility] ED Comment on above: Influenza A (Primary Dx) Start: 07-14-2019 End: 07-14-2019 Emergency department patient visit Marcus Orourke Work Phone: [facility] ED Comment on above: Influenza A (Primary Dx) Start: 05-16-2019 End: 05-16-2019 Emergency department patient visit Jolie Gruber HORIZONTAL BORING MILL SET UP OPERATOR - RESEARCH GEOLOGIST Work Phone: [facility] ED Comment on above: Rhomboid muscle stra in, initial encounter (Primary Dx) Start: 03-03-2019 End: 03-05-2019 Subsequent hospital visit by physician Derrick Mri Scanner [facility] MRI Comment on above: Lumbar pain; Congenital abnormality Start: 02-21-2019 End: 02-23-2019 Subsequent hospital visit by physician Derrick Xr Dr Room 4 [facility] Radiology Comment on above: Pain Injury; Right [...] ches t 2 views Chava Ansari Dm MCDANIEL Work Phone: Start: 03-03-2019 Mri spinal canal lum bar w/o contrast material Jolie Gruber Work Phone: Start: 02-21-2019 Radex wrist complete minimum 3 views Jolie Gruber Work Phone: Start: 02-21-2019 End: 02-21-2019 Radex spine lumbosacral minimum 4 views Jolie Gruber Work Phone: Start: 02-21-2019 Assay of amylase Jolie Gruber Work Phone: Start: 02-21-2019 Assay of lipase Jolie Gruber Work Phone: Start: 02-21-2019 Blood count complete auto&auto difrntl wbc Jolie Gruber Work Phone: Start: 02-21-2019 Comprehensive metabo lic panel Jolie Gruber Work Phone: Start: 02-21-2019 Hepatitis c antibody Ni niurka Gruber Work Phone: Hand structure (body structure) Bruce Card Comment on above: 2020 History of operative procedure on knee Bruce Card Comment on above: right 2021 Plan of Treatment Date Care Activity Detail Author Start: 2036 Shingles Vaccine (1 of 2) Shingles Vaccine (1 of 2) Agavideo Work Phone: Start: 08-14-2024 End: 08-14-2024 Patient encounter procedure 08/14/2024 8:30 AM EDT Office Visit [facility] [address] [place] [id number] Olu Nation, CLINICAL TEAM LEAD [address] [place] [address] [facility] Start: 05-10-2024 End: 05-10-2024 Patient encounter procedure [facility] Comment on above: Arrived Start: 03-30-2024 End: 03-30-2024 ambulatory 03/30/2024 2:30 PM EDT Treatment [facility] [address] [facility] [place] [address] Sarah Nielsen, PT [facility] Start: 03-23-2024 End: 03-23-2024 ambulatory 03/23/2024 8:00 AM EDT Treatment [facility] [address] [facility] [place] [address] Miguel Angel Payne, COMPUTER SYSTEMS SECURITY ANALYST [facility] Start: 03-21-2024 End: 03-21-2024 ambulatory 03/21/2024 2:30 PM EDT Treatment [facility] [address] [facility] [place] [address] Sarah Nielsen, PT [facility] Start: 03-17-2024 End: 03-17-2024 ambulatory 03/17/2024 8:00 AM EDT Treatment [facility] [address] [facility] [place] [address] Miguel Angel Payne, COMPUTER SYSTEMS SECURITY ANALYST [facility] Start: 02-28-2024 End: 02-28-2024 ambulatory 02/28/2024 3:00 PM EDT Evaluation [facility] [address] [facility] [place] [address] Sarah Nielsen, PT [facility] Start: 02-21-2024 End: 02-21-2024 ambulatory 02/21/2024 11:00 AM EDT Evaluation [facility] [address] [place] [phone] Sarah Nielsen, PT [facility] Start: 02-09-2024 End: 02-08-2025 CBC W Auto Differential panel - Blood CBC and differential Lab Routine Encounter for wellness examination Expected: 02/09/2024 (Approximate), Expires: 02/08/2025 [facility] Comment on above: Expected: 02/09/2024 (Approximate), Expires: 02/08/2025 Start: 02-09-2024 End: 02-08-2025 Comprehensive metabolic 2000 panel - Serum or Plasma Comprehensive metabolic panel Lab Routine Encounter for wellness examination Expected: 02/09/2024 (Approximate), Expires: 02/08/2025 [facility] Comment on above: Expected: 02/09/2024 (Approximate), Expires: 02/08/2025 Start: 02-09-2024 End: 02-08-2025 Hemoglobin A1c/Hemoglobin.total in Blood Hemoglobin A1c Lab Routine Encounter for wellness examination Expected: 02/09/2024 (Approximate), Expires: 02/08/2025 [facility] Comment on above: Expected: 02/09/2024 (Approximate), Expires: 02/08/2025 Start: 02-09-2024 End: 02-08-2025 Lipid 1996 panel - Serum or Plasma Lipid panel Lab Routine Encounter for wellness examination Expected: 02/09/2024 (Approximate), Expires: 02/08/2025 [facility] Comment on above: Expected: 02/09/2024 (Approximate), Expires: 02/08/2025 Start: 02-09-2024 End: 02-08-2025 TSH W/REFLEX TO FT4 TSH W/REFLEX TO FT4 Lab Routine Encounter for wellness examination Expected: 02/09/2024 (Approximate), Expires: 02/08/2025 [facility] Work Phone: Comment on above: Expected: 02/09/2024 (Approximate), Expires: 02/08/2025 Start: 02-06-2024 Influenza vaccination Influenza Vacc ine (#1) [facility] Start: 10-05-2023 Patient referral [facility] Work Phone: Start: 09-15-2021 End: 09-15-2021 Patient encounter procedure 09/15/2021 Office Visit Primary Care Sofie Echols MD [address] [facility] [address] [facility] MED Primary Care Start: 09-10-2021 End: 09-10-2021 Patient encounter procedure 09/10/2021 Office Visit Pain Management Yasmine Wellington, HORIZONTAL BORING MILL SET UP OPERATOR - RESEARCH GEOLOGIST [address] [facility] [place] [address] [facility] Start: 08-18-2021 End: 08-18-2021 Admission to same day surgery center 08/18/2021 Surgery IP Unit Demario Jacob MD [address] [place] [address] RIGHT CARPAL TUNNEL RELEASE [facility] Comment on above: RIGHT CARPAL TUNNEL RELEASE Start: 08-18-2021 End: 08-18-2021 Neuroplasty &/transpos median nrv carpal tunne CARPAL TUNNEL RELEASE right cts 08/18/2021 12:00 PM EDT [facility] Start: 08-18-2021 Subsequent hospital visit by physician 08/18/2021 Hospital Encounter IP Unit Demario Jacob MD [address] [place] [address] [facility] Start: 08-11-2021 End: 08-11-2021 Patient encounter procedure 08/11/2021 Office Visit Primary Care Sofie Echols MD [address] [facility] [address] [facility] MED Primary Care Start: 08-06-2021 End: 08-06-2021 Admission to same day surgery center 08/06/2021 Surgery IP Unit Ramez Rangel MD [address] [place] [address] LUMBAR INTER LAMINAR TOM L4 L5 [facility] Comment on above: LUMBAR INTER LAMINAR TOM L4 L5 Start: 08-06-2021 End: 08-06-2021 Njx dx/ther sbst intrlmnr lmbr/sac w/img gdn LUMBAR INTER LAMINAR TOM lumbar stenosis 08/06/2021 11:45 AM EST [facility] Start: 08-06-2021 Subsequent hospital visit by physician 08/06/2021 Hospital Encounter IP Unit Ramez Rangel MD [address] [place] [address] [facility] Start: 07-30-2021 End: 07-30-2021 Patient encounter procedure 07/30/2021 Office Visit Pain Management Ramez Rangel MD [address] [place] [address] [facility] Start: 07-24-2021 End: 07-24-2021 Patient encounter procedure 07/24/2021 Office Visit Orthopedic Surgery Tony Black MD [address] [place] [address] [facility] Start: 06-30-2021 End: 06-30-2021 Patient encounter procedure 06/30/2021 Office Visit Orthopedic Surgery Demario Jacob MD [address] [place] [address] [facility] Start: 05-23-2021 End: 05-23-2021 Patient encounter procedure 05/23/2021 Office Visit Orthopedic Surgery Tony Black MD [address] [facility] [place] [address] (Fax) [facility] Start: 05-16-2021 End: 05-16-2021 Patient encounter procedure 05/16/2021 Appointment Radiology [facility] Start: 05-07-2021 End: 05-07-2021 Patient encounter procedure 05/07/2021 Office Visit Neurosurgery Jess Farley MD [address] [facility] [address] [place] [address] [facility] Neuro[facility] Start: 03-17-2021 End: 03-17-2021 Patient encounter procedure 03/17/2021 Office Visit Primary Care Sofie Echols MD [address] [place] [address] [facility] Primary Care Start: 02-05-2021 Influenza vaccination [facility] Start: 10-09-2020 End: 10-09-2020 Patient encounter procedure 10/09/2020 Office Visit [facility] ONLY Start: 10-01-2020 COVID-19 Vaccine (2 - Moderna 2-dose series) COVID-19 Vaccine (2 - Moderna 2-dose series) [facility] Work Phone: Start: 06-13-2019 End: 06-13-2019 Patient encounter procedure 06/13/2019 Appointment Pain Management Patito Gutierres MD [address] [facility] [place] [place] [id number] [facility] Start: 05-23-2019 End: 05-23-2019 Patient encounter procedure 05/23/2019 Appointment Pain Management Patito Gutierres MD [address] [place], [place] [id number] [facility] Start: 03-03-2019 End: 03-03-2019 Appointment 03/03/2019 Appointment Radiology [facility] Start: 02-05-2019 Influenza vaccination Flu vaccine (# 1) [facility] [place], [place] Start: 2005 DTaP/Tdap/Td vaccine (1 - Tdap) DTaP/Tdap/Td vaccine (1 - Tdap) [facility] Start: 2004 Hepatitis C screening Hepatitis C Sc reening [facility] Start: 2001 HIV screen HIV screen [place], [place] Start: 2001 HIV screening [facility] Start: 1999 Varicella Vaccine (1 of 2 - 13+ 2-dose series) Varicella Vaccine (1 of 2 - 13+ 2-dose series) [place], [place] Start: 1998 COVID-19 Vaccine (1) COVID-19 Vaccin e (1) [facility] Start: 1998 Depression Screen Depression Screen [facility] Start: 1998 Depression screening using PHQ-9 (Patient Health Questionnaire 9) score Depression Screening (PHQ-2/9) [facility] Start: 1997 DTaP/Tdap/Td vaccine (1 - Tdap) DTaP/Tdap/Td vaccine (1 - Tdap) [facility] Phone: Start: 1992 Pneumococcal 0-64 ye ars Vaccine (1 of 1 - PPSV23) Pneumococcal 0-64 years Vaccine (1 of 1 - PPSV23) [place], [place] Start: 1992 Pneumococcal 0-64 ye ars Vaccine (1 of 2 - PPSV23) Pneumococcal 0-64 years Vaccine (1 of 2 - PPSV23) [facility] Start: 1991 COVID-19 Vaccine (1) COVID-19 Vaccin e (1) [facility] Start: 1989 History and physical examination, annual for health maintenance Wellness Visit [facility] Start: 1987 Varicella vaccine (1 of 2 - 2-dose childhood series) Varicella vaccine (1 of 2 - 2-dose childhood series) [facility] Start: 1986 Tetanus vaccination Tetanus: Every 1 0yrs [facility] End: 04-25-[address] Work Phone: Comment on above: One Time for 1 Occur rences starting 04/25/2021 until 04/25/2021 End: 06-30-[address] [employer] Phone: Comment on above: One Time for 1 Occur rences starting 06/30/2021 until 06/30/2021 Patient referral [facility] Work Phone: XR Lumbar spine Views [facility] Immunizations Immunization Date Immunization Notes Care Provider Geronimo sandraanderson 05-27-2001 measles, mumps and rubella virus vaccine Olu Nation CLINICAL TEAM LEAD Work Phone: [facility] Payers Date Payer Category Payer Unknown 2022 Medicaid [id number] 2022 Medicaid [id number] 2019 Medicaid [employer] D MEDICAID [employer] MEDICAID [id number] 2019-Present [phone] [address] [place] [address] [id number] 2018 Unknown [employer]OUNT ADVANT AGE [employer]VANTAGE xxxxxxxxxxx 2018-Present [phone] [address] [place] [address] xxxxxxxxxxx [id number]. [id number] 2014 Medicaid [id number] 1986 Unknown [id number] 2.16.840.1.968333.3.579.2.903 1986 Unknown [id number] 2.16.840.1.137432.3.579.2.173 1986 Unknown [id number] 2.16.840.1.765146.3.579.2.173 1986 Unknown [id number] 2.16.840.1.698426.3.579.2.173 1986 Unknown [id number] 2.16.840.1.019657.3.579.2.173 1986 Unknown [id number] 2.16.840.1.253057.3.579.2.754 1986 Unknown [id number] 2.16.840.1.684915.3.579.2.754 1986 Unknown [id number] 2.16.840.1.473356.3.579.2.754 1986 Unknown [id number] 2.16.840.1.762293.3.579.2.754 1986 Unknown [id number] 2.16.840.1.170431.3.579.2.754 1986 Unknown [id number] 2.16.840.1.485908.3.579.2.754 1986 Unknown [id number] 2.16.840.1.502288.3.579.2.754 1986 Unknown [id number] 2.16.840.1.492285.3.579.2.593 1986 Unknown [id number] 2.16.840.1.234752.3.579.2.593 1986 Unknown [id number] 2.16.840.1.915189.3.579.2.593 1986 Unknown [id number] 2.16.840.1.251868.3.579.2.1259 1986 Unknown [id number] 2.16.840.1.928583.3.579.2.1259 1986 Unknown [id number] 2.16.840.1.560315.3.579.2.1259 1986 Unknown [id number] 2.16.840.1.108082.3.579.2.1259 1986 Unknown [id number] 2.16.840.1.024570.3.579.2.1259 1986 Unknown [id number] 2.16.840.1.036953.3.579.2.1259 1986 Unknown [id number] 2.16.840.1.291940.3.579.2.1259 1986 Unknown [id number] 2.16.840.1.778155.3.579.2.1259 1986 Unknown [id number] 2.16.840.1.723181.3.579.2.196 1986 Unknown [id number] 2.16.840.1.388269.3.579.2.727 1986 Unknown [id number] 2.16.840.1.883487.3.579.2.727 1959 Unknown [id number] Self-pay Self Pay [id number] Social History Date Type Detail Facility Start: 07-14-2019 End: 11-15-2023 Tobacco smoking status NHIS Current every day smoker [facility] [employer] Start: 06-07-1999 History of tobacco use Cigarette Smo ker [place], [place] Start: 07-14-2019 End: 02-09-2024 Cigarettes smoked current (pack per day) - Reported [place], [place] Start: 05-16-2019 End: 07-14-2019 Alcohol intake Current non-drinker of alcohol (finding) [facility] [employer] Phone: Start: 05-16-2019 History SDOH Social Connections Phone 5 [employer] Phone: Start: 05-16-2019 History SDOH Social Connections Get Together 2 [employer] Phone: Start: 05-16-2019 History SDOH Social Connections Rastafari 1 [employer] Phone: Start: 05-16-2019 History SDOH Social Connections Living 8 [facility] [employer] Phone: Start: 05-16-2019 History SDOH Physica l Activity MPS 15 [employer] Phone: Start: 1985 Sex Assigned At Not on file [place] Start: 01-05-2019 End: 02-09-2024 Alcohol intake No [facility] Start: 10-01-2020 End: 11-15-2023 Tobacco use and exposure [facility] Exposure to SARS-CoV -2 (event) Not sure [facility] Tobacco smoking stat [facility] Tobacco smoking consumption unknown [facility] Tobacco smoking status No Smokin g Status Entered [facility] Start: 10-05-2023 Tobacco smoking stat [facility] Smoker (finding) [facility] Start: 1985 Sex Assigned At Male F [facility] History of tobacco use Passive smoker [facility] Start: 02-09-2024 End: 05-10-2024 Alcoholic beverage intake Lifetime non-drinker (finding) [facility] Start: 06-08-2024 Tobacco smoking status Heavy t obacco smoker (finding) [facility] Functional Status Date Assessment Result Facility 06-08-2024 Functional Status N/A [facility] 01-31-2023 Functional Status N/A [facility] Clinical Notes 07-31-2021 to 06-11-2024 Olu Nation, LETY - 05/10/2024 3:30 PM Ladonna Nation NP - 05/10/2024 2:00 PM ESTTelephone Encounter - Mercedes Stone MA - 03/29/2024 2:33 PM EDTPatient Instructions Note Date & Type Note Facility 06-11-2024 Note Consultation Note Patient is presenting with complaints of low back pain going down the bilateral aspects of both legs. He rates his pain as a 6/10 severity and states this pain has been going on for several years without lasting relief. He has been on a significant number of medications inclusive of acetaminophen, NSAIDs, gabapentin, topiramate, amitriptyline, duloxetine, pregabalin. He states that none of these medications have provided any benefit and he did not tolerate any of these medications either. He has taken opioid medications in the past and feels that these have been effective in reducing his pain. We did review his lumbar MRI results as well. He states physical therapy has not been significantly beneficial either. In fact this made his pain worse. We discussed a possible referral to a surgeon to discuss whether surgical options would be of benefit, patient did not want to see a surgeon as he has seen them in the past. IZABEL Score: 36% PHQ-2: 3 Patient denies any symptoms of progressively worsening upper/lower extremity weakness, progressively worsening gait abnormality, new onset bowel/bladder incontinence/ urinary retention, or saddle anesthesia. No new or worsening symptoms of fever, chills, night sweats. 14 Point Review of systems negative unless otherwise noted. General: No acute distress. Patient appears well-nourished. HEENT: Head is normocephalic and external ears are normal in appearance. Cardiovascular: No signs of poor perfusion and no peripheral edema Pulmonary: Nonlabored breathing, symmetric chest movement. GI: Abdomen nondistended Integumentary: No lesions Neurologic: Alert, oriented x3. 5/5 strength grossly in the bilateral upper extremities. Sensation intact to light touch in the bilateral upper extremities. 5/5 strength grossly in the bilateral lower extremities. Sensation intact to light touch in the bilateral lower extremities. MSK/Special Testing: Negative Yonis sign bilaterally, seated straight leg raise test did not reproduce radicular symptoms bilaterally. Tenderness to palpation hypertonicity in lumbar paraspinal musculature. History, physical examination, and personal review of pertinent imaging results indicate a diagnosis of: -Myofascial pain -Lumbar neuritis Plan: -We reviewed etiologies of his pain as well as his lumbar MRI and discussed that he has a disc bulge at L4/5. Based on his symptoms as well as pain at this time we discussed other nonnarcotic means that may be beneficial in reducing pain levels such as ketamine infusions which she has not attempted yet, we provided referral for evaluation for this treatment and can see him on an as-needed basis Patient was counseled on the above diagnosis and treatment, all questions were answered and patient agrees to adhere to the plan above. Risk and benefits of appropriate procedures and medications were reviewed as well with patient, who voiced understanding and agreeance. Patient was counseled on appropriate use of opioids if prescribed or renewed today and naloxone was offered to patient if opioids were prescribed or maintained at this visit. PHQ-2 scoring reviewed with patient and discussed seeking treatment for depression or mood disorder as appropriate. Patient was counseled on smoking cessation and/or continuing to abstain from nicotine/tobacco products as appropriate based on history; as smoking/nicotine can contribute to increased pain overall and decreased wound healing. Patient counseled on maintaining a healthy BMI as part of the total treatment of their pain and to reduce stress/strain on joints. Patient invited to return or call with any questions or concerns that arise. [facility] Comment on above: Result Comment: Stephane tronically Signed By: Bruce Card DO.br\Date and Time Signed: 06/11/24 20:49 EST 05-10-2024 History of Presen t illness Narrative Associated Problem(s): DDD (degenerative disc disease), lumbar Pt reports he followed with PM and was unable to have oxycodone filled any longer due to failing drug screen for THC. Pt states he was unaware the could not smoke marijuana under PM agreement. Patient also tested positive for Lyrica, although he is not prescribed lyrica. He states this is his mother in laws prescription he had taken due to being in so much pain. Was scheduled for injections yesterday with PM, did not attend visit. States he was in too much pain to go to appointment. Reports he does not want injections and would like to see a different PM provider. I refilled Gabapentin for one month and advised pt I will no longer fill after this month. Pt asks for referral to new PM office and states he will stop smoking Marijuana if that is what they require of him. Referral sent to PM. Images from the original note were not included. Subjective Patient ID: Arsh Cochran is a 38 y.o. male who presents for Follow-up. HPI Pt reports he followed with PM and was unable to have oxycodone filled any longer due to failing drug screen for THC. Pt states he was unaware the could not smoke marijuana under PM agreement. Patient also tested positive for Lyrica, although he is not prescribed lyrica. He states this is his mother in laws prescription he had taken due to being in so much pain. Was scheduled for injections yesterday with PM, did not attend visit. States he was in too much pain to go to appointment. Reports he does not want injections and would like to see a different PM provider. I refilled Gabapentin for one month and advised pt I will no longer fill after this month. Pt asks for referral to new PM office and states he will stop smoking Marijuana if that is what they require of him. Referral sent to PM. Review of Systems Constitutional: Negative for activity change, appetite change, chills, diaphoresis, fatigue, fever and unexpected weight change. HENT: Negative for congestion, ear pain, rhinorrhea, sinus pressure, sinus pain, sneezing, sore throat, trouble swallowing and voice change. Eyes: Negative for visual disturbance. Respiratory: Negative for cough, chest tightness, shortness of breath and wheezing. Cardiovascular: Negative for chest pain, palpitations and leg swelling. Gastrointestinal: Negative for abdominal distention, abdominal pain, blood in stool, constipation, diarrhea and vomiting. Genitourinary: Negative for decreased urine volume, dysuria, flank pain, frequency, hematuria and urgency. Musculoskeletal: Negative for arthralgias, gait problem, joint swelling and myalgias. Skin: Negative for rash. Neurological: Negative for dizziness, tremors, syncope, weakness, light-headedness and headaches. Psychiatric/Behavioral: Negative for decreased concentration and suicidal ideas. The patient is not nervous/anxious. Hematological: Does not bruise/bleed easily. Endocrine: Negative for cold intolerance, heat intolerance, polydipsia, polyphagia and polyuria. Objective Physical Exam Vitals reviewed. Constitutional: Appearance: Normal appearance. HENT: Head: Normocephalic and atraumatic. Right Ear: Tympanic membrane normal. Left Ear: Tympanic membrane normal. Nose: Nose normal. Mouth/Throat: Mouth: Mucous membranes are moist. Pharynx: Oropharynx is clear. Eyes: Pupils: Pupils are equal, round, and reactive to light. Cardiovascular: Rate and Rhythm: Normal rate and regular rhythm. Pulses: Normal pulses. Heart sounds: Normal heart sounds. Pulmonary: Effort: Pulmonary effort is normal. Breath sounds: Normal breath sounds. Abdominal: General: Abdomen is flat. Bowel sounds are normal. Palpations: Abdomen is soft. Musculoskeletal: General: Normal range of motion. Cervical back: Normal range of motion. Skin: General: Skin is warm and dry. Capillary Refill: Capillary refill takes less than 2 seconds. Neurological: General: No focal deficit present. Mental Status: He is alert and oriented to person, place, and time. Psychiatric: Mood and Affect: Mood normal. Behavior: Behavior normal. Assessment/Plan Problem List Items Addressed This Visit DDD (degenerative disc disease), lumbar - Primary Pt reports he followed with PM and was unable to have oxycodone filled any longer due to failing drug screen for THC. Pt states he was unaware the could not smoke marijuana under PM agreement. Patient also tested positive for Lyrica, although he is not prescribed lyrica. He states this is his mother in laws prescription he had taken due to being in so much pain. Was scheduled for injections yesterday with PM, did not attend visit. States he was in too much pain to go to appointment. Reports he does not want injections and would like to see a different PM provider. I refilled Gabapentin for one month and advised pt I will no longer fill after this month. Pt asks for referral to new PM office and states he will stop smoking Marijuana if that is what they require of him. Referral sent to PM. Chronic bilateral low back pain with bilateral sciatica Relevant Medications gabapentin (Neurontin) 800 MG tablet Other Relevant Orders Ambulatory referral to Pain Medicine documented in this encounter [facility] 03-29-2024 Telephone encounter Note 14 day supply until Pain management calls and gets him in. Thanks [facility] 03-29-2024 Miscellaneous Notes 14 day supply until Pain management calls and gets him in. Thanks documented in this encounter [facility] 02-09-2024 History of Presen t illness Narrative Associated Problem(s): Gastroesophageal reflux disease without esophagitis Currently taking Omeprazole. Feels symptoms are well controlled. Continue current regimen. Associated Problem(s): Nicotine dependence, cigarettes, uncomplicated Pt counseled on smoking cessation and the hazardous risks associated with tobacco use. Pt declines cessation at this time. Associated Problem(s): Mild intermittent asthma without complication (CMS/HCC) Feels symptoms are well controlled. Is using rescue inhaler 1-2 times per week at most. Continue current regimen. Associated Problem(s): Lumbar radiculopathy Seeing Dr. Frederick Neurosurgery. Will be doing PT May be having surgery. Will check with Neuro regarding Gabapentin and Roxicodone management moving forward. {Previous note from Dr. Lobo states NS referred pt to PM- but pot states he has never seen PM. Will call NS to clarify.) Images from the original note were not included. Subjective Patient ID: Arsh Cochran is a 38 y.o. male who presents for Med Refill. HPI Needs new order for physical therapy Seeing Dr. Frederick Neurosurgery. Will be doing PT May be having surgery. Will check with Neuro regarding Gabapentin and Roxicodone management moving forward. {Previous note from Dr. Lobo states NS referred pt to PM- but pot states he has never seen PM. Will call NS to clarify.) Asthma: Feels symptoms are well controlled. Is using rescue inhaler 1-2 times per week at most. Continue current regimen. Review of Systems Constitutional: Negative for activity change, appetite change, chills, diaphoresis, fatigue, fever and unexpected weight change. HENT: Negative for congestion, ear pain, rhinorrhea, sinus pressure, sinus pain, sneezing, sore throat, trouble swallowing and voice change. Eyes: Negative for visual disturbance. Respiratory: Negative for cough, chest tightness, shortness of breath and wheezing. Cardiovascular: Negative for chest pain, palpitations and leg swelling. Gastrointestinal: Negative for abdominal distention, abdominal pain, blood in stool, constipation, diarrhea and vomiting. Genitourinary: Negative for decreased urine volume, dysuria, flank pain, frequency, hematuria and urgency. Musculoskeletal: Positive for back pain. Negative for arthralgias, gait problem, joint swelling and myalgias. Skin: Negative for rash. Neurological: Positive for numbness. Negative for dizziness, tremors, syncope, weakness, light-headedness and headaches. Numbness/tingling BLE- Chronic Psychiatric/Behavioral: Negative for decreased concentration and suicidal ideas. The patient is not nervous/anxious. Hematological: Does not bruise/bleed easily. Endocrine: Negative for cold intolerance, heat intolerance, polydipsia, polyphagia and polyuria. Objective Physical Exam Vitals reviewed. Constitutional: Appearance: Normal appearance. HENT: Head: Normocephalic and atraumatic. Right Ear: Tympanic membrane normal. Left Ear: Tympanic membrane normal. Nose: Nose normal. Mouth/Throat: Mouth: Mucous membranes are moist. Pharynx: Oropharynx is clear. Eyes: Pupils: Pupils are equal, round, and reactive to light. Cardiovascular: Rate and Rhythm: Normal rate and regular rhythm. Pulses: Normal pulses. Heart sounds: Normal heart sounds. Pulmonary: Effort: Pulmonary effort is normal. Breath sounds: Normal breath sounds. Abdominal: General: Abdomen is flat. Bowel sounds are normal. Palpations: Abdomen is soft. Musculoskeletal: General: Normal range of motion. Cervical back: Normal range of motion. Skin: General: Skin is warm and dry. Capillary Refill: Capillary refill takes less than 2 seconds. Neurological: General: No focal deficit present. Mental Status: He is alert and oriented to person, place, and time. Psychiatric: Mood and Affect: Mood normal. Behavior: Behavior normal. Assessment/Plan Problem List Items Addressed This Visit Mild intermittent asthma without complication (CMS/HCC) - Primary Feels symptoms are well controlled. Is using rescue inhaler 1-2 times per week at most. Continue current regimen. Lumbosacral spondylosis without myelopathy Relevant Orders Ambulatory referral to Physical Therapy Nicotine dependence, cigarettes, uncomplicated Pt counseled on smoking cessation and the hazardous risks associated with tobacco use. Pt declines cessation at this time. Paresthesia and pain of both upper extremities Relevant Orders Ambulatory referral to Physical Therapy Gastroesophageal reflux disease without esophagitis Currently taking Omeprazole. Feels symptoms are well controlled. Continue current regimen. Lumbar radiculopathy Seeing Dr. Frederick Neurosurgery. Will be doing PT May be having surgery. Will check with Neuro regarding Gabapentin and Roxicodone management moving forward. {Previous note from Dr. Lobo states NS referred pt to PM- but pot states he has never seen PM. Will call NS to clarify.) Relevant Orders Ambulatory referral to Physical Therapy Sacroiliitis (CMS/HCC) Relevant Orders Ambulatory referral to Physical Therapy Encounter for wellness examination Relevant Orders TSH W/REFLEX TO FT4 Lipid panel Hemoglobin A1c Comprehensive metabolic panel CBC and differential documented in this encounter [facility] 02-09-2024 Instructions Olu Nation NP - 02/09/2024 1:30 PM EDT FASTING labs ordered. Nothing to eat or drink for 12 hours prior to blood draw. Water and black coffee ok. Diet: Eat three meals per day. Breakfast, lunch, and dinner. Avoid snacking. Avoid eating after 5/6 pm. Daily protein GOAL 35% of your intake; 30g per meal. Daily calorie GOAL 1,800-2,000 per day. Consider tracking your food intake on [employer] LifeinessPal or LoseIt Water: Increase water intake; GOAL 64-80oz of water per day. Exercise: Increase activity. GOAL 30 minutes, 5 days per week. START SLOW. Start with 5 minutes, 5 days per week. Then increase to 10 days, 5 days per week. Continue to increase until you reach the goal. Increase steps; GOAL 10,000 steps per day. Be sure to get adequate sleep; GOAL 6-8 hours of sleep per night. documented in this encounter [facility] 01-31-2023 Evaluation + Plan note Extrac klaudia from: Title:ED Note Author:Gabriele BARNARD, Michele Camargo te:01/31/23 Shoulder strain (S46.919A: S train of unspecified muscle, fascia and tendon at shoulder and upper arm level, unspecified arm, initial encounter) Orders: acetaminophen-hydrocodone, 1 tab(s), Tab, Oral, Once, Stop date 01/31/23 9:38:00 EDT, STAT, Start date 01/31/23 9:38:00 EDT methocarbamol, 1,500 mg = 2 tab(s), Oral, TID, X 3 day(s), # 18 tab(s), Refills(s) 0, Pharmacy: [facility]/pharmacy #[id number], 167.7, cm, 01/31/23 8:55:00 EDT, Height/Length Dosing, 91, kg, 01/31/23 8:55:00 EDT, Weight Dosing Sling Apply XR Shoulder Complete Right [facility]08-27-2023 Hospital Discharge instructions Patient Education 01/31/2023 [...] minutes, 2 3 times a day. Take ivyh-zrc-ixegcax and prescription medicines only as told by [...] provider. Document Revised: 02/11/2022 Document Reviewed: 02/11/2022 [email or web address] Patient Education 2022 [employer]. Follow Up Care 01/31/2023 08:43:06 With:SHAIKH LASHELL Address: [address] [place] [address] [phone] Business (1) When:02/03/2023 09:39:16 [facility]02-24-2022 Hospital Discharge instructions* Instructions* Denny Morrell MD - 07/31/2021 Please use ice as needed for pain and 400 mg of ibuprofen +100 mg of Tylenol every 4-6 hours as needed for pain * Attachments The following attachments cannot be sent through Care Everywhere. * Muscle Strain ([place]gu[place]) [facility]* Diagnosis Pain, dental- Primary Unspecified disorder of the teeth and supporting structures Dental caries Unspecified dental caries documented in this encounter [facility] Phone: evaluation note* Diagnosis Low back pain with sciatica, sciatica laterality unspecified, unspecified back pain laterality, unspecified chronicity- Primary [facility] Suspected COVID-19 virus infection- Primary documented in this encounter [facility] Phone: evalianopc note* Diagnosis Cough- Primary Acute nonintractable headache, unspecified headache type documented in this encounter [facility] Phone: evaluation note* Diagnosis Muscle strain- Primary Unspecified site of sprain and strain documented in this encounter [facility] Phone: evalfsozki note* Diagnosis Rhomboid muscle strain, initial encounter- Primary documented in this encounter [facility] Phone: evaluation note* Diagnosis Onset Date Resolution Status Lumbar spondylosis acute Pain of both sacroiliac joints acute [facility] Work Phone: Evaluation note* Diagnosis Onset Date Resolution Status Lumbar spondylosis acute Pain of both sacroiliac joints acute Chronic pain acute Lumbar radiculopathy acute Lumbosacral spondylosis acut e Sacroiliitis acute [facility] Work Phone: Evaluation note* Diagnosis Lumbar radiculopathy- Primary Thoracic or lumbosacral neuritis or radiculitis, unspecified Sacroiliitis (CMS/HCC) Sacroiliitis, not elsewhere classified Paresthesia and pain of both upper extremities documented in this encounter [facility]* Diagnosis Lumbar radiculopathy- Primary Thoracic or lumbosacral neuritis or radiculitis, unspecified Sacroiliitis (CMS/HCC) Sacroiliitis, not elsewhere classified Paresthesia and pain of both upper extremities documented in this encounter [facility] Healthcare[facility]* Diagnosis Smoker- Primary Tobacco use [...] spondylosis without myelopathy documented in this encounter [facility]* Diagnosis Smoker- Primary Tobacco use [...] Thoracolumbar back pain documented in this encounter [facility] Healthcare[facility]* Diagnosis Smoker- Primary Tobacco use [...] or radiculitis, unspecified Encounter for wellness examination Degeneration of inte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 and lower extremity pain- Primary Chronic bilateral low back pain with bilateral sciatica documented in this encounter [facility] note* Diagnosis Chronic bilateral low back pain with bilateral sciatica Thoracolumbar back pain documented in this encounter [facility] Healthcare[facility] note* Diagnosis Mild intermittent asthma without complication (CMS/HCC)- Primary Gastroesophageal reflux disease without esophagitis Esophageal reflux Nicotine dependence, cigarettes, uncomplicated Lumbosacral spondylosis without myelopathy Paresthesia and pain of both upper extremities Sacroiliitis (CMS/HCC) Sacroiliitis, not elsewhere classified Lumbar radiculopathy Thoracic or lumbosacral neuritis or radiculitis, unspecified Encounter for wellness examination documented in this encounter [facility] Healthcare[facility] note* Diagnosis Chronic bilateral low back pain with bilateral sciatica Thoracolumbar back pain documented in this encounter [facility] Healthcare[facility] note* Diagnosis Smoker- Primary Tobacco use [...] or radiculitis, unspecified Encounter for wellness examination Degeneration of inte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 and lower extremity pain- Primary Chronic bilateral low back pain with bilateral sciatica Gastro-esophageal reflux disease without esophagitis Esophageal reflux [facility] N[facility] No data available for this section [facility]* Attachments The following attachments cannot be sent through Care Everywhere. * Tooth and Gum Pain (Anguillan) * Tooth Decay (Anguillan) documented in this [facility] Work Phone: Hospital Discharge instructions* Attachments The following attachments cannot be sent through Care Everywhere. * Coronavirus Disease (COVID-19): Isolation ([place]guillan) documented in this [facility] Phone: Hospital Discharge instructions* Instructions* Krystin Valenzuela DO - 06/30/2021 Continue to take Tylenol, and Motrin for pain control, use Tessalon Perles to help with your cough.Follow-up the results of your Covid testing. Please get rest, and increase your fluid hydration return to ER for worsening symptoms. documented in this [facility] Phone: Hospital Discharge instructions* Attachments The following attachments cannot be sent through Care Everywhere. * Muscle Strain (Anguillan) [facility] Discharge instructionsAmbulatory Orders* Referral to Pain Management Location: None [facility] Work Phone: Hospital Discharge instructions No data available for this section [facility] Progress note No data available for this section [facility] (narrative)* Consultation (Routine) - Authorized Specialty Diagnoses / Procedures Referred By Contac t Referred To Contact Neurosurgery Diagnoses Low back pain with sciatica, sciatica laterality unspecified, unspecified back pain laterality, unspecified chronicity ReferringSidney MD [address] [place] [address] Jess Farley MD [address] [facility] [address] [place] [id number] Referral ID Status Reason Start Date Expiration Date V isits Requested Visits Authorized [id number] Authorized 04/09/2021 04/09/2022 1 1 [facility] Discharge Instructions * Attachments The following attachments cannot be sent through Care Everywhere. * Influenza (Anguillan) documented in this encounter* Attachments The following attachments cannot be sent through Care Everywhere. * Influenza ([place]guillan) documented in this encounter* Attachments The following attachments cannot be sent through Care Everywhere. 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 Advance Directives and Living Will Power of Bag Sewer Latest Code Status on File Code Status Date Activated Date Inactivated Comments Full Code 12/24/2014 2:22 AM 12/24/2014 11:00 PM Documents on File Type Date Recorded Patient Senior Sales Manager Expl anation ACP-Advance Directive ACP-Power of Bag Sewer Documents on File Type Date Recorded Patient Senior 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 Manager Expl anation Advance Directives and Livin g Will 03/12/2020 12:00 AM Advance Directive Response Recorded Date/ Time Advance Directives No September 04, 2 018 3:06pm Summary Purpose Family History No Family History Records FoundNo Family History Records FoundNo Family History Records FoundNo Family History Records FoundNo Family History Records FoundNo Family History Records FoundNo Family History Records Found No data available for this section No Family History Records Found Reason for Referral Status Reason Specialty Diagnoses / Procedures Referre d By Contact Referred To Contact Open Radiology Diagnoses Lumbar pain Congenital abnormality Procedures MRI LUMBAR SPINE WO CONTRAST Jolie Gruber, HORIZONTAL BORING MILL SET UP OPERATOR - RESEARCH GEOLOGIST [address] [place] [address] Specialty Diagnoses / Procedures Referred By Contac t Referred To Contact Physical Therapy Diagnoses Lumbosacral spondylosis without myelopathy Paresthesia and pain of both upper extremities Sacroiliitis (CMS/HCC) Lumbar radiculopathy Procedures CT OFFICE[facility]OUTPATIENT [facility] 60 MINUTES Olu Nation, LETY [address] [place] [address] Sarah Nielsen PT Referral ID Status Reason Start Date Expiration Date Visits Requested Visits Authorized [id number] Authorized Specialty Services Required 02/09/2024 08/07/2024 30 30 Chief Complaint and Reason for Visit Chief Complaint Ref burak Palafox lumbago with sciatica Reason for Visit Lumbar spondylosis Pain of both sacroiliac joints Chief Complaint Ref burak Palafox lumameenago with sciatica REFF BY DR. RAKESH FREDERICK Reason for Visit Lumbar spondylosis Pain of both sacroiliac joints Chronic pain Lumbar radiculopathy Lumbosacral spondylosis Sacroiliitis Additional Source Comments Reason for Visit (unrecogniz ed section and content) Reason Comments Generalized Body Aches ongoing for appro x 2 days Cough ongoing for 2 days Emesis ongoing for 2 days Reason Comments Shortness of Breath was in ER on wednesday and diagnosed with influenza A. 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 Reason Specialty Diagnoses / Procedures Referred By Contact Referred To Contact Pending Review Radiology Diagnoses Lumbosacral pain Lumbago with sciatica, left side Procedures HC MRI-SPINE LUMBAR WO CONTRAST Jolie Gruber, HORIZONTAL BORING MILL SET UP OPERATOR - RESEARCH GEOLOGIST [address] [place] [address] [facility] [address] [place] [address] Reason Comments Dental Pain left sided tooth [...] done Specialty Diagnoses / Procedures Referred By Contac t Referred To Contact Physical Therapy Diagnoses Lumbosacral spondylosis without myelopathy Paresthesia and pain of both upper extremities Sacroiliitis (CMS/HCC) Lumbar radiculopathy Procedures CT OFFICE/OUTPATIENT [facility] 60 MINUTES Olu Nation, LETY [address] [place] [address] Sarah Nielsen PT Referral ID Status Reason Start Date Expiration Date Visits Requested Visits Authorized [id number] Authorized Specialty Services Required 02/09/2024 08/07/2024 30 30 Reason Onset Date Comments Med Refill 03/27/2024 Reason Comments Follow-up Reason Comments Med Refill Reason Onset Date Comments Med Refill 02/23/2024 Reason Comments Med Refill (unrecognized sect ion and content) No Status Records FoundNo Status Records FoundNo Status Records FoundNo Status Records FoundNo Status Records FoundNo Status Records FoundNo Status Records FoundNo Status Records Found INFORMATION SOURCE (unrecogn ized section and content) DATE CREATED AUTHOR 04/05/2020 [facility]atory DATE CREATED AUTHOR AUTHOR'S ORGANIZ ATION 08/01/2021 [facility] DATE CREATED AUTHOR AUTHOR'S ORGANIZ ATION 08/16/2021 [facility] DATE CREATED AUTHOR AUTHOR'S ORGANIZ ATION 11/12/[address] [facility] DATE CREATED AUTHOR AUTHOR'S ORGANIZ ATION 03/06/2022 [facility] DATE CREATED AUTHOR AUTHOR'S ORGANIZ ATION 03/19/2024 [facility] dical [facility] DATE CREATED AUTHOR AUTHOR'S ORGANIZ ATION 04/14/2024 [facility] DATE CREATED AUTHOR AUTHOR'S ORGANIZ ATION 06/15/2024 [facility] Ordered Prescriptions (unrec ognized section and content) [...] Care Teams (unrecognized sec tion and content) Batchmaker Relationship Specialty Start Date End Date Jolie Gruber, RESEARCH GEOLOGIST [address] [place] [address] PCP - General Family Medicine 03/12/20 Batchmaker Relationship Specialty Start Date End Date Sofie Echols MD [address] [place] [address] PCP - General Family Medicine 09/17/20 Batchmaker Relationship Specialty Start Date End Date Sofie Echols MD [address] [facility] [place] [id number] PCP - General Family Medicine 09/17/20 Batchmaker Relationship Specialty Start Date End Date Sofie Echols MD [address] [facility] [address] PCP - General Family Medicine 09/17/20 Team [...] October 15, 2023 End: October 15, 2023 Batchmaker Relationship Specialty Start Date End Date Doug Anthony MD [address] [place] [phone] PCP - General Family Medicine 01/26/24 Olu Nation NP [address] [place] [address] Nurse Practitioner Family Medicine 01/26/24 Batchmaker Relationship Specialty Start Date End Date Doug Anthony MD [address] [place] [phone] PCP - General Family Medicine 01/26/24 Olu Nation NP [address] [place] [address] Nurse Practitioner Family Medicine 01/26/24 Batchmaker Relationship Specialty Start Date End Date Doug Anthony MD [address] [place] [phone] PCP - General Family Medicine 01/26/24 Olu Nation NP [address] [place] [phone] Nurse Practitioner Family Medicine 01/26/24 Batchmaker Relationship Specialty Start Date End Date Doug Anthony MD [address] [place] [phone] PCP - General Family Medicine 01/26/24 Olu Nation NP [address] [place] [phone] Nurse Practitioner Family Medicine 01/26/24 Batchmaker Relationship Specialty Start Date End Date Doug Anthony MD [address] [place] [phone] PCP - General Family Medicine 01/26/24 Olu Nation NP [address] [place] [address] Nurse Practitioner Family Medicine 01/26/24 Batchmaker Relationship Specialty Start Date End Date Doug Anthony MD [address] [place] [phone] PCP - General Family Medicine 01/26/24 Olu Nation NP [address] [place] [address] Nurse Practitioner Family Medicine 01/26/24 Batchmaker Relationship Specialty Start Date End Date Doug Anthony MD [address] [place] [phone] PCP - General Family Medicine 01/26/24 Olu Nation NP [address] [place] [address] Nurse Practitioner Family Medicine 01/26/24 Batchmaker Relationship Specialty Start Date End Date Doug Anthony MD [address] [place] [phone] PCP - General Family Medicine 01/26/24 Olu Nation NP [address] [place] [address] Nurse Practitioner Family Medicine 01/26/24 Batchmaker Relationship Specialty Start Date End Date Shaikh Lobo MD [address] [place] [phone] PCP - General Internal Medicine 08/05/23 Batchmaker Relationship Specialty Start Date End Date Doug Anthony MD [address] [place] [phone] PCP - General Family Medicine 01/26/24 Olu Nation NP [address] [place] [phone] Nurse Practitioner Family Medicine 01/26/24 Batchmaker Relationship Specialty Start Date End Date Doug Anthony MD [address] [place] [phone] PCP - General Family Medicine 01/26/24 Olu Nation NP [address] [place] [phone] Nurse Practitioner Family Medicine 01/26/24 Batchmaker Relationship Specialty Start Date End Date oDug Anthony MD [address] [place] [phone] PCP - General Family Medicine 01/26/24 Olu Nation NP [address] [place] [phone] Nurse Practitioner Family Medicine 01/26/24 Batchmaker Relationship Specialty Start Date End Date Doug Anthony MD [address] [place] [phone] PCP - General Family Medicine 01/26/24 Olu Nation NP [address] [place] [phone] Nurse Practitioner Family Medicine 01/26/24 Scheduled Active and Recently Administ ered Medications (unrecognized section and content) Medication Order 06/28/2021 06/29/2021 06/30/2021 acetaminophen (TYLENOL) tablet 1,000 mg (COMPLETED) 1,000 mg, Oral, ONCE, On Wed06/30/21 at 0430, For 1 dose 433 (Given - Provid er: Yumi Min RN) benzonatate (TESSALON) capsule 100 mg (COMPLETED) 100 mg, Oral, ONCE, On Wed06/30/21 at 0430, For 1 dose 043 (Given - Provid er: Yumi Min RN) ibuprofen (ADVIL;MOTRIN) tablet 800 mg (COMPLETED) 800 mg, Oral, ONCE, On Wed06/30/21 at 0430, For 1 dose, Do not crush or break. 433 (Given - Provid er: Yumi Min RN) [...] BE BASED ON THE PRIMARY CLINICAL RECORDS. [employer] provides no warranty or guarantee of the accuracy or completeness of information in this document.
--- NOTE | 2024-08-04 12:31 | ECG_ITS ---
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
--- NOTE | 2024-08-04 12:31 | ED.GENADUL1 ---
HPI HPI - General Adult General Chief complaint: Overdose Stated complaint: UNRESPONSIVE Time Seen by Provider: 08/04/24 12:24 Source: patient Limitations: no limitations History of Present Illness HPI narrative: Patient has 2 separate charts and encounters that need to be emergent, please see my documentation on other chart. Patient was initially entered as a Kaleb Butler. Related Data Home Medications ?Medication ?Instructions ?Recorded ?Confirmed clonidine HCl 0.1 mg tablet 0.1 mg PO .qhs 12/21/22 11/19/23 gabapentin 800 mg tablet 800 mg PO TID 12/21/22 11/19/23 omeprazole 40 mg capsule,delayed 40 mg PO QDAY 12/21/22 11/19/23 release oxycodone 5 mg tablet 5 mg PO Q8H PRN pain 11/19/23 11/19/23 Previous Rx's ?Medication ?Instructions ?Recorded albuterol sulfate 90 mcg/actuation 2 inh inhalation Q4H PRN shortness 11/19/23 aerosol inhaler of breath or wheezing #8.5 grams gabapentin 800 mg tablet 800 mg PO TID #90 tabs 05/03/24 Allergies Allergy/AdvReac Type Severity Reaction Status Date / Time No Known Drug Allergies Allergy Verified 08/04/24 14:37 Opioid HPI Opioid Management Most Recent Opioid Data: Last Pain Scale 10 05/29/23 18:57 05/29/23 [facility] Medical History (Updated 08/04/24 @ 20:30 by Anival Marinelli MD) Upper back pain ?M54.9 - Dorsalgia, unspecified (ICD-10) Low back pain ?M54.50 - Low back pain, unspecified (ICD-10) Neck pain ?M54.2 - Cervicalgia (ICD-10) Surgical History (System 08/04/24 @ 14:37 by Maria M Perales) S/P carpal tunnel release ?Z98.890 - Other specified postprocedural states (ICD-10) S/P knee surgery ?Z98.890 - Other specified postprocedural states (ICD-10) Social History (System 08/04/24 @ 14:37 by Maria M Perales) Smoking status: Current every day smoker Little interest or pleasure in doing things: not at all Feeling down, depressed, or hopeless: not at all Exam Constitutional Vital Signs, click to edit/add: Last Vital Signs Temp 98.2 F 08/04/24 12:23 Pulse 84 08/04/24 15:20 Resp 13 08/04/24 15:20 BP 120/76 08/04/24 15:16 Pulse Ox 96 08/04/24 15:20 Course Vital Signs Vital signs: Vital Signs Temperature 98.2 F 08/04/24 12:23 Pulse Rate 108 H 08/04/24 12:23 Respiratory Rate 12 08/04/24 12:23 Blood Pressure 144/82 H 08/04/24 12:23 Pulse Oximetry 99 08/04/24 12:23 Temperature 98.2 F 08/04/24 12:23 Pulse Rate 84 08/04/24 15:20 Respiratory Rate 13 08/04/24 15:20 Blood Pressure 120/76 08/04/24 15:16 Pulse Oximetry 96 08/04/24 15:20 Medical Decision Making MDM Narrative Medical decision making narrative: Patient has 2 different charts, patient was initially entered as a Kaleb Butler. Patient charts need to be merged, please see documentation and other chart Lab Data Labs: Lab Results 08/04/24 Range/Units 12:10 WBC 13.2 H (4.0-11.0) 10^3/uL RBC 4.99 (4.70-6.10) 10^6/uL Hgb 16.0 (14.0-18.0) g/dL Hct 46.5 (42.0-54.0) % MCV 93.2 (80.0-94.0) fL MCH 32.1 (25.9-34.0) pg MCHC 34.4 (29.9-35.2) g/dL RDW 13.1 (11.0-15.0) % Plt Count 226 (150-450) 10^3/uL MPV 11.9 (9.5-13.5) fL Neut % (Auto) 56.0 (43.0-75.0) % Lymph % (Auto) 37.1 (20.5-60.0) % [place] % (Auto) 6.3 (1.7-12.0) % Eos % (Auto) 0.2 L (0.9-7.0) % Baso % (Auto) 0.2 (0.2-2.0) % Neut # (Auto) 7.4 H (1.4-6.5) 10^3/uL Lymph # (Auto) 4.9 H (1.2-3.8) 10^3/uL [place] # (Auto) 0.8 (0.3-0.8) 10^3/uL Eos # (Auto) 0.0 (0.0-0.7) 10^3/uL Baso # (Auto) 0.0 (0.0-0.1) 10^3/uL Abs Immat Gran (auto) 0.03 (0.00-0.03) 10^3/uL Imm/Tot Granulo (auto) 0.2 (0.0-0.5) % PT 10.9 (9.0-11.6) sec INR 1.03 VBG pH 7.237 L (7.330-7.430) VBG pCO2 57.1 H (40.0-52.0) mmHg Sodium 140 (136-145) mmol/L Potassium 3.0 L (3.5-5.1) mmol/L Chloride 103 (98-107) mmol/L Carbon Dioxide 24.5 (21.0-32.0) mmol/L Anion Gap 15.5 BUN 6.0 L (7.0-18.0) mg/dL Creatinine 1.20 (0.70-1.30) mg/dL Est GFR ( Amer) >60 (>=60 mL/min/1.73m^2) Est GFR (Non-Af Amer) >60 (>=60 mL/min/1.73m^2) BUN/Creatinine Ratio 5.0 Glucose 223 H (74-106) mg/dL Lactate 1.8 (0.4-2.0) mmol/L Calcium 9.2 (8.5-10.1) mg/dL Total Bilirubin 0.4 (0.2-1.0) mg/dL AST 21 (15-37) U/L ALT 22 (16-63) U/L Alkaline Phosphatase 152 H (46-116) U/L Total Creatine Kinase 127 (39-308) U/L Troponin I High Sens <4.0 L (4.0-76.1) pg/mL Total Protein 8.5 H (6.4-8.2) g/dL Albumin 4.0 (3.4-5.0) g/dL Globulin 4.5 g/dL Albumin/Globulin Ratio 0.9 Salicylates 6.5 (<=19.9) mg/dL Acetaminophen <2.0 L (10.0-30.0) ug/mL Ethanol Quant <3 mg/dL ECG Data Attestation: I personally reviewed and interpreted this ECG as follows: (EKG #1. Artifact noted secondary to unresponsive episode. Sinus tachycardia at 111. Normal axis deviation. Artifact noted. No obvious signs of ST elevation, QTc of 395, nonspecific ST changes, this will be repeated.) Interpretation: EKG #2. Normal sinus rhythm 88 beats a minute. Normal axis deviation. No acute ST elevation, no acute ectopy. QTc of 425. Discharge Plan Discharge Chief Complaint: Overdose Clinical Impression: Opiate overdose, Acute respiratory acidosis, Hypokalemia Patient Disposition: Home, Self-Care Time of Disposition Decision: 15:35 Condition: Fair Prescriptions / Home Meds: No Action clonidine HCl 0.1 mg tablet 0.1 mg PO .qhs omeprazole 40 mg capsule,delayed release(DR/EC) 40 mg PO QDAY gabapentin 800 mg tablet 800 mg PO TID oxycodone 5 mg tablet 5 mg PO Q8H PRN (Reason: pain) albuterol sulfate 90 mcg/actuation HFA aerosol inhaler 2 inh inhalation Q4H PRN (Reason: shortness of breath or wheezing) Qty: 8.5 0RF gabapentin 800 mg tablet 800 mg PO TID Qty: 90 0RF Print Language: Omani Instructions: Hypokalemia (ED), Narcotic Safety (ED), Prescription Narcotic Overdose (ED), Opioid Use Disorder (ED) Additional Instructions: Follow-up with Suboxone clinic, pain management information has been given to you in addition as well. Increase Gatorade, Powerade. Follow-up with PCP You are given 2 doses of 4 mg of Narcan today. Referrals: OLU HADLEY [Primary Care Provider] - 1 week Discharge Date/Time: 08/04/24 15:51
--- NOTE | 2024-08-04 12:32 | PC.NURSE ---
pt was found in car unresponsive dropped off by friend and states i dont know what he took maybe alcohol or drugs pt had plalpable pulse throughout and narcan was given 4mg intranassally x2 pt became responsive when pt was wheeled into rm 6- 1210 pt placed on monitor and iv was placed pt co nausea upon waking up and zofran 4 mg was given 2 doses) pt is awake and sitting up and counting money - pt is angry and still stating that he didnt take anything prior to coming to er and then states well i smoke weed every day and then admits to Percocet to dr garcia upon waking up and sitting upright
[2024-08-04 12:33] LABS: Basophils Percent Auto 0.2 % (0.2-2.0); Eosinophils Percent Auto 0.2 % (0.9-7.0); Hematocrit 46.5 % (42.0-54.0); Immature Granulocytes Abs Auto 0.03 10^3/uL (0.00-0.03); Immature Granulocytes Pct Auto 0.2 % (0.0-0.5); Lymphocytes Absolute Auto 4.9 10^3/uL (1.2-3.8); Lymphocytes Percent Auto 37.1 % (20.5-60.0); Mean Corpuscular HGB Conc 34.4 g/dL (29.9-35.2); Mean Corpuscular Hemoglobin 32.1 pg (25.9-34.0); Mean Corpuscular Volume 93.2 fL (80.0-94.0); Mean Platelet Volume 11.9 fL (9.5-13.5); Monocytes Absolute Auto 0.8 10^3/uL (0.3-0.8); Monocytes Percent Auto 6.3 % (1.7-12.0); Neutrophils Absolute Auto 7.4 10^3/uL (1.4-6.5); PCO2 VBG 57.1 mmHg (40.0-52.0); Platelet Count 226 10^3/uL (150-450); Red Blood Count 4.99 10^6/uL (4.70-6.10); Red Cell Distribution Width 13.1 % (11.0-15.0); White Blood Count 13.2 10^3/uL (4.0-11.0); pH VBG 7.237 (7.330-7.430)
[2024-08-04 12:44] LABS: INR 1.03; Prothrombin Time 10.9 sec (9.0-11.6)
[2024-08-04] MEDS: ONDANSETRON PF 4 MG/2 ML VIAL IV ×2 (12:44→12:45)
[2024-08-04] MEDS: PROCHLORPERAZINE 10 MG/2 ML VIAL IV (12:45)
--- NOTE | 2024-08-04 12:46 | PC.NURSE ---
pt talking to shakira purcell on the phone
[2024-08-04 12:54] LABS: Creatine Kinase 127 U/L (39-308); Lactate/Lactic Acid 1.8 mmol/L (0.4-2.0); Salicylate 6.5 mg/dL (<=19.9); Troponin I High Sensitivity <4.0 pg/mL (4.0-76.1)
[2024-08-04 12:58] LABS: Acetaminophen <2.0 ug/mL (10.0-30.0); Ethanol <3 mg/dL
[2024-08-04 13:00] LABS: Alanine Aminotransferase 22 U/L (16-63); Albumin Globulin Ratio 0.9; Alkaline Phosphatase 152 U/L (46-116); Anion Gap 15.5; Aspartate Amino Transferase 21 U/L (15-37); Bilirubin Total 0.4 mg/dL (0.2-1.0); Calcium 9.2 mg/dL (8.5-10.1); Carbon Dioxide 24.5 mmol/L (21.0-32.0); Chloride 103 mmol/L (98-107); Estimated GFR (African America >60 (>=60 mL/min/1.73m^2); Estimated GFR (Non-African Ame >60 (>=60 mL/min/1.73m^2); Globulin 4.5 g/dL; Glucose 223 mg/dL (74-106); Sodium 140 mmol/L (136-145); Total Protein 8.5 g/dL (6.4-8.2)
--- NOTE | 2024-08-04 13:31 | PC.NURSE ---
pt counted money w nursing staff and security in room at $991 in dollars and pt refuses us to put money in safe and or hold money for patient- pt states i will keep the money in my pocket right here and places it himself in his pocket- later his friends come and pt talks with them and they leave shortly after interaction
[2024-08-04] MEDS: POTASSIUM BICARBONATE/CIT 25 MEQ TABLET EFF 50 MEQ PO (15:47)
== END 2024-08-04 15:51 | disposition home or self-care (01) ==
PROVIDERS: Emergency Provider Emergency Medicine
DX: T40.601A Poisoning by unspecified narcotics, accidental (unintentional), initial encounter (principal); R40.4 Transient alteration of awareness; F17.200 Nicotine dependence, unspecified, uncomplicated; E87.6 Hypokalemia; E87.29 Other acidosis
CPT/HCPCS: 36415; 71045; 80053; 80179; 80307; 80320; 80329; 81001; 82550; 82800; 83605; 84484; 85025; 85610; 93005; 96374; 96375; 99285; J0780; J2405

== ENCOUNTER 2024-09-26 15:53 | Emergency (ER) | payer MEDICAID, SELFPAY ==
[2024-09-26 15:55] VITALS: BP 141/83; PULSE 86; TEMP 36.5; O2SAT 97; BMI 30.7
--- NOTE | 2024-09-26 16:02 | ED.WOUNDLAC1 ---
HPI - Wound/Laceration General Chief Complaint: Wound/Laceration Stated Complaint: L ANKLE SWELLING Time Seen by Provider: 09/26/24 15:59 Source: patient Mode of arrival: walk-in Limitations: no limitations History of Present Illness HPI narrative: 39 year old male presents to the ED for evaluation of a wound on his right anterior ankle. He noticed it a few days ago. States it was a raised, fluid-filled wound. Reports picking at the area; there was a moderate amount of drainage from the wound. Denies fever, chills, known injury. Denies hx DM. Related Data Home Medications ?Medication ?Instructions ?Recorded ?Confirmed clonidine HCl 0.1 mg tablet 0.1 mg PO .qhs 12/21/22 11/19/23 gabapentin 800 mg tablet 800 mg PO TID 12/21/22 11/19/23 omeprazole 40 mg capsule,delayed 40 mg PO QDAY 12/21/22 11/19/23 release oxycodone 5 mg tablet 5 mg PO Q8H PRN pain 11/19/23 11/19/23 Previous Rx's ?Medication ?Instructions ?Recorded albuterol sulfate 90 mcg/actuation 2 inh inhalation Q4H PRN shortness 11/19/23 aerosol inhaler of breath or wheezing #8.5 grams gabapentin 800 mg tablet 800 mg PO TID #90 tabs 05/03/24 cephalexin 500 mg capsule 500 mg PO Q6H 10 days #40 caps 09/26/24 sulfamethoxazole 800 1 tab PO BID 10 days #20 tabs 09/26/24 mg-trimethoprim 160 mg tablet (Bactrim DS) Allergies Allergy/AdvReac Type Severity Reaction Status Date / Time No Known Drug Allergies Allergy Verified 09/26/24 15:58 Review of Systems ROS Constitutional Denies: fever or chills Cardiovascular Denies: chest pain Respiratory Denies: shortness of breath Integumentary/Breast Reports: redness, skin pain, sores and new lesion; Denies: rash Neurological Denies: numbness in extremities or weakness in extremities [facility] Medical History (Updated 09/26/24 @ 16:11 by Mona Womack) Upper back pain ?M54.9 - Dorsalgia, unspecified (ICD-10) Low back pain ?M54.50 - Low back pain, unspecified (ICD-10) Neck pain ?M54.2 - Cervicalgia (ICD-10) Surgical History (System 08/04/24 @ 14:37 by Maria M Perales) S/P carpal tunnel release ?Z98.890 - Other specified postprocedural states (ICD-10) S/P knee surgery ?Z98.890 - Other specified postprocedural states (ICD-10) Social History (System 08/04/24 @ 14:37 by Maria M Perales) Smoking status: Current every day smoker Little interest or pleasure in doing things: not at all Feeling down, depressed, or hopeless: not at all Exam Constitutional Vital Signs, click to edit/add: Last Vital Signs Temp 97.7 F 09/26/24 15:55 Pulse 86 09/26/24 15:55 Resp 16 09/26/24 15:55 BP 141/83 09/26/24 15:55 Pulse Ox 97 09/26/24 15:55 Common normals: no apparent distress and oriented x3 General appearance: cooperative Eye Common normals: conjunctivae normal and no scleral icterus Neck & C-Spine Common normals: supple Chest Chest: symmetrical chest wall rise Cardio Common normals: regular rate Peripheral pulses: posterior tibial pulses present and dorsalis pedis pulses present Extremity Other: Scabbed wound to right anterior ankle area. Area is approx 1 cm in diameter. There is minimal surrounding erythema, minimal swelling. No drainage at this time. Area tender. I and D not indicated. Distal sensation intact. Neuro Common normals: oriented x3 and moves all extremities Sensorium/orientation: awake and alert Speech: speech normal Gait (neuro): normal gait Course Vital Signs Vital signs: Vital Signs Temperature 97.7 F 09/26/24 15:55 Pulse Rate 86 09/26/24 15:55 Respiratory Rate 16 09/26/24 15:55 Blood Pressure 141/83 09/26/24 15:55 Pulse Oximetry 97 09/26/24 15:55 Temperature 97.7 F 09/26/24 15:55 Pulse Rate 86 09/26/24 15:55 Respiratory Rate 16 09/26/24 15:55 Blood Pressure 141/83 09/26/24 15:55 Pulse Oximetry 97 09/26/24 15:55 MDM - Wound/Laceration MDM Narrative Medical decision making narrative: Examination findings were discussed with the patient. Prescriptions were provided for Keflex and Bactrim. Follow up with pcp for a recheck, further evaluation and treatment. Medical Records Attestation: I reviewed the patient's medical records. Discharge Plan Discharge Chief Complaint: Wound/Laceration Clinical Impression: Ankle wound, Abscess Patient Disposition: Home, Self-Care Condition: Good Mode of Transportation: Private Vehicle Prescriptions / Home Meds: New cephalexin 500 mg capsule 500 mg PO Q6H 10 Days Qty: 40 0RF sulfamethoxazole-trimethoprim [Bactrim DS] 800-160 mg tablet 1 tab PO BID 10 Days Qty: 20 0RF No Action clonidine HCl 0.1 mg tablet 0.1 mg PO .qhs omeprazole 40 mg capsule,delayed release(DR/EC) 40 mg PO QDAY gabapentin 800 mg tablet 800 mg PO TID oxycodone 5 mg tablet 5 mg PO Q8H PRN (Reason: pain) albuterol sulfate 90 mcg/actuation HFA aerosol inhaler 2 inh inhalation Q4H PRN (Reason: shortness of breath or wheezing) Qty: 8.5 0RF gabapentin 800 mg tablet 800 mg PO TID Qty: 90 0RF Print Language: Nepalese Instructions: Abscess (ED), Acute Wounds (ED) Additional Instructions: Return to the ER for worsening symptoms. Referrals: OLU HADLEY [Primary Care Provider] - 1 week
== END 2024-09-26 16:25 | disposition home or self-care (01) ==
PROVIDERS: Emergency Provider Emergency Medicine
DX: L02.415 Cutaneous abscess of right lower limb (principal); S90.911A Unspecified superficial injury of right ankle, initial encounter; X58.XXXA Exposure to other specified factors, initial encounter
CPT/HCPCS: 99283

== ENCOUNTER 2024-12-28 11:55 | Emergency (ER) | payer MEDICAID, SELFPAY ==
[2024-12-28 12:00] VITALS: BP 127/79; PULSE 81; TEMP 36.9; O2SAT 99; BMI 32.3
[2024-12-28] MEDS: KETOROLAC TROMETHAMINE 30 MG/ML VIAL IM (13:05)
[2024-12-28] MEDS: DEXAMETHASONE SOD PHOS 10 MG/ML VIAL IM (13:05)
[2024-12-28] MEDS: ORPHENADRINE 60 MG/2 ML VIAL IM (13:06)
--- NOTE | 2024-12-28 17:03 | ED.GENADUL1 ---
HPI HPI - General Adult General Chief complaint: Back Pain/Injury Stated complaint: BACK PAIN Time Seen by Provider: 12/28/24 12:15 Source: patient Mode of arrival: walk-in Limitations: no limitations History of Present Illness HPI narrative: This 39-year-old male presents to the ED complaining of severe low back pain. He states he has a several year long history of chronic low back pain. At one time surgery was recommended which she declined. Pain does not radiate into the legs. Until more most recently he was on gabapentin 800 mg 3 times a day. He ran out of his prescription about 4 to 5 days ago and is unable to get a refill because his nurse practitioner has left the practice. He has been able to schedule an appointment with another physician who will not refill his prescriptions without examining him. He does not report loss of bladder control or weakness of the lower extremities. No recent infectious symptoms are reported. Related Data Home Medications ?Medication ?Instructions ?Recorded ?Confirmed clonidine HCl 0.1 mg tablet 0.1 mg PO .qhs 12/21/22 12/28/24 gabapentin 800 mg tablet 800 mg PO TID 12/21/22 12/28/24 omeprazole 40 mg capsule,delayed 40 mg PO QDAY 12/21/22 12/28/24 release ibuprofen 600 mg tablet 600 mg PO Q8H PRN pain 12/28/24 12/28/24 Previous Rx's ?Medication ?Instructions ?Recorded albuterol sulfate 90 mcg/actuation 2 inh inhalation Q4H PRN shortness 11/19/23 aerosol inhaler of breath or wheezing #8.5 grams gabapentin 800 mg tablet 800 mg PO TID #90 tabs 12/28/24 methocarbamol 750 mg tablet 750 mg PO TID #30 tabs 12/28/24 prednisone 20 mg tablet 40 mg (2 x 20 mg) PO DAILY 7 days 12/28/24 #14 tabs Allergies Allergy/AdvReac Type Severity Reaction Status Date / Time No Known Drug Allergies Allergy Verified 09/26/24 15:58 Opioid HPI Opioid Management Most Recent Opioid Data: Last Pain Scale 3 09/26/24, 16:01 Review of Systems ROS Status of ROS 10 or more systems reviewed and unremarkable except as noted in history and below [facility] Medical History Upper back pain ?M54.9 - Dorsalgia, unspecified (ICD-10) Low back pain ?M54.50 - Low back pain, unspecified (ICD-10) Neck pain ?M54.2 - Cervicalgia (ICD-10) Surgical History S/P carpal tunnel release ?Z98.890 - Other specified postprocedural states (ICD-10) S/P knee surgery ?Z98.890 - Other specified postprocedural states (ICD-10) Social History Smoking status: Current every day smoker Little interest or pleasure in doing things: not at all Feeling down, depressed, or hopeless: not at all Exam Narrative Exam Narrative: Patient appears in mild discomfort due to pain. His vital signs are stable. HEENT exam is normal to inspection. Neck is supple. Lung sounds are clear to auscultation bilaterally. Heart has a regular rate and rhythm. He does not have midline tenderness in the thoracic spine. He is tender to palpation in the midline over the lower lumbar spine as well as paraspinal soft tissue. No overlying skin color or temperature changes are noted. He tolerates straight leg raising in both legs without any obvious discomfort. Tone and power are normal and symmetric in both lower extremities. Skin is warm and dry. Constitutional Vital Signs, click to edit/add: Last Vital Signs Temp 98.4 F 12/28/24 12:00 Pulse 81 12/28/24 12:00 Resp 20 12/28/24 12:00 BP 127/79 12/28/24 12:00 Pulse Ox 99 12/28/24 12:00 O2 Del Method Room Air 12/28/24 12:00 Course Vital Signs Vital signs: Vital Signs Temperature 98.4 F 12/28/24 12:00 Pulse Rate 81 12/28/24 12:00 Respiratory Rate 20 12/28/24 12:00 Blood Pressure 127/79 12/28/24 12:00 Pulse Oximetry 99 12/28/24 12:00 Oxygen Delivery Method Room Air 12/28/24 12:00 Temperature 98.4 F 12/28/24 12:00 Pulse Rate 81 12/28/24 12:00 Respiratory Rate 20 12/28/24 12:00 Blood Pressure 127/79 12/28/24 12:00 Pulse Oximetry 99 12/28/24 12:00 Oxygen Delivery Method Room Air 12/28/24 12:00 Medical Decision Making [facility] Narrative Medical decision making narrative: Patient presents with worsening of his chronic low back pain likely because he has run out of gabapentin 4 to 5 days ago. I am giving him a prescription for gabapentin in the same dose to last for a month. Additionally he is placed on Robaxin and a prednisone burst. Prior to discharge he was treated with Toradol 30 mg IM Norflex 60 mg IM and Decadron 10 mg IM. I do not feel imaging is indicated at this time and he is to follow-up with PCP as scheduled. He may return anytime for worsening symptoms. Discharge Plan Discharge Chief Complaint: Back Pain/Injury Clinical Impression: Acute exacerbation of chronic low back pain Patient Disposition: Home, Self-Care Time of Disposition Decision: 12:58 Condition: Good Mode of Transportation: Private Vehicle Prescriptions / Home Meds: New gabapentin 800 mg tablet 800 mg PO TID Qty: 90 0RF prednisone 20 mg tablet 40 mg PO DAILY 7 Days Qty: 14 0RF methocarbamol 750 mg tablet 750 mg PO TID Qty: 30 0RF No Action clonidine HCl 0.1 mg tablet 0.1 mg PO .qhs omeprazole 40 mg capsule,delayed release(DR/EC) 40 mg PO QDAY gabapentin 800 mg tablet 800 mg PO TID albuterol sulfate 90 mcg/actuation HFA aerosol inhaler 2 inh inhalation Q4H PRN (Reason: shortness of breath or wheezing) Qty: 8.5 0RF ibuprofen 600 mg tablet 600 mg PO Q8H PRN (Reason: pain) Print Language: Upper Sorbian Instructions: Acute Low Back Pain (ED) Additional Instructions: Follow-up with your physician in a month as scheduled. Return for worsening symptoms. Referrals: Physician,Non-Staff, MD [Primary Care Provider] - 1 week Discharge Date/Time: 12/28/24 13:16
== END 2024-12-28 13:16 | disposition home or self-care (01) ==
PROVIDERS: Emergency Provider Emergency Medicine
DX: M54.50 Low back pain, unspecified (principal); G89.29 Other chronic pain; F17.200 Nicotine dependence, unspecified, uncomplicated
CPT/HCPCS: 96372; 99284; J1100; J1885; J2360

== ENCOUNTER 2025-06-02 07:19 | Emergency (ER) | payer SELFPAY ==
--- OUTSIDE RECORDS SUMMARY | 2025-05-26 17:44 | XMS_ITS | Encounter Summary ---
Author Organization [facility] Address [address] [place] [address] Care Team Providers Care Or Director Name Role Phone Shruthi Christianson [facility] Primary Care Provider Reason for Visit * ReasonCommentsDrug Overdose Encounter Details DateTypeDepartmentCare Team (Latest Contact Info)Zjjyyxhvycg24/20/2025 5:44 PM EST - 05/27/2025 7:08 AM [facility] Emergency Department [address] [place] [address] Perez Patel MD [address] [place] [address] Discharge Disposition: Home Social History Tobacco UseTypesPacks/DayYears UsedDateSmoking Tobacco: Never AssessedSex and Gender InformationValueDate RecordedSex Assigned at BirthNot on fileLegal Sex Male03/12/2020 9:38 AM EDTGender IdentityNot on fileSexual OrientationNot on filedocumented as of this encounter Last Filed Vital Signs Vital SignReadingTime TakenCommentsBlood Lcttconi951/5805/27/2025 12:59 AM EST Itnrs18529/21/2025 12:59 AM YAUGwjfuthdmmc98.2 ??C (99 ??F)05/26/2025 5:44 PM ESTRespiratory Jvja107007/28/2024 12:59 AM ESTOxygen Xmjpeerewh08%05/27/2025 12:59 AM ESTInhaled Oxygen Concentration--Ywhekx57.7 kg (200 lb)05/26/2025 5:44 PM EST Cbyand536.2 cm (5' 7 )05/26/2025 5:44 PM ESTBody Mass Index31.32107/27/2024 5:44 PM ESTdocumented in this encounter Discharge Instructions * Discharge Instructions* Perez Patel MD - 05/27/2025 1:30 AM EST Consider rehabilitation either outpatient or inpatient for drug use. Return to the ER as needed. * Attachments The following attachments cannot be sent through Care Everywhere. * Drug Overdose: Opioid (Uzbek) documented in this encounter ED Notes * Francy Wiley RN - 05/27/2025 2:09 AM EST Patient still attempting to get hold of family/friend for ride home. * Francy Wiley RN - 05/27/2025 2:09 AM EST Dual discharge completed by this RN and Dr. Patel. Discharge instructions reviewed with patient who verbalized understanding, denied questions and/or concerns with AVS instructions. * Francy Wiley RN - 05/27/2025 1:34 AM EST Patient attempting to call for ride home. * Francy Wiley RN - 05/27/2025 1:32 AM EST Patient awake, inquired on where he was at, and was oriented to location and situation. Patient is calm and cooperative, ambulates to bathroom and asking for Motrin for lower back pain which is visible by patient limping and favoring lower back with guarded movements. * Perez Patel MD - 05/26/2025 11:50 PM EST [facility] EMERGENCY DEPARTMENT NAME: Arsh Cochran PCP: Shruthi Christianson CNP AGE: 40 y.o. CSN: [id number] Chief Complaint: Drug Overdose Clinical Impression: 1. Drug overdose Medical Decision Making and Emergency Department Course Medical Decision Making Patient labs are within normal limits. EKG shows sinus tach rate of [address] elevation depression prolonged QT. 84 ms. Patient given Benadryl Reglan IV for agitation nausea patient resting comfortably will evaluate for several hours due to half-life of Narcan and will discharge home with clinically stable. Treatment plan discussed with patient in agreement. Patient is awake alert and oriented x 4 patient is actually from [facility] was attempting to find a ride home stable for discharge to home. Observation period was approximately 7 hours patient remained stable throughout evaluation in the ED. . Medications Ordered/Given During ED Visit: Medications sodium chloride (PF) (NS) flush 5 mL (has no administration in time range) And sodium chloride 0.9% (NS) (has no administration in time range) diphenhydrAMINE (BENADRYL) injection 50 mg (50 mg Intravenous Given 05/26/251801) metoclopramide (REGLAN) injection 10 mg (10 mg Intravenous Given 05/26/251802) Disposition: Patient is being discharged to home History: Chief Complaint: Drug Overdose History of Present Illness: Patient is a 40-year-old male who was found outside of his car unresponsive. Patient is believed tohave overdosed. Was given 2 mg of Narcan GCS improved from 3-15 immediately. Patient was found to have Suboxone and marijuana on his person by law enforcement. Patient arrives to ED GCS 15 alert and oriented patient reports pain and anxiety. The patient may be possibly going through withdrawal. When questioned about what he possibly had put patient only states he does not know. Patient does have a past medical history Drug Overdose Past Medical History: No past medical history on file. Past Surgical History: No past surgical history on file. Family History: No family history on file. Social History: Social History [1] Medications: No current outpatient medications on file prior to encounter. Allergies: Allergies[2] Review of Systems: Review of Systems Positives and pertinent negatives as per HPI. All other systems were reviewed and are negative. Physical Exam: Patient Vitals for the past 24 hrs: BP Temp Pulse Resp SpO2 Height Weight 05/26/25 2244 120/66 -- (!) 124 (!) 11 93 % -- -- 05/26/25 2229 133/66 -- (!) 124 14 94 % -- -- 05/26/25 2214 128/83 -- (!) 127 13 94 % -- -- 05/26/25 2159 126/63 -- (!) 126 12 94 % -- -- 05/26/25 2149 109/60 -- (!) 128 (!) 11 95 % -- -- 05/26/257 125/64 -- (!) 124 12 96 % -- -- 05/26/252013 135/79 -- -- 13 97 % -- -- 05/26/25 1935 114/88 -- (!) 118 14 97 % -- -- 05/26/25 1906 122/77 -- (!) 119 17 92 % -- -- 05/26/25 1845 113/62 -- (!) 110 18 95 % -- -- 05/26/25 1826 -- -- -- -- 95 % -- -- 05/26/25 1815 124/67 -- (!) 100 17 (!) 88 % -- -- 05/26/25 1805 (!) 144/94 -- (!) 109 -- 90 % -- -- 05/26/25 1744 (!) 147/90 99 ??F (37.2 ??C) (!) 111 (!) 24 (!) 72 % 5' 7 90.7 kg (200 lb) Physical Exam Vitals and nursing note reviewed. Constitutional: Appearance: Normal appearance. HENT: Head: Normocephalic and atraumatic. Right Ear: Tympanic membrane, ear canal and external ear normal. Left Ear: Tympanic membrane, ear canal and external ear normal. Nose: Nose normal. Mouth/Throat: Mouth: Mucous membranes are moist. Eyes: Extraocular Movements: Extraocular movements intact. Conjunctiva/sclera: Conjunctivae normal. Cardiovascular: Rate and Rhythm: Normal rate and regular rhythm. Pulses: Normal pulses. Heart sounds: Normal heart sounds. Pulmonary: Effort: Pulmonary effort is normal. Breath sounds: Normal breath sounds. Abdominal: General: Abdomen is flat. Palpations: Abdomen is soft. Skin: General: Skin is warm. Neurological: Mental Status: He is alert and oriented to person, place, and time. Laboratory & Radiological Imaging (if done): Labs Reviewed COMPREHENSIVE METABOLIC PANEL - Abnormal; Notable for the following components: Result Value Potassium 3.3 (*) Glucose 179 (*) BUN/Creatinine Ratio 8.1 (*) All other components within normal limits Narrative: [facility] has implemented the eGFR calculation approach that does not have a coefficient for race that conforms to the NKF-ASN Task Force Recommendations. ALCOHOL, MEDICAL - Abnormal; Notable for the following components: Alcohol (Medical) 16.4 (*) All other components within normal limits BLOOD GAS, VENOUS - Abnormal; Notable for the following components: pH, Venous 7.30 (*) pCO2, Romero 55.0 (*) pO2, Romero 18 (*) HCO3, Romero 21.9 (*) O2 Sat, Romero 29.2 (*) All other components within normal limits POC GLUCOSE - RALS - Abnormal; Notable for the following components: Glucose 184 (*) All other components within normal limits CBC AND DIFFERENTIAL Narrative: The following orders were created for panel order CBC and Differential. Procedure Abnormality Status --------- ------ CBC Auto Differential[[id number]] Final result Please view results for these tests on the individual orders. OBTAIN VENOUS BLOOD GASES AND PERFORM URINALYSIS DRUGS OF ABUSE SCREEN, URINE CBC WITH AUTO DIFFERENTIAL No orders to display ER Course and Procedures: Procedures Miscellaneous @[email or web address]@ Perez [facility] 05/27/25 0131 [1] Social History Socioeconomic History Marital status: Unknown Social Drivers of Health Food Insecurity: No Food Insecurity (05/16/2019) Received from [facility] Hunger Vital Sign Worried About Running Out of Food in the Last Year: Never true Ran Out of Food in the Last Year: Never true Transportation Needs: No Transportation Needs (05/16/2019) Received from [facility] PRAPARE - Transportation Lack of Transportation (Medical): No Lack of Transportation (Non-Medical): No Physical Activity: Sufficiently Active (05/16/2019) Received from [facility] Exercise Vital Sign Days of Exercise per Week: 5 days Minutes of Exercise per Session: 150+ min Stress: No Stress Concern Present (05/16/2019) Received from [facility] [place] [facility] [employer] [facility] - Occupational Stress Questionnaire Feeling of Stress : Not at all Social Connections: Moderately Isolated (05/16/2019) Received from [facility] Social Connection and Isolation Panel Frequency of Communication with Friends and Family: More than three times a week Frequency of Social Gatherings with Friends and Family: Once a week Attends [employer] Services: Never Active Member of Clubs or Organizations: No Attends Club or Organization Meetings: Never Marital Status: Living with partner [2] No Known Allergies Perez Patel MD 05/27/25 0147 Perez Patel MD 05/27/25 0430 * Francy Wiley RN - 05/26/2025 10:47 PM EST Report received from Stormy WOODARD, patient currently sleeping without symptoms of distress. * Sanam Stafford RN - 05/26/2025 9:37 PM EST Pt sleeping in the cot. No distress noted. * Sanam Stafford RN - 05/26/2025 8:42 PM EST Pt sleeping in the cot. Vitals stable. * Sanam Stafford RN - 05/26/2025 6:28 PM EST Pt admits suboxone in his pocket is not his. Pt unsure of what he took or what led to his altered mental status today. * Sanam Stafford RN - 05/26/2025 6:26 PM EST Pt sleeping, easily aroused * Sanam Stafford RN - 05/26/2025 5:46 PM EST Pt arrives by BMRT for unresponsiveness due to possible drug overdose. Pt was found outside of a car in a drive way and a bystander on seen stating that he believes the pain had overdosed. 2mg Narcangiven intranasally which changed pt's GCS from 3 to 15. Pt was alert upon arrival, complaining of aheadache and body aches. documented in this encounter Plan of Treatment Not on file documented as of this encounter Procedures Procedure NamePriorityDate/TimeAssociated HrucvlwciVehkchfiNUO14/21/2025 8:25 PM ESTOBTAIN VENOUS BLOOD GASES AND CNOIIVHMGZL01/20/2025 6:07 PM ESTCBC WITH AUTO KYAVMWHXODYLCCLA48/20/2025 6:07 PM EST CBC AND ZYXSYUBPQRXBHILH52/20/2025 6:07 PM EST BLOOD GAS, OXOHFMVcawkmc00/20/2025 6:07 PM EST ALCOHOL, QBZLNREXPUQ90/20/2025 6:07 PM EST COMPREHENSIVE METABOLIC QSSVSDLLF72/20/2025 6:07 PM EST ECG 12-STKVTSUC85/20/2025 5:52 PM EST POC GLUCOSE - AMSTWtjrnls22/20/2025 5:46 PM EST documented in this encounter Results * EKG (05/27/2025 8:25 PM EST)Specimen (Source)Anatomical Location / Laterality Collection Method / VolumeCollection TimeReceived Time Narrative Authorizing ProviderResult TypeResult StatusPerez Patel MDSCANNED ORDERSFinal Result * (ABNORMAL) Blood Gas, Venous (05/26/2025 6:07 PM EST)ComponentValueRef Range Test MethodAnalysis TimePerformed AtPathologist SignaturepH, Venous7.30(L)7.32 - 7.42107/27/2024 6:11 PM ESTH LABpCO2, Ven55.0(H)41.0 - 51.0 mm Hg 05/26/2025 6:11 PM ESTH LABpO2, Ven18(L)25 - 40 mm Hg05/26/2025 6:11 PM EST HMH LABHCO3, Ven21.9(L)24.0 - 28.0 mmol/L107/27/2024 6:11 PM ESTH LABBase Excess, Ven0.3-2.0 - 2.0 mmol/L107/27/2024 6:11 PM ESTH LABO2 Sat, Ven29.2(L) 40.0 - 70.0 %05/26/2025 6:11 PM ESTPAR[facility] LABSpecimen (Source)Anatomical Location / LateralityCollection Method / VolumeCollection TimeReceived TimeBloodBLOOD SPECIMEN / UnknownVenipuncture / Kblqrcj1405/26/2025 6:07 PM EST05/26/2025 6:07 PM EST Narrative Authorizing ProviderResult TypeResult StatusPerez STORM BLOOD ORDERABLESFinal ResultPerforming OrganizationAddressCity/State/ZIP CodePhone Number [facility] [address] [place] [address] * CBC Auto Differential (05/26/2025 6:07 PM EST)ComponentValueRef RangeTest MethodAnalysis TimePerformed AtPathologist SignatureWBC7.454.50 - 11.00 K/mcL 05/26/2025 6:11 PM ESTPARKVIEW [facility] LABRBC5.004.50 - 5.90 M/mcL05/26/2025 6:11 PM ESTPAR[facility] OMVNimbqrncje41.413.5 - 17.5 g/dL05/26/2025 6:11 PM ESTPAR[facility] XDETpmvfxgvkl09.1 41.0 - 53.0 %05/26/2025 6:11 PM ESTPAR[facility] IYESKE11.280.0 - 100.0 fL05/26/2025 6:11 PM ESTPAR[facility] DCLFXC67.826.0 - 34.0 pg05/26/2025 6:11 PM ESTPAR[facility] CEQWTLN88.1 31.0 - 37.0 g/dL05/26/2025 6:11 PM ESTPAR[facility] SLSPjkimpyax814867 - 400 K/mcL 05/26/2025 6:11 PM ESTPAR[facility] LABRDW - CV13.611.6 - 14.8 %05/26/2025 6:11 PM EST [facility] EBWPFR47.99.4 - 12.4 fL05/26/2025 6:11 PM ESTPAR[facility] XFGUhtfylojrdc98.6% 05/26/2025 6:11 PM ESTPAR[facility] DPUQkopuwrqtrs25.9%05/26/2025 6:11 PM ESTPAR[facility] LAB Monocytes5.4%05/26/2025 6:11 PM ESTPAR[facility] LABEosinophils0.7%05/26/2025 6:11 PM ESTPAR[facility] LABBasophils0.1%05/26/2025 6:11 PM ESTPARK[facility] LABIG Percent0.30%05/26/2025 6:11 PM ESTPARK[facility] LABComment:The IG parameter is the percentage of metamyelocytes, myelocytes and promyelocytes. An immature granulocyte count (IG) of 1% or more suggests the possibility of infection, an IG count of 3% is very likely related to an infection.Neutrophils Abs4.371.70 - 7.00 K/mcL 05/26/2025 6:11 PM ESTPARKVIEW [facility] LABLymphocytes Abs2.600.90 - 4.00 K/[facility]05/26/2025 6:11 PM ESTPAR[facility] LABMonocytes Abs0.400.30 - 0.90 K/[facility]05/26/2025 6:11 PM ESTPAR[facility] LABEosinophils Abs0.050.00 - 0.50 K/[facility]05/26/2025 6:11 PM ESTPARK[facility] LABBasophils Abs0.010.00 - 0.30 K/[facility]05/26/2025 6:11 PM ESTPARK[facility] LABIG Absolute0.020.00 - 0.30 K/[facility]05/26/2025 6:11 PM ESTPARK[facility] LABNucleated RBC0.0%05/26/2025 6:11 PM EST [facility] LABNucleated RBC Abs0.000.00 - 0.00 K/[facility]05/26/2025 6:[address] [facility] Specimen (Source)Anatomical Location / LateralityCollection Method / Volume Collection TimeReceived TimeBloodBLOOD SPECIMEN / UnknownVenipuncture / Lwipikm4405/26/2025 6:07 PM EST05/26/2025 6:07 PM EST Narrative Authorizing ProviderResult TypeResult StatusClinterfaith medical centerdiaan STORM BLOOD ORDERABLESFinal ResultPerforming OrganizationAddressCity/State/ZIP CodePhone Number [facility] [address] [place] [phone] * Obtain venous blood gases and perform (05/26/2025 6:07 PM EST)Specimen (Source)Anatomical Location / LateralityCollection Method / VolumeCollection TimeReceived TimeBloodBLOOD SPECIMEN / UnknownVenipuncture / Ukcxdmw0805/26/2025 6:07 PM EST05/26/2025 6:07 PM EST Narrative Authorizing ProviderResult TypeResult StatusClinterfaith medical centerdiana STORM BLOOD ORDERABLESFinal ResultPerforming OrganizationAddressCity/State/ZIP CodePhone Number [facility] [address] [place] [phone] * (ABNORMAL) Alcohol, Medical (05/26/2025 6:07 PM EST)ComponentValueRef Range Test MethodAnalysis TimePerformed AtPathologist SignatureAlcohol (Medical)16.4 (H)<10.0 mg/dL05/26/2025 6:31 PM ESTHMH LABSpecimen (Source)Anatomical Location / LateralityCollection Method / VolumeCollection TimeReceived Time BloodBLOOD SPECIMEN / UnknownVenipuncture / Bfbcdfg4005/26/2025 6:07 PM EST 05/26/2025 6:07 PM EST Narrative Authorizing ProviderResult TypeResult StatusCliftdiana Dye Jorge [facility] BLOOD ORDERABLESFinal ResultPerforming OrganizationAddressCity/State/ZIP CodePhone Number [facility] [address] [place] [address] * (ABNORMAL) Comprehensive Metabolic Panel (05/26/2025 6:07 PM EST)Component ValueRef RangeTest MethodAnalysis TimePerformed AtPathologist SignatureSodium 377946 - 145 mmol/L107/27/2024 6:31 PM ESTHMH LABPotassium3.3(L)3.5 - 5.1 mmol/L107/27/2024 6:31 PM ESTHMH HONCuhmtfch6182 - 108 mmol/L107/27/2024 6:31 PM ESTHMH UTMJfdylurbnoq2893 - 32 mmol/L107/27/2024 6:31 PM ESTHMH LABAnion Gap16 10 - 20 mmol/L107/27/2024 6:31 PM ESTHMH YXREmainud395(H)65 - 99 mg/dL 05/26/2025 6:31 PM ESTHMH SXXRNI81 - 25 mg/dL05/26/2025 6:31 PM ESTHMH LAB Creatinine0.990.50 - 1.30 mg/dL05/26/2025 6:31 PM ESTHMH MQZtRHI91>=60 mL/min/1.73 m205/26/2025 6:31 PM ESTHMH LABComment:Estimated GFR was calculated using the 2020 CKD-EPI creatinine equation.BUN/Creatinine Ratio8.1 (L)10.0 - 20.012 6:31 PM ESTHMH LABTotal Protein7.46.0 - 8.0 g/dL 05/26/2025 6:31 PM ESTHMH LABAlbumin4.43.2 - 5.2 g/dL05/26/2025 6:31 PM ESTHMH LABCalcium9.18.4 - 10.2 mg/dL05/26/2025 6:31 PM ESTPARKVIEW [facility] LABAlkaline Vqzqbsxrrnc54543 - 140 U/L107/27/2024 6:31 PM ESTH NFIBEJ616-18 U/L U/L 05/26/2025 6:31 PM ESTH ZKBCPW102-89 U/L U/L107/27/2024 6:31 PM ESTPARKVIEW [facility] Total Bilirubin0.50.0 - 1.3 mg/dL05/26/2025 6:31 PM ESTPARKVIEW [facility] LABSpecimen (Source)Anatomical Location / LateralityCollection Method / VolumeCollection TimeReceived TimeBloodBLOOD SPECIMEN / UnknownVenipuncture / Tnzuxmi9805/26/2025 6:07 PM EST05/26/2025 6:07 PM EST Narrative [facility] - 05/26/2025 6:31 PM EST [facility] has implemented the eGFR calculation approach that does not have a coefficient for race that conforms to the NKF-ASN Task Force Recommendations. Authorizing ProviderResult TypeResult StatusClusman STORM BLOOD ORDERABLESFinal ResultPerforming OrganizationAddressCity/State/[facility] CodePhone Number [facility] [address] [place] [address] * EKG 12-lead (05/26/2025 5:52 PM EST)ComponentValueRef RangeTest MethodAnalysis TimePerformed AtPathologist SignatureVentricular Jvft535WBZBFITOmkfvf Jxvu701 BPMMUSEP-R Uxsmipou618icTDPDJZQ Tsvtywlh374jzBFPIX-M Pkjqycwa280diAFBEZFQ Calculation (Bezet)514msMUSEP Jqoo11wfshxqpVIRRH Ybzc38sawptnlMALAK Axis59 degreesMUSESpecimen (Source)Anatomical Location / LateralityCollection Method / VolumeCollection TimeReceived Time05/26/2025 5:52 PM EST05/27/2025 11:32 AM EST Narrative MUSE - 05/27/2025 11:32 AM EST Sinus tachycardia Prolonged QT Abnormal ECG Confirmed by Guillaume Harris MD ([id number]) on 05/27/2025 11:32:36 AM Authorizing ProviderResult TypeResult StatusPerez EWINGG ORDERABLESFinal ResultPerforming OrganizationAddressCity/State/ZIP CodePhone Number MUSE * (ABNORMAL) POC Glucose (05/26/2025 5:46 PM EST)ComponentValueRef RangeTest MethodAnalysis TimePerformed AtPathologist VhcyfntmzGqlirtb936(H)65 - 99 mg/dL 05/26/2025 5:47 PM ESTPARKVIEW [facility] LABSpecimen (Source)Anatomical Location / Laterality Collection Method / VolumeCollection TimeReceived TimeBloodBLOOD SPECIMEN / Huxvvjv7905/26/2025 5:46 PM EST05/26/2025 5:47 PM EST Narrative Authorizing ProviderResult TypeResult StatusMid-[place] Emergency ServicesPOCT ORDERABLES - DEVICEFinal ResultPerforming OrganizationAddressCity/State/ZIP Code Phone Number [facility] [address] [place] [address] documented in this encounter Visit Diagnoses Diagnosis Drug overdose- Primary Poisoning by unspecified drug or medicinal substance documented in this encounter Administered Medications Medication OrderMAR ActionAction DateDoseRateSite diphenhydrAMINE (BENADRYL) injection 50 mg 50 mg, Intravenous, Once, On 05/26/25 at 1800, For 1 dose, For IV administration, give at a rate less than or equal to 25 mg/min Given05/26/2025 6:02 PM EST50 mg ibuprofen (ADVIL,MOTRIN) tablet 800 mg 800 mg, Oral, Once, On 05/27/25 at 0130, For 1 dose, Give with Food Do Not Crush or Chew if administering orally due to bitter taste. May be crushed if given via tube. Given05/27/2025 1:42 AM GAQ885 mg metoclopramide (REGLAN) injection 10 mg 10 mg, Intravenous, Once, On 05/26/25 at 1800, For 1 dose Given05/26/2025 6:03 PM EST10 mg sodium chloride (PF) (NS) flush 5 mL 5 mL, Intravenous, As needed, line care, Starting on 05/26/25 at 1752 sodium chloride 0.9% (NS) 0-150 mL/hr, Intravenous, As needed, To flush line after IV infusions when no maintenance IV ordered or a compatibility issue. Infuse 20ml at the same rate as the secondary infusion, Starting on 05/26/25 at 1752, Run as Primary IV. NOT intended for KVO. documented in this encounter Active and Recently Administered Medications Times are shown in EST.Medication Order/ diphenhydrAMINE (BENADRYL) injection 50 mg (COMPLETED) 50 mg, Intravenous, Once, On 05/26/25 at 1800, For 1 dose, For IV administration, give at a rate less than or equal to 25 mg/min * 1802 (Given - Provider: Sanam Stafford RN) ibuprofen (ADVIL,MOTRIN) tablet 800 mg (COMPLETED) 800 mg, Oral, Once, On 05/27/25 at 0130, For 1 dose, Give with Food Do Not Crush or Chew if administering orally due to bitter taste. May be crushed if given via tube. * 0142 (Given - Provider: Francy Wiley RN) metoclopramide (REGLAN) injection 10 mg (COMPLETED) 10 mg, Intravenous, Once, On 05/26/25 at 1800, For 1 dose * 1803 (Given - Provider: Sanam Stafford RN) Medication Order/ sodium chloride (PF) (NS) flush 5 mL(Linked Group 1) 5 mL, Intravenous, As needed, line care, Starting on 05/26/25 at 1752 sodium chloride 0.9% (NS)(Linked Group 1) 0-150 mL/hr, Intravenous, As needed, To flush line after IV infusions when no maintenance IV ordered or a compatibility issue. Infuse 20ml at the same rate as the secondary infusion, Starting on 05/26/25 at 1752, Run as Primary IV. NOT intended for KVO. Order Group 1: Insert peripheral IV (COMPLETED) MELLISSA, Once, On 05/26/25 at 1755, For 1 occurrence And Saline lock IV (CANCELED) MELLISSA, Once, On 05/26/25 at 1755, For 1 occurrence And sodium chloride (PF) (NS) flush 5 mLJump to med 5 mL, Intravenous, As needed, line care, Starting on 05/26/25 at 1752 And sodium chloride 0.9% (NS)Jump to med 0-150 mL/hr, Intravenous, As needed, To flush line after IV infusions when no maintenance IV ordered or a compatibility issue. Infuse 20ml at the same rate as the secondary infusion, Starting on 05/26/25 at 1752, Run as Primary IV. NOT intended for KVO. documented in this encounter Care Teams Team MemberRelationshipSpecialtyStart DateEnd Date Shruthi Christianson CNP [address] [place] [address] PCP - GeneralFamily Lhvhzimu10/6/20documented as of this encounter
[2025-06-02] VITALS (22 sets, daily range): BP systolic 116–122; BP diastolic 62–81; PULSE 82–128; TEMP 36.6; O2SAT 78–100; BMI 31.3
--- NOTE | 2025-06-02 07:25 | XR_ITS ---
[facility] [place] [id number] Patient Name: DORIS VEGA MRN: [id number] date: 1985 Sex: M Assigned Patient Location: ER Current Patient Location: ED.MAIN Accession/Order Number: [id number] Exam Date: 06/02/2025 07:39 Report Date: 06/02/2025 10:02 At the request of: DIANE HARLEY DO Procedure: XR chest 1V Single view chest compared to prior examination 11/19/2023 HISTORY: Fentanyl overdose. Hypoxia. Cough. Development of diffuse right lung and left basilar groundglass consolidation. No large pleural effusion. No pneumothorax. Cardiac, mediastinal hilar silhouettes stable. XR/XR chest 1V IMPRESSION: Development of diffuse right lung and left basilar groundglass consolidation. May correlate with infiltrate/aspiration pneumonitis. Impression dictated by: Anival Hadley M.D. 06/02/2025 10:02 AM Dictation Location: [id number] Electronically authenticated by: [id number] Date: 06/02/2025 10:02
--- NOTE | 2025-06-02 08:11 | ED.GENADUL1 ---
HPI HPI - General Adult General Chief complaint: Overdose Stated complaint: OVERDOSE UNRESPONSIVE Time Seen by Provider: 06/02/25 07:25 Source: patient Mode of arrival: ambulance History of Present Illness HPI narrative: Patient is a 40-year-old male presenting to the emergency department via EMS for concerns of fentanyl overdose. The patient was found unresponsive in his apartment. According to first responders, the patient was blue, pale, with agonal breathing. They provided the patient with 4 mg of intranasal Narcan and 2 mg of IV Narcan with significant improvement of his mentation and respiratory status. He is now awake, alert, and able to answer questions. The patient does endorse using intranasal fentanyl today. He states he is had multiple overdoses in the past. Other than fentanyl, the patient uses marijuana but no other illicit drugs. He has a cough, but is otherwise asymptomatic. He denies being in any pain. He denies any chest pain, abdominal pain, nausea, or vomiting. Denies any other chronic medical conditions but does have chronic back pain. Related Data Home Medications ?Medication ?Instructions ?Recorded ?Confirmed clonidine HCl 0.1 mg tablet 0.1 mg PO .qhs 12/21/22 06/02/25 gabapentin 800 mg tablet 800 mg PO TID 12/21/22 06/02/25 omeprazole 40 mg capsule,delayed 40 mg PO QDAY 12/21/22 06/02/25 release ibuprofen 600 mg tablet 600 mg PO Q8H PRN pain 12/28/24 06/02/25 Previous Rx's ?Medication ?Instructions ?Recorded albuterol sulfate 90 mcg/actuation 2 inh inhalation Q4H PRN shortness 11/19/23 aerosol inhaler of breath or wheezing #8.5 grams naloxone 4 mg/actuation nasal 4 mg intranasal Q2M PRN opioid 06/02/25 spray (Narcan) overdose #2 ea Allergies Allergy/AdvReac Type Severity Reaction Status Date / Time No Known Drug Allergies Allergy Verified 06/02/25 07:26 Opioid HPI Opioid Management Most Recent Opioid Data: Last Pain Scale 4 Today, 07:20 Review of Systems ROS Status of ROS 10 or more systems reviewed and unremarkable except as noted in history and below [facility] Medical History Upper back pain ?M54.9 - Dorsalgia, unspecified (ICD-10) Low back pain ?M54.50 - Low back pain, unspecified (ICD-10) Neck pain ?M54.2 - Cervicalgia (ICD-10) Surgical History S/P carpal tunnel release ?Z98.890 - Other specified postprocedural states (ICD-10) S/P knee surgery ?Z98.890 - Other specified postprocedural states (ICD-10) Social History Smoking status: Current every day smoker Little interest or pleasure in doing things: not at all Feeling down, depressed, or hopeless: not at all Exam Narrative Exam Narrative: CONSTITUTIONAL: Awake, alert, mentating appropriately. Answering questions and following commands. SKIN: Was warm and dry, no cyanosis. EYES: Sclerae white. No conjunctival pallor. EARS, NOSE, THROAT: Moist oral mucosa. RESPIRATORY: Clear to auscultation bilaterally, no wheezes, crackles, or stridor, no use of accessory muscles CARDIOVASCULAR: Tachycardic rate and regular rhythm. There is no S3, S4, murmur, rub. GASTROINTESTINAL: Abdomen is soft, nontender, and nondistended. MUSCULOSKELETAL: No peripheral edema. NEUROLOGIC: Patient is awake and alert. Facies were symmetrical. Constitutional Vital Signs, click to edit/add: Last Vital Signs Temp 97.8 F 06/02/25 07:20 Pulse 116 H 06/02/25 10:10 Resp 15 06/02/25 10:10 BP 118/81 06/02/25 09:45 Pulse Ox 95 06/02/25 09:50 O2 Del Method Room Air 06/02/25 07:20 Course Vital Signs Vital signs: Vital Signs Temperature 97.8 F 06/02/25 07:20 Pulse Rate 103 H 06/02/25 07:20 Respiratory Rate 14 06/02/25 07:20 Blood Pressure 118/70 06/02/25 07:20 Pulse Oximetry 85 L 06/02/25 07:20 Oxygen Delivery Method Room Air 06/02/25 07:20 Temperature 97.8 F 06/02/25 07:20 Pulse Rate 116 H 06/02/25 10:10 Respiratory Rate 15 06/02/25 10:10 Blood Pressure 118/81 06/02/25 09:45 Pulse Oximetry 95 06/02/25 09:50 Oxygen Delivery Method Room Air 06/02/25 07:20 Medical Decision Making MDM Narrative Medical decision making narrative: Patient is a 40-year-old male presenting to the emergency department via EMS for concerns of a fentanyl overdose. Patient received 4 mg of intranasal Narcan and 2 mg IV Narcan in the field with improvement of his mentation and respiratory status. On arrival to the ED, the patient was placed on the color television console monitor that demonstrated sinus tachycardia by my interpretation. He is afebrile and hemodynamically stable. He is saturating 85% on room air in no respiratory distress and with clear breath sounds bilaterally. His saturations improved to 95% on on 15 L nonrebreather mask. Patient's presentation is consistent with a fentanyl overdose, he does admit to using intranasal fentanyl earlier today and had multiple overdoses in the past. Hypoxemic related to aspiration pneumonia, pulmonary edema, pneumothorax, or other pulmonary pathologies. POC glucose was within normal limits. Plan will be to monitor the patient on continuous pulse oximetry. Laboratory studies were unremarkable. No significant electrolyte or metabolic derangement. No evidence of acute kidney injury. No anemia, leukocytosis, or thrombocytopenia. Mild transaminitis. ABG on 15 L nonrebreather mask was significant for hypoxemia with a PaO2 of 72.3. Normal pCO2 and normal pH. Chest x-ray demonstrated bibasilar ground glass opacities consistent with pneumonitis. On reevaluation after 3 hours in the emergency department, patient is awake and alert. He is requesting to be discharged home. His repeat vital signs demonstrate oxygen saturation of 85% on room air with a heart rate of 139 bpm. I do believe the patient requires further observation in the emergency department, and possible admission to the hospital for persistent hypoxia and pneumonitis. However, the patient is insistent that he leaves the hospital. Patient walked out of the hospital under his own power. The patient was apprised of the potential risks of leaving the hospital AGAINST MEDICAL ADVICE. They include serious complications, permanent disability, . At the time of my interview with the patient, the patient was alert, oriented, and capable. I urged the patient to return to the hospital as soon as possible to complete their evaluation and treatment. Patient has demonstrated the ability to understand the relevant medical choices and the consequences of these choices. The patient understands the pertinent information namely that failure to stay could deprive of critical diagnostic knowledge that could lead to a diagnosis that could then allow treatment to cure the problem, the patient understands the potential nature of the diagnosis and the fact that it could be threatening to life or cause permanent disability, and the patient can state back to me and understanding of the consequences of not staying for complete diagnostic testing. FINAL IMPRESSION: #Acute fentanyl overdose #Acute hypoxia #Acute aspiration pneumonitis DISPOSITION: Left the hospital AGAINST MEDICAL ADVICE CONDITION: Fair Medical Records Medical records reviewed: Yes I reviewed the patient's medical records Lab Data Lab results reviewed: Yes I reviewed the patient's lab results Labs: Lab Results 06/02/25 06/02/25 06/02/25 Range/Units 07:49 10:16 10:18 WBC 10.1 (4.0-11.0) 10^3/uL RBC 4.51 L (4.70-6.10) 10^6/uL Hgb 14.1 (14.0-18.0) g/dL Hct 41.4 L (42.0-54.0) % MCV 91.8 (80.0-94.0) fL MCH 31.3 (25.9-34.0) pg MCHC 34.1 (29.9-35.2) g/dL RDW 13.4 (11.0-15.0) % Plt Count 216 (150-450) 10^3/uL MPV 10.7 (9.5-13.5) fL Neut % (Auto) 85.0 H (43.0-75.0) % Lymph % (Auto) 9.8 L (20.5-60.0) % [place] % (Auto) 4.7 (1.7-12.0) % Eos % (Auto) 0.0 L (0.9-7.0) % Baso % (Auto) 0.2 (0.2-2.0) % Neut # (Auto) 8.6 H (1.4-6.5) 10^3/uL Lymph # (Auto) 1.0 L (1.2-3.8) 10^3/uL [place] # (Auto) 0.5 (0.3-0.8) 10^3/uL Eos # (Auto) 0.0 (0.0-0.7) 10^3/uL Baso # (Auto) 0.0 (0.0-0.1) 10^3/uL Abs Immat Gran (auto) 0.03 (0.00-0.03) 10^3/uL Imm/Tot Granulo (auto) 0.3 (0.0-0.5) % Puncture Site Lr ABG pH 7.353 (7.350-7.450) ABG pCO2 45.8 H (35.0-45.0) mmHg ABG pO2 72.3 L (80.0-100.0) mmHg ABG HCO3 25.5 (22.0-26.0) mmol/L ABG O2 Saturation 94.4 % ABG Base Excess -0.1 (-2.0-2.0) mmol/L [place] Test Positive (POSITIVE) O2 Liters/Min 15 FiO2 96 % Sodium 144 (136-145) mmol/L Potassium 3.9 (3.5-5.1) mmol/L Chloride 105 (98-107) mmol/L Carbon Dioxide 30.3 (21.0-32.0) mmol/L Anion Gap 12.6 BUN 7.0 (7.0-18.0) mg/dL Creatinine 1.20 (0.70-1.30) mg/dL Est GFR ( Amer) >60 (>=60 mL/min/1.73m^2) Est GFR (Non-Af Amer) >60 (>=60 mL/min/1.73m^2) BUN/Creatinine Ratio 5.8 Glucose 81 (74-106) mg/dL Calcium 9.1 (8.5-10.1) mg/dL Total Bilirubin 0.8 (0.2-1.0) mg/dL AST 69 H (15-37) U/L ALT 79 H (16-63) U/L Alkaline Phosphatase 124 H (46-116) U/L Total Protein 7.8 (6.4-8.2) g/dL Albumin 3.4 (3.4-5.0) g/dL Globulin 4.4 g/dL Albumin/Globulin Ratio 0.8 POC Glucose 174 H (74-106) mg/dL Imaging Data Chest x-ray: Attestation: I personally reviewed and interpreted this imaging study as follows: Radiologist's impression: ITS Impressions Chest X-Ray 06/02/25 07:25 IMPRESSION: Development of diffuse right lung and left basilar groundglass consolidation. May correlate with infiltrate/aspiration pneumonitis. Impression dictated by: Anival Hadley M.D. 06/02/2025 10:02 AM Dictation Location: [place] [address] Electronically authenticated by: [id number] Y Date: 06/02/2025 10:02 ECG Data Attestation: I personally reviewed and interpreted this ECG as follows: (12 Lead EKG:Normal sinus rhythm at a rate of [address] segment elevations. QRS, [place], and QTc interval within normal limits. Final impression: normal sinus rhythm without evidence of acute myocardial ischemia) Discharge Plan Discharge Stand Alone Forms: Portal Instructions Chief Complaint: Overdose Clinical Impression: Opiate overdose, Hypoxia, Aspiration pneumonia Patient Disposition: Left Against Medical Advice Time of Disposition Decision: 10:47 Condition: Fair Mode of Transportation: Private Vehicle Prescriptions / Home Meds: New naloxone [Narcan] 4 mg/actuation spray,non-aerosol 4 mg intranasal Q2M PRN (Reason: opioid overdose) Qty: 2 0RF Rx Instructions: spray 1 dose into ONE nostril; alternate nostrils w each dose until help arrives No Action clonidine HCl 0.1 mg tablet 0.1 mg PO .qhs omeprazole 40 mg capsule,delayed release(DR/EC) 40 mg PO QDAY gabapentin 800 mg tablet 800 mg PO TID albuterol sulfate 90 mcg/actuation HFA aerosol inhaler 2 inh inhalation Q4H PRN (Reason: shortness of breath or wheezing) Qty: 8.5 0RF ibuprofen 600 mg tablet 600 mg PO Q8H PRN (Reason: pain) Print Language: Peruvian Instructions: Hypoxia (ED), Opioid Use Disorder (ED) Referrals: Physician,Non-Staff, MD [Primary Care Provider] - 1 week
--- NOTE | 2025-06-02 08:35 | ECG_ITS ---
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 Measurements Intervals [place] Rate: 87 P: 71 AL: 154 QRS: 66 QRSD: 90 T: 53 QT: 386 QTc: 430 Interpretive Statements 1100 Sinus rhythm 4068 Nonspecific [place] abnormality 9130 borderline ECG Compared to ECG 08/04/2024 12:31:48 Sinus arrhythmia no longer present Electronically Signed On 06-03-2025 12:58:01 EST by MARGARITA SAUER M.D.
--- OUTSIDE RECORDS SUMMARY | 2025-06-02 08:59 | XMS_ITS | CCD ---
Author Organization [facility] Care Team Providers Care Aviation Consultant Name Role Phone Jolie Gruber Primary Care Provider JESS FARLEY Attending Unavail able JOLIE GRUBER Primary Care Unavailabl e Kinza SILVER, Sofie Brown Primary Care Provider Jolie Gruber CNP Primary Care Provider Sofie [...] Attending Unavailable FAWWAD, ALBERTO Primary Care Physician Raj SILVER, Doug Primary Care Provider Rios DAVIDSON, Olu Unavailable SHAIKH LOBO Attending Unavailable LASHELL, Attending Unavailable LASHELL, Attending Unavailable LASHELL, Attending Unavailable LASHELL, Attending Unavailable RIOS, OLU Attending Unavailabl e SARAH NIELSEN Attending Unavailable RIOS, OLU Referring Unavailstephanie e MIGUEL ANGEL PAYNE Attending Unavailable RIOS, OLU Referring Unavailstephanie e Carlene ISLVER, Asim Guerrero Attending Unavailable Jolie Gruber CNP Primary Care Sole Lobo MD, [facility] Primary Care Provider [phone] RIOS, MSTiffany VOGT Primary Care P hysician NONE, XXXX Referring Unavailable Bruce Card Admitting Unavailable Bruce Card Attending Unavailable OLU N[facility] MATERIAL PLANNER, Olu Unavailable Lashell SILVER, Primary Care Provider Doug Anthony MD Primary Care Provider Rios DAVIDSON, Olu Unavailable Allergies Allergy ClassificationReported Allergen(s)Allergy TypeDate of OnsetReaction(s) Facility (2 sources)No Known Medication Allergies; Translations: [No Known Medication Allergies]Propensity to adverse reactions to drug (disorder)[facility] Medications Current Medications MedicationDrug Class(es)DatesSig (Normalized)Sig (Original)acetaminophen 325 mg oral tablet (9 sources)Start: 87-41-4648gdaa 2 tablets by mouth every six hours as needed for painacetaminophen (TYLENOL) 325 MG tablet Take 2 tablets by mouth every 6 hours as needed for Pain 40 tablet 0 06/30/2021 ActiveStart: 06-30-2021 acetaminophen (TYLENOL) tablet 1,000 mgStart: 07-14-2019 End: 69-71-9730dewyxukbgbtsy (TYLENOL) tablet 1,000 mg End: 59-08-1720muyp 2 tablets by mouth every six hours as needed for pain acetaminophen (TYLENOL) 325 MG tablet Take 650 mg by mouth every 6 hours as needed for Pain 0 06/30/2021 Discontinued (REORDER)Acetaminophen / HYDROcodone (1 source)Opioid AgonistStart: 35-52-3612rlzrywpntjl-acetaminophen (NORCO) tablet 5-325 mg (STARTER PACK)[id number] 200 actuat albuterol 0.09 mg/actuat metered dose inhaler (20 sources)beta2-Adrenergic AgonistStart: 95-38-9258vdcq 2 puff(s) by inhalation every six hours for wheezingalbuterol HFA 90 mcg/act inhaler Inhale 2 puffs every 6 (six) hours if needed for wheezing or shortness of breath 12/21/2022 ActiveStart: 20-72-7934uluc 2 puff(s) by inhalation four times daily as needed for wheezingalbuterol sulfate HFA 108 (90 Base) MCG/ACT inhaler Inhale 2 puffs into the lungs 4 times daily as needed for Wheezing or Shortness of Breath 1 Inhaler 0 10/22/2018 ActiveStart: 10-22-2018 End: 47-11-4522lgrw 2 puff(s) by inhalation four times daily as needed for wheezingalbuterol sulfate HFA 108 (90 Base) MCG/ACT inhaler Inhale 2 puffs into the lungs 4 times daily as needed for Wheezing or Shortness of Breath 1 Inhaler 0 10/22/2018 05/16/2019 Discontinued (LIST CLEANUP)benzonatate 100 mg oral capsule (2 sources)Non-narcotic AntitussiveStart: 06-30-2021 End: 95-07-5056onmn 1 capsule by mouth three times daily as needed for cough benzonatate (TESSALON PERLES) 100 MG capsule Take 1 capsule by mouth 3 times daily as needed for Cough 30 capsule 0 06/30/2021 07/07/2021 Activecephalexin 500 mg oral capsule (1 source)Cephalosporin AntibacterialStart: 27-82-9314mvcm 1 capsule by mouth three times dailycephALEXin (KEFLEX) 500 MG capsule Take 1 capsule by mouth 3 times daily 21 capsule 0 04/29/2021 ActivecloNIDine hydrochloride 0.1 mg oral tablet (20 sources)Central alpha-2 Adrenergic AgonistStart: 19-26-4041xffj 1 tablet by mouth at bedtimecloNIDine (Catapres) 0.1 MG tablet Take 0.1 mg by mouth at bedtime 02/25/2023 ActiveStart: 77-91-6520qxmz 1 tablet by mouth once daily cloNIDine (CATAPRES) 0.1 MG tablet Take 1 tablet by mouth daily 60 tablet 5 03/17/2021 ActiveStart: 38-75-7816imqo 1 tablet by mouth once dailycloNIDine (CATAPRES) 0.1 MG tablet Indications: Psychoactive substance abuse (HCC) Take 1 tablet bymouth daily 60 tablet 5 06/04/2020 Activetake 1 tablet by mouth once dailycloNIDine (CATAPRES) 0.1 MG tablet Take 0.1 mg by mouth daily 0 Active cyclobenzaprine hydrochloride 10 mg oral tablet (20 sources)Muscle RelaxantStart: 11-62-5486xkwb 1 tablet by mouth in the morning, then take 1 tablet by mouth in the evening, then take 1 tablet by mouth at bedtimecyclobenzaprine (Flexeril) 10 MG tablet Indications: Chronic bilateral low back pain with bilateralsciatica , Thoracolumbar back pain Take 1 tablet (10 mg) by mouth in the morning and 1 tablet (10 mg) in the evening and 1 tablet (10 mg) before bedtime. 90 tablet 10/06/2023 ActiveStart: 04-25-2021 End: 40-70-5408bclv 1 tablet by mouth three times daily as needed for muscle spasmscyclobenzaprine (FLEXERIL) 5 MG tablet Indications: Lumbar paraspinal muscle spasm Take 1 tablet bymouth 3 times daily as needed for Muscle spasms 42 tablet 0 04/25/2021 05/09/2021 ActiveStart: 05-16-2019 End: 79-86-2436fvbjhmwvcatasxz (FLEXERIL) tablet 10 mggabapentin 800 mg oral tablet (20 sources)Anti-epileptic AgentStart: 08-07-2024 End: 52-99-1024zlcv 1 tablet by mouth at bedtimegabapentin (Neurontin) 800 MG tablet Indications: Chronic bilateral low back pain with bilateral sciatica TAKE 1 TABLET BY MOUTH IN THE MORNING, EVENING AND BEFORE BEDTIME 90 tablet 1 12/20/2024 ActiveStart: 01-31-2023 End: 23-98-6054buqp 1 tablet by mouth in the morning, then take 1 tablet by mouth in the evening, then take 1 tablet by mouth at bedtimegabapentin (Neurontin) 800 MG tablet Indications: Chronic bilateral low back pain with bilateral sciatica Take 1 tablet (800 mg) by mouth in the morning and 1 tablet (800 mg) in the evening and 1 tablet (800 mg) before bedtime. 90 tablet 05/10/2024 ActiveStart: 79-67-0366hydjbrnild (NEURONTIN) 600 MG tablet Indications: Radiculopathy affecting upper extremity Take 1 tablet by mouth 6 times daily for 15 days. Take 2 pills in AM, 1 pill in afternoon, 1 pill in the evening, and 2 pills just prior to bed 90 tablet 3 06/13/2021 ActiveStart: 09-26-2020 End: 45-41-9968bmfy 1 tablet by mouth three times daily, then take 2 tablets by mouth at bedtimegabapentin (NEURONTIN) 600 MG tablet Indications: Chronic low back pain with sciatica, sciatica laterality unspecified, unspecified back pain laterality 1 po tid then 2 po at hs 150 tablet 5 03/17/2021 09/16/2021 Active take 1 tablet by mouth four times daily as neededgabapentin (NEURONTIN) 600 MG tablet Take 600 mg by mouth 4 times daily as needed. 0 Activemeloxicam 15 mg oral tablet (1 source)Nonsteroidal Anti-inflammatory DrugStart: 08-98-7230dowr 1 tablet by mouth once daily at mealtimemeloxicam (MOBIC) 15 MG tablet Take 1 tablet by mouth daily Do not take with any other anti-inflammatories. Take with food or milk. 30 tablet 0 04/25/2021 Activemethocarbamol 750 mg oral tablet (3 sources)Muscle RelaxantStart: 77-36-8683Idnfhyixgigje Active 750 MG PO October 05, 2023 12:00amStart: 01-31-2023 End: 06-49-7584oevj 1 tablet by mouth three times dailyRobaxin-750 oral tablet 1,500 mg = 2 tab(s), Oral, TID, X 3 day(s), # 18 tab(s), Refills(s) 0, Pharmacy: [facility]/pharmacy #[id number], 167.7, cm, 01/31/23 8:55:00 EDT, Height/Length Dosing, 91, kg, 01/31/23 8:55:00 EDT, Weight Dosing Start Date: 01/31/23 Stop Date: 02/03/23 Status: Orderedomeprazole 40 mg delayed release oral capsule (20 sources)Proton Pump InhibitorStart: 01-31-2023 End: 26-37-4970kpay 1 capsule by mouth once daily before mealtimeomeprazole (PriLOSEC) [address] capsule Indications: Gastro-esophageal reflux disease without esophagitis , Esophageal reflux TAKE 1 CAPSULE BY MOUTH ONCE EVERY MORNING BEFORE MEALS 90 capsule 1 06/12/2024 ActiveStart: 06-41-8238kyiq 1 capsule by mouth once dailyomeprazole (PRILOSEC) 40 MG delayed release capsule take 1 capsule by mouth once daily 30 capsule 11 03/17/2021 ActiveStart: 47-02-5327ysxs 1 capsule by mouth once dailyomeprazole (PRILOSEC) 40 MG delayed release capsule Indications: Gastroesophageal reflux disease, unspecified whether esophagitis present take 1 capsule by mouth once daily 30 capsule 5 06/04/2020 Activeoseltamivir 75 mg oral capsule (2 sources)Neuraminidase InhibitorStart: 07-14-2019 End: 51-60-5540rjiy 1 capsule by mouth twice dailyoseltamivir (TAMIFLU) 75 MG capsule Take 1 capsule by mouth 2 times daily for 10 days 20 capsule 0 0 07/14/2019 07/24/2019 ActiveoxyCODONE hydrochloride 5 mg oral tablet (16 sources)Opioid AgonistStart: 02-28-2024 End: 18-04-6948iuqj 1 tablet by mouth every eight hours for painoxyCODONE (Roxicodone) 5 MG immediate release tablet Indications: Chronic bilateral low back pain with bilateral sciatica , Thoracolumbar back pain Take 1 tablet (5 mg) by mouth every 8 (eight) hoursif needed for severe pain for up to 15 days 45 tablet 03/30/2024 04/14/2024 ActiveStart: 12-28-2023 End: 84-32-3647dyig 1 tablet by mouth every eight hours for painoxyCODONE (Roxicodone) 5 MG immediate release tablet Indications: Chronic bilateral low back pain with bilateral sciatica , Thoracolumbar back pain Take 1 tablet (5 mg) by mouth every 8 (eight) hoursif needed for severe pain 90 tablet 01/25/2024 02/23/2024 Discontinued (Reorder)Start: 34-65-8098Frzlxgugr Active 5 MG PO October 05, 2023 12:00ampenicillin v potassium 500 mg oral tablet (1 source)Start: 10-01-2020 End: 68-20-5669bgbb 1 tablet by mouth four times dailypenicillin v potassium (VEETID) 500 MG tablet Take 1 tablet by mouth 4 times daily for 10 days 40 ta blet 0 10/01/2020 10/11/2020 Active Completed/Discontinued Medications MedicationDrug Class(es)DatesSig (Normalized)Sig (Original)12 hr chlorpheniramine polistirex 1.6 mg/ml / HYDROcodone polistirex 2 mg/ml extended release suspension (1 source)Histamine-1 Receptor Antagonist, Opioid AgonistStart: 07-14-2019 End: 43-87-8538vxckftppqkm-chlorpheniramine (TUSSIONEX) 10-8 MG/5ML oral suspension 5 mLibuprofen 600 mg oral tablet (20 sources)Nonsteroidal Anti-inflammatory DrugStart: 06-25-2023 End: 43-62-8651efmn 1 tablet by mouth every eight hours as needed for pain ibuprofen 600 MG tablet Take 600 mg by mouth every 8 (eight) hours if needed for moderate pain 06/25/2023 02/09/2024 Discontinued (Therapy completed)Start: 06-30-2021 End: 06-84-1569yxkr 1 tablet by mouth every six hours as needed for pain ibuprofen (ADVIL;MOTRIN) 800 MG tablet Take 1 tablet by mouth every 6 hours as needed for Pain 20 tablet 0 06/30/2021 ActiveStart: 09-11-4032rmpm 1 tablet by mouth four times daily as needed for painibuprofen (ADVIL;MOTRIN) 600 MG tablet Take 1 tablet by mouth 4 times daily as needed for Pain 30 tablet 1 10/01/2020 ActiveStart: 79-90-3889ajml 1 tablet by mouth every eight hours as needed for painibuprofen (IBU) 800 MG tablet Take 1 tablet by mouth every 8 hours as needed for Pain 30 tablet 0 01/05/2019 Active End: 62-10-9355acbxufouo 800 MG tablet Take 400 mg by mouth 3 (three) times a day as needed for mild pain 02/09/2024 Discontinued (Therapy completed)traMADol hydrochloride 50 mg oral tablet (2 sources)Opioid AgonistStart: 05-16-2019 End: 13-70-9092irqQSSbo (ULTRAM) tablet 50 mg Problems Active Problems Problem ClassificationProblemDateDocumented DateEpisodic/ChronicAsthma (20 sources)Asthma; Translations: [Unspecified asthma, uncomplicated]Onset: 273591-66-3548VwfhrauEjrhysgmm-ggyfbng, conduct, and disruptive behavior disorders (20 sources)Attention deficit hyperactivity disorder, combined type; Translations: [Attention-deficit hyperactivity disorder, combined type]Onset: 702326-36-8162OerqrvuQetjmme obstructive pulmonary disease and bronchiectasis (1 source)Simple chronic bronchitis; Translations: [SIMPLE CHRONIC BRONCHITIS] Onset: 03-95-3241FxmncczXfsuuivxq of teeth and jaw (20 sources)Infection of tooth; Translations: [Toothache]Onset: 01-05-2019 10-61-3240JotkivfiAbwnqfcjfw disorders (20 sources)Gastroesophageal reflux disease; Translations: [Gastro-esophageal reflux disease without esophagitis]Onset: 920096-49-3844FeeyortMqcpfivs; including migraine (1 source)Acute headache; Translations: [Acute nonintractable headache, unspecified headache type]EpisodicImmunizations and screening for infectious disease (1 source)Suspected disease caused by 2019-nCoV; Translations: [Suspected COVID- 19 virus infection]EpisodicOpen wounds of extremities (1 source)Laceration of index finger; Translations: [Laceration of right index finger without foreign body without damage to nail, initial encounter]Episodic Osteoarthritis (4 sources)Arthritis; Translations: [Unspecified osteoarthritis, unspecified site]Onset: 132553-22-6001HnczjvrZwzaw congenital anomalies (1 source)Congenital disease; Translations: [Congenital abnormality]ChronicOther eye disorders (10 sources)Periorbital edema; Translations: [Periorbital edema]Onset: 765105-33-7955PhvwbdsZrcxv injuries and conditions due to external causes (1 source)Muscle strain; Translations: [Other injury of unspecified body region, initial encounter]EpisodicOther lower respiratory disease (1 source)Cough; Translations: [Cough]EpisodicOther nervous system disorders (8 sources)Scapulocostal syndrome; Translations: [Other specified mononeuropathies of unspecified upper limb]Onset: 517505-14-6422Ffybowf Other nervous system disorders (2 sources)Other chronic pain; Translations: [Other chronic pain]Onset: 405870-28-0098EohtrazKduhe nervous system disorders (1 source)Chronic pain; Translations: [Other chronic pain]00-47-8719FrvkclgXbkfg nervous system disorders (20 sources)Carpal tunnel syndrome of right wrist; Translations: [Carpal tunnel syndrome, right upper limb]Onset: 386501-44-6801DcgirkfKzcna non-traumatic joint disorders (1 source)Pain of right wrist; Translations: [Right wrist pain]Spondylosis; intervertebral disc disorders; other back problems (20 sources)Lumbosacral spondylosis without myelopathy; Translations: [Spondylosis without myelopathy or radiculopathy, lumbosacral region]Onset: 488913-99-5963AntocanHrhzwaf and strains (2 sources)Strain of thoracic region; Translations: [Injury of multiple muscles and tendons at shoulder and upper arm level]Onset: 58-65-1925ZtpmvslmYipfiqwzd- related disorders (20 sources)Nicotine dependence; Translations: [Nicotine dependence, cigarettes, uncomplicated]Onset: 645638-46-4099WsxphrjQgemdpv on above:Added secondary to documentation in Social History.Unclassified (2 sources)LOW BACK PAIN, UNSPECIFIED; Translations: [LOW BACK PAIN, UNSPECIFIED]Onset: 11-18-2021 Past or Other Problems Problem ClassificationProblemDateDocumented DateEpisodic/ChronicCalculus of urinary tract (4 sources)Ureteric stone; Translations: [Calculus of ureter]Onset: 01-14-2017 16-36-5966SaozedovUbyzrjmsrw and other anemia (4 sources)Anemia; Translations: [Anemia, unspecified]Onset: 08-23-2010 29-57-7539RnxsxcodFjlzjlahedxl conditions of male genital organs (4 sources)Orchitis; Translations: [Orchitis]Onset: 401765-70-4731Nkenplho Influenza (6 sources)Influenza due to Influenza A virus; Translations: [Influenza due to other identified influenza virus with other respiratory manifestations]Onset: 905889-36-9094JemnnjihXkpldruwecatw gastroenteritis (1 source)Noninfective gastroenteritis and colitis, unspecified; Translations: [NONINFECTIVE GE AND COLITIS UNS]Onset: 23-30-1532YppsdzhfGrvlb aftercare (1 source)Other intermediate (current) drug therapy; Translations: [OTH CUSTODIAL CURRENT DRUG THERAPY]Onset: 77-15-6238AaamurzsFxcba gastrointestinal disorders (3 sources)Diarrhea, unspecified; Translations: [DIARRHEA UNSPECIFIED]Onset: 69-47-7849RvntawvfSzfmv injuries and conditions due to external causes (1 source)Traumatic AND/OR non-traumatic injury; Translations: [Injury]Episodic Other male genital disorders (4 sources)Pain of right testicle; Translations: [Right testicular pain]Onset: 485797-14-2617SvwkbqptPvdqk nervous system disorders (20 sources)Pain in limb - multiple; Translations: [Paresthesia of skin]Onset: 660454-31-4526QgmkxdmnQdkxe upper respiratory infections (20 sources)Acute upper respiratory infection; Translations: [Acute upper respiratory infection, unspecified]Onset: 419295-33-0660TgywsvidSgoybliz codes; unclassified (14 sources)Edema of face ; Translations: [Localized edema]Onset: 12-24-2014 63-91-6498NrxnibipIzdjcprb codes; unclassified (2 sources)Pain; Translations: [Pain]EpisodicResidual codes; unclassified (4 sources)Periorbital edema; Translations: [Localized edema]Onset: 12-24-2014 20-60-4082OjsklgcrPcsyo and face fractures (14 sources)Closed fracture of zygomatic tripod; Translations: [Zygomatic fracture, unspecified side, initial encounter for closed fracture]Onset: 057744-04-7599RbdlasknOcevdlzfntj; intervertebral disc disorders; other back problems (20 sources)Acute back pain with sciatica; Translations: [Low back pain]Onset: 948722-09-7778YvavcfaoCyvizrtib-qlbuqgl disorders (20 sources)Continuous opioid dependence; Translations: [Opioid use, unspecified, uncomplicated]Onset: 402347-16-7953AzytjqqdPlpqpzvkqdmu (1 source)LOW BACK PAIN, UNSPECIFIED; Translations: [LOW BACK PAIN, UNSPECIFIED] Onset: 11-14-2021 Results Test NameValueInterpretationReference RangeFacilityMR LUMBAR SPINE WO CONon 82-61-6732[place] [address] Magnetic Resonance Report Signed Patient: DORIS COCHRAN MR#: [id number] : 1985 Acct:[id number] Age/Sex: 38 / M ADM Date: 08/25/23 Loc: [facility] Attending Dr: Shaikh Lashell Oshea Ordering Physician: Shaikh Dorie Lobo Date of Service: 08/25/23 Procedure(s): MR lumbar spine wo con Accession Number(s): [id number] cc: Shaikh Dorie Lobo [address] [address] Patient Name: DORIS COCHRAN MRN: [id number] date: 1985 Sex: M Assigned Patient Location: [facility] Current Patient Location: [facility] Accession/Order Number: [id number] Exam Date: 08/25/2023 07:15 Report Date: 08/25/2023 08:10 At the request of: SHAIKH LASHELL Procedure: MR lumbar spine wo con EXAMINATION: MR lumbar spine wo con HISTORY: Chronic Bilateral Low Back With Bilateral Sciatica M54.42 COMPARISON: No relevant comparison available. TECHNIQUE: A variety of imaging planes and parameters were utilized for visualization of suspected pathology. FINDINGS: For the purposes of numbering, sagittal T2 image # 8 extends from the T11 vertebral body superiorly to the S3-S4 level inferiorly. PARASPINAL AREA: Normal with no visible mass. BONES: Normal alignment with no acute fracture or spondylolisthesis. No bone edema CORD/CAUDA EQUINA: Normal caliber, contour, and signal intensity. DISC LEVELS: 12-L1: No significant disc/facet abnormality, spinal stenosis, or foraminal stenosis. L1-L2: No significant disc/facet abnormality, spinal stenosis, or foraminal stenosis. L2-L3: No significant disc/facet abnormality, spinal stenosis, or foraminal stenosis. L3-L4: No significant disc/facet abnormality, spinal stenosis, or foraminal stenosis. L4-L5: Disc desiccation. Broad-based posterior central left paracentral and foraminal disc herniation of the protrusion type extending up to 3 mm posteriorly. This displaces but does not efface the adjacent exiting nerve root L5-S1: No significant disc/facet abnormality, spinal stenosis, or foraminal stenosis. MR/MR lumbar spine wo con IMPRESSION: Broad-based posterior central disc herniation L4-L5 compressing but not effacing the adjacent left L4 nerve root Electronically authenticated by: MEAGHAN HAWLEY Date: 08/25/2023 08:10 Dictated By: Meaghan Hawley M.D. Signed By: 08/25/23811 DD/ 9 TD/TT: Aerophysics Engineer:TBHRadiology, Radiologist, - 08/25/2023 [place] [address] Magnetic Resonance Report Signed Patient: DORIS COCHRAN MR#: [id number] : 1985 Acct:[id number] Age/Sex: 38 / M ADM Date: 08/25/23 Loc: [facility] Attending Dr: Shaikh Lashell Oshea Ordering Physician: Shaikh Dorie Lobo Date of Service: 08/25/23 Procedure(s): MR lumbar spine wo con Accession Number(s): [id number] cc: Shaikh Dorie Lobo [facility] [place] [id number] Patient Name: DORIS COCHRAN MRN: [id number] date: 1985 Sex: M Assigned Patient Location: [facility] Current Patient Location: [facility] Accession/Order Number: [id number] Exam Date: 08/25/2023 07:15 Report Date: 08/25/2023 08:10 At the request of: SHAIKH LASHELL Procedure: MR lumbar spine wo con EXAMINATION: MR lumbar spine wo con HISTORY: Chronic Bilateral Low Back With Bilateral Sciatica M54.42 COMPARISON: No relevant comparison available. TECHNIQUE: A variety of imaging planes and parameters were utilized for visualization of suspected pathology. FINDINGS: For the purposes of numbering, sagittal T2 image # 8 extends from the T11 vertebral body superiorly to the S3-S4 level inferiorly. PARASPINAL AREA: Normal with no visible mass. BONES: Normal alignment with no acute fracture or spondylolisthesis. No bone edema CORD/CAUDA EQUINA: Normal caliber, contour, and signal intensity. DISC LEVELS: 12-L1: No significant disc/facet abnormality, spinal stenosis, or foraminal stenosis. L1-L2: No significant disc/facet abnormality, spinal stenosis, or foraminal stenosis. L2-L3: No significant disc/facet abnormality, spinal stenosis, or foraminal stenosis. L3-L4: No significant disc/facet abnormality, spinal stenosis, or foraminal stenosis. L4-L5: Disc desiccation. Broad-based posterior central left paracentral and foraminal disc herniation of the protrusion type extending up to 3 mm posteriorly. This displaces but does not efface the adjacent exiting nerve root L5-S1: No significant disc/facet abnormality, spinal stenosis, or foraminal stenosis. MR/MR lumbar spine wo con IMPRESSION: Broad-based posterior central disc herniation L4-L5 compressing but not effacing the adjacent left L4 nerve root Electronically authenticated by: MEAGHAN HAWLEY Date: 08/25/2023 08:10 Dictated By: Meaghan Hawley M.D. Signed By: 08/25/23811 DD/ 9 TD/TT: Aerophysics Engineer: [facility] HealthcareRadiology Study observation (narrative)[facility] LUMBAR SPINE WO CONOrdered By: Radiologist Radiology on [id number] Work Phone: xr FOREIGN BODY EYEon [phone] [address] XRay Report Signed Patient: DORIS COCHRAN MR#: [id number] : 1985 Acct:[id number] Age/Sex: 38 / M ADM Date: 08/25/23 Loc: [facility] Attending Dr: Shaikh Lashell Oshea Ordering Physician: Shaikh Dorie Lobo Date of Service: 08/25/23 Procedure(s): XR foreign body eye Accession Number(s): [id number] cc: Shaikh Dorie Lobo [place] [id number] Patient Name: DORIS COCHRAN MRN: [id number] date: 1985 Sex: M Assigned Patient Location: [facility] Current Patient Location: [facility] Accession/Order Number: [id number] Exam Date: 08/25/2023 07:01 Report Date: 08/25/2023 07:12 At the request of: SHAIKH LASHELL Procedure: XR foreign body eye EXAMINATION: XR foreign body eye HISTORY: Foreign Body Eyes COMPARISON: No relevant comparison available. FINDINGS: ORBITS: Negative for a metallic foreign body. OTHER: Negative. XR/XR foreign body eye IMPRESSION: No metallic foreign body in the orbits Electronically authenticated by: MEAGHAN HAWLEY Date: 08/25/2023 07:12 Dictated By: Meaghan Hawley M.D. Signed By: 08/25/23 0715 DD/ TD/TT: Aerophysics Engineer:TBHRadiology, Radiologist, MD - 08/25/[address] [address] XRay Report Signed Patient: DORIS COCHRAN MR#: [id number] : 1985 Acct:[id number] Age/Sex: 38 / M ADM Date: 08/25/23 Loc: [facility] Attending Dr: Shaikh Lashell Oshea Ordering Physician: Shaikh Dorie Lobo Date of Service: 08/25/23 Procedure(s): XR foreign body eye Accession Number(s): [id number] cc: Shaikh Dorie Lobo [facility] [place] [id number] Patient Name: DORIS COCHRAN MRN: [id number] date: 1985 Sex: M Assigned Patient Location: [facility] Current Patient Location: [facility] Accession/Order Number: [id number] Exam Date: 08/25/2023 07:01 Report Date: 08/25/2023 07:12 At the request of: SHAIKH LASHELL Procedure: XR foreign body eye EXAMINATION: XR foreign body eye HISTORY: Foreign Body Eyes COMPARISON: No relevant comparison available. FINDINGS: ORBITS: Negative for a metallic foreign body. OTHER: Negative. XR/XR foreign body eye IMPRESSION: No metallic foreign body in the orbits Electronically authenticated by: MEAGHAN HAWLEY Date: 08/25/2023 07:12 Dictated By: Meaghan Hawley M.D. Signed By: 08/25/23714 DD/ 1 TD/TT: Aerophysics Engineer: [facility] HealthcareRadiology Study observation (narrative)[facility]S HealthcareXR FOREIGN BODY EYEOrdered By: Radiologist Radiology on [id number] Work Phone: aMYLASEon 10-02-4408Dgilwmq [Catalytic activity/Vol]33 U/JErbvyq65-171Zgs [facility] CampusComment on above:Performed By: #### PRUDENCE, LIPA, CMP #### [facility] [address] [place] [address] Dr. Jenae Valenzuela AUTO DIFFon 40-10-0766HUHI #0.0 103/ulNormal0.0-0.1The [facility] CampusComment on above:Performed By: #### CBC #### [facility] [address] [place] [address] Dr. Jenae AlvaresBasophils/100 WBC (Bld)0.0 %Critically low0.2-2.0The [facility] CampusComment on above:Performed By: #### CBC #### [facility] [address] [place] [address] Dr. Jenae Bernstein #0.0 103/ulNormal0.0-0.7The [facility] CampusComment on above: Performed By: #### CBC #### [facility] [address] [place] [address] Dr. Jenae Rivasosinophils/100 WBC (Bld)0.5 %Critically low0.9-7.0The [facility] CampusComment on above:Performed By: #### CBC #### [facility] [address] [place] [address] Dr. Jenae Rivasrythrocyte distribution width (RBC) [Ratio]13.3 %Fotfpe36.0-15.0 The [facility] CampusComment on above:Performed By: #### CBC #### [facility] [address] [place] [address] Dr. Jenae AlvaresHematocrit (Bld) [Volume fraction]42.2 %Jlocof22.0-54.0The [facility] CampusComment on above:Performed By: #### CBC #### [facility] [address] [place] [address] Dr. Jenae AlvaresHemoglobin (Bld) [Mass/Vol]14.5 g/xBAtoysz74.0-18.0The [facility] CampusComment on above:Performed By: #### CBC #### [facility] [address] [place] [address] Dr. Jenae Ashton #0.01 10e3/ulNormal0.00-0.03The [facility] CampusComment on above:Performed By: #### CBC #### [facility] [address] [place] [address] Dr. Jenae Ashton %0.2 %Normal0.0-0.5The [facility] CampusComment on above: Performed By: #### CBC #### [facility] [address] [place] [address] Dr. Jenae Agustin #1.4 103/ulNormal1.2-3.8The [facility] CampusComment on above:Performed By: #### CBC #### [facility] [address] [address] [address] Jenae Goodemphocytes/100 WBC (Bld)24.7 %Ghieoi72.5-60.0The [facility] Hospitalment on above:Performed By: #### CBC #### [facility] [address] [place] [address] Dr. Jenae Munson DIFF REQNONormalThe [facility] CampusComment on above: Performed By: #### CBC #### [facility] [address] [place] [address] Dr. Jenae Ruiz (RBC) [Entitic mass]31.4 tgKppbsz14.9-34.0The [facility] CampusComment on above:Performed By: #### CBC #### [facility] [address] [place] [address] Dr. Jenae Ruiz (RBC) [Mass/Vol]34.4 g/tNVhitvo75.9-35.2The [facility] CampusComment on above:Performed By: #### CBC #### [facility] [address] [place] [address] Dr. Jenae Ruiz (RBC) [Entitic vol]91.3 yZWtnyjh17.0-94.0The [facility] CampusComment on above:Performed By: #### CBC #### [facility] [address] [place] [address] Dr. Jenae Vigil #0.4 103/ulNormal0.3-0.8The [facility] Hospitalment on above:Performed By: #### CBC #### [facility] [address] [place] [address] Dr. Jenae Juanocytes/100 WBC (Bld)7.2 %Normal1.7-12.0The [facility] on above:Performed By: #### CBC #### [facility] [address] [place] [address] Dr. Jenae Mancini #3.7 103/ulNormal1.4-6.5The [facility] Hospitalment on above:Performed By: #### CBC #### [facility] [address] [place] [address] Dr. Jenae Paredesutrophils/100 WBC (Bld)67.4 %Mvnpsu36.0-75.0The [facility] CampusComaspirus keweenaw [facility] on above:Performed By: #### CBC #### [facility] [address] [place] [address] Dr. Jenae AlvaresPlatelet mean volume (Bld) [Entitic vol]12.2 fLNormal9.5-13.5The [facility] CampusComment on above:Performed By: #### CBC #### [facility] [address] [place] [address] Dr. Jenae AlvaresPLT121 103/ulCritically bzo359-585Dck [facility] CampusComaspirus keweenaw hospital on above:Performed By: #### CBC #### [facility] [address] [place] [address] Dr. Jenae AlvaresRBC4.62 106/ulCritically low4.70-6.10The [facility] CampusComaspirus keweenaw hospital on above:Performed By: #### CBC #### [facility] [address] [place] [address] Dr. Jenae AlvaresWBC5.5 103/ulNormal4.0-11.0The [facility] CampusComaspirus keweenaw hospital on above: Performed By: #### CBC #### [facility] [address] [place] [address] Dr. Jenae AlvaresLIPASEon 68-52-5047Aptmkf [Catalytic activity/Vol]86.0 U/LNormal 73.0-393.0The [facility] CampusComaspirus keweenaw hospital on above:Performed By: #### PRUDENCE, LIPA, CMP #### [facility] [address] [place] [address] Dr. Jenae Bojorquez 14(COMP METB)on 70-72-6057Gvuxpae [Mass/Vol]3.7 g/dLNormal 3.4-5.0The [facility] CampusComment on above:Performed By: #### PRUDENCE, LIPA, CMP #### [facility] [address] [place] [address] Dr. Jenae AlvaresAlbumin/Globulin [Mass ratio]1.0 {ratio}NormalThe [facility] CampusComment on above:Performed By: #### PRUDENCE, LIPA, CMP #### [facility] [address] [place] [address] Dr. Jenae GarciaP [Catalytic activity/Vol]154 U/LCritically lcaf24-739Tvg [facility] CampusComment on above:Performed By: #### PRUDENCE, LIPA, CMP #### [facility] [address] [place] [address] Dr. Jenae GarciaT [Catalytic activity/Vol]48 U/MBvjwst00-66Dwu [facility] CampusComment on above:Performed By: #### PRUDENCE, LIPA, CMP #### [facility] [address] [place] [address] Dr. Jenae Khanon gap [Moles/Vol]11.0 mmol/LNormalThe [facility] Comment on above:Performed By: #### PRUDENCE, LIPA, CMP #### [facility] [address] [place] [address] Dr. Jenae AlvaresAST [Catalytic activity/Vol]25 U/ADwscip89-82Rjl [facility] CampusComment on above:Performed By: #### PRUDENCE, LIPA, CMP #### [facility] [address] [place] [address] Dr. Jenae AlvaresBilirubin [Mass/Vol]0.4 mg/dLNormal0.2-1.0The [facility] Comment on above:Performed By: #### PRUDENCE, LIPA, CMP #### [facility] [address] [place] [address] Dr. Jenae AlvaresCalcium [Mass/Vol]8.6 mg/dLNormal8.5-10.1The [facility] Comment on above:Performed By: #### PRUDENCE, LIPA, CMP #### [facility] [address] [place] [address] Dr. Jenae AlvaresChloride [Moles/Vol]105 mmol/PEgkecz04-893Yev [facility] Comment on above:Performed By: #### PRUDENCE, LIPA, CMP #### [facility] [address] [address] [address] Jenae AlvaresCO2 [Moles/Vol]26.9 mmol/LHwyykt16.0-32.0The [facility] Comment on above:Performed By: #### PRUDENCE, LIPA, CMP #### [facility] [address] [place] [address] Dr. Jenae AlvaresCreatinine [Mass/Vol]1.14 mg/dLNormal0.70-1.30The [facility] CampusComment on above:Performed By: #### PRUDENCE, LIPA, CMP #### [facility] [address] [place] [address] Dr. Jenae RivasGFR-AF URUGUAYAN>60Normal>=60The [facility] CampusComment on above:Performed By: #### PRUDENCE, LIPA, CMP #### [facility] [address] [place] [address] Dr. Jenae RivasGFR-NON AF URUGUAYAN>60Normal>=60The [facility] CampusComment on above:Performed By: #### PRUDENCE, LIPA, CMP #### [facility] [address] [place] [address] Dr. Jenae AlvaresGlobulin (S) [Mass/Vol]3.8 g/dLNormalThe [facility] CampusComment on above:Performed By: #### PRUDENCE, LIPA, CMP #### [facility] [address] [place] [address] Dr. Jenae AlvaresGlucose [Mass/Vol]96 mg/lKFjxpzd18-932Uzk [facility] Comment on above:Performed By: #### PRUDENCE, LIPA, CMP #### [facility] [address] [place] [address] Dr. Jenae AlvaresPotassium [Moles/Vol]3.9 mmol/LNormal3.5-5.1The [facility] Comment on above:Performed By: #### PRUDENCE, LIPA, CMP #### [facility] [address] [place] [address] Dr. Jenae AlvaresProtein [Mass/Vol]7.5 g/dLNormal6.4-8.2[facility] Comment on above:Performed By: #### ALLA FOSS, CMP #### [facility] [address] [address] [address] Jenae AlvaresSodium [Moles/Vol]139 mmol/ZGxipgk686-156Tmz [facility] Comment on above:Performed By: #### ALLA FOSS, CMP #### [facility] [address] [address] [address] Jenae AlvaresUrea nitrogen [Mass/Vol]11.0 mg/dLNormal7.0-18.0The [facility] CampusComment on above:Performed By: #### ALLA FOSS, CMP #### [facility] [address] [address] [address] Jenae AlvaresUrea nitrogen/Creatinine [Mass ratio]9.6 mg/mgNormalThe [facility] CampusComment on above:Performed By: #### ALLA FOSS, CMP #### [facility] [address] [address] [address] Jenae MaryVID19 ([facility])on 99-53-4217JMSQ-CoV-2 (COVID-19) RNA RIP+probe Ql (Unsp spec)Not detectedNormalNOT-DETECTEDWWilson HealthComment on above:Order Comment: Is this test for diagnosis or screening?->ScreeningResult Comment: Negative results do not preclude SARS-CoV-2 infection and should not be used as thesole basis for treatment or other patient management decisions. Optimum specimen types and timing for peak viral levels during infections caused by SARS-CoV-2 has not been determined. The possibilityof a false negative result should especially be [...] (EAU) for the qualitative detection of SARS-CoV-2 nucleicacid. \[id number]\Resulting Lab: [facility]ICAL LABORATORYPerformed By: #### [id number] #### [facility] [address] [place] [address] Ph. [phone] CORONAVIRUS NASOPHARYNGEAL - [facility] SPECIMEN ONLYon 98-00-3880XOWJ-CoV-2 (COVID-19) RNA RIP+probe Ql (Unsp spec)Not detectedNormal NOT DETECTEDUpper Valley Medical CenterComment on above:Order Comment: This test was performed using [employer] and has been approved as Emergency Use Authorization (EUA) for the qualitative detection of SARS-CoV-2 nucleic acid.Result Comment: [facility] Negative results do not preclude [...] the patient is critically ill or clinically deteriorating.Performed By: #### [id number] #### [facility] (DEFAULT) [address] [id number] COMPARISON OF OUTSIDE FILMSon 37-74-5992HA COMPARISON OF OUTSIDE FILMSRADRPT There is no result for this study. This is a placeholder for comparison films only. Final resultNormalWOhioHealth Dublin Methodist HospitalARS-CoV-2on 37-35-4302CKMQ-CoV-2 (COVID-19) RNA RIP+probe Ql (Unsp spec)[facility] RehabilitationComment on above:Performed By: #### COVID #### [facility] [employer] [address] [place] [id number] Manager Documentation: Chuck Bradley MD [address] [place] [address] Manager Documentation: CATHERINE Love-CoV-2 (COVID-19) RNA RIP+probe Ql (Unsp spec) Not detectedNormalNOTDEUniversity Hospitals Conneaut Medical CenterComment on above:Result Comment: The specimen is NEGATIVE for SARS-CoV-2, the novel coronavirus associated with COVID-19. A negative result does not rule out COVID-19. Deloris SARS-CoV-2 for use on the [employer] is a real-time RT-PCR test intended [...] this assay. Fact sheet for Healthcare Providers: https://www.fda.gov/media/164510/download Fact sheet for Patients: https://www.fda.gov/media/999262/download METHODOLOGY: RT-PCRPerformed By: #### COVID #### [address] [address] Manager Documentation: Chuck Bradley MD [facility] [address] [place] [address] [place] [address] Manager Documentation: NICKI LoveOVID-19, Rapidon 98-49-7870WZRE-CoV-2 (COVID-19) RNA RIP+probe Ql (Unsp spec)Not detectedNot DetectedLima Memorial Hospital HealthComment on above: Rapid NAAT: The specimen is [...] management decisions. Fact sheet for Healthcare Providers: https://www.fda.gov/media/707279/download Fact sheet for Patients: https://www.fda.gov/media/366125/download Methodology: Isothermal Nucleic Acid Amplification Specimen Description.NASOPHARYNGEAL SWABGundersen St Joseph's Hospital and Clinics-CoV-2on 26-29-8809VDII-CoV-2 (COVID-19) RNA RIP+probe Ql (Unsp spec).NASOPHARYNGEAL SWAB [facility] for RehabilitationComment on above:Performed By: #### COVID #### [facility] [address], [place] [id number] Manager Documentation: Chuck Bradley MD [facility] [address] [place] [address] Manager Documentation: CATHERINE Love-CoV-2 (COVID-19) RNA RIP+probe Ql (Unsp spec) Not detectedNormalNOTDEUniversity Hospitals Conneaut Medical CenterComment on above:Result Comment: Rapid NAAT: The specimen is NEGATIVE [...] management decisions. Fact sheet for Healthcare Providers: https://www.fda.gov/media/486994/download Fact sheet for Patients: https://www.fda.gov/media/125916/download Methodology: Isothermal Nucleic Acid AmplificationPerformed By: #### COVRB #### [facility] [address] [place] [address] Manager Documentation: Meaghan Poole, MDXR LUMBAR SPINE (MIN 4 VIEWS)on 40-26-1021TS LUMBAR SPINE (MIN 4 VIEWS)RADRPT EXAM: XR LUMBAR SPINE (MIN 4 VIEWS) HISTORY: TECH NOTES: Chronic Lumbar pain Nki WJ-Zxv-Zmsn-Flex-Ext per ordering provider Low back pain due [...] No dynamic instability Chronic Lumbar pain Nki DU-Cbq-Antz-Flex-Ext per ordering provider Interpreted by: Ras Olson MD Signed by: Ras Olson MD 06/13/21 Final resultNoMartin Memorial HospitalComment on above:Order Comment: AP/lateral/Spot with flew/extMRI CERVICAL SPINE WO CONTRASTon 88-16-6374QSY CERVICAL SPINE WO CONTRASTRADRPT EXAM TYPE: MRI CERVICAL SPINE WO CONTRAST, [...] Interpreted by: Ras Olson MD Signed by: Rsa Olson MD 05/16/21 Final resultNormUniversity Hospitals Geneva Medical CenterMRI LUMBAR SPINE WO CONTRASTon 31-45-1837LEJ LUMBAR SPINE WO CONTRASTRADRPT EXAM TYPE: MRI CERVICAL SPINE WO CONTRAST, [...] arthropathy. Report electronically signed by: Dr. Ras lOson IMPRESSION: 1. Study degraded by motion. 2. No significant degenerative disc disease identified in the cervical spine. 3. Mild to moderate degenerative disc disease and facet arthropathy involving the lumbar spine, most significant at the L4-L5 level as described above. Chronic low back pain and b/l leg pain x years. NKI Interpreted by: Ras Olson MD Signed by: Ras Olson MD 05/16/21 Final resultNoUniversity Hospitals Beachwood Medical Center-CoV-2on 67-75-7729TXDG-CoV-2 (COVID-19) RNA RIP+probe Ql (Unsp spec)NormalMerNew Milford HospitalComment on above:Performed By: #### COVID #### [facility] [address], [place] [id number] Manager Documentation: Chuck Bradley MD [facility] [address] [place] [address] [place] [address] Manager Documentation: CATHERINE Love-CoV-2 (COVID-19) RNA RIP+probe Ql (Unsp spec) Not detectedNormalNOTDEUniversity Hospitals Conneaut Medical CenterComment on above:Result Comment: The specimen is NEGATIVE for SARS-CoV-2, the novel coronavirus associated with COVID-19. A negative result does not rule out COVID-19. Deloris SARS-CoV-2 for use on the [employer] is a real-time RT-PCR test intended [...] this assay. Fact sheet for Healthcare Providers: https://www.fda.gov/media/464984/download Fact sheet for Patients: https://www.fda.gov/media/957592/download METHODOLOGY: RT-PCRPerformed By: #### COVID #### [facility] [employer] [address], [place] [id number] Manager Documentation: Chuck Bradley MD [facility] [address] [place] [address] [place] [address] Manager Documentation: LENORE LoveCoV-2on 79-59-3648QECV-CoV-2 (COVID-19) RNA RIP+probe Ql (Unsp spec).NASOPHARYNGEAL SWABNormalCommunity Regional Medical CenterComment on above:Performed By: #### COVID #### [employer] [address] [place] [address] Manager Documentation: Chuck Bradley MD [facility] [address] [place] [address] Manager Documentation: JULIO CÉSAR Lovetrep Screen Group A Throaton 07-16-2019S. pyogenes Ag IA Ql (Unsp spec)Rapid Strep A negative. A negative Rapid Group A Strep Screen result does not rule out the possibility of Group A Streptococci in the specimen. A Group A Strep DNA test is available upon request.[employer] Phone: special RequestsNOT [facility] HospitalSquareMarket Phone: specimen Description.[facility] StokesSquareMarket Phone: XR CHEST STANDARD (2 VW)on 53-30-9414Ib acute cardiopulmonary abnormality identified.[employer] Phone: eXAMINATION: TWO XRAY VIEWS OF THE CHEST 07/16/2019 5:44 pm COMPARISON: 07/14/2019 HISTORY: ORDERING SYSTEM PROVIDED HISTORY: eval for pneumonia TECHNOLOGIST PROVIDED HISTORY: eval for pneumonia FINDINGS: No focal lung consolidation. No pleural effusion or pneumothorax identified. The cardiomediastinal silhouette is normal in size for technique.[employer] Phone: edi, [facility] Incoming Radiant Results From [employer] - 07/16/2019 5:52 PM EST EXAMINATION: TWO XRAY VIEWS OF THE CHEST 07/16/2019 5:44 pm COMPARISON: 07/14/2019 HISTORY: ORDERING SYSTEM PROVIDED HISTORY: eval for pneumonia TECHNOLOGIST PROVIDED HISTORY: eval for pneumonia FINDINGS: No focal lung consolidation. No pleural effusion or pneumothorax identified. The cardiomediastinal silhouette is normal in size for technique. IMPRESSION: No acute cardiopulmonary abnormality identified. [employer] Phone: rapid influenza A/B antigenson 26-76-2266Psgzjs Exam PositiveAbnormalCentervilleSquareMarket Phone: direct ExamNegativeCentervilleSquareMarket Phone: Interpretation and review of laboratory results AbnormalCentervilleSquareMarket Phone: special RequestsNOT REPORTEDCentervilleSquareMarket Phone: specimen Description.NASOPHARYNGEAL SWABCentervilleSquareMarket Phone: XR CHEST STANDARD (2 VW)on 93-97-9202Orbjgqiryx left upper lung opacity is felt to be superimposition of shadows but early pneumonia is not excluded. Short interval follow-up is advised.[employer] Phone: eXAMINATION: TWO XRAY VIEWS OF THE CHEST 07/14/2019 3:23 pm COMPARISON: May 16, 2019 HISTORY: ORDERING SYSTEM PROVIDED HISTORY: cough TECHNOLOGIST PROVIDED HISTORY: cough FINDINGS: Asymmetric leftupper lung opacity most likely superimposition of shadows but early pneumonia is not excluded. Interstitial prominence diffusely, likely magnified by shallow inspiration and technical differences. Nofocal consolidation. Heart is not enlarged.[employer] Phone: edi, [facility] Incoming Radiant Results From [employer] - 07/14/2019 3:34 PM EST EXAMINATION: TWO [...] not excluded. Short interval follow-up is advised. [employer] Phone: XR CHEST STANDARD (2 VW)Ordered By: Chava Chaidez on 51-49-8532Jylitlnvrsrc chest.[employer] Phone: eXAMINATION: TWO XRAY VIEWS OF THE CHEST 05/16/2019 5:14 pm COMPARISON: 10/24/2018 HISTORY: ORDERING SYSTEM PROVIDED HISTORY: right posterior pain increased after accupunture to rhomboid today TECHNOLOGIST PROVIDED HISTORY: right posterior pain increased after accupunture to rhomboid today FINDINGS: The lungs are without acute focal process. No effusion or pneumothorax. The cardiomediastinal silhouette is normal. The osseous structures are intact without acute process.[employer] Phone: edi, [facility] Incoming Radiant Results From [employer] - 05/16/2019 5:21 PM EST EXAMINATION: TWO [...] intact without acute process. IMPRESSION: Unremarkable chest. [employer] Phone: MRI LUMBAR SPINE WO CONTRASTon 07-95-9721Gkhx subarticular disc bulge effacing descending left L5 nerve root within the lateral recess. Discbulge at L3-L4 effacing the descending bilateral L4 nerve roots in the lateral recesses.[employer]- [place], [place]EXAMINATION: MRI OF THE LUMBAR SPINE WITHOUT CONTRAST, 03/03/2019 1:06 pm TECHNIQUE: Multiplanar multisequence MRI of the lumbar spine was performed without the administration of intravenous contrast.COMPARISON: None HISTORY: ORDERING SYSTEM PROVIDED HISTORY: Lumbar [...] disc bulge effacing the descending left L5 nerveroot within the lateral recess. Facet hypertrophy left greater than right. Mild canal narrowing. Moderate left and mild right neural foraminal narrowing. L5-S1: Circumferential disc bulge in close proximity to descending S1 nerve roots in the lateral recesses. No significant spinal canal narrowing.No significant neural foraminal narrowing.[facility], [place] Dawson Incoming Radiant Results From [employer] - 03/03/2019 2:42 PM EDT EXAMINATION: MRI [...] L4 nerve roots in the lateral recesses. [facility] HospitalLikeLike.comFREEMAN HEALTH SYSTEM, DARLENEHepatitis C Antibodyon 39-65-4675Itkncbtsm C AbREACTIVE AbnormalNONREACTIVEGuernsey Memorial Hospital, KYComment on above: The hepatitis C procedure used [...] Health Department Interpretation and review of laboratory resultsAbnormTriHealth [facility], [place] Amylaseon 93-45-6350Uyrtxbi [Catalytic activity/Vol]40 U/L28 - 100 U/LMSt. Vincent Hospital, IACBC Auto Differentialon 94-59-2992Gekrlidau (Bld) [#/Vol]10*3/uL [facility], IABasophils/100 WBC (Bld)0 %0 - 2 %[facility], [place] Differential TypeNOT REPORTEDGuernsey Memorial Hospital, IAEosinophils (Bld) [#/Vol]0.04 10*3/[facility], DARLENEEosinophils/100 WBC (Bld)0 %Low1 - 4 %[facility], IAErythrocyte distribution width (RBC) [Ratio]13.1 %11.8 - 14.4 %[facility], IAHematocrit (Bld) [Volume fraction]43.4 %40.7 - 50.3 %[facility], IAHemoglobin (Bld) [Mass/Vol]15.1 g/dL13 - 17 g/dLGuernsey Memorial Hospital, [place] Immature granulocytes (Bld) [#/Vol]1 %[place]6QypueGuernsey Memorial Hospital, IAImmature granulocytes (Bld) [#/Vol]0.05 10*3/[facility], IAInterpretation and review of laboratory resultsAbnoClermont County Hospital, IALymphocytes (Bld) [#/Vol]2.14 10*3/[facility], IALymphocytes/100 WBC (Bld)24 %24 - 43 % [facility], KYMCH (RBC) [Entitic mass]32.5 pg25.2 - 33.5 pgGuernsey Memorial Hospital, IAMCHC (RBC) [Mass/Vol]34.8 g/dL28.4 - 34.8 g/dLLima [facility]- [place], KYMCV (RBC) [Entitic vol]93.5 fL82.6 - 102.9 fLLima [facility]- [place], KYMonocytes (Bld) [#/Vol]0.67 10*3/uLLima [facility]- [place], KYMonocytes/100 WBC (Bld)8 %3 - 12 %[facility]- [place], KYPlatelet mean volume (Bld) [Entitic vol]12.1 fL8.1 - 13.5 fLLima [facility] Hospital [facility]- [place], KYPlatelets (Bld) [#/Vol]146 10*3/uLLima [facility]- [place], KYPlatelets (Bld) [#/Vol]NOT REPORTEDTuscarawas Hospital- [place], KYRBC (Bld) [#/Vol]4.64 10*6/uL4.21 - 5.77 m/uLTuscarawas Hospital- [place], KYRBC morphology finding Nom (Bld)NOT REPORTEDTuscarawas Hospital- [place], DARLENESegmented neutrophils/100 WBC (Bld)67 %High36 - 65 %[facility]- [place], KYSegs Absolute6.07[facility]- [place], KYWBC (Bld) [#/Vol]0.0 10*3/uL0.0 per 100 WBCTuscarawas Hospital- [place], KYWBC (Bld) [#/Vol]9.0 10*3/uLLima [facility]- [place], KYWBC MorphologyNOT REPORTEDTuscarawas Hospital- [place], KYComprehensive Metabolic Panelon 09-68-9894Zupzjby [Mass/Vol]4.5 g/dL3.5 - 5.2 g/dLTuscarawas Hospital- [place], [place] Albumin/Globulin [Mass ratio]1.3 {ratio}[facility]- [place], KYALP [Catalytic activity/Vol]146 U/LHigh40 - 129 U/LMmercy health [facility]- [place], KYALT [Catalytic activity/Vol]39 U/L5 - 41 U/LMmercy health Health- [place], KYAnion gap [Moles/Vol]13 mmol/L9 - 17 mmol/LMmercy health Health- [place], KYAST [Catalytic activity/Vol]27 U/L<40[facility]- [place], KYBilirubin Ql (U)0.29 mg/dLLow0.3 - 1.2 mg/dLGuernsey Memorial Hospital, [place] Bun/Cre Vzjck0MliwfGuernsey Memorial Hospital, KYCalcium [Mass/Vol]9.8 mg/dL8.6 - 10.4 mg/dL [facility], KYChloride [Moles/Vol]100 mmol/L98 - 107 mmol/LMSt. Vincent Hospital, KYCO2 [Moles/Vol]27 mmol/L20 - 31 mmol/LMLakeHealth [facility] [place], KYCreatinine [Mass/Vol]1.02 mg/dL0.7 - 1.2 mg/dLGuernsey Memorial Hospital, KYGFR >60 >60 mL/minGuernsey Memorial Hospital, KYGFR Non->60>60 mL/minGuernsey Memorial Hospital, KYGlucose [Mass/Vol]85 mg/dL70 - 99 mg/dLGuernsey Memorial Hospital, KYInterpretation and review of laboratory resultsAbnormalGuernsey Memorial Hospital, KYPotassium [Moles/Vol]3.7 mmol/L3.7 - 5.3 mmol/LMSt. Vincent Hospital, KYProtein [Mass/Vol]8.1 g/dL6.4 - 8.3 g/dLGuernsey Memorial Hospital, KYSodium [Moles/Vol]140 mmol/L135 - 144 mmol/[facility], KYUrea nitrogen [Mass/Vol]9 mg/dL6 - 20 mg/dLGuernsey Memorial Hospital, KYLipaseon 60-75-1334Gvtkra [Catalytic activity/Vol]19 U/L13 - 60 U/LMSt. Vincent Hospital, KYMetabolic Panelon 35-67-6935ZLO/1.73 sq M predicted among non-blacks MDRD (S/P/Bld) [Vol rate/Area][facility], KYComment on above: Average GFR for 30-39 years old: 107 mL/min/1.73sq m Chronic Kidney Disease: <60 mL/min/1.73sq m Kidney failure: <15 mL/min/1.73sq m eGFR calculated using average adult body mass. Additional eGFR calculator available at: http://www.My Healthy World/multiple_crcl_2011.htm Stage 1: Some kidney damage normal GFR Stage 2: Mild kidney damage GFR 60-89 Stage 3: Moderate kidney damage GFR 30-59 Stage 4: Severe kidney damage GFR 15-29 Stage 5: Severe kidney damage GFR <15 ESRD - chronic treatment by dialysis or transplant XR LUMBAR SPINE (MIN 4 VIEWS)on 47-12-2136Wj compression fracture or malalignment in the lumbar spine. No significant degenerative change. Tra nsitional segment anatomy at the lumbosacral junction.[employer] [place] DARLENE EXAMINATION: 5 XRAY VIEWS OF THE LUMBAR SPINE 02/21/2019 4:34 pm COMPARISON: None. HISTORY: ORDERINGSYSTEM PROVIDED HISTORY: Pain FINDINGS: There is transitional segment anatomy at the lumbosacral junction with suspected lumbarized S1. There is a right-sided pseudoarthrosis. Vertebral body heights a nd alignment are normal. Disc spaces are preserved. No evidence of spondylolysis or spondylolisthesis. Sacroiliac joints are within normal limits.Diverse EnergyEunice carlos Incoming Radiant Results From [employer] - 02/21/2019 5:02 PM EDT EXAMINATION: 5 [...] Transitional segment anatomy at the lumbosacral junction. AtriCureFREEMAN HEALTH SYSTEMDARLENEXR SHOULDER RIGHT (MIN 2 VIEWS)on 58-99-6656Yh acute osseous abnormality.[facility] Regional HospitalSocialPicksADRLENEEXAMINATION: THREE XRAY VIEWS OF THE RIGHT SHOULDER 02/21/2019 4:34 pm COMPARISON: None. HISTORY: ORDERING SYSTEM PROVIDED HISTORY: Pain FINDINGS: Bone mineralization and alignment appear intact. No ev idence of acute fracture or dislocation.Diverse EnergyEunice, Mhpn Incoming Radiant Results From [employer] - 02/21/2019 4:57 PM EDT EXAMINATION: THREE XRAY VIEWS OF THE RIGHT SHOULDER 02/21/2019 4:34 pm COMPARISON: None. HISTORY: ORDERING SYSTEM PROVIDED HISTORY: Pain FINDINGS: Bone mineralization and alignment appear intact. No evidence of acute fracture or dislocation. IMPRESSION: No acute osseous abnormality. [facility] HospitalDARLENEXR WRIST RIGHT (MIN 3 VIEWS)on 29-11-3542Vadfpd x-ray of the wristGuernsey Memorial HospitalDARLENEEXAMINATION: 3 XRAY VIEWS OF THE RIGHT WRIST 02/21/2019 4:57 pm COMPARISON: None. HISTORY: ORDERING SYSTEM PROVIDED HISTORY: Injury TECHNOLOGIST PROVIDED HISTORY: Right wrist pain FINDINGS: The carpalbones all appear intact. There is no evidence for fracture dislocation. The soft tissues are normal. The joint spaces are well preserved. There is no evidence for foreign body.[facility] Memorial HospitalDARLENERussell Lombardo Incoming Radiant Results From [employer] - 02/21/2019 5:04 PM EDT EXAMINATION: 3 [...] body. IMPRESSION: Normal x-ray of the wrist [facility] HospitalDARLENE Vital Signs Date TimeVital SignValuePerforming LppmtqldqFabaosyj36-48-9043 14:00-0500 Diastolic blood ostierli60 mm[Hg]Bruce Card [facility]01-02-2025 14:00-0500Heart rate70 /minBradford Kyaw [facility]01-02-2025 14:00-0500Mean blood pzrbsfvy36 mm[Hg]Bruce Kyaw [facility]01-02-2025 14:00-0500 Respiratory rate16 /minBradford Kyaw [facility]01-02-2025 14:00-0500 Systolic blood wipjuhsb561 mm[Hg]Bruce Card [facility]12-04-2024 14:02-0500Body pekbnt214.2 cmOlu Jainpatrick MATERIAL PLANNER Work Phone: [facility] NorthPncnzmznqp86-12-2380 14:02-0500Body mass index (BMI) [Ratio]31.26 kg/t9Buosefcy Nation MATERIAL PLANNER Work Phone: noSaint Joseph Health CenterTgecexhune39-98-7028 14:02-0500Body temperature 96.49 [degF]Olu Jainpatrick MATERIAL PLANNER Work Phone: [facility] NorthKbfpoeemmt85-82-3644 14:02-0500Body aauaxc84.54 kgBrjuancarlos Nation MATERIAL PLANNER Work Phone: [facility] NorthYzpwzucaqj06-25-1030 14:02-0500Diastolic blood mm[Hg]Olu Nation MATERIAL PLANNER Work Phone: [facility] NorthXntmghevzg28-55-4223 14:02-0500Heart rate96 /min Olu Nation MATERIAL PLANNER Work Phone: [facility] NorthKdsgkvjtbv97-05-1501 14:02-0500Respiratory rate16 /minOlu Nation MATERIAL PLANNER Work Phone: [facility] NorthUquoeqeifa76-91-2411 14:02-4477JwP2% (BldA) [Mass fraction]96 %Olu Nation MATERIAL PLANNER Work Phone: [facility] NorthUasfmryiiq63-07-9897 14:02-0500Systolic blood mm[Hg]Olu Nation MATERIAL PLANNER Work Phone: [facility] NorthMxjfohsyws09-81-2446 13:41-0400Body rupyto550.6 cmOlu Nation MATERIAL PLANNER Work Phone: [facility] NorthIzomelskkd07-99-2590 13:41-0400Body mass index (BMI) [Ratio]31.31 kg/t0Llwywivs Nation MATERIAL PLANNER Work Phone: [facility] NorthKhwnyweqqf87-56-7533 13:41-0400Body temperature 97.81 [degF]Olu Nation MATERIAL PLANNER Work Phone: [facility] NorthMhgmzeujlq31-95-2169 13:41-0400Body fznrlo25 kg Olu Nation MATERIAL PLANNER Work Phone: [facility] NorthQwnemfxpxk46-61-1703 13:41-0400Diastolic blood yyjxyxkf16 mm[Hg]Olu Nation MATERIAL PLANNER Work Phone: [facility] NorthCrqpwoaxiz94-06-3125 13:41-0400Heart rate71 /min Olu Nation MATERIAL PLANNER Work Phone: [facility] NorthComment on above:95% U139-59-7873 13:41-0400Systolic blood ezkugrux890 mm[Hg]Olu Nation MATERIAL PLANNER Work Phone: [facility] NorthJcijzwxghk62-36-2144 11:15-0400Diastolic blood vbyaqllq08 mm[Hg][facility]05-10-2024 11:15-0400Heart rate78 /minProvidence Hospital05-10-2024 11:15-9638RoD7% (BldA) [Mass fraction]98 %[facility]05-10-2024 11:15-0400 Systolic blood mm[Hg][facility]04-30-2024 09:31-0400Body ruobxe855.64 cmProvidence Hospital04-30-2024 09:31-0400Body mass index (BMI) [Ratio]32.4 kg/d1PmftzxgpiProvidence Hospital04-30-2024 09:31-0400Body aesoit91.17 kgProvidence Hospital 01-31-2023 08:51-0400Body cssvdbgjabk41.7 [degF][facility]08-27-2023 08:51-0400Diastolic blood wyioueuk87 mm[Hg][facility]08-27-2023 08:51-0400Heart rate67 /minMedina Hospital08-27-2023 08:51-0400Respiratory rate18 /minMedina Hospital08-27-2023 08:51-2992JwL2% (BldA) [Mass fraction]100 %[facility]08-27-2023 08:51-0400Systolic blood cnliacwf448 mm[Hg][facility]02-24-2022 19:31-0500Diastolic blood mm[Hg]Denny Morrell MD Work Phone: [facility] HospitalQdysad00-62-2201 19:31-0500Systolic blood dyolmixa694 mm[Hg]Denny Morrell MD Work Phone: [phone] [place], [place] 8710702-24-2022 19:29-0500Body .6 cm Denny Morrell MD Work Phone: 1(436)178-[address] [place], [place] 8710702-24-2022 19:29-0500Body mass index (BMI) [Ratio]37.12 kg/k3JxtvpuDenny Morrell MD Work Phone: [phone])718-[facility] HospitalNjoduu47-24-8185 19:29-0500Body irwhkkozhrm23.11 [degF]Denny Morrell MD Work Phone: 1(003)530-[address] [place], [place] 8710702-24-2022 19:29-0500Body uiutfc321.33 kg Denny Morrell MD Work Phone: 1(519)911-[address] [place], [place] 8710702-24-2022 19:29-0500Heart rate72 /min Denny Morrell MD Work Phone: [facility] HospitalDlgosr51-53-6280 19:29-0500Respiratory rate16 /minDenny Morrell MD Work Phone: [phone])918-[address] [place], [place] 8710702-24-2022 19:29-2469HqG3% (BldA) [Mass fraction]97 %Denny Morrell MD Work Phone: [phone])489-[address] [place], [place] 8710701-24-2022 04:01-0500Body minqurawpzk86.59 [degF]Krystin Valenzuela DO Work Phone: [facility] HospitalLhvjsr64-84-5910 04:01-0500Diastolic blood fegrprrj01 mm[Hg]Krystin Valenzuela DO Work Phone: 1(478)186-[facility] HospitalGrbcgj22-67-4673 04:01-0500Systolic blood ojhinzbg951 mm[Hg]Krystin Valenzuela DO Work Phone: 1(368)461-[address] [place], [place] 4713801-24-2022 04:00-0500Body jsirbi050.6 cm Krystin Valenzuela DO Work Phone: 1(539)061-[address] [place], [place] 4713801-24-2022 04:00-0500Body mass index (BMI) [Ratio]36.32 kg/p3JqpcmeljrKrystin Valenzuela DO Work Phone: [phone]-[facility] HospitalZgyzxc87-02-2919 04:00-0500Body avawxf098.06 kg Krystin Valenzuela DO Work Phone: 1(546)667-[address] [place], [place] 4713801-24-2022 04:00-0500Heart rate85 /min Krystin Valenzuela DO Work Phone: 1([phone])793-[address] [place], [place] 4713801-24-2022 04:00-0500Respiratory rate18 /minKrystin Valenzuela DO Work Phone: 1(876)613-[address] [place], [place] 4713801-24-2022 04:00-6630WoN3% (BldA) [Mass fraction]98 %Krystin Valenzuela DO Work Phone: [facility] HospitalQjwfac69-76-3944 19:06-0500Diastolic blood oalesumg67 mm[Hg]Sofie Echols MD Work Phone: [place] [address]Bvlsbc14-56-6736 19:06-0500Systolic blood ogurskvb55 mm[Hg]Sofie Echols MD Work Phone: [place] [address]Ncabie50-89-8225 19:05-0500Body nfuducoewac77.6 [degF]Sofie Echols MD Work Phone: [place] [address]Hpyxfv87-95-4701 19:05-0500Heart rate85 /min Sofie Echols MD Work Phone: [place] [address]Gunvai01-31-6073 19:05-0500Respiratory rate15 /minSofie Echols MD Work Phone: [facility] HospitalJhisle18-45-2895 19:05-2147TiR1% (BldA) [Mass fraction]98 %Sofie Echols MD Work Phone: [facility] HospitalOdxrui52-60-7115 09:21-0400Body mass index (BMI) [Ratio]33.57 kg/d9ZzrdbzoVicente Baumann MD Work Phone: [facility] [employer] Work Phone: 1(589) 114-403304-27-2021 09:21-0400Body yluodtnfzaj71 [degF]Vicente Baumann MD Work Phone: [facility] [employer] Work Phone: 1(711) 400-858304-27-2021 09:21-0400Body bpbwiu59.35 kgVicente Baumann MD Work Phone: [facility] [employer] Work Phone: 1(932) 360-228604-27-2021 09:21-0400Diastolic blood yejmlzyo09 mm[Hg] Vicente Baumann MD Work Phone: [facility] [employer] Work Phone: 1(251) 503-692504-27-2021 09:21-0400Heart rate87 /Shawn Baumann MD Work Phone: [facility] [employer] Work Phone: 1(189) 571-814404-27-2021 09:21-0400Respiratory rate16 /Shawn Baumann MD Work Phone: [facility] [employer] Work Phone: 1(760) 999-272804-27-2021 09:21-1865LjF0% (BldA) [Mass fraction]97 % Vicente Baumann MD Work Phone: [facility] [employer] Work Phone: 1(615) 823-567504-27-2021 09:21-0400Systolic blood csflturr713 mm[Hg] Vicente Baumann MD Work Phone: [employer] Phone: 1(979) 953-137503-16-2020 03:42-0400Body Rtcjmmosvtb73.1 [degF][facility], BZ63-88-8974 03:42-0400Pulse (Heart Rate)91 /minGalion Community Hospital, FQ57-14-3485 03:42-0400Pulse Tpwpjpnl54 %[facility], MT85-28-8268 03:42-0400Respiratory Rate18 /minMount [facility]. [facility], EH78-18-6590 03:37-0400BP Oerceaehv19 mm[Hg][facility], WC88-37-6999 03:37-0400BP Ctsuotqr467 mm[Hg][facility], MK01-70-0327 17:25-0500Body Ovprkmgptku91.01 [degF][facility] [employer] Phone: 1(343) 524-178602-09-2020 17:25-0500BP Ejjffeamp84 mm[Hg][facility] [employer] Work Phone: 1(721) 811-737402-09-2020 17:25-0500BP Fiukptbe099 mm[Hg][facility] [employer] Phone: 1(961) 439-113202-09-2020 17:25-0500Pulse (Heart Rate)79 /[facility] [employer] Work Phone: 1(772) 766-534202-09-2020 17:25-0500Pulse Zfjsvwud97 %[facility] Phone: 1(833) 628-458702-09-2020 17:25-0500Respiratory Rate18 /[facility] [employer] Phone: 1(657) 181-520302-07-2020 14:53-0500BMI (Body Mass Index)34.7 kg/m2 [facility] [employer] Phone: 1(564) 336-741302-07-2020 14:53-0500Body Fykflsdtany75 [degF][facility] HospitalW.S.C. SportsCentervilleSquareMarket Phone: 1(978) 617-953602-07-2020 14:53-0500Body .52 kgP[facility] [place] [employer] Work Phone: 1(333) 454-273502-07-2020 14:53-0500BP Slqqkxagt05 mm[Hg][employer]us [employer]Day[employer] Work Phone: 1(325) 282-843702-07-2020 14:53-0500BP Dtdqvawu934 mm[Hg]Marcus JebDaybreak Intellectual [employer] Work Phone: 1(329) 557-520002-07-2020 14:53-5120Ynzczt573.6 [facility] Work Phone: 1(657) 156-629202-07-2020 14:53-0500Pulse (Heart Rate)83 /[facility] Work Phone: 1(934) 542-919602-07-2020 14:53-0500Pulse Eisoggha00 %Marcus EijannyDaybreak Intellectual [employer] Work Phone: 1(996) 284-570102-07-2020 14:53-0500Respiratory Rate18 /[facility] Work Phone: 1(966) 910-796812-10-2019 16:55-0500Body mass index (BMI) [Ratio] 34.38 kg/m2OfzzhsJolie Cole CNP Work Phone: [employer] Phone: 1(588) 202-577412-10-2019 16:55-0500Body ugosxdptggq50.6 [degF]Jolie Gruber APRN - SENIOR IT ARCHITECT Work Phone: [employer] Work Phone: 1(614) 537-109312-10-2019 16:55-0500Body jcqewn61.62 kgTomsaul Gruber APRN - SENIOR IT ARCHITECT Work Phone: [employer] Phone: 1(420) 399-227312-10-2019 16:55-0500Diastolic blood mcevlyzz73 mm[Hg] Jolie Gruber APRN - SENIOR IT ARCHITECT Work Phone: [employer] Phone: 1(151) 567-857412-10-2019 16:55-0500Heart rate78 /minNicole Gruber COVER STRIPPER - SENIOR IT ARCHITECT Work Phone: [facility] [employer] Work Phone: 1(893) 954-605512-10-2019 16:55-0500Respiratory rate16 /Blanco Gruber COVER STRIPPER - SENIOR IT ARCHITECT Work Phone: [facility] [employer] Work Phone: 1(668) 299-190312-10-2019 16:55-4302ItE2% (BldA) [Mass fraction]98 % Jolie Gruber COVER STRIPPER - SENIOR IT ARCHITECT Work Phone: [facility] [employer] Work Phone: 1(715) 287-694712-10-2019 16:55-0500Systolic blood mm[Hg] Jolie Gruber COVER STRIPPER - SENIOR IT ARCHITECT Work Phone: [employer] Work Phone: Encounters Encounter DateEncounter TypeCare ProviderFacilityStart: 12-27-2024 End: 86-93-6583Qjuartbrh encounterLisa Andrea MATERIAL PLANNER Work Phone: [facility] CWM FMStart: 12-25-2024 End: 42-22-8401UbdlxqXggd Aichholz MATERIAL PLANNER Work Phone: [facility] FMComment on above:Chronic bilateral low back pain with bilateral sciaticaStart: 12-20-2024 End: 98-48-1901BjwuuuBura Naderer MD Work Phone: [facility] FMComment on above:Chronic bilateral low back pain with bilateral sciaticaStart: 10-24-2024 End: 06-81-7577ZujpchMtcr Naderer MD Work Phone: [facility] FMComment on above:Chronic bilateral low back pain with bilateral sciaticaStart: 09-04-2024 End: 99-91-3051ToggqhYtcu Naderer MD Work Phone: [facility] FMComment on above:Chronic bilateral low back pain with bilateral sciaticaStart: 06-09-2024 End: 38-57-0758JkydmdCwfoibvn Nation MATERIAL PLANNER Work Phone: n[facility] CWM FMComment on above:Gastro-esophageal reflux disease without esophagitis; Esophageal refluxStart: 06-08-2024 End: 83-88-8968lsmccarxatLGIH NONEFacility:FTMCStart: 06-08-2024 End: 69-83-8809Oovblno encounter procedureBruce Card [facility] Start: 05-10-2024 End: 69-82-1626Nuwlwd flowsheetOlu Crowleytrick MATERIAL PLANNER Work Phone: n[facility] CWM FMStart: 05-10-2024 End: 53-89-0121Oedwoi flowsheetOlu Crowleytrick MATERIAL PLANNER Work Phone: [facility] CWM FMStart: 05-10-2024 End: 73-12-5463Kgcevk outpatient visit 15 minutesOlu Zeek MATERIAL PLANNER Work Phone: [facility] CWM FMComment on above:Degeneration of inte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 and lower extremity pain (Primary Dx); Chronic bilateral low back pain with bilateral sciaticaStart: 04-10-2024 End: 01-17-7233dquzsquqqdBozvqnz Vytautas Giedraitis MDFacility:PM Jamee Start: 03-28-2024 End: 32-71-4262Vkvokn OnlyOlu Zeek MATERIAL PLANNER Work Phone: [facility] CWM FMComment on above:Lumbar radiculopathy (Primary Dx); Lumbosacral spondylosis without myelopathyStart: 03-27-2024 End: 38-91-9427UsvexmDnatfiq LykinsNOMS CWM FMComment on above:Chronic bilateral low back pain with bilateral sciatica; Thoracolumbar back painStart: 03-17-2024 End: 25-26-1824Ssgwuy Amalia MCWILLIAMS CI PTStart: 03-17-2024 End: 09-02-3584Uxbgag Amalia Payne PTANO CI PTStart: 03-17-2024 End: 11-94-1501ntosdmzgrvSCCPGVT LAWRENCENOMS HealthcareComment on above:Lumbar radiculopathy (Primary Dx); Sacroiliitis (CMS/HCC); Paresthesia and pain of both upper extremitiesStart: 03-13-2024 End: 42-53-5057Xmxrpx flowsheetScong Nielsen PTNOMS CI PTStart: 03-13-2024 End: 35-29-5318Jabgfo flowsheetSammantha Nielsen PTNOMS CI PTStart: 03-13-2024 End: 30-60-4823hqoxqxydgnQchhqhgrv Schneider PTNOMS CI PTComment on above:Lumbar radiculopathy (Primary Dx); Sacroiliitis (CMS/HCC); Paresthesia and pain of both upper extremitiesStart: 02-23-2024 End: 66-92-5159CnqxfwNwtatu Wyatt REESE CWM IMComment on above:Chronic bilateral low back pain with bilateral sciatica; Thoracolumbar back painStart: 02-09-2024 End: 56-45-2929Cejfnv nawafheetLingany Nation MATERIAL PLANNER Work Phone: noMS CWM FMStart: 02-09-2024 End: 98-11-4768Cajkjv flowsheetBrittany Nation MATERIAL PLANNER Work Phone: noms CWM FMStart: 02-09-2024 End: 65-25-9465hpvkkdnzorHMHYPJYK FITZPATRICKNot AvailableStart: 02-09-2024 End: 37-55-6150Hexnsl outpatient visit 25 minutesBrjuancarlos Zeek MATERIAL PLANNER Work Phone: noms CW FMComment on above:Mild intermittent asthma without complication (CMS/HCC) (Primary Dx); Gastroesophageal reflux disease without esophagitis; Nicotine dependence, cigarettes, uncomplicated; Lumbosacral spondylosis without myelopathy; Paresthesia and pain of both upper extremities; Sacroiliitis (CMS/HCC); Lumbar radiculopathy; Encounter for wellness examinationStart: 02-09-2024 End: 06-00-7593Nggqgyw encounter Italo Lairdzpatrick MATERIAL PLANNER Work Phone: noms HealthcareStart: 01-25-2024 End: 08-87-6677Flpkuw OnlyOlu Jainpatrick MATERIAL PLANNER Work Phone: noms CWM FMComment on above:Chronic bilateral low back pain with bilateral sciatica; Thoracolumbar back painStart: 75-53-7357xarkxrcwvlSULE NONEFacility:[facility] Start: 11-15-2023 End: 56-92-8939yfgkgkttzfQTUYTE FAWWADNot AvailableStart: 10-15-2023 End: 49-42-5232jokwqpgmtkIjqoqhfntOhioHealth Grant Medical Center Work Phone: Start: 10-15-2023 End: 27-67-0843Htuswig encounter procedureFirhamersvilles Physician Group-[facility] Work Phone: Start: 10-06-2023 End: 64-97-4755gahijmdvhlQFQOTR FAWWADNot AvailableStart: 10-05-2023 End: 96-25-7244lnxdwfhraxYcrqqbdtvOhioHealth Grant Medical Center Work Phone: Start: 10-05-2023 End: 21-41-8079Hboujzz encounter procedureFirhamersvilles Physician Group-[facility] Work Phone: start: 09-06-2023 End: 08-85-7424qnqlfgierrYJQYZH FAWWADNot AvailableStart: 08-25-2023 End: 08-34-8810Mkitutkvk Result EncounterSjelena Lobo MD Work Phone: noms External Department UnsolicitedStart: 08-25-2023 End: 78-20-2261Bphvtrddq Result EncounterSjelena Lobo MD Work Phone: noms External Department UnsolicitedStart: 08-23-2023 End: 13-20-0352lgyjkcwjsiNAOLMZ FAWWADNot AvailableStart: 08-05-2023 End: 43-86-9295vskmoimzgqFCSMNV FAWWADNstacia AvailableStart: 01-31-2023 End: 12-85-7743Uawclstya department patient visitDavid BaronefabiTrinity Health System Start: 02-17-2022 End: 30-89-7296dyafkkdtgsCT NATHANIEL MARKERFacility:H6Iidni: 12-02-2021 End: 61-07-8804msozskzshbEK LEAH HAYFacility:S4Eulmf: 11-14-2021 End: 56-94-5091vwqdzfdenqPN NONE LISTED REQUESTFacility:B8Vqxuu: 08-18-2021 End: 50-66-1048lbecmvlmzaJNJWLancaster Rehabilitation Hospitaltart: 07-08-0683bhshhfuxysXVADLancaster Rehabilitation Hospitaltart: 08-06-2021 End: 07-74-5737wzrwvpizofAANYGreen Cross Hospitaltart: 07-31-2021 End: 05-50-5684Jfxycrxld department patient visitROBERT SHRINERS CHILDREN'S TWIN CITIESNeo Veterans Administration Medical Centertart: 07-31-2021 End: 26-61-1991Eesiqehgz department patient visitDenny Morrell MD Work Phone: [facility] EDComment on above:Muscle strain (Primary Dx)Start: 06-30-2021 End: 79-85-2980Hvgxytidt department patient visitROBERT W SECORMercy Dansville HospitalStart: 06-30-2021 End: 54-18-2790Hodbnleeh department patient visitKrystin Valenzuela DO Work Phone: [facility] EDComment on above:Cough (Primary Dx); Acute nonintractable headache, unspecified headache typeStart: 06-13-2021 End: 77-97-1819torgwanthxZZQVOP [facility] Hospitaltart: 11-03-4764jsicpmdmytGAGUVMDTE [facility] Campustart: 04-25-2021 Emergency department patient visitROBERT W SECORMercy Dansville HospitalStart: 04-25-2021 End: 95-46-7670Gttdkisjz department patient visitSofie Echols MD Work Phone: [facility] EDComment on above:Suspected COVID-19 virus infection (Primary Dx)Start: 04-25-5437Rjkasgibgh [facility], NeuroscienceComment on above:Low back pain with sciatica, sciatica laterality unspecified, unspecified back pain laterality, unspecified chronicity (Primary Dx)Start: 10-01-2020 End: 71-58-2203Kvjpvstbl department patient visitROBERT [facility] Hospitaltart: 10-01-2020 End: 31-19-5681Vofknxwfe department patient visitCikuldip Baumann MD Work Phone: [facility] EDComment on above:Pain, dental (Primary Dx); Dental cariesStart: 09-30-2020 End: 40-66-6571Rlejstgzt department patient visitROBERT [facility] Hospitaltart: 37-74-9956Fcsypkl encounter procedureCH[facility] AmbulatoryStart: 08-21-2019 End: 71-04-3734Obosbngjv department patient visitJudavid Fady Work Phone: [facility] EDComment on above:Laceration of right index finger without foreign body without damage to nail, initial encounter (Primary Dx)Start: 07-16-2019 End: 86-50-9243Cyinxjfnz department patient visitMarcus Orourke Work Phone: [facility] EDComment on above:Influenza A (Primary Dx)Start: 07-14-2019 End: 83-19-8269Erzhyunnu department patient visitMarcus Orourke Work Phone: [facility] EDComment on above:Influenza A (Primary Dx)Start: 05-16-2019 End: 43-24-5808Arpfddzxy department patient visitJolie Cole CNP Work Phone: [facility] EDComment on above:Rhomboid muscle strain, initial encounter (Primary Dx)Start: 03-03-2019 End: 37-89-5229Uszocernra hospital visit by [facility] MRIComment on above:Lumbar pain; Congenital abnormalityStart: 02-21-2019 End: 93-12-4767Lwpayycuil hospital visit by [facility]Al[facility] X[facility] Room [address] [place] [address] RadiologyComment on above:PainInjury; Right wrist pain Procedures DateProcedureProcedure DetailPerforming ClinicianStart: 99-05-0502DG LUMBAR SPINE WO CONSjelena Lobo MD Work Phone: Start: 44-98-5984PW FOREIGN BODY EYESjelena Lobo MD Work Phone: Start: 03-46-9978WEVQD-, RAPIDChcelestino Valenzuela DO Work Phone: Start: 89-17-7529Lxjzswuig streptococcus group aEtan E Eitches Work Phone: Start: 41-99-6675Lpjfucapob exam chest 2 viewsEtan E Eitches Work Phone: Start: 62-92-2928Numnbkmkzk exam chest 2 viewsEtan E Eitches Work Phone: Start: 37-93-6972Onpkvuukq influenzaEtan E Eitches Work Phone: Start: 95-37-1663Pyzftsopes exam chest 2 viewsYusef Elan MCDANIEL Work Phone: Start: 86-99-7703Qva spinal canal lumbar w/o contrast materialNicole Gruber Work Phone: Start: 09-67-6409Lawbw wrist complete minimum 3 views Jolie Sammy Work Phone: Start: 02-21-2019 End: 88-54-6528Dafgt spine lumbosacral minimum 4 viewsNicole Sammy Work Phone: Start: 52-30-0559Xmbia of amylaseNicole Gruber Work Phone: Start: 26-24-6644Etjoj of lipaseNicsaul Gruber Work Phone: Start: 19-93-9698Cvqsi count complete auto&auto difrntl wbcNicsaul Gruber Work Phone: Start: 12-66-2169Rxulftdmglyve metabolic panelJolie Gruber Work Phone: Start: 71-07-0767Zihpqjbhl c antibodyJolie Gruber Work Phone: Hand structure (body structure)Bruce Card comment on above:2020History of operative procedure on kneeBraanalilia Card comment on above:right 2021 Plan of Treatment DateCare ActivityDetailAuthorStart: 39-51-1295Oabycblk Vaccine (1 of 2)Shingles Vaccine (1 of 2)[employer] Work Phone: start: 96-19-4036Rzfcxkuus vaccinationNOMS Healthcare Start: 08-14-2024 End: 30-66-8176Dqyjrsn encounter omqtxgxem88/10/2025 8:30 AM EDT Office Visit [facility] [address] [place] [phone] Olu Nation, MATERIAL PLANNER [address] [place] [address] [facility] FMStart: 05-10-2024 End: 33-68-5320Uodffwr encounter procedureNOMS CWM FMComment on above:Arrived Start: 03-30-2024 End: 44-33-6531gyvamoraqt03/24/2024 2:30 PM EDT Treatment [facility] [address] [place] [address] Sarah Nielsen, PTNOMS CI PTStart: 03-23-2024 End: 69-96-4426ziokdepclw61/17/2024 8:00 AM EDT Treatment [facility] [address] [facility] [address] [place] [address] Miguel Angel Payne PTANOMS CI PTStart: 03-21-2024 End: 17-01-9067smmullpcqh90/15/2024 2:30 PM EDT Treatment [facility] [address] [facility] [address] [place] [address] Sarah Nielsen PTNOMS CI PTStart: 03-17-2024 End: 82-29-1949awoclhgava94/11/2024 8:00 AM EDT Treatment [facility] [address] [facility] [address] [place] [address] Miguel Angel Payne PTANOMS CI PTStart: 02-28-2024 End: 44-53-2183odxzkhmerv30/23/2024 3:00 PM EDT Evaluation [facility] [address] [facility] [address] [place] [address] Sarah Nielsen PTNOMS CI PTStart: 02-21-2024 End: 00-76-6933ozaomeucnu35/16/2024 11:00 AM EDT Evaluation [facility] [address] [facility] [address] [place] [address] Sarah Nielsen PTNOMS CI PTStart: 02-09-2024 End: 12-44-9180TSD W Auto Differential panel - BloodCBC and differential Lab Routine Encounter for wellness examination Expected: 02/09/2024 (Approximate), Expires: 02/08/2025NOMO HealthcareComment on above:Expected: 02/09/2024 (Approximate), Expires: 02/08/2025Start: 02-09-2024 End: 02-04-3920Mhlvbzqxnjzjy metabolic 2000 panel - Serum or PlasmaComprehensive metabolic panel Lab Routine Encounter for wellness examination Expected: 02/09/2024 (Approximate), Expires: 02/08/2025NOMO HealthcareComment on above: Expected: 02/09/2024 (Approximate), Expires: 02/08/2025Start: 02-09-2024 End: 83-94-9481Mixscdionw A1c/Hemoglobin.total in BloodHemoglobin A1c Lab Routine Encounter for wellness examination Expected: 02/09/2024 (Approximate), Expires: 02/08/2025[facility] HealthcareComment on above:Expected: 02/09/2024 (Approximate), Expires: 02/08/2025Start: 02-09-2024 End: 90-38-2807Odtoj 1996 panel - Serum or PlasmaLipid panel Lab Routine Encounter for wellness examination Expected: 02/09/2024 (Approximate), Expires: 02/08/2025NOMO HealthcareComment on above:Expected: 02/09/2024 (Approximate), Expires: 02/08/2025Start: 02-09-2024 End: 22-82-3959SIT W/REFLEX TO FT4TSH W/REFLEX TO FT4 Lab Routine Encounter for wellness examination Expected: 02/09/2024 (Approximate), Expires: 02/08/2025[facility] Healthcare Work Phone: Comment on above:Expected: 02/09/2024 (Approximate), Expires: 02/08/2025Start: 10-59-7217Agepmmqeu vaccinationInfluenza Vaccine (#1) [facility] HealthcareStart: 88-14-3734Niageeq [facility] Work Phone: Start: 09-15-2021 End: 85-27-7523Zhlntjk encounter uxrkmbzdl14/11/2022 Office Visit Primary Care Sofie Echols MD [address] [place] [address] [facility] MED Primary CareStart: 09-10-2021 End: 89-83-9786Msxzhvw encounter rlivtcwuh60/06/2022 Office Visit Pain Management Yasmine Wellington, COVER STRIPPER - SENIOR IT ARCHITECT [address] [facility] [place] [address] [facility] Physician ServicesStart: 08-18-2021 End: 00-01-1450Vepjxbxem to same day surgery jyfmzx2608/18/2021 Surgery IP Unit Demario Jacob MD [address] [place] [address] RIGHT CARPAL TUNNEL RELEASEWMH ORComment on above: RIGHT CARPAL TUNNEL RELEASEStart: 08-18-2021 End: 55-87-6267Sslrgeoyefy &/transpos median nrv carpal tunneCARPAL TUNNEL RELEASE right cts 08/18/2021 12:00 PM [facility]: 45-27-0596Kyaaauzlwu hospital visit by eohmarlpz29/14/2022 Hospital Encounter IP Unit Demario Jacob MD [address] [place] [address] [facility] ORStart: 08-11-2021 End: 76-18-6125Gcvbtbd encounter bslnccaey73/07/2022 Office Visit Primary Care Sofie Echols MD [address] [place] [facility] [place] [address] [facility] Primary CareStart: 08-06-2021 End: 93-57-4366Ksuoddqsn to same day surgery grpvoh8108/06/2021 Surgery IP Unit Ramez Rangel MD [address] [place] [address] LUMBAR INTER LAMINAR TOM L4 L5WMH SHCComment on above:LUMBAR INTER LAMINAR TOM L4 F4Zrhkm: 08-06-2021 End: 47-52-6139Dxk dx/ther sbst intrlmnr lmbr/sac w/img gdnLUMBAR INTER LAMINAR TOM lumbar stenosis 08/06/2021 11:45 AM [facility] 71-09-9771Nrzobnsnrx hospital visit by ybzvvspxp21/02/2022 Hospital Encounter IP Unit Ramez Rangel MD [address] [place], [place] [address] [facility] SHCStart: 07-30-2021 End: 15-92-7176Mlmaxbi encounter lpqvakesa68/23/2022 Office Visit Pain Management Ramez Rangel MD [address] [place] [address] [facility] Physician ServicesStart: 07-24-2021 End: 13-40-8331Alxgzrv encounter ddcjuhgsa10/17/2022 Office Visit Orthopedic Surgery Tony Black MD [address] [place] [address] [facility] Physician ServicesStart: 06-30-2021 End: 06-36-5517Mouveus encounter puqvpkmyl84/24/2022 Office Visit Orthopedic Surgery Demario Jacob MD [address] [place] [address] [facility] Physician ServicesStart: 05-23-2021 End: 08-08-9909Ldxyyfp encounter suvgjyebi80/17/2021 Office Visit Orthopedic Surgery Tony Balck MD [address] [place] [address] [facility] Physician ServicesStart: 05-16-2021 End: 68-32-5401Tjxugbw encounter alzygycvw73/10/2021 [facility]ment [facility] MRIStart: 05-07-2021 End: 83-18-0124Ihygfcm encounter /01/2021 Office Visit Neurosurgery Jess Farley MD [address] [facility] [address] [place] [address] [facility], Neuroscience Start: 03-17-2021 End: 79-84-0355Ceeumiu encounter mxepnhqnz34/11/2021 Office Visit Primary Care Sofie Echols MD [address] [place] [address] [phone] [facility] MED Primary CareStart: 90-20-6127Mlsnyqvno vaccinationOhioHealthStart: 10-09-2020 End: 58-70-2640Mskdumy encounter afptxqvfo78/05/2021 Office VisitAFL [facility] SHC SCHD ONLYStart: 89-00-5512NTZDD-19 Vaccine (2 - Moderna 2-dose series)COVID-19 Vaccine (2 - Moderna 2-dose series)[facility] Work Phone: start: 06-13-2019 End: 53-49-6024Gbaddcc encounter cypkvafxc78/07/2020 Appointment Pain Management Patito Gutierres MD [address] [place] [address] [place] [address] [phone] [facility] Pain ManagementStart: 05-23-2019 End: 15-51-9066Gzixxcb encounter cbmholmdp20/17/2019 Appointment Pain Management Patito Gutierres MD [address] [facility] [address] [place] [address] [phone] [facility] Pain ManagementStart: 03-03-2019 End: 49-76-9785Aewlljixxmz75/27/2019 Appointment [facility] MRIStart: 76-31-2182Eqomasgli vaccinationFlu vaccine (#1)[place] Start: 04-29-3842DHuE/Tdap/Td vaccine (1 - Tdap)DTaP/Tdap/Td vaccine (1 - Tdap) [facility]Start: 54-76-2368Ejczmlyte C screeningHepatitis C Screening [facility]HealthStart: 51-62-9645HDJ screenHIV screenUniversity Hospitals Lake West Medical Center [place]Start: 97-31-1471RRB screeningOhioHealthStart: 87-88-9750Cauxsbxbo Vaccine (1 of 2 - 13+ 2-dose series)Varicella Vaccine (1 of 2 - 13+ 2-dose series)[place], [place]: 20-37-3643PIIJU-19 Vaccine (1)COVID-19 Vaccine (1)[facility]HealthStart: 60-30-6257Dtudoxtiil ScreenDepression ScreenTuscarawas HospitalStart: 1998 Depression screening using PHQ-9 (Patient Health Questionnaire 9) score Depression Screening (PHQ-2/9)[facility] CenterStart: 38-82-9298LGrA/Tdap/Td vaccine (1 - Tdap)DTaP/Tdap/Td vaccine (1 - Tdap)[facility] Work Phone: start: 71-55-4098Rttijkanldpo 0-64 years Vaccine (1 of 1 - PPSV23)Pneumococcal 0-64 years Vaccine (1 of 1 - PPSV23)[place], [place]: 80-87-2612Qswmoqcpvkxl 0-64 years Vaccine (1 of 2 - PPSV23)Pneumococcal 0-64 years Vaccine (1 of 2 - PPSV23)[facility]: 72-46-9884AOCHB-19 Vaccine (1)COVID-19 Vaccine (1)[facility]: 69-82-4531Fhnfuqs and physical examination, annual for [facility] VisitOhioWadsworth-Rittman HospitalStart: 67-47-6285Zdcblmbfo vaccine (1 of 2 - 2-dose childhood series)Varicella vaccine (1 of 2 - 2-dose childhood series)[facility]: 00-13-3044Fkypalw vaccinationTetanus: Every 10yrsOhioHeal End: 45-95-6982SHJTZ[address] Work Phone: Comment on above:One Time for 1 Occurrences starting 04/25/2021 until 04/25/2021 End: 84-68-0611XBZWG[address] Work Phone: comment on above:One Time for 1 Occurrences starting 06/30/2021 until 2Patient referralDayton Children'S Hospital Work Phone: xr Lumbar spine ViewsProvidence Hospital Immunizations Immunization DateImmunizationNotesCare YoyflfqdXeddeoup58-96-7746xmbaqsv, mumps and rubella virus vaccineBrittany Nation MATERIAL PLANNER Work Phone: [facility] Payers DatePayer CategoryPayerPolicy [id number] [id number] [id number] 2020MedicaidPARAMOUNT MANAGED MEDICAID PARAMOUNT ADVANTAGE MEDICAID [id number] 2019-Present [phone] [address] [place] [id number] 03-05-6272YajpxfjJGWQMYKYC ADVANTAGE PARAMOUNT ADVANTAGE xxxxxxxxxxx 2018- Present [phone] [address] [place], [place] [address]rpqivjtcztx [id number] [id number] 1986 [id number] 2.0.1.972867.3.57[id number] 2.0.1.456824.3.57[id number] 2.0.1.658036.3.57[id number] 2.0.1.578459.3.57[id number] 2.0.1.836561.3.579.[id number] 2.16840.1.081728.3.57[id number] 2.16840.1.051131.3.57[id number] 2.16.840.1.952263.3.579.2.0[id number] 2.16.840.1.914816.3.579.2.86357-83-3593Wqsipsf30287764 2.16.840.1.418883.3.579.[id number] 2.16.840.1.672985.3.579.2.[id number] 2.0.1.954421.3.579.2.41874-63-3128Vpzkxax1043565 2.840.1.161272.3.579.2.99258-12-1258Aqjyzva8574056 2.840.1.194518.3.579.2.28493-09-0872Zmqwylz9076589 2.0.1.506420.3.579.2.22885-80-7772Zmehqbw1904376 2.0.1.310517.3.579.2.360445-39-5338Xbjwafs9040666 2.840.1.214286.3.579.2.076685-60-8656Symvcnz3045183 2.0.1.858584.3.579.2.945750-88-1771Qjwgsec7419387 2.16.840.1.938378.3.579.2.869468-00-4190Igyeozu1361984 2.840.1.774472.3.579.2.062369-81-3988Ejjsavt1576438 2.16.840.1.249164.3.579.2.517513-33-9583Bnlfjwv9862622 2.16840.1.657511.3.579.2.481931-14-9293Ietjcvu3041796 2.16.840.1.060272.3.579.2.684261-61-2771Xymqvhb795613241 2.16.840.1.338840.3.579.2.06588-57-6503Apvdemz58429317 2.16.840.1.576081.3.579.2.07093-73-0838Mflfisg89978878 2.16.840.1.603348.3.579.2.57199-65-2120Ghzdivn65720644462Dzkb-lqaJbuv Pay [id number]-bhyw-82kz-o4gb-3n407hal681d Social History DateTypeDetailFacilityStart: 07-14-2019 End: 70-06-3753Weiveof smoking status NHISCurrent every day smokerTuscarawas Hospital Start: 91-65-7393Xgczeoy of tobacco useCigarette Smoker[place], [place] Start: 07-14-2019 End: 37-32-3298Rdgjhkcfju smoked current (pack per day) - ReportedMobile, [place]Start: 05-16-2019 End: 92-21-2548Kppamxr intakeCurrent non-drinker of alcohol (finding)[employer] Phone: start: 18-25-8079Qqgkitu SDAR Social Connections Phone [facility] [employer] Phone: start: 51-95-1724Cpqvrtj SDOH Social Connections Get Vzvglier9[facility] Work Phone: start: 21-81-4575Ejlddny SDOH Social Connections Begczd6Rkmsf[employer] Phone: start: 76-96-5451Xpuhqiu SDOH Social Connections Vujimd6ZysntSquareMarket Phone: start: 86-01-8113Qkwyjvd SDOH Physical Activity MPS15 [facility] HospitalSec[facility] Phone: start: 99-04-3844Dgg Assigned At BirthNot on fileTuscarawas Hospital- [place], [place]Start: 01-05-2019 End: 14-13-9132Rnkrjcp intakeNoAultman Hospitaltart: 10-01-2020 End: 53-79-5387Fpdvnfv use and exposureNever usedLima Memorial Hospital HealthExposure to SARS-CoV-2 (event)Not sureMercy HealthTobacco smoking status NHISTobacco smoking consumption unknownOhioHealthTobacco smoking statusNo Smoking Status Entered [facility] Hospitaltart: 33-96-0637Erxmclt smoking status NHISSmoker (finding)[facility] Hospitaltart: 85-77-8208Zzl Assigned At [facility] Health SystemHistory of tobacco usePassive smokerBR[facility]AM [facility] HealthcareStart: 08-23-2023 End: 95-78-1178Wwugyndkc beverage intakeLifetime non-drinker (finding)[facility] NorthStart: 89-58-3781Bchbpsu smoking statusHeavy tobacco smoker (finding) [facility] Hospitaltart: 28-36-5186BlaSqrkAONF Healthcare Functional Status MtoeCuqrkkvvotFduqmlUkzsijyg99-11-4072Nvqflmwcdj StatusN/[facility]05-01-2024Patient Health Questionnaire 2 item (PHQ-2) [Reported]Cox NorthQxgzskynnk17-29-7689Ytsevmpubz StatusN/[facility] Clinical Notes 07-31-2021 to 12-27-2024 Note Date & TzahPlzjGxyadwyi68-29-6304 Telephone encounter Note* Telephone Encounter - Alena Bains - 12/27/2024 10:41 AM EDT Doris has to report tomorrow morning to serve [facility] time for 45 to 90 days. He needs Gabapentin, Omeprezole, and his BP medication refilled before he goes. He was a patient of Olu's and did not know she had left. He is pleading for the meds to be refilled. He is asking for a return call. [phone]. [place] [address]Modhsaoxcd71-16-7464 Miscellaneous Notes* Telephone Encounter - Alena Bains - 12/27/2024 10:41 AM EDT Doris has to report tomorrow morning to serve usp time for 45 to 90 days. He needs Gabapentin, Omeprezole, and his BP medication refilled before he goes. He was a patient of Olu's and did not know she had left. He is pleading for the meds to be refilled. He is asking for a return call. [phone]. documented in this encounterCox NorthQmurexalus26-31-7398 Telephone encounter Note* Telephone Encounter - Sanam Bosch - 12/26/2024 11:31 AM EDT Shows Gabapentin was sent to [facility] on 12/20/24, but patient said when he called there they donot have it and he needs it. STARR [address]Azwgizoqhb52-78-4027 Miscellaneous Notes* Telephone Encounter - Sanam Bosch - 12/26/2024 11:31 AM EDT Shows Gabapentin was sent to [facility] on 12/20/24, but patient said when he called there they donot have it and he needs it. STARR documented in this encounterCox NorthUumjcsfale24-84-6082 Telephone encounter Note* Telephone Encounter - Alena Bains - 12/25/2024 2:28 PM EDT Doris is getting ready to go to [facility] [place] a [place] days for driving without a license. He needs his medication refilled (Gabapentin) before he goes to [facility]p. [address]Aahxwbwvzh59-64-3788 Miscellaneous Notes* Telephone Encounter - Alena Bains - 12/25/2024 2:28 PM EDT Doris is getting ready to go to [facility] for a [facility] days for driving without a license. He needs his medication refilled (Gabapentin) before he goes to [facility]. 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 Data 12 [phone] see Olu conde. Niraj, I am out of my lucille 800 s and need them. Called into [facility], please, and thank you. 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 Data 12 [phone] see Olu conde. Niraj, I am out of my lucille 800 s and need them. Called into [facility], please, and thank you. [facility] Ahyltvscst44-84-3119 NoteConsultation Note Patient is presenting with complaints of [...] We discussed a possible referral to a surgeonto discuss whether surgical options would be of [...] as ketamine infusions which she has not attemptedyet, we provided referral for evaluation for this treatment and can see him on an as-needed basis Patient was counseled on the above diagnosis and treatment, all questions were answered and patientagrees to adhere to the plan above. Risk [...] call with any questions or concerns that arise.[facility] Rutan HospitalComment on above:Result Comment: Electronically Signed By: Bruce Card DO\Date and Time Signed: 06/11/24 20:49 [id number] History of Present illness Narrative* Olu Nation NP - 05/10/2024 3:30 PM EST Associated Problem(s): DDD (degenerative disc disease), lumbar [...] smoking Marijuana if that is what they requireof him. Referral sent to PM. * Olu Nation NP - 05/10/2024 2:00 PM EST Images from the original note were not included. Subjective Patient ID: Doris Cochran is a 38 y.o. male who [...] smoking Marijuana if that is what they requireof him. Referral sent to PM. Review of [...] Neurological: Negative for dizziness, tremors, syncope, weakness, light- headedness and headaches. Psychiatric/Behavioral: Negative for decreased concentration and suicidal ideas. The patient is notnervous/anxious. Hematological: Does not bruise/bleed easily. Endocrine: Negative [...] smoking Marijuana if that is what they requireof him. Referral sent to PM. Chronic bilateral low back pain with bilateral sciatica Relevant Medications gabapentin (Neurontin) 800 MG tablet Other Relevant Orders Ambulatory referral to Pain Medicine documented in this encounterCox NorthBovtqzbebt40-73-3887 Telephone encounter Note* Telephone Encounter - Mercedes Stone MA - 03/29/2024 2:33 PM EDT 14 day supply until Pain management calls and gets him in. Thanks [facility] Hggddvnbhj97-21-1288 Miscellaneous Notes* Telephone Encounter - Mercedes Stone MA - 03/29/2024 2:33 PM EDT 14 day supply until Pain management calls and gets him in. Thanks documented in this encounterCox NorthHbzkjwpsyu59-89-4414 History of Present illness Narrative* Olu Nation NP - 02/09/2024 4:28 PM EDTAssociated Problem(s): Gastroesophageal reflux disease without esophagitis Currently taking Omeprazole. Feels symptoms are well controlled. Continue current regimen. * Olu Nation NP - 02/09/2024 4:27 PM EDTAssociated Problem(s): Nicotine dependence, cigarettes, uncomplicated Pt counseled on smoking cessation and the hazardous risks associated with tobacco use. Pt declines cessation at this time. * Olu Nation NP - 02/09/2024 2:01 PM EDTAssociated Problem(s): Mild intermittent asthma without complication (CMS/HCC) Feels symptoms are well controlled. Is using rescue inhaler 1-2 times per week at most. Continue current regimen. * Olu Nation NP - 02/09/2024 1:58 PM EDTAssociated Problem(s): Lumbar radiculopathy Seeing Dr. Tinsley Neurosurgery. Will be doing PT May be having surgery. Will check with Neuro regarding Gabapentin and Roxicodone management moving forward. {Previous note from Dr. Lobo states NS referred pt to PM- but pot states he has never seen PM. Will call NS to clarify.) * Olu Nation NP - 02/09/2024 1:30 PM EDT Images from the original note were not included. Subjective Patient ID: Doris Cochran is a 38 y.o. male who presents for Med Refill. HPI Needs new order for physical therapy Seeing Dr. Tinsley Neurosurgery. Will be doing PT May be [...] Negative for arthralgias, gait problem, joint swelling andmyalgias. Skin: Negative for rash. Neurological: Positive for numbness. Negative for dizziness, tremors, syncope, weakness, light-headedness and headaches. Numbness/tingling BLE- Chronic Psychiatric/Behavioral: Negative for decreased concentration and suicidal ideas. The patient is notnervous/anxious. Hematological: Does not bruise/bleed easily. Endocrine: Negative [...] Continue current regimen. Lumbar radiculopathy Seeing Dr. Tinsley Neurosurgery. Will be doing PT May be [...] panel CBC and differential documented in this encounterCox NorthEwzmdvpndi87-67-8451 Instructions* Patient Instructions* Olu Nation NP - 02/09/2024 1:30 PM EDT FASTING labs ordered. Nothing to eat or drink for 12 hours prior to blood draw. Water and black coffee ok. Diet: Eat three meals per day. Breakfast, lunch, and dinner. Avoid snacking. Avoid eating after 5/6pm. Daily protein GOAL 35% of your intake; 30g per meal. Daily calorie GOAL 1,800-2,000 per day. Consider tracking your food intake on MyFtinessPal or LoseIt Water: Increase water intake; GOAL [...] of sleep per night. documented in this encounterCox NorthVyinahlewe68-18-7278 Evaluation + Plan note Extracted from:Title:ED NoteAuthor:Gabriele BARNARD, JansenDate:01/31/23 Shoulder strain (S46.919A: S train of unspecified muscle, fascia and tendon at shoulder and upper arm level, unspecified arm, initial encounter) Orders: acetaminophen-hydrocodone, 1 tab(s), Tab, Oral, Once, Stop date 01/31/23 9:38:00 EDT, STAT, Start date 01/31/23 9:38:00 EDT methocarbamol, 1,500 mg = 2 tab(s), Oral, TID, X 3 day(s), # 18 tab(s), Refills(s) 0, Pharmacy: [facility]/pharmacy #[id number], 167.7, cm, 01/31/23 8:55:00 EDT, Height/Length Dosing, 91, kg, 01/31/23 8:55:00 EDT, Weight Dosing Sling Apply XR Shoulder Complete Right [facility]08[facility]27-2023 Hospital Discharge instructions Patient Education 01/31/2023 10:14:51 [...] minutes, 2 3 times a day. Take [id number] and prescription medicines only as told by [...] provider. Document Revised: 02/11/2022 Document Reviewed: 02/11/2022 [employer] Patient Education 2022 [employer]. Follow Up Care 01/31/2023 08:43:06 With:SHAIKH LASHELL Address: [address] [place] [phone] Business (1) When:02/03/2023 09:39:16 [facility]02-24-[facility]22 Hospital Discharge instructions* Instructions* Denny Morrell MD - 07/31/2021 Please use ice as needed for pain and 400 mg of ibuprofen +100 mg of Tylenol every 4-6 hours as needed for pain * Attachments The following attachments cannot be sent through Care Everywhere. * Muscle Strain (Vincentian) documented [facility] encounter[facility] Phone: evaluation note* Diagnosis Pain, dental- Primary Unspecified disorder of the teeth and supporting structures Dental caries Unspecified dental caries documented in this encounter [employer] Phone: evaluation note* Diagnosis Low back pain with sciatica, sciatica laterality unspecified, unspecified back pain laterality, unspecified chronicity- Primary [facility] Diagnosis Suspected COVID-19 virus infection- Primary documented in this encounter [employer] Phone: evaluation note* Diagnosis Cough- Primary Acute nonintractable headache, unspecified headache type documented in this encounter [employer] Phone: evaluation note* Diagnosis Muscle strain- Primary Unspecified site of sprain and strain documented in this encounter [employer] Phone: evaluation note* Diagnosis Rhomboid muscle strain, initial encounter- Primary documented in this encounter [employer] Phone: evaluation note* Diagnosis Onset Date Resolution Status Lumbar spondylosis acutePain of both sacroiliac jointsacute [facility] Work Phone: Evaluation note* Diagnosis Onset Date Resolution Status Lumbar spondylosis acutePain of both sacroiliac jointsacuteChronic painacuteLumbar radiculopathy acuteLumbosacral spondylosisacuteSacroiliitisacute [facility] Work Phone: Evaluation note* Diagnosis Lumbar radiculopathy- Primary Thoracic or lumbosacral neuritis or radiculitis, unspecified Sacroiliitis (CMS/HCC) Sacroiliitis, not elsewhere classified Paresthesia and pain of both upper extremities documented in this encounter [facility] HealthcareEvaluation note* Diagnosis Lumbar radiculopathy- Primary Thoracic or lumbosacral neuritis or radiculitis, unspecified Sacroiliitis (CMS/HCC) Sacroiliitis, not elsewhere classified Paresthesia and pain of both upper extremities documented in this encounter [facility] HealthcareEvaluation note* Diagnosis Smoker- Primary Tobacco [...] spondylosis without myelopathy documented in this encounter [facility] HealthcareEvaluation note* Diagnosis Smoker- Primary Tobacco [...] Thoracolumbar back pain documented in this encounter [facility] HealthcareEvaluation note* Diagnosis Smoker- Primary Tobacco [...] with bilateral sciatica documented in this encounter [facility] HealthcareEvaluation note* Diagnosis Chronic bilateral low back pain with bilateral sciatica Thoracolumbar back pain documented in this encounter [facility] HealthcareEvaluation note* Diagnosis Mild intermittent asthma without complication (CMS/HCC)- Primary Gastroesophageal reflux disease without esophagitis Esophageal reflux Nicotine dependence, cigarettes, uncomplicated Lumbosacral spondylosis without myelopathy Paresthesia and pain of both upper extremities Sacroiliitis (CMS/HCC) Sacroiliitis, not elsewhere classified Lumbar radiculopathy Thoracic or lumbosacral neuritis or radiculitis, unspecified Encounter for wellness examination documented in this encounter [facility] HealthcareEvaluation note* Diagnosis Chronic bilateral low back pain with bilateral sciatica Thoracolumbar back pain documented in this encounter [facility] HealthcareEvaluation note* Diagnosis Smoker- Primary Tobacco [...] esophagitis Esophageal reflux documented in this encounter [facility] HealthcareEvaluation note* Diagnosis Smoker- Primary Tobacco [...] bilateral low back pain with bilateral sciatica Chronic bilateral low back pain with bilateral sciatica documented [facility]* Diagnosis Smoker- Primary Tobacco use disorder Chronic bilateral low back pain with bilateral sciatica Gastroesophageal reflux disease without esophagitis Esophageal reflux Attention deficit hyperactivity disorder (ADHD), combined type Chronic bilateral low back pain with bilateral sciatica- Primary Chronic bilateral low back pain with bilateral sciatica- Primary Chronic bilateral low back pain with bilateral sciatica- Primary Chronic bilateral low back pain with bilateral sciatica- Primary Thoracolumbar back pain URTI (acute upper respiratory infection)- Primary Acute upper respiratory infections of unspecified site Mild intermittent asthma without complication (HCC)- Primary Gastroesophageal reflux disease without esophagitis Esophageal reflux Nicotine dependence, cigarettes, uncomplicated Lumbosacral spondylosis without myelopathy Paresthesia and pain of both upper extremities Sacroiliitis Sacroiliitis, not elsewhere classified Lumbar radiculopathy Thoracic or lumbosacral neuritis or radiculitis, unspecified Encounter for wellness examination Degeneration of inte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 and lower extremity pain- Primary Chronic bilateral low back pain with bilateral sciatica Chronic bilateral low back pain with bilateral sciatica documented [facility] encounter [facility]* Diagnosis Smoker- Primary Tobacco use disorder Chronic bilateral low back pain with bilateral sciatica Gastroesophageal reflux disease without esophagitis Esophageal reflux Attention deficit hyperactivity disorder (ADHD), combined type Chronic bilateral low back pain with bilateral sciatica- Primary Chronic bilateral low back pain with bilateral sciatica- Primary Chronic bilateral low back pain with bilateral sciatica- Primary Chronic bilateral low back pain with bilateral sciatica- Primary Thoracolumbar back pain URTI (acute upper respiratory infection)- Primary Acute upper respiratory infections of unspecified site Mild intermittent asthma without complication (HCC)- Primary Gastroesophageal reflux disease without esophagitis Esophageal reflux Nicotine dependence, cigarettes, uncomplicated Lumbosacral spondylosis without myelopathy Paresthesia and pain of both upper extremities Sacroiliitis Sacroiliitis, not elsewhere classified Lumbar radiculopathy Thoracic or lumbosacral neuritis or radiculitis, unspecified Encounter for wellness examination Degeneration of inte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 and lower extremity pain- Primary Chronic bilateral low back pain with bilateral sciatica Chronic bilateral low back pain with bilateral sciatica documented in this encounter [facility] HealthcareEvaluation [facility]* Diagnosis Smoker- Primary Tobacco use disorder Chronic bilateral low back pain with bilateral sciatica Gastroesophageal reflux disease without esophagitis Esophageal reflux Attention deficit hyperactivity disorder (ADHD), combined type Chronic bilateral low back pain with bilateral sciatica- Primary Chronic bilateral low back pain with bilateral sciatica- Primary Chronic bilateral low back pain with bilateral sciatica- Primary Chronic bilateral low back pain with bilateral sciatica- Primary Thoracolumbar back pain URTI (acute upper respiratory infection)- Primary Acute upper respiratory infections of unspecified site Mild intermittent asthma without complication (HCC)- Primary Gastroesophageal reflux disease without esophagitis Esophageal reflux Nicotine dependence, cigarettes, uncomplicated Lumbosacral spondylosis without myelopathy Paresthesia and pain of both upper extremities Sacroiliitis Sacroiliitis, not elsewhere classified Lumbar radiculopathy Thoracic or lumbosacral neuritis or radiculitis, unspecified Encounter for wellness examination Degeneration of inte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 and lower extremity pain- Primary Chronic bilateral low back pain with bilateral sciatica Chronic bilateral low back pain with bilateral sciatica documented in this encounter [facility] HealthcareHospital course Narrative No data available for this section [facility]* Attachments The following attachments cannot be sent through Care Everywhere. * Tooth and Gum Pain (Vincentian) * Tooth Decay (Vincentian) [facility] Work Phone: Hospital Discharge instructions* Attachments The following attachments cannot be sent through Care Everywhere. * Coronavirus Disease (COVID-19): Isolation (Vincentian) [facility] Discharge instructions* Instructions* Krystin Valenzuela DO - 06/30/2021 Continue to take Tylenol, and Motrin for pain control, use Tessalon Perles to help with your cough.Follow-up the results of your Covid testing. Please get rest, and increase your fluid hydration return to ER for worsening symptoms. [facility] Work Phone: Hospital Discharge instructions* Attachments The following attachments cannot be sent through Care Everywhere. * Muscle Strain (Vincentian) [facility] Work Phone: Hospital Discharge instructionsAmbulatory Orders* Referral to Pain Management Location: [facility] Work Phone: Hospital Discharge instructions No data available for this section [facility] Progress note No data available for this section [facility] (narrative)* Consultation (Routine) - AuthorizedSpecialtyDiagnoses / ProceduresReferred By Contact Referred To ContactNeurosurgery Diagnoses Low back pain with sciatica, sciatica laterality unspecified, unspecified back pain laterality, unspecified chronicity Referring, MD Sidney [address] [address] Jess Farley MD 3525 [facility] [address] [place] [id number] Referral IDStatusReasonStart DateExpiration DateVisits RequestedVisits [id number]/3/202211 [facility] Discharge Instructions * Attachments The following attachments cannot be sent through Care Everywhere. * Influenza (Vincentian) documented in this encounter* Attachments The following attachments cannot be sent through Care Everywhere. * Influenza (Vincentian) documented in this encounter* Attachments The following attachments cannot be sent through Care Everywhere. * Hand Laceration: Stitches (Vincentian) documented in this encounter Assessments Diagnosis Influenza [...] pain Pain in joint, forearm Advance Directives TypeDate RecordedPatient RepresentativeExplanationAdvance Directives and Living WillPower of AttorneyCode StatusDate ActivatedDate InactivatedCommentsFull Code 12/24/2014 2:22 AM12/24/2014 11:00 PMTypeDate RecordedPatient Double Cutter ExplanationAdvance Directives and Living WillPower of AttorneyCode StatusDate ActivatedDate InactivatedCommentsFull Code12/24/2014 2:22 AM12/24/2014 11:00 PM TypeDate RecordedPatient RepresentativeExplanationACP-Advance DirectiveACP-Power of AttorneyTypeDate RecordedPatient RepresentativeExplanationAdvance Directives and Living Will03/12/2020 12:00 AM Advance Directive Response Recorded Date/ Time Advance Directives No September 04, 2 018 3:06pm Summary Purpose Family History No Family History Records FoundNo Family History Records FoundNo Family History Records FoundNo Family History Records FoundNo Family History Records FoundNo Family History Records FoundNo Family History Records Found No data available for this section No Family History Records Found Reason for Referral StatusReasonSpecialtyDiagnoses / ProceduresReferred By ContactReferred To ContactOpenRadiology Diagnoses Lumbar pain Congenital abnormality Procedures MRI LUMBAR SPINE WO CONTRAST Jolie Gruber APRN - SENIOR IT ARCHITECT [address] [place] [address] SpecialtyDiagnoses / ProceduresReferred By ContactReferred To ContactPhysical Therapy Diagnoses Lumbosacral spondylosis without myelopathy Paresthesia and pain of both upper extremities Sacroiliitis (CMS/HCC) Lumbar radiculopathy Procedures [facility] OFFICE/OUTPATIENT NEW HIGH [facility] 60 MINUTES Olu Nation NP [address] [place] [address] Sarah Nielsen, PT Referral IDStatusReasonStart DateExpiration DateVisits RequestedVisits [id number] Specialty Services Required [id number] Chief Complaint and Reason for Visit Chief Complaint Ref burak Palafox lumbago with sciatica Reason for Visit Lumbar spondylosis Pain of both sacroiliac joints Chief Complaint Ref burak Palafox lumbago with sciatica REFF BY DR. RAKESH Ray for VisitLumbar spondylosis Pain of both sacroiliac joints Chronic pain Lumbar radiculopathy Lumbosacral spondylosis Sacroiliitis Additional Source Comments Reason for Visit (unrecogniz ed section and content) ReasonCommentsGeneralized Body Achesongoing for approx 2 daysCoughongoing for 2 daysEmesisongoing for 2 daysReasonCommentsShortness of Breathwas in ER on wednesday and diagnosed with influenza A. states now it feels hard to breathReason CommentsLacerationright pointer finger, cut on pocket knife PTAStatusReason SpecialtyDiagnoses / ProceduresReferred By ContactReferred To ContactPending ReviewRadiology Diagnoses Lumbosacral pain Lumbago with sciatica, left side Procedures HC MRI-SPINE LUMBAR WO CONTRAST Jolie Gruber APRN - SENIOR IT ARCHITECT [address] [place] [address] [facility] [address] [place] [phone] ReasonCommentsDental Painleft sided tooth eduardo, swelling notedReasonCommentsFever wants covid test complains of fever and loss of tasteCovid TestingReasonComments CoughProductive cough since yesterdayHeadachesince yesterdayReasonCommentsRib InjuryPulling injury yesterday, pain worsening sinceReasonCommentsArm Painpt states he had acupuncture today and has a lot of pain in the arm he had it done SpecialtyDiagnoses / ProceduresReferred By ContactReferred To ContactPhysical Therapy Diagnoses Lumbosacral spondylosis without myelopathy Paresthesia and pain of both upper extremities Sacroiliitis (CMS/HCC) Lumbar radiculopathy Procedures MA OFFICE/OUTPATIENT NEW HIGH [facility] 60 MINUTES Olu Nation, LETY [address] [place] [address] Sarah Nielsen, CATRINA Referral IDStatusReasonStart DateExpiration DateVisits RequestedVisits [id number] Specialty Services Required [id number] DateCommentsMed Akdekn6003/27/2024easonComments Follow-upReasonCommentsMed RefillReasonOnset DateCommentsMed Wpprzf9702/23/2024 ReasonCommentsMed RefillReasonOnset DateCommentsMed Wyyvpk7512/25/2024ReasonOnset DateCommentsMed Bovsvu9612/26/2024 (unrecognized sect ion and content) No Status Records FoundNo Status Records FoundNo Status Records FoundNo Status Records FoundNo Status Records FoundNo Status Records FoundNo Status Records FoundNo Status Records Found INFORMATION SOURCE (unrecogn ized section and content) DATE CREATED AUTHOR 04/05/2020 [facility] DATE CREATED AUTHOR AUTHOR'S ORGANIZ ATION 08/01/2021 [facility] DATE CREATED AUTHOR AUTHOR'S ORGANIZ ATION 08/16/2021 [facility] DATE CREATED AUTHOR AUTHOR'S ORGANIZ ATION 11/12/2021 [facility] DATE CREATED AUTHOR AUTHOR'S ORGANIZ ATION 03/06/2022 [facility] DATE CREATED AUTHOR AUTHOR'S ORGANIZ ATION 03/19/2024 [facility] DATE CREATED AUTHOR AUTHOR'S ORGANIZ ATION 04/14/2024 [facility] DATE CREATED AUTHOR AUTHOR'S ORGANIZ ATION 06/15/2024 [facility] Ordered Prescriptions (unrec ognized section and content) PrescriptionSigDispensedRefillsStart DateEnd Date ibuprofen (ADVIL;MOTRIN) 600 MG tablet Take 1 tablet by mouth 4 times daily as needed for Pain 30 tablet penicillin v potassium (VEETID) 500 MG tablet Take 1 tablet by mouth 4 times daily for 10 days 40 tablet rescriptionSigDispensedRefillsStart DateEnd benzonatate (TESSALON PERLES) 100 MG capsule Take 1 capsule by mouth 3 times daily as needed for Cough 30 capsule acetaminophen (TYLENOL) 325 MG tablet Take 2 tablets by mouth every 6 hours as needed for Pain 40 tablet ibuprofen (ADVIL;MOTRIN) 800 MG tablet Take 1 tablet by mouth every 6 hours as needed for Pain 20 tablet Care Teams (unrecognized sec tion and content) Team MemberRelationshipSpecialtyStart DateEnd Date Jolie Gruber, SENIOR IT ARCHITECT [address] [place] [address] [facility] - [facility] Fetckthp10/6/20Team MemberRelationshipSpecialtyStart DateEnd Date Sofie Echols MD [address] [place] [address] PCP - [facility] Medicine09/17/20Team MemberRelationshipSpecialtyStart DateEnd Date Sofie Echols MD [address] [place] [address] PCP - [facility]09/17/20Team MemberRelationshipSpecialtyStart DateEnd Date Sofie Echols MD [address] [place] [address] [facility]/17/20 Team Status: Active Member Role Status Elaine Lobo MD Primary Care Provider Active Team Status: Inactive Member Role Status Elaine Lobo MD Primary Care Provider Active Start: October 05, 2023 End: October 04Luann Díaz ProviderActiveStart: October 05, 2023 End: October 05, 2023 Team Status: Inactive Member Role Status Elaine Lobo MD Primary Care Provider Active Start: October 15, 2023 End: October 15, 2023Christiano Morfin , MDAttending ProviderActiveStart: October 15, 2023 End: October 14nilo Tinsley MDReferring ProviderActiveStart: October 15, 2023 End: October 15, 2023Team MemberRelationshipSpecialtyStart DateEnd Date Doug Anthony MD [address] [place] [address] [facility]01/26/24 Olu Nation NP [address] [place] [address] [facility]01/26/24Team MemberRelationshipSpecialtyStart DateEnd Date Doug Anthony MD [address] [place] [address] PCP - Generalmi Medicine01/26/24 Olu Nation NP [address] [place] [address] [facility]01/26/24Team MemberRelationshipSpecialtyStart DateEnd Date Doug Anthony MD [address] [place] [address] PCP - Generalmi Medicine01/26/24 Olu Nation NP [address] [place] [address] [facility] Medicine01/26/24Team MemberRelationshipSpecialtyStart DateEnd Date Doug Anthony MD [address] [place] [address] PCP - Generalmi Medicine01/26/24 Olu Nation NP [address] [place] [address] [facility]01/26/24Team MemberRelationshipSpecialtyStart DateEnd Date Doug Anthony MD [address] [place] [address] PCP - [facility]01/26/24 Olu Nation, LETY [address] [place] [address] [facility]01/26/24Team MemberRelationshipSpecialtyStart DateEnd Date Doug Anthony MD [address] [place] [address] [facility]01/26/24 Olu Nation, LETY [address] [place] [address] [facility]01/26/24Team MemberRelationshipSpecialtyStart DateEnd Date Doug Anthony MD [address] [place] [address] [facility]01/26/24 Olu Nation, LETY [address] [place] [address] [facility] Medicine01/26/24Team MemberRelationshipSpecialtyStart DateEnd Date Doug Anthony MD [address] [place] [address] [facility]01/26/24 Olu Nation NP [address] [place] [address] [facility]01/26/24Team MemberRelationshipSpecialtyStart DateEnd Date Shaikh Lobo MD [address] [place] [address] [facility] - [facility]08/05/23Team MemberRelationshipSpecialtyStart Date End Date Doug Anthony MD [address] [place] [address] [facility]01/26/24 Olu Nation NP [address] [place] [address] [facility]01/26/24Team MemberRelationshipSpecialtyStart DateEnd Date Doug Anthony MD [address] [place] [address] PCP - Generalmily Medicine01/26/24 Olu Nation NP [address] [place] [address] [facility] Medicine01/26/24Team MemberRelationshipSpecialtyStart DateEnd Date Doug Anthony MD [address] [place] [address] [facility] - [facility]01/26/24 Olu Nation NP [address] [place] [address] Nurse [facility]01/26/24Team MemberRelationshipSpecialtyStart DateEnd Date Doug Anthony MD [address] [place] [address] [facility] - [facility]01/26/24 Olu Nation, LETY [address] [place] [address] Nurse Pract[facility]01/26/24Team MemberRelationshipSpecialtyStart DateEnd Date Doug Anthony MD [address] [place] [address] [facility]01/26/24 Olu Nation NP [address] [place] [address] [facility]01/26/24Team MemberRelationshipSpecialtyStart DateEnd Date Doug Anthony MD [address] [place] [address] PCP - [facility]01/26/24 Olu Nation NP [address] [place] [address] [facility]01/26/24Team MemberRelationshipSpecialtyStart DateEnd Date Doug Anthony MD [address] [place] [phone] PCP - [facility]01/26/24 Olu Nation NP [address] [place] [address] [facility]01/26/24Team MemberRelationshipSpecialtyStart DateEnd Date Shaikh Lobo MD PCP - [facility] Doug Anthony MD PCP - [facility]01/26/24 Olu Nation NP Nurse PractitionerP[facility]01/26/24 Scheduled Active and Recently Administ ered Medications (unrecognized section and content) Medication Order/// acetaminophen (TYLENOL) tablet 1,000 mg (COMPLETED) 1,000 mg, Oral, ONCE, On Wed06/30/21 at 0430, For 1 dose * 0434 (Given - Provider: Yumi Min RN) benzonatate (TESSALON) capsule 100 mg (COMPLETED) 100 mg, Oral, ONCE, On Wed06/30/21 at 0430, For 1 dose * 0434 (Given - Provider: Yumi Min RN) ibuprofen (ADVIL;MOTRIN) tablet 800 mg (COMPLETED) 800 mg, Oral, ONCE, On 06/30/21 at 0430, For 1 dose, Do not crush or break. * 0434 (Given - Provider: Yumi Min RN) Medication Order07/29/// ketorolac (TORADOL) injection 30 mg 30 mg, IntraMUSCular, ONCE, On Radha 07/31/21 at 1945, For 1 dose * 194 (Due) lidocaine 4 % external patch 1 patch 1 patch, TransDERmal, Administer over 12 Hours, ONCE, On Radha 07/31/21 at 1945, For 1 dose, Apply patch to right anterior chest. Patch may remain in place for up to 12 hours in any 24 hour period. * 1944 (Due) Goals (unrecognized section and content) [...] BE BASED ON THE PRIMARY CLINICAL RECORDS. [employer] [facility]. provides no warranty or guarantee of the accuracy or completeness of information in this document.
--- OUTSIDE RECORDS SUMMARY | 2025-06-02 09:00 | XMS_ITS | Clinical Summary ---
Author Organization [facility] Address [address] [place] [address] Care Team Providers Care Furniture And Bedding Inspector Name Role Phone Unavailable Primary Care Provider Unavailabl e Social History Tobacco UseTypesPacks/DayYears UsedDateSmoking Tobacco: Never AssessedSex and Gender InformationValueDate RecordedSex Assigned at BirthNot on fileLegal Sex Male12/03/2021 9:26 PM EDTGender IdentityNot on fileSexual OrientationNot on file Plan of Treatment Not on file
--- OUTSIDE RECORDS SUMMARY | 2025-06-02 09:00 | XMS_ITS | Clinical Summary ---
Author Organization [facility] Address [address], [address] [place] [address] Care Team Providers Care Gear Straightener Name Role Phone Highland HomeMoises MD Primary Care Provider [phone] Allergies Active AllergyReactionsCriticalityNoted DateCommentsNo Known Yhxrzpczh67/29/2020 Medications MedicationSigDispense QuantityRefillsLast FilledStart DateEnd DateStatus omeprazole (PRILOSEC) 40 MG delayed release capsule take 1 capsule by mouth once daily 30 capsule 111ctive cloNIDine (CATAPRES) 0.1 MG tablet Take 1 tablet by mouth daily 60 tablet ctive ibuprofen (ADVIL;MOTRIN) 800 MG tablet Take 1 tablet by mouth every 6 hours as needed for Pain 20 tablet 06/30/2021ctive acetaminophen (TYLENOL) 325 MG tablet Take 2 tablets by mouth every 6 hours as needed for Pain 40 tablet 06/30/2021ctive gabapentin (NEURONTIN) 600 MG tablet Indications:Radiculopathy affecting upper extremityTake 1 tablet by mouth 6 times daily for 15 days. Take 2 pills in AM, 1 pill in afternoon, 1 pill in the evening, and 2 pills just prior to bed 90 tablet ctive gabapentin (NEURONTIN) 300 MG capsule Take 3 capsules by mouth 3 times daily for 30 days. Intended supply: 30 days 90 capsule 10/23/2021ctive gabapentin (NEURONTIN) 800 MG tablet Take 1 tablet by mouth 3 times daily for 30 days. 90 tablet 10/24/2021ctive gabapentin (NEURONTIN) 800 MG tablet Indications:Lumbar radiculopathyTake 1 tablet by mouth 3 times daily for 30 days. 90 tablet 2Active Active Problems ProblemNoted DateDiagnosed DateLumbar humlamymcoe03/23/2022Lumbosacral spondylosis without qsodfxrfvl01/23/2022DDD (degenerative disc disease), lumbar 07/30/2021Lumbar cckefbumzll61/23/4869Psgtdkoki78/29/3081Zxzwzs61/29/2020 Influenza due to influenza A virus06/04/2020Acute back pain with sciatica 05/16/2019Scapulocostal vmratphz73/10/2019Infection of tooth01/05/2019Calculus of iyoevo1601/14/2017Nicotine dependence, cigarettes, ysiuqnpzsqpec91/10/2017 Caiwyqvy77/10/2017Right testicular pain01/12/2017Closed fracture of zygomatic ktlvor0412/24/2014Edema of face12/24/2014Periorbital edema12/24/2014cid reflux 08/23/20103209Nhtlyo26/19/2011Paresthesia and pain of both upper extremitiesRight carpal tunnel syndrome Family History Medical HistoryRelationNameCommentsHeart AttackFatherKidney DiseaseMother RelationNameStatusCommentsBrotherAliveFatherDeceasedMotherDeceased Social History Tobacco UseTypesPacks/DayYears UsedDateSmoking Tobacco: Every CqgGkebsptxzi322 Started: 1999Smokeless Tobacco: Never Tobacco Cessation:Counseling Given: No Alcohol UseStandard Drinks/WeekCommentsNo0 (1 standard drink = 0.6 oz pure alcohol)Social Connection and Isolation PanelAnswerDate RecordedFrequency of Communication with Friends and FamilyMore than three times a week05/16/2019 Frequency of Social Gatherings with Friends and FamilyOnce a week05/16/2019 Attends Alevism IomyyqxuSlnts27/10/2019Active Member of Clubs or Organizations No05/16/2019Attends Club or Organization IazdzmozYghxr36/10/2019Marital Status Living with paqxpza9505/16/2019[facility] [place] [facility] Occupational Health - Occupational Stress QuestionnaireAnswerDate RecordedFeeling of StressNot at all 05/16/2019Exercise Vital SignAnswerDate RecordedDays of Exercise per Week5 days 05/16/2019Minutes of Exercise per Lmfbxya623+ min05/16/2019Hunger Vital Sign AnswerDate RecordedWorried About Running Out of Food in the Last YearNever true 05/16/2019Ran Out of Food in the Last YearNever true05/16/2019PRAPARE - TransportationAnswerDate RecordedLack of Transportation (Medical)No05/16/2019 Lack of Transportation (Non-Medical)No05/16/2019Sex and Gender InformationValue Date RecordedSex Assigned at BirthNot on fileLegal UinLmit2707/17/2012 2:38 PM EST Gender IdentityNot on fileSexual OrientationNot on file Last Filed Vital Signs Vital SignReadingTime TakenCommentsBlood Lyakofoy863/7905 11:21 AM EDT Jhjbf124710/30/2021 11:21 AM TTCSnrrkcaqpks61.5 ??C (97.7 ??F)08/18/2021 11:18 AM EDTRespiratory Vjho858608/18/2021 1:10 PM EDTOxygen Qkunzsmzzj56%10/30/2021 11:21 AM EDTInhaled Oxygen Concentration--Jdrbci394.4 kg (228 lb)08/18/2021 11:18 AM RRBPywglp907.6 cm (5' 6 )08/18/2021 11:18 AM EDTBody Mass Index36.803 11:18 AM EDT Plan of Treatment Not on file Insurance * Guarantor: Arsh Cochran TypeRelation to PatientDate of BirthPhone Billing AddressPersonal/YtvcvcHiyf1985 [address] [address] Advance Directives * Full Code (Latest Code Status on File) Date ActivatedDate InactivatedComments08/18/2021 11:09 AM08/18/2021 3:40 PM * Full Code Date ActivatedDate InactivatedComments08/06/2021 11:59 AM08/06/2021 2:02 PM * Full Code Date ActivatedDate InactivatedComments12/24/2014 2:22 AM12/24/2014 11:00 PM Care Teams Team MemberRelationshipSpecialtyStart DateEnd Date Mosies Echols MD [address] [place] [address] PCP - GeneralFamily Medicine09/17/20
--- OUTSIDE RECORDS SUMMARY | 2025-06-02 09:00 | XMS_ITS | Encounter Summary ---
Author Organization [facility] Address [address] [place] [address] Care Team Providers Care Sr Risk Management Consultant Name Role Phone Shruthi Christianson CNP Primary Care Provider Encounter Details DateTypeDepartmentCare Team (Latest Contact Info)Pvaxaxniqkf04/20/2025Travel Social History Tobacco UseTypesPacks/DayYears UsedDateSmoking Tobacco: Never AssessedSex and Gender InformationValueDate RecordedSex Assigned at BirthNot on fileLegal Sex Male03/12/2020 9:38 AM EDTGender IdentityNot on fileSexual OrientationNot on filedocumented as of this encounter Plan of Treatment Not on file documented as of this encounter Visit Diagnoses Not on filedocumented in this encounter Care Teams Team MemberRelationshipSpecialtyStart DateEnd Date Shruthi Christianson CNP [address] [place] [address] PCP - GeneralFamily Wqrjixxf45/6/20documented as of this encounter
--- OUTSIDE RECORDS SUMMARY | 2025-06-02 09:00 | XMS_ITS | Clinical Summary ---
Author Organization [facility] Address [address] [place] [address] Care Team Providers Care Head Boys Tennis Coach Name Role Phone Doug Anthony MD Primary Care Provider [phone] Radha Nation NP Unavailable [phone] Allergies No known active allergies Medications MedicationSigDispense QuantityRefillsLast FilledStart DateEnd DateStatus albuterol HFA 90 mcg/act inhaler Inhale 2 puffs every 6 (six) hours if needed for wheezing or shortness of breath 3Active cloNIDine (Catapres) 0.1 MG tablet Take 0.1 mg by mouth at bfrdrco73/21/2023Active cyclobenzaprine (Flexeril) 10 MG tablet Indications:Chronic bilateral low back pain with bilateral sciatica, Thoracolumbar back painTake 1 tablet (10 mg) by mouth in the morning and 1 tablet (10 mg) in the evening and 1 tablet (10 mg) before bedtime. 90 tablet 4Active Additional Information Patient taking differently:10 mg Oral3 times daily PRN, Reported on 05/10/2024 omeprazole (PriLOSEC) [address] capsule Indications:Gastro-esophageal reflux disease without esophagitis,Esophageal refluxTAKE 1 CAPSULE BY MOUTH ONCE EVERY MORNING BEFORE MEALS 90 capsule 5Active gabapentin (Neurontin) 800 MG tablet Indications:Chronic bilateral low back pain with bilateral sciaticaTAKE 1 TABLET BY MOUTH IN THE MORNING, EVENING AND BEFORE BEDTIME 90 tablet 5Active Active Problems ProblemNoted DateDiagnosed DateEncounter for wellness ibpfmqmvcjz98/04/2024 Chronic, continuous use of mimxfyz1302/09/2024 Overview (02/09/2024): CSA signed. Drug screen ordered. OARRS reviewed. Previous note from Dr. Lobo states NS referred pt to PM- but pot states he has never seen PM. Will call NS to clarify.) Lumbar ilsljkzscrqnt77/10/2024 Assessment & Plan (02/09/2024 1:58 PM EDT): Seeing Dr. [facility]. Will be doing PT May be having surgery. Will check with Neuro regarding Gabapentin and Roxicodone management moving forward. {Previous note from Dr. Lobo states NS referred pt to PM- but pot states he has never seen PM. Will call NS to clarify.) Pain of both sacroiliac oasvpx6411/15/20235534Awzhqllewmac17/10/2024URTI (acute upper respiratory infection)11/15/2023 Assessment & Plan (11/15/2023 1:57 PM EDT): Patient reports cough, sore throat, ear ache, and mild SOB with wheezing. Exam c/w asthma exacerbation (hx of intermittent asthma), pharyngitis Will treat with Po prednisone, Augmentin, bezonatate and Albuterol as needed. Pt instructed to go to ED if worsening symptoms and no improvement Thoracolumbar back pain10/06/2023 Assessment & Plan (10/06/2023 1:53 PM EDT): Reports intermittent painful thoracic muscle spasms. Switched to Flexeril from robaxin. Trial of prednisone as it helped in the beginning when he originally presented to office with back pain Paresthesia and pain of both upper /29/2024ight carpal tunnel meyznxld78/29/1995Cvhjtf95/29/2024 Assessment & Plan (08/05/2023 12:24 PM EST): Smoking less than a pack. Not interested in quitting. Chronic bilateral low back pain with bilateral lebvdiwi07/29/2024 Assessment & Plan (10/06/2023 1:52 PM EDT): Chronic low back pain, acutely worsened x3 months after he lifted his dog. He reports persistent pain, worse with any movement miguel on standing up and ambulation. MRI of LS spine shows Broad-based posterior central left paracentral and foraminal disc herniation of the protrusion type extending up to 3 mm posteriorly. His pain is reasonably controlled on Oxycodone. Seen by NS 10/04 - pain felt to be from sacro iliac joint and was referred to Pain Clinic. Awaiting call for an appointment. C/w Oxycodone for now. Switched to flexeril from Robaxin. Order PT eval and rx. Assessment & Plan (09/06/2023 1:50 PM EDT): Chronic low back pain, acutely worsened x2 months after he lifted his dog. He reports persistent pain, worse with any movement miguel on standing up and ambulation. On exam - weakness noted in L3-5 nerve roots on left side. Weak knee extension, ankle dorsiflexion. He has prior hx of HND - MRI in 2020 - Broad-based disc bulge with more focal left foraminal protrusion. Moderate bilateral neural foraminal stenosis, left greater than right secondary to disc osteophyte complex and facet arthropathy. For acute pain control - he was prescribed in Prednisone, Robaxin, Oxycodone. MRI of LS spine shows Broad-based posterior central left paracentral and foraminal disc herniation of the protrusion type extending up to 3 mm posteriorly. He was referred to NS and has an appointment on 09/16/23 Will prescribe Oxycodone 5 TID as needed for pain. Pain contract signed. Patient educated on safe use of narcotics, potential of abuse and addiction. Assessment & Plan (08/25/2023 9:51 AM EDT): Chronic low back pain, acutely worsened x 3-4 weeks ago after he lifted his dog. He could not even walk for 2 days because of it. He reports persistent pain, worse with any movement miguel on standing up and ambulation. Sitting makes it bearable. His pain is worse from before. On exam - weakness noted in L3-5 nerve roots on left side. Weak knee extension, ankle dorsiflexion. He has prior hx of HND - MRI in 2020 - Broad-based disc bulge with more focal left foraminal protrusion. Moderate bilateral neural foraminal stenosis, left greater than right secondary to disc osteophyte complex and facet arthropathy. For acute pain control - he was prescribed in Prednisone, Robaxin, Oxycodone. MRI of LS spine shows Broad-based posterior central left paracentral and foraminal disc herniation of the protrusion type extending up to 3 mm posteriorly. Will refer to NS for their recommendation Assessment & Plan (08/23/2023 3:10 PM EDT): Chronic low back pain, acutely worsened x 3-4 weeks ago after he lifted his dog. He could not even walk for 2 days because of it. He reports persistent pain, worse with any movement miguel on standing up and ambulation. Sitting makes it bearable. His pain is worse from before. On exam - weakness noted in L3-5 nerve roots on left side. Weak knee extension, ankle dorsiflexion. He has prior hx of HND - MRI in 2020 - Broad-based disc bulge with more focal left foraminal protrusion. Moderate bilateral neural foraminal stenosis, left greater than right secondary to disc osteophyte complex and facet arthropathy. For acute pain control - he was prescribed in Prednisone, Robaxin, Oxycodone. I will call in Oxycodone for him as he has poorly controlled pain. MRI ordered last appointment, was approved last week and patient reports that nobody called him to set it up. Assessment & Plan (08/05/2023 12:32 PM EST): Chronic low back pain, acutely worsened x 1 week ago after he lifted his dog. He could not even walk for 2 days because of it. He reports persistent pain, worse with any movement miguel on standing up and ambulation. Sitting makes it bearable. On exam - weakness noted in L3-5 nerve roots on left side. Weak knee extension, ankle dorsiflexion. He has prior hx of HND - MRI in 2020 - Broad-based disc bulge with more focal left foraminal protrusion. Moderate bilateral neural foraminal stenosis, left greater than right secondary to disc osteophyte complex and facet arthropathy. He is on gabapentin and it helps. But not quite get rid of his symptoms. Due to his symptoms, abnormal neurological exam, prior hx of disc herniation - it is medically necessary to get an MRI of lumbar spine to r/o worsening nerve compression that may require surgical intervention. For acute pain control - I will call in Prednisone, Robaxin, Oxycodone for him. He can continue to use gabapentin and motrin. Patient educated on safe use of opioids and counseled on potential for abuse, addiction. Patient counseled and educated on adverse effects, drug interactions and to reach out to office/pharmacy if questions or concerns related to new medications. Patient instructed to go to ED if he develops worsening weakness, numbness or fecal/urinary incontinene Gastroesophageal reflux disease without kllwwdxyjfw44/29/2024 Assessment & Plan (02/09/2024 4:28 PM EDT): Currently taking Omeprazole. Feels symptoms are well controlled. Continue current regimen. Assessment & Plan (08/05/2023 11:53 AM EST): On Omeprazole, symptoms well controlled on it. Attention deficit hyperactivity disorder (ADHD), combined type08/05/2023 Assessment & Plan (08/05/2023 12:30 PM EST): Symptoms controlled with clonidine at night. DDD (degenerative disc disease), alvgtg5907/30/2021 Assessment & Plan (05/10/2024 3:30 PM EST): Pt reports he followed with PM and [...] they requireof him. Referral sent to PM. Lumbosacral spondylosis without /23/2022Mild intermittent asthma without hhhgxruoagwg21/29/2020 Assessment & Plan (02/09/2024 2:01 PM EDT): Feels symptoms are well controlled. Is using rescue inhaler 1-2 times per week at most. Continue current regimen. Nicotine dependence, cigarettes, fbbkngqfqowie74/10/2017 Assessment & Plan (02/09/2024 4:27 PM EDT): Pt counseled on smoking cessation and the hazardous risks associated with tobacco use. Pt declines cessation at this time. Acid aruemb8808/23/2010 Immunizations ImmunizationAdministration DatesNext BklXTO6007/28/2000 Family History Medical HistoryRelationNameCommentsHeart diseaseFatherKidney diseaseMother RelationNameStatusCommentsFatherDeceasedMotherDeceased Social History Tobacco UseTypesPacks/DayYears UsedDateSmoking Tobacco: Every IomNkuzfuszta221 Passive Smoke Exposure: CurrentSmokeless Tobacco: Never Tobacco Cessation:Ready to Q uit: Not Asked; Counseling Given: Not Answered Alcohol UseStandard Drinks/WeekCommentsNever0 (1 standard drink = 0.6 oz pure alcohol)PHQ-2AnswerDate RecordedPatient Health Questionnaire-2 Cvfko577 Sex and Gender InformationValueDate RecordedSex Assigned at BirthNot on file Legal KvnNosl7108/19/2022 7:22 PM EDTGender IdentityNot on fileSexual Orientation Not on file Last Filed Vital Signs Vital SignReadingTime TakenCommentsBlood Csjtyaux367/7605/10/2024 2:02 PM EST Geyiu959905/10/2024 2:02 PM NATKpkmbhginhj02.8 ??C (96.5 ??F)05/10/2024 2:02 PM ESTRespiratory Geig986007/11/2023 2:02 PM ESTOxygen Ofcyjtflxe73%05/10/2024 2:02 PM ESTInhaled Oxygen Concentration--Qwalmo31.5 kg (199 lb 9.6 oz)05/10/2024 2:02 PM DWNZmotmt612.2 cm (5' 7 )05/10/2024 2:02 PM ESTBody Mass Index31.26107/11/2023 2:02 PM EST Plan of Treatment Not on file Insurance Care Teams Team MemberRelationshipSpecialtyStart DateEnd Date Doug Anthony MD PCP - GeneralFamily Medicine01/26/24 Radha Nation NP Nurse PractitionerFamily Medicine01/26/24
--- OUTSIDE RECORDS SUMMARY | 2025-06-02 09:00 | XMS_ITS | Clinical Summary ---
Author Organization [facility] Address [address] [place] [address] Care Team Providers Care Siphon Operator Name Role Phone Shruthi Christianson [facility] Primary Care Provider Allergies No known active allergies Encounters DateTypeDepartmentCare AalvFhnkysexrwe97/20/2025 5:44 PM EST - 05/27/2025 7:08 AM [facility] Emergency Department [address] [place], [place] [id number] Perez Patel MD Discharge Disposition: Home05/26/2025Travelfrom Last 3 Months Social History Tobacco UseTypesPacks/DayYears UsedDateSmoking Tobacco: Never AssessedSex and Gender InformationValueDate RecordedSex Assigned at BirthNot on fileLegal Sex Male03/12/2020 9:38 AM EDTGender IdentityNot on fileSexual OrientationNot on file Last Filed Vital Signs Vital SignReadingTime TakenCommentsBlood Qdqibewt598/5805/27/2025 12:59 AM EST Lyusz96645/21/2025 12:59 AM FCYXqqceistxmj07.2 ??C (99 ??F)05/26/2025 5:44 PM ESTRespiratory Vidl082707/28/2024 12:59 AM ESTOxygen Rzqvzsbube53%05/27/2025 12:59 AM ESTInhaled Oxygen Concentration--Vbbivh92.7 kg (200 lb)05/26/2025 5:44 PM EST Thwapo367.2 cm (5' 7 )05/26/2025 5:44 PM ESTBody Mass Index31.32107/27/2024 5:44 PM EST Plan of Treatment Health MaintenanceDue DateLast DoneCommentsWellness Visit1989Depression Screening/Follow-Up (PHQ-2/9)1998Varicella Vaccines (1 of 2 - 13+ 2-dose series)1999HIV Lltmrreec12/09/2001Hepatitis C Ghgnvmind75/09/2004Hepatitis B Vaccines (1 of 3 - 19+ 3-dose series)2005Pneumococcal Vaccine (1 of 2 - PCV)2005Tetanus/Diphtheria/Pertussis (1 - Tdap)2005COVID-19 Vaccine (1 - season)2025Influenza Vaccine (#1)2025Zoster Vaccines (1 of 2)2036RSV Vaccines (1 - 1-dose 75+ series)2061HIB VaccinesAged OutNo longer eligible based on patient's age to complete this topicHPV Vaccines (No Doses Required)CompletedHepatitis A VaccinesAged OutNo longer eligible based on patient's age to complete this topicIPV VaccinesAged OutNo longer eligible based on patient's age to complete this topicMeningococcal ACWY VaccineAged Out No longer eligible based on patient's age to complete this topicMeningococcal B VaccineAged OutNo longer eligible based on patient's age to complete this topic Rotavirus VaccinesAged OutNo longer eligible based on patient's age to complete this topic Procedures Procedure NamePriorityDate/TimeAssociated WshfnbwnuTfedgslnYFW02/21/2025 8:25 PM ESTCBC WITH AUTO IGNLBCMGWJDXONZA06/20/2025 6:07 PM EST BLOOD GAS, WSTBNZUtntwri36/20/2025 6:07 PM EST OBTAIN VENOUS BLOOD GASES AND UAGJDHHTZNZ54/20/2025 6:07 PM ESTALCOHOL, MEDICAL STAT107/27/2024 6:07 PM EST COMPREHENSIVE METABOLIC YOEDCOMPJ88/20/2025 6:07 PM EST CBC AND ECRJZIFRDWYUEAIN95/20/2025 6:07 PM EST ECG 12-KHILSOPK65/20/2025 5:52 PM EST POC GLUCOSE - LPIWKwwgbka23/20/2025 5:46 PM EST from Last 3 Months Results * EKG (05/27/2025 8:25 PM EST)Specimen (Source)Anatomical Location / Laterality Collection Method / VolumeCollection TimeReceived Time Narrative Authorizing ProviderResult TypeResult StatusPerez Patel MDSCANNED ORDERSFinal Result * Obtain venous blood gases and perform (05/26/2025 6:07 PM EST)Specimen (Source)Anatomical Location / LateralityCollection Method / VolumeCollection TimeReceived TimeBloodBLOOD SPECIMEN / UnknownVenipuncture / Pcvuucs7405/26/2025 6:07 PM EST05/26/2025 6:07 PM EST Narrative Authorizing ProviderResult TypeResult StatusPerez Patel MDLAB BLOOD ORDERABLESFinal ResultPerforming OrganizationAddressCity/State/[facility] CodePhone Number [facility] [address] [place] [phone] * CBC Auto Differential (05/26/2025 6:07 PM EST)ComponentValueRef RangeTest MethodAnalysis TimePerformed AtPathologist SignatureWBC7.454.50 - 11.00 K/mcL 05/26/2025 6:11 PM ESTH LABRBC5.004.50 - 5.90 M/mcL05/26/2025 6:11 PM [facility] BIRLilppiexzq96.413.5 - 17.5 g/dL05/26/2025 6:11 PM [facility] DZHSixcohlzjp64.1 41.0 - 53.0 %05/26/2025 6:11 PM [facility] KAJNHI71.280.0 - 100.0 fL05/26/2025 6:11 PM [facility] TCPCEO13.826.0 - 34.0 pg05/26/2025 6:11 PM [facility] XNNYIOJ75.1 31.0 - 37.0 g/dL05/26/2025 6:11 PM [facility] HKRDzvjtgmum829965 - 400 K/mcL 05/26/2025 6:11 PM [facility] LABRDW - CV13.611.6 - 14.8 %05/26/2025 6:11 PM EST [facility] VHSZPX16.99.4 - 12.4 fL05/26/2025 6:11 PM [facility] UNIAbbxzsxzihq53.6% 05/26/2025 6:11 PM [facility] CGNWsjyhouxqie24.9%05/26/2025 6:11 PM [facility] Monocytes5.4%05/26/2025 6:11 PM [facility] LABEosinophils0.7%05/26/2025 6:11 PM [facility] LABBasophils0.1%05/26/2025 6:11 PM [facility] LABIG Percent0.30%05/26/2025 6:11 PM [facility] LABComment:The IG parameter is the percentage of metamyelocytes, myelocytes and promyelocytes. An immature granulocyte count (IG) of 1% or more suggests the possibility of infection, an IG count of 3% is very likely related to an infection.Neutrophils Abs4.371.70 - 7.00 K/mcL 05/26/2025 6:11 PM [facility] LABLymphocytes Abs2.600.90 - 4.00 K/[facility]05/26/2025 6:11 PM [facility] LABMonocytes Abs0.400.30 - 0.90 K/[facility]05/26/2025 6:11 PM [facility] LABEosinophils Abs0.050.00 - 0.50 K/[facility]05/26/2025 6:11 PM [facility] LABBasophils Abs0.010.00 - 0.30 K/[facility]05/26/2025 6:11 PM [facility]IG Absolute0.020.00 - 0.30 K/[facility]05/26/2025 6:11 PM [facility] LABNucleated RBC0.0%05/26/2025 6:11 PM [facility] LABNucleated RBC Abs0.000.00 - 0.00 K/[facility]05/26/2025 6:11 PM [facility] Specimen (Source)Anatomical Location / LateralityCollection Method / Volume Collection TimeReceived TimeBloodBLOOD SPECIMEN / UnknownVenipuncture / Xfdcruu4805/26/2025 6:07 PM EST05/26/2025 6:07 PM EST Narrative Authorizing ProviderResult TypeResult StatusClusman STORM BLOOD ORDERABLESFinal ResultPerforming OrganizationAddressCity/State/ZIP CodePhone Number [facility] [address] [place] [address] * (ABNORMAL) Blood Gas, Venous (05/26/2025 6:07 PM EST)ComponentValueRef Range Test MethodAnalysis TimePerformed AtPathologist SignaturepH, Venous7.30(L)7.32 - 7.42107/27/2024 6:11 PM ESTHMH LABpCO2, Ven55.0(H)41.0 - 51.0 mm Hg05/26/2025 6:11 PM ESTHMH LABpO2, Ven18(L)25 - 40 mm Hg05/26/2025 6:11 PM ESTHMH LABHCO3, Ven21.9(L)24.0 - 28.0 mmol/L107/27/2024 6:11 PM ESTHMH LABBase Excess, Ven0.3- 2.0 - 2.0 mmol/L107/27/2024 6:11 PM ESTHMH LABO2 Sat, Ven29.2(L)40.0 - 70.0 % 05/26/2025 6:11 PM ESTHMH LABSpecimen (Source)Anatomical Location / Laterality Collection Method / VolumeCollection TimeReceived TimeBloodBLOOD SPECIMEN / UnknownVenipuncture / Jesachp3305/26/2025 6:07 PM EST05/26/2025 6:07 PM EST Narrative Authorizing ProviderResult TypeResult StatusPerez STORM BLOOD ORDERABLESFinal ResultPerforming OrganizationAddressCity/State/ZIP CodePhone Number [facility] [address] [place] [address] * (ABNORMAL) Alcohol, Medical (05/26/2025 6:07 PM EST)ComponentValueRef Range Test MethodAnalysis TimePerformed AtPathologist SignatureAlcohol (Medical)16.4 (H)<10.0 mg/dL05/26/2025 6:31 PM ESTHMH LABSpecimen (Source)Anatomical Location / LateralityCollection Method / VolumeCollection TimeReceived Time BloodBLOOD SPECIMEN / UnknownVenipuncture / Krfprii7605/26/2025 6:07 PM EST 05/26/2025 6:07 PM EST Narrative Authorizing ProviderResult TypeResult StatusCliftdiana STORM BLOOD ORDERABLESFinal ResultPerforming OrganizationAddressCity/State/ZIP CodePhone Number [facility] [address] [place] [address] * (ABNORMAL) Comprehensive Metabolic Panel (05/26/2025 6:07 PM EST)Component ValueRef RangeTest MethodAnalysis TimePerformed AtPathologist SignatureSodium 076156 - 145 mmol/L107/27/2024 6:31 PM ESTHMH LABPotassium3.3(L)3.5 - 5.1 mmol/L107/27/2024 6:31 PM ESTHMH KQELoijfagb6848 - 108 mmol/L107/27/2024 6:31 PM ESTHMH UABEounyohfsew2286 - 32 mmol/L107/27/2024 6:31 PM ESTHMH LABAnion Gap16 10 - 20 mmol/L107/27/2024 6:31 PM ESTHMH KTOIotjpfb416(H)65 - 99 mg/dL 05/26/2025 6:31 PM ESTHMH KUOJUK66 - 25 mg/dL05/26/2025 6:31 PM ESTHMH LAB Creatinine0.990.50 - 1.30 mg/dL05/26/2025 6:31 PM ESTHMH KSAmOHK93>=60 mL/min/1.73 m205/26/2025 6:31 PM ESTHMH LABComment:Estimated GFR was calculated using the 2020 CKD-EPI creatinine equation.BUN/Creatinine Ratio8.1 (L)10.0 - 20.012 6:31 PM ESTHMH LABTotal Protein7.46.0 - 8.0 g/dL 05/26/2025 6:31 PM ESTHMH LABAlbumin4.43.2 - 5.2 g/dL05/26/2025 6:31 PM ESTHMH LABCalcium9.18.4 - 10.2 mg/dL05/26/2025 6:31 PM ESTHMH LABAlkaline Phosphatase 54295 - 140 U/L107/27/2024 6:31 PM ESTHMH DFQVIQ107-69 U/L U/L107/27/2024 6:31 PM [facility] CSYKBZ377-12 U/L U/L107/27/2024 6:31 PM [facility] LABTotal Bilirubin0.5 0.0 - 1.3 mg/dL05/26/2025 6:31 PM [facility] LABSpecimen (Source)Anatomical Location / LateralityCollection Method / VolumeCollection TimeReceived Time BloodBLOOD SPECIMEN / UnknownVenipuncture / Ryucgli3705/26/2025 6:07 PM EST 05/26/2025 6:07 PM EST Narrative [facility] - 05/26/2025 6:31 PM EST [facility] Laboratory Services has implemented the eGFR calculation approach that does not have a coefficient for race that conforms to the NKF-ASN Task Force Recommendations. Authorizing ProviderResult TypeResult StatusClusman STORM BLOOD ORDERABLESFinal ResultPerforming OrganizationAddressCity/State/ZIP CodePhone Number [facility] [address] [place] [address] * EKG 12-lead (05/26/2025 5:52 PM EST)ComponentValueRef RangeTest MethodAnalysis TimePerformed AtPathologist SignatureVentricular Ylpl279KPAXDDTFpcowz Xtjl643 BPMMUSEP-R Jkldvcip720tmYJXGQOP Chewxpkj599yqGAMKU-F Avdyaopk687zzNXNUHFW Calculation (Bezet)514msMUSEP Ivli21trnbognJBHMN Nbpf34antizkhWVNQX Axis59 degreesMUSESpecimen (Source)Anatomical Location / LateralityCollection Method / VolumeCollection TimeReceived Time05/26/2025 5:52 PM EST05/27/2025 11:32 AM EST Narrative MUSE - 05/27/2025 11:32 AM EST Sinus tachycardia Prolonged QT Abnormal ECG Confirmed by Guillaume Harris MD ([id number]) on 05/27/2025 11:32:36 AM Authorizing ProviderResult TypeResult StatusPerez EWINGG ORDERABLESFinal ResultPerforming OrganizationAddressCity/State/ZIP CodePhone Number MUSE * (ABNORMAL) POC Glucose (05/26/2025 5:46 PM EST)ComponentValueRef RangeTest MethodAnalysis TimePerformed AtPathologist DmqmeonkyHzbvjan326(H)65 - 99 mg/dL 05/26/2025 5:47 PM [facility] LABSpecimen (Source)Anatomical Location / Laterality Collection Method / VolumeCollection TimeReceived TimeBloodBLOOD SPECIMEN / Hhyfuwl5905/26/2025 5:46 PM EST05/26/2025 5:47 PM EST Narrative Authorizing ProviderResult TypeResult StatusYork Hospital-[facility] Emergency ServicesPOCT ORDERABLES - DEVICEFinal ResultPerforming OrganizationAddressCity/State/ZIP Code Phone Number [facility] [address] [place] [address] from Last 3 Months Insurance * Guarantor: Arsh CochranAccount TypeRelation to PatientDate of BirthPhoneBilling AddressPersonal/GsrhwzSwzc1985 [address] [address] Care Teams Team MemberRelationshipSpecialtyStart DateEnd Date Shruthi Christianson, [address] [place] [address] PCP - GeneralFamily Tzzjhcph27/6/20
[2025-06-02] MEDS: 0.9 % SODIUM CHLORIDE 1,000 ML 1000 ML IV (10:19)
[2025-06-02 10:23] LABS: ABG PCO2 45.8 mmHg (35.0-45.0); Allen Test POSITIVE (POSITIVE); HCO3 ABG 25.5 mmol/L (22.0-26.0); Liters per Minute 15; O2 Mode NRB; Oxygen Saturation ABG 94.4 %; PO2 ABG 72.3 mmHg (80.0-100.0); Puncture Site LR
[2025-06-02 10:26] LABS: Hematocrit 41.4 % (42.0-54.0); Hemoglobin 14.1 g/dL (14.0-18.0); Immature Granulocytes Abs Auto 0.03 10^3/uL (0.00-0.03); Immature Granulocytes Pct Auto 0.3 % (0.0-0.5); Lymphocytes Absolute Auto 1.0 10^3/uL (1.2-3.8); Mean Corpuscular HGB Conc 34.1 g/dL (29.9-35.2); Mean Corpuscular Hemoglobin 31.3 pg (25.9-34.0); Mean Corpuscular Volume 91.8 fL (80.0-94.0); Platelet Count 216 10^3/uL (150-450); Red Blood Count 4.51 10^6/uL (4.70-6.10); White Blood Count 10.1 10^3/uL (4.0-11.0)
[2025-06-02 10:46] LABS: Alanine Aminotransferase 79 U/L (16-63); Albumin Globulin Ratio 0.8; Albumin Level 3.4 g/dL (3.4-5.0); Alkaline Phosphatase 124 U/L (46-116); Anion Gap 12.6; Aspartate Amino Transferase 69 U/L (15-37); Blood Urea Nitrogen 7.0 mg/dL (7.0-18.0); Calcium 9.1 mg/dL (8.5-10.1); Carbon Dioxide 30.3 mmol/L (21.0-32.0); Chloride 105 mmol/L (98-107); Estimated GFR (African America >60 (>=60 mL/min/1.73m^2); Estimated GFR (Non-African Ame >60 (>=60 mL/min/1.73m^2); Globulin 4.4 g/dL; Glucose 81 mg/dL (74-106); Potassium 3.9 mmol/L (3.5-5.1); Sodium 144 mmol/L (136-145); Total Protein 7.8 g/dL (6.4-8.2)
== END 2025-06-02 10:55 | disposition left against medical advice (07) ==
PROVIDERS: Emergency Provider Student in an Organized Health Care Education/Training Program
DX: T40.601A Poisoning by unspecified narcotics, accidental (unintentional), initial encounter (principal); R09.02 Hypoxemia; J69.0 Pneumonitis due to inhalation of food and vomit; Z53.29 Procedure and treatment not carried out because of patient's decision for other reasons
CPT/HCPCS: 36415; 36600; 71045; 80053; 82805; 85025; 93005; 96374; 96376; 99285; J2405